=== PATIENT | male | born 1930 | race Hispanic/Latino ===

== ENCOUNTER 2016-08-24 13:38 | Inpatient (IN) | payer MEDICARE ==
[2016-08-24 13:38] VITALS: BMI 29.0
--- NOTE | 2016-08-24 13:58 | ED PDOC ---
HPI: General Adult Time Seen by Provider: 08/24/16 13:50 Chief Complaint (Nursing): Dizziness/Lightheaded Chief Complaint (Provider): low blood pressure History Per: Patient History/Exam Limitations: no limitations Additional Complaint(s): 86yo male taking Plavix brought to the ED for hypotension. Patient usually has hypertension however for 3 days his blood pressure has been low. Patient states he has dizziness, when walking short distances and decreased appetite. No chest pain, shortness of breath. Patient also looks pale. Daughter feels patient has lethargy. 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 - Surgical History Surgical History: Carotid Endarterectomy, Cholecystectomy, Coronary Stent - Family History Family History: States: Unknown Family Hx - Immunization History Hx Tetanus Toxoid Vaccination: No Hx Influenza Vaccination: Yes Hx Pneumococcal Vaccination: No - Home Medications Home Medications: Ambulatory Orders Medication Instructions Recorded Clopidogrel [Plavix] 75 mg PO DAILY 10/03/14 Aspirin [Aspirin Chewable] 81 mg PO DAILY 03/14/16 Fish Oil/Dha/Epa [Fish Oil 1,200 1,200 mg PO DAILY 03/14/16 mg Fish Oil] Cyanocobalamin (Vitamin B-12) 2,500 mcg PO DAILY 05/02/16 [Vitamin B12] Ferrous Sulfate 1 tab PO DAILY 05/02/16 Pantoprazole Sodium [Protonix] 1 tab PO DAILY 05/02/16 Furosemide [Lasix] 20 mg PO DAILY 07/24/16 Potassium Chloride [Klor-Con 10] 1 tab PO DAILY 07/24/16 Pravastatin Sodium [Pravachol] 40 mg PO HS 07/24/16 Finasteride [Proscar] 5 mg PO DAILY #30 tab 07/28/16 Valsartan [Diovan] 160 mg PO DAILY #30 tab 07/28/16 - Allergies Allergies/Adverse Reactions: Allergies Allergy/AdvReac Type Severity Reaction Status Date / Time No Known Allergies Allergy Verified 08/24/16 13:40 Review of Systems ROS Statement: Except As Marked, All Systems Reviewed And Found Negative Constitutional: Positive for: Other (decreased appetite) Cardiovascular: Negative for: Chest Pain Respiratory: Negative for: Shortness of Breath Neurological: Positive for: Dizziness Physical Exam - Physical Exam Skin: Positive for: Pallor - Laboratory Results Result Diagrams: 08/24/16 14:20 08/24/16 14:20 - ECG O2 Sat by Pulse Oximetry: 99 Medical Decision Making Medical Decision Makin Impression: anemia Plan: Disposition - Clinical Impression Clinical Impression: Renal insufficiency, Orthostatic hypotension, Dehydration - Patient ED Disposition Is Patient to be Admitted: Yes - Disposition Disposition Time: 15:30 Condition: FAIR - Pt Status Changed To: Hospital Disposition Of: Inpatient - Admit Certification Admit to Inpatient:: After my assessment, the patient will require hospitalization for at least two midnights. This is because of the severity of symptoms shown, intensity of services needed, and/or the medical risk in this patient being treated as an outpatient. - POA Present On Arrival: None Additional Comments - Additional Comments Additional Comments: Scribe Attestation: Documented by Roberto Noel acting as a scribe for Sukumar Moon MD Provider Scribe Attestation: All medical record entries made by the Scribe were at my direction and personally dictated by me. I have reviewed the chart and agree that the record accurately reflects my personal performance of the history, physical exam, medical decision making, and the department course for this patient. I have also personally directed, reviewed, and agree with the discharge instructions and disposition.
[2016-08-24] MEDS ORDERED: Sodium Chloride 0.9% 1,000 ML IV STA (14:05)
[2016-08-24 14:30] LABS: BASO # 0.1 K/uL (0.0-0.2); BASO % 0.7 % (0.0-2.0); EOS # 0.4 K/uL (0.0-0.7); EOS % 4.6 % (0.0-4.0); HEMATOCRIT 28.6 % (35.0-51.0); LYMPH # 2.5 K/uL (1.0-4.3); LYMPH % 30.9 % (20.0-40.0); MEAN CELL VOLUME 83.8 fl (80.0-94.0); MEAN CORPUSCULAR HEMOGLOBIN 26.7 pg (27.0-31.0); MEAN CORPUSCULAR HGB CONC 31.8 g/dL (33.0-37.0); MEAN PLATELET VOLUME 8.6 fl (7.2-11.7); MONO # 0.5 K/uL (0.0-0.8); MONO % 6.4 % (0.0-10.0); NEUT # 4.6 K/uL (1.8-7.0); NEUT % 57.4 % (50.0-75.0); NRBC % 0.1 % (0.0-0.0); WHITE BLOOD COUNT 7.9 K/uL (4.8-10.8)
[2016-08-24 14:44] LABS: ALB/GLOB RATIO 1.1 (1.0-2.1); BILIRUBIN,TOTAL 0.4 mg/dl (0.2-1.3)
--- NOTE | 2016-08-24 15:28 | RAD ---
HISTORY: dizziness COMPARISON: 07/24/2016 TECHNIQUE: Chest PA and lateral FINDINGS: LUNGS: No infiltrate. Two adjacent calcified granulomas at the left lung base, 1 large in 1 small. Calcified granuloma inferior to left hilum. These are all unchanged compared to prior examinations. PLEURA: No significant pleural effusion identified. No pneumothorax apparent. CARDIOVASCULAR: Normal. OSSEOUS STRUCTURES: No significant abnormalities. VISUALIZED UPPER ABDOMEN: Normal. OTHER FINDINGS: None. IMPRESSION: No acute infiltrate. Calcified old granulomas.
[2016-08-25] MEDS: Pravastatin Sodium 40 MG TAB PO SCH ×2 (01:00→21:22)
[2016-08-25] MEDS: Dextrose 5%/0.45% NS 1,000 ML IV SCH ×3 (01:02→18:55)
[2016-08-25 07:59] LABS: HEMATOCRIT 27.6 % (35.0-51.0); MEAN CELL VOLUME 83.4 fl (80.0-94.0); MEAN CORPUSCULAR HEMOGLOBIN 26.7 pg (27.0-31.0); MEAN CORPUSCULAR HGB CONC 32.1 g/dL (33.0-37.0); RED CELL DISTRIBUTION WIDTH 17.8 % (11.5-14.5)
[2016-08-25 08:23] LABS: ALB/GLOB RATIO 1.1 (1.0-2.1); BILIRUBIN,TOTAL 0.3 mg/dl (0.2-1.3); CALCIUM 8.8 mg/dL (8.4-10.2); TOTAL PROTEIN 6.6 G/DL (6.3-8.2)
[2016-08-25 08:27] LABS: POTASSIUM 5.7 MMOL/L (3.6-5.0)
[2016-08-25] MEDS ORDERED: DHA PO SCH (09:00)
[2016-08-25] MEDS ORDERED: EPA PO SCH (09:00)
[2016-08-25] MEDS ORDERED: FISH OIL PO SCH (09:00)
[2016-08-25] MEDS ORDERED: CYANOCOBALAMIN 250 MCG PO SCH (09:00)
[2016-08-25] MEDS: Omega-3-Acid Ethyl Esters 1 GM Cap PO SCH (10:16)
[2016-08-25] MEDS: Pantoprazole 40 mg EC Tab PO SCH (10:21)
[2016-08-25] MEDS: CYANOCOBALAMIN 500 MCG TAB PO SCH (10:22)
[2016-08-25] MEDS ORDERED: Sod Polystyrene Sulf 15 gm/60 ml Oral Susp PO ONE (12:52)
[2016-08-25 14:08] LABS: CALCIUM 8.7 mg/dL (8.4-10.2)
--- NOTE | 2016-08-25 19:20 | CP.PCM.CON ---
History of Present Illness - History of Present Illness History of Present Illness: CC: Near syncope. HPI: This is a very pleasant 86 year old male with a PMH of HTN, PAD, s/p peripheral intervention, CKD, HTN and tobacco use who is well known to me and presents with complaints of dizziness and weakness with a feeling of nearly passing out. His symptoms are exacerbated by standing but he cannot pinpoint a specific precipitating trigger. He denies chest pain, dyspnea palpitation or edgar syncope. An ECG reveals no acute abnormalities and the troponin is negative. Review of telemetry shows that the patient has sinus bradycardia with a HR in the 50 BPM range while at rest. Review of Systems - Constitutional Constitutional: Fatigue, Weakness - EENT Additional comments: Negative. - Cardiovascular Cardiovascular: Lightheadedness - Respiratory Additional comments: Negative. - Gastrointestinal Additional comments: Negative. - Genitourinary Additional comments: Negative. - Musculoskeletal Musculoskeletal: Stiffness - Integumentary Additional comments: Negative. - Neurological Neurological: Dizziness Additional comments: Near syncope. - Psychiatric Psychiatric: Memory Loss - Endocrine Additional Comments: Negative. - Hematologic/Lymphatic Additional comments: Negative. 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 - RENAL Hx Chronic Kidney Disease: Yes - ENDOCRINE/METABOLIC Hx Diabetes Mellitus Type 2: Yes - HEMATOLOGICAL/ONCOLOGICAL Hx Anemia: Yes Hx Human Immunodeficiency Virus (HIV): No - INTEGUMENTARY Hx Dermatological Problems: No - MUSCULOSKELETAL/RHEUMATOLOGICAL Hx Arthritis: Yes Hx Falls: No Hx Fractures: Yes (left arm fx due to fall in the snow) - GASTROINTESTINAL Hx Gastrointestinal Disorders: Yes Hx Diverticulitis: Yes - GENITOURINARY/GYNECOLOGICAL Hx Genitourinary Disorders: No - PSYCHIATRIC Hx Psychophysiologic Disorder: No Hx Substance Use: No - SURGICAL HISTORY Hx Surgeries: Yes Hx Angiogram: Yes Hx Angioplasty: Yes (Peripheral stenting) Hx Carotid Endarterectomy: Yes Hx Cholecystectomy: Yes Hx Coronary Stent: Yes - ANESTHESIA Hx Anesthesia: Yes Hx Anesthesia Reactions: No Hx Malignant Hyperthermia: No Has any member of the family had a problem w/ anesthesia?: No Meds Allergies/Adverse Reactions: Allergies Allergy/AdvReac Type Severity Reaction Status Date / Time No Known Allergies Allergy Verified 08/24/16 13:40 - Medications Medications: Current Medications Amlodipine Besylate (Norvasc) 5 mg PO [facility] Last Admin: 08/25/16 01:01 Dose: 5 mg Aspirin (Ecotrin) 81 mg PO DAILY [facility] Last Admin: 08/25/16 10:15 Dose: 81 mg Clopidogrel Bisulfate (Plavix) 75 mg PO DAILY [facility] Last Admin: 08/25/16 10:17 Dose: 75 mg Cyanocobalamin (Vitamin B12) 250 mcg PO DAILY [facility] Last Admin: 08/25/16 10:22 Dose: 250 mcg Ferrous Sulfate (Feosol) 325 mg PO DAILY [facility] Last Admin: 08/25/16 10:15 Dose: 325 mg Finasteride (Proscar) 5 mg PO [facility] Last Admin: 08/25/16 01:00 Dose: 5 mg Furosemide (Lasix) 20 mg PO DAILY [facility] Last Admin: 08/25/16 10:16 Dose: 20 mg Dextrose/Sodium Chloride (Dextrose 5%/0.45% Ns 1000 Ml) 1,000 mls @ 80 mls/hr IV .[id number] [facility] Stop: 08/25/16 22:01 Last Admin: 08/25/16 11:06 Dose: 80 mls/hr Dextrose/Sodium Chloride (Dextrose 5%/0.45% Ns 1000 Ml) 1,000 mls @ 80 mls/hr IV .[id number] [facility] Stop: 08/26/16 13:46 Kkmie-3-Fhub Ethyl Esters (Lovaza) 1 gm PO DAILY [facility] Last Admin: 08/25/16 10:16 Dose: 1 gm Pantoprazole Sodium (Protonix Ec Tab) 40 mg PO DAILY [facility] Last Admin: 08/25/16 10:21 Dose: 40 mg Pravastatin Sodium (Pravachol) 40 mg PO [facility] Last Admin: 08/25/16 01:00 Dose: 40 mg Valsartan (Diovan) 160 mg PO DAILY [facility] Last Admin: 08/25/16 10:15 Dose: 160 mg Physical Exam - Constitutional Appears: Well, Non-toxic, No Acute Distress - Head Exam Head Exam: NORMAL INSPECTION, NORMOCEPHALIC - Eye Exam Eye Exam: EOMI, Normal appearance - ENT Exam ENT Exam: Mucous Membranes Moist, Normal Exam - Neck Exam Neck exam: Positive for: Full Rom, Normal Inspection Additional comments: Bruit bilaterally. - Respiratory Exam Respiratory Exam: Clear to Auscultation Bilateral, NORMAL BREATHING PATTERN - Cardiovascular Exam Cardiovascular Exam: REGULAR RHYTHM, +S1, +S2, Systolic Murmur - GI/Abdominal Exam GI & Abdominal Exam: Normal Bowel Sounds - Rectal Exam Rectal Exam: Deferred - Extremities Exam Extremities exam: Positive for: full ROM, normal inspection - Back Exam Back exam: CVA tenderness (L), NORMAL INSPECTION - Neurological Exam Neurological exam: Alert, CN II-XII Intact, Oriented x3 - Psychiatric Exam Psychiatric exam: Normal Affect, Normal Mood - Skin Skin Exam: Dry, Intact, Normal Color, Warm Results - Vital Signs Recent Vital Signs: Last Vital Signs Temp 97.9 F 08/25/16 15:46 Pulse 56 L 08/25/16 15:46 Resp 18 08/25/16 15:46 BP 129/54 L 08/25/16 15:46 Pulse Ox 100 08/25/16 15:46 - Labs Result Diagrams: 08/25/16 07:30 08/25/16 13:34 Labs: Laboratory Results - last 24 hr 08/24/16 08/25/16 08/25/16 21:41 05:40 07:30 WBC 7.0 RBC 3.31 L Hgb 8.8 L Hct 27.6 L MCV 83.4 MCH 26.7 L MCHC 32.1 L RDW 17.8 H Plt Count 253 Sodium 134 Potassium 5.7 H Chloride 111 H Carbon Dioxide 16 L Anion Gap 13 BUN 80 H Creatinine 2.3 H Est GFR ( Amer) 33 Est GFR (Non-Af Amer) 27 POC Glucose (mg/dL) 137 H 101 Random Glucose 89 Calcium 8.8 Total Bilirubin 0.3 AST 24 ALT 25 Alkaline Phosphatase 53 Total Protein 6.6 Albumin 3.4 L Globulin 3.2 Albumin/Globulin Ratio 1.1 08/25/16 08/25/16 08/25/16 11:13 13:34 16:10 WBC RBC Hgb Hct MCV MCH MCHC RDW Plt Count Sodium 132 Potassium 5.0 Chloride 111 H Carbon Dioxide 13 L Anion Gap 13 BUN 79 H Creatinine 2.2 H Est GFR ( Amer) 35 Est GFR (Non-Af Amer) 29 POC Glucose (mg/dL) 145 H 109 Random Glucose 110 Calcium 8.7 Total Bilirubin AST ALT Alkaline Phosphatase Total Protein Albumin Globulin Albumin/Globulin Ratio Assessment & Plan - Assessment and Plan (Free Text) Assessment: Near syncope. Dizziness. Sinus bradycardia. Anemia. Hypertension. Chronic renal insufficiency. Prerenal azotemia. Peripheral arterial disease, s/p intervention. Dyslipidemia. COPD. Plan: Monitor telemetry. Ambulate patient and observe chronotropic response to activity. Continue present management. Hold furosemide. Monitor renal function. Will follow with you. - Date & Time Date: 08/25/16 Time: 15:10
--- NOTE | 2016-08-25 23:03 | CP.PCM.HP ---
History of Present Illness - History of Present Illness History of Present Illness: This is an 86 y/o male with hx of HTN CAD recurrent orthostatic hypotension,PAD , CKD 3 anemia was admitted due to to progressive weakness and near fainting. He had numerous episodes in the past and did well after discontinuation of Nitrates, and Doxazosin. He has chronic anemia and has recurrent leg edema from his CKD 3. Present on Admission - Present on Admission Any Indicators Present on Admission: No History of Uncontrolled Diabetes: No Urinary Catheter: No Decubitus Ulcer Present: No Review of Systems - Neurological Neurological: Dizziness, Syncope 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 - RENAL Hx Chronic Kidney Disease: Yes - ENDOCRINE/METABOLIC Hx Diabetes Mellitus Type 2: Yes - HEMATOLOGICAL/ONCOLOGICAL Hx Anemia: Yes Hx Human Immunodeficiency Virus (HIV): No - INTEGUMENTARY Hx Dermatological Problems: No - MUSCULOSKELETAL/RHEUMATOLOGICAL Hx Arthritis: Yes Hx Falls: No Hx Fractures: Yes (left arm fx due to fall in the snow) - GASTROINTESTINAL Hx Gastrointestinal Disorders: Yes Hx Diverticulitis: Yes - GENITOURINARY/GYNECOLOGICAL Hx Genitourinary Disorders: No - PSYCHIATRIC Hx Psychophysiologic Disorder: No Hx Substance Use: No - SURGICAL HISTORY Hx Surgeries: Yes Hx Angiogram: Yes Hx Angioplasty: Yes (Peripheral stenting) Hx Carotid Endarterectomy: Yes Hx Cholecystectomy: Yes Hx Coronary Stent: Yes - ANESTHESIA Hx Anesthesia: Yes Hx Anesthesia Reactions: No Hx Malignant Hyperthermia: No Has any member of the family had a problem w/ anesthesia?: No Meds Home Medications: Home Medication List Medication Instructions Recorded Confirmed Type Fludrocortisone [Florinef Acetate] 0.1 mg PO BID #60 tab 08/28/16 Rx Allergies/Adverse Reactions: Allergies Allergy/AdvReac Type Severity Reaction Status Date / Time No Known Allergies Allergy Verified 08/24/16 13:40 Physical Exam - Head Exam Head Exam: NORMAL INSPECTION - Eye Exam Eye Exam: Normal appearance - ENT Exam ENT Exam: Mucous Membranes Moist - Respiratory Exam Respiratory Exam: Clear to Auscultation Bilateral - Cardiovascular Exam Cardiovascular Exam: REGULAR RHYTHM - GI/Abdominal Exam GI & Abdominal Exam: Normal Bowel Sounds - Neurological Exam Neurological exam: CN II-XII Intact, Oriented x3 Results - Vital Signs Recent Vital Signs: Last Vital Signs Temp 97.4 F L 08/25/16 20:00 Pulse 59 L 08/25/16 21:23 Resp 18 08/25/16 20:00 BP 158/72 H 08/25/16 21:23 Pulse Ox 100 08/25/16 20:00 - Labs Result Diagrams: 08/25/16 07:30 08/26/16 05:55 Labs: Laboratory Results - last 24 hr 08/25/16 08/25/16 08/25/16 05:40 07:30 11:13 WBC 7.0 RBC 3.31 L Hgb 8.8 L Hct 27.6 L MCV 83.4 MCH 26.7 L MCHC 32.1 L RDW 17.8 H Plt Count 253 Sodium 134 Potassium 5.7 H Chloride 111 H Carbon Dioxide 16 L Anion Gap 13 BUN 80 H Creatinine 2.3 H Est GFR ( Amer) 33 Est GFR (Non-Af Amer) 27 POC Glucose (mg/dL) 101 145 H Random Glucose 89 Calcium 8.8 Total Bilirubin 0.3 AST 24 ALT 25 Alkaline Phosphatase 53 Total Protein 6.6 Albumin 3.4 L Globulin 3.2 Albumin/Globulin Ratio 1.1 08/25/16 08/25/16 08/25/16 13:34 16:10 21:12 WBC RBC Hgb Hct MCV MCH MCHC RDW Plt Count Sodium 132 Potassium 5.0 Chloride 111 H Carbon Dioxide 13 L Anion Gap 13 BUN 79 H Creatinine 2.2 H Est GFR ( Amer) 35 Est GFR (Non-Af Amer) 29 POC Glucose (mg/dL) 109 114 H Random Glucose 110 Calcium 8.7 Total Bilirubin AST ALT Alkaline Phosphatase Total Protein Albumin Globulin Albumin/Globulin Ratio Assessment & Plan - Assessment and Plan (Free Text) Assessment: orthostatic Hypotension Dizziness CKD 3 Anemia , chronic carotid stenosis Dehydration Plan telemetry orthostatic test cardiology eval cont tx hydration
--- NOTE | 2016-08-25 23:22 | CP.PCM.PN ---
Subjective - Date & Time of Evaluation Date of Evaluation: 08/25/16 Time of Evaluation: 17:00 - Subjective Subjective: Patient remains stable Has no fever No headaches No dizziness Noted orthostatic hypotension Objective - Vital Signs/Intake and Output Vital Signs (last 24 hours): Temp Pulse Resp BP Pulse Ox 97.4 F L 59 L 18 158/72 H 100 08/25/16 20:00 08/25/16 21:23 08/25/16 20:00 08/25/16 21:23 08/25/16 20:00 Intake and Output: 08/25/16 08/26/16 18:59 06:59 Intake Total 1810 Balance 1810 - Medications Medications: Current Medications Amlodipine Besylate (Norvasc) 5 mg PO HS [facility] Last Admin: 08/25/16 21:23 Dose: 5 mg Aspirin (Ecotrin) 81 mg PO DAILY [facility] Last Admin: 08/25/16 10:15 Dose: 81 mg Clopidogrel Bisulfate (Plavix) 75 mg PO DAILY [facility] Last Admin: 08/25/16 10:17 Dose: 75 mg Cyanocobalamin (Vitamin B12) 250 mcg PO DAILY [facility] Last Admin: 08/25/16 10:22 Dose: 250 mcg Ferrous Sulfate (Feosol) 325 mg PO DAILY [facility] Last Admin: 08/25/16 10:15 Dose: 325 mg Finasteride (Proscar) 5 mg PO HS [facility] Last Admin: 08/25/16 21:22 Dose: 5 mg Furosemide (Lasix) 20 mg PO DAILY [facility] Last Admin: 08/25/16 10:16 Dose: 20 mg Dextrose/Sodium Chloride (Dextrose 5%/0.45% Ns 1000 Ml) 1,000 mls @ 80 mls/hr IV .[id number] [facility] Stop: 08/26/16 13:46 [id number] Ethyl Esters (Lovaza) 1 gm PO DAILY [facility] Last Admin: 08/25/16 10:16 Dose: 1 gm Pantoprazole Sodium (Protonix Ec Tab) 40 mg PO DAILY [facility] Last Admin: 08/25/16 10:21 Dose: 40 mg Pravastatin Sodium (Pravachol) 40 mg PO HS [facility] Last Admin: 08/25/16 21:22 Dose: 40 mg Valsartan (Diovan) 160 mg PO DAILY [facility] Last Admin: 08/25/16 10:15 Dose: 160 mg - Labs Labs: 08/25/16 07:30 08/25/16 13:34 PT 10.3 SECONDS (9.6-11.2) 08/24/16 14:20 INR 0.99 (0.92-1.08) 08/24/16 14:20 - Head Exam Head Exam: NORMAL INSPECTION - Eye Exam Eye Exam: Normal appearance - ENT Exam ENT Exam: Mucous Membranes Moist - Respiratory Exam Respiratory Exam: Clear to Ausculation Bilateral - Cardiovascular Exam Cardiovascular Exam: REGULAR RHYTHM - GI/Abdominal Exam GI & Abdominal Exam: Normal Bowel Sounds - Neurological Exam Neurological Exam: CN II-XII Intact, Oriented x3 Assessment and Plan - Assessment and Plan (Free Text) Plan: Orthostatic BP check Hydrate follow up with cardiology cont all meds. checklabs.
[2016-08-26] MEDS: Dextrose 5%/0.45% NS 1,000 ML IV SCH (02:30)
[2016-08-26 06:45] LABS: CALCIUM 8.7 mg/dL (8.4-10.2); POTASSIUM 5.2 MMOL/L (3.6-5.0)
[2016-08-26] MEDS: Omega-3-Acid Ethyl Esters 1 GM Cap PO SCH (09:32)
[2016-08-26] MEDS: CYANOCOBALAMIN 500 MCG TAB PO SCH (09:36)
[2016-08-26] MEDS: Pantoprazole 40 mg EC Tab PO SCH (09:36)
--- NOTE | 2016-08-26 13:53 | CP.PCM.PN ---
<Chichi Monsalve - Last Filed: 08/26/16 15:07> Subjective - Date & Time of Evaluation Date of Evaluation: 08/26/16 Time of Evaluation: 10:35 - Subjective Subjective: Pt seen and examined at bedside, does not have any complains. feels ok but remains bradycardic on monitor Objective - Vital Signs/Intake and Output Vital Signs (last 24 hours): Temp Pulse Resp BP Pulse Ox 98.1 F 55 L 20 146/53 L 99 08/26/16 12:29 08/26/16 12:29 08/26/16 12:29 08/26/16 12:29 08/26/16 12:29 Intake and Output: 08/26/16 08/26/16 06:59 18:59 Intake Total 1260 Output Total 900 Balance 360 - Medications Medications: Current Medications Amlodipine Besylate (Norvasc) 10 mg PO DAILY [facility] Aspirin (Ecotrin) 81 mg PO DAILY [facility] Last Admin: 08/26/16 09:36 Dose: 81 mg Clopidogrel Bisulfate (Plavix) 75 mg PO DAILY [facility] Last Admin: 08/26/16 09:36 Dose: 75 mg Cyanocobalamin (Vitamin B12) 250 mcg PO DAILY [facility] Last Admin: 08/26/16 09:36 Dose: 250 mcg Ferrous Sulfate (Feosol) 325 mg PO DAILY [facility] Last Admin: 08/26/16 09:35 Dose: 325 mg Finasteride (Proscar) 5 mg PO HS [facility] Last Admin: 08/25/16 21:22 Dose: 5 mg Furosemide (Lasix) 20 mg PO DAILY [facility] Last Admin: 08/26/16 09:35 Dose: 20 mg [id number] Ethyl Esters (Lovaza) 1 gm PO DAILY [facility] Last Admin: 08/26/16 09:32 Dose: 1 gm Pantoprazole Sodium (Protonix Ec Tab) 40 mg PO DAILY [facility] Last Admin: 08/26/16 09:36 Dose: 40 mg Pravastatin Sodium (Pravachol) 40 mg PO HS [facility] Last Admin: 08/25/16 21:22 Dose: 40 mg Valsartan (Diovan) 160 mg PO DAILY [facility] Last Admin: 08/26/16 09:36 Dose: 160 mg - Labs Labs: 08/25/16 07:30 08/26/16 05:55 PT 10.3 SECONDS (9.6-11.2) 08/24/16 14:20 INR 0.99 (0.92-1.08) 08/24/16 14:20 - Constitutional Appears: Non-toxic, No Acute Distress - Head Exam Head Exam: NORMOCEPHALIC - Eye Exam Eye Exam: Normal appearance - ENT Exam ENT Exam: Mucous Membranes Moist - Respiratory Exam Respiratory Exam: Clear to Ausculation Bilateral, NORMAL BREATHING PATTERN. absent: Rhonchi, Wheezes - Cardiovascular Exam Cardiovascular Exam: REGULAR RHYTHM, +S1, +S2 - GI/Abdominal Exam GI & Abdominal Exam: Soft, Normal Bowel Sounds. absent: Tenderness - Extremities Exam Extremities Exam: Full ROM, Normal Inspection. absent: Calf Tenderness - Neurological Exam Neurological Exam: Alert, CN II-XII Intact, Oriented x3 Assessment and Plan - Assessment and Plan (Free Text) Assessment: 86 y.o male with an extensive medical history admitted for an hypotensive episode and bradycardia Plan: Hypotension and bradycardia cardiology following considering possible pacemaker orthostatic ordered chronic renal insufficiency Currently stable Lasix on hold continue to monitor medication as ordered heart healthy diet lovenox SC daily <Yordy Sinclair - Last Filed: 08/31/16 10:25> Objective - Vital Signs/Intake and Output Vital Signs (last 24 hours): Temp Pulse Resp BP Pulse Ox 98.5 F 56 L 18 153/58 H 100 08/31/16 08:21 08/31/16 09:00 08/31/16 08:21 08/31/16 08:21 08/31/16 08:21 Intake and Output: 08/31/16 08/31/16 06:59 18:59 Output Total 70 Balance -70 - Medications Medications: Current Medications Aspirin (Ecotrin) 81 mg PO DAILY [facility] Last Admin: 08/31/16 09:16 Dose: 81 mg Clopidogrel Bisulfate (Plavix) 75 mg PO DAILY [facility] Last Admin: 08/31/16 09:16 Dose: 75 mg Cyanocobalamin (Vitamin B12) 250 mcg PO DAILY [facility] Last Admin: 08/31/16 09:17 Dose: 250 mcg Ferrous Sulfate (Feosol) 325 mg PO DAILY [facility] Last Admin: 08/31/16 09:16 Dose: 325 mg Finasteride (Proscar) 5 mg PO HS [facility] Last Admin: 08/30/16 21:27 Dose: 5 mg Fludrocortisone Acetate (Florinef) 0.1 mg PO BID [facility] Last Admin: 08/31/16 09:16 Dose: 0.1 mg Furosemide (Lasix) 20 mg PO DAILY [facility] Last Admin: 08/26/16 09:35 Dose: 20 mg [id number]-5-[id number] Ethyl Esters (Lovaza) 1 gm PO DAILY [facility] Last Admin: 08/31/16 09:16 Dose: 1 gm Pantoprazole Sodium (Protonix Ec Tab) 40 mg PO DAILY [facility] Last Admin: 08/31/16 09:17 Dose: 40 mg Pravastatin Sodium (Pravachol) 40 mg PO HS [facility] Last Admin: 08/30/16 21:27 Dose: 40 mg Valsartan (Diovan) 160 mg PO DAILY [facility] Last Admin: 08/31/16 09:17 Dose: 160 mg - Labs Labs: 08/25/16 07:30 08/26/16 05:55 PT 10.3 SECONDS (9.6-11.2) 08/24/16 14:20 INR 0.99 (0.92-1.08) 08/24/16 14:20 Assessment and Plan (1) Dehydration Status: Acute (2) Orthostatic hypotension Status: Acute (3) Anemia Status: Acute (4) Carotid stenosis, right Status: Acute (5) CKD (chronic kidney disease), stage III Status: Acute - Assessment and Plan (Free Text) Plan: i was present during evaluation and discussed with Dr Gricel olvera plans of care and management
[2016-08-26] MEDS: Pravastatin Sodium 40 MG TAB PO SCH (22:14)
[2016-08-27] MEDS: Omega-3-Acid Ethyl Esters 1 GM Cap PO SCH (09:10)
[2016-08-27] MEDS: CYANOCOBALAMIN 500 MCG TAB PO SCH (09:11)
[2016-08-27] MEDS: Pantoprazole 40 mg EC Tab PO SCH (09:11)
--- NOTE | 2016-08-27 11:27 | CP.PCM.PN ---
<Chichi Monsalve - Last Filed: 08/27/16 11:28> Subjective - Date & Time of Evaluation Date of Evaluation: 08/27/16 Time of Evaluation: 09:55 - Subjective Subjective: Pt seen and evaluated at bedside, does not have any complaints. would like to know what the plan of action is; other than that he feels fine Objective - Vital Signs/Intake and Output Vital Signs (last 24 hours): Temp Pulse Resp BP Pulse Ox 97.8 F 48 L 18 181/64 H 95 08/27/16 08:05 08/27/16 09:11 08/27/16 08:05 08/27/16 09:11 08/27/16 08:05 - Medications Medications: Current Medications Amlodipine Besylate (Norvasc) 10 mg PO DAILY [facility] Last Admin: 08/27/16 09:11 Dose: 10 mg Aspirin (Ecotrin) 81 mg PO DAILY [facility] Last Admin: 08/27/16 09:12 Dose: 81 mg Clopidogrel Bisulfate (Plavix) 75 mg PO DAILY [facility] Last Admin: 08/27/16 09:12 Dose: 75 mg Cyanocobalamin (Vitamin B12) 250 mcg PO DAILY [facility] Last Admin: 08/27/16 09:11 Dose: 250 mcg Ferrous Sulfate (Feosol) 325 mg PO DAILY [facility] Last Admin: 08/27/16 09:10 Dose: 325 mg Finasteride (Proscar) 5 mg PO HS [facility] Last Admin: 08/26/16 22:14 Dose: 5 mg Fludrocortisone Acetate (Florinef) 0.1 mg PO DAILY [facility] Last Admin: 08/27/16 09:12 Dose: 0.1 mg Furosemide (Lasix) 20 mg PO DAILY [facility] Last Admin: 08/26/16 09:35 Dose: 20 mg Zpfkh-9-Isea Ethyl Esters (Lovaza) 1 gm PO DAILY [facility] Last Admin: 08/27/16 09:10 Dose: 1 gm Pantoprazole Sodium (Protonix Ec Tab) 40 mg PO DAILY [facility] Last Admin: 08/27/16 09:11 Dose: 40 mg Pravastatin Sodium (Pravachol) 40 mg PO HS [facility] Last Admin: 08/26/16 22:14 Dose: 40 mg Valsartan (Diovan) 160 mg PO DAILY [facility] Last Admin: 08/27/16 09:12 Dose: 160 mg - Labs Labs: 08/25/16 07:30 08/26/16 05:55 PT 10.3 SECONDS (9.6-11.2) 08/24/16 14:20 INR 0.99 (0.92-1.08) 08/24/16 14:20 - Constitutional Appears: Non-toxic, No Acute Distress - Head Exam Head Exam: NORMOCEPHALIC - Eye Exam Eye Exam: Normal appearance - ENT Exam ENT Exam: Mucous Membranes Moist - Respiratory Exam Respiratory Exam: Clear to Ausculation Bilateral, NORMAL BREATHING PATTERN. absent: Rhonchi, Wheezes - Cardiovascular Exam Cardiovascular Exam: REGULAR RHYTHM, +S1, +S2 - GI/Abdominal Exam GI & Abdominal Exam: Soft, Normal Bowel Sounds. absent: Tenderness - Extremities Exam Extremities Exam: absent: Calf Tenderness, Pedal Edema - Neurological Exam Neurological Exam: Alert, Awake, CN II-XII Intact - Skin Skin Exam: Normal Color Assessment and Plan - Assessment and Plan (Free Text) Assessment: 86 y.o male with an extensive medical history admitted for an hypotensive episode and bradycardia Plan: Hypotension and bradycardia cardiology following considering possible pacemaker chronic renal insufficiency Currently stable Lasix on hold continue to monitor medication as ordered heart healthy diet lovenox [place] daily Disposition: If cardiology decided to move forward with pacemaker pt stays till , if not discharge pt in the AM <Yordy Sinclair - Last Filed: 08/31/16 10:26> Objective - Vital Signs/Intake and Output Vital Signs (last 24 hours): Temp Pulse Resp BP Pulse Ox 98.5 F 56 L 18 153/58 H 100 08/31/16 08:21 08/31/16 09:00 08/31/16 08:21 08/31/16 08:21 08/31/16 08:21 Intake and Output: 08/31/16 08/31/16 06:59 18:59 Output Total 70 Balance -70 - Medications Medications: Current Medications Aspirin (Ecotrin) 81 mg PO DAILY [facility] Last Admin: 08/31/16 09:16 Dose: 81 mg Clopidogrel Bisulfate (Plavix) 75 mg PO DAILY [facility] Last Admin: 08/31/16 09:16 Dose: 75 mg Cyanocobalamin (Vitamin B12) 250 mcg PO DAILY [facility] Last Admin: 08/31/16 09:17 Dose: 250 mcg Ferrous Sulfate (Feosol) 325 mg PO DAILY [facility] Last Admin: 08/31/16 09:16 Dose: 325 mg Finasteride (Proscar) 5 mg PO HS [facility] Last Admin: 08/30/16 21:27 Dose: 5 mg Fludrocortisone Acetate (Florinef) 0.1 mg PO BID [facility] Last Admin: 08/31/16 09:16 Dose: 0.1 mg Furosemide (Lasix) 20 mg PO DAILY [facility] Last Admin: 08/26/16 09:35 Dose: 20 mg Gdudf-4-Yodz Ethyl Esters (Lovaza) 1 gm PO DAILY [facility] Last Admin: 08/31/16 09:16 Dose: 1 gm Pantoprazole Sodium (Protonix Ec Tab) 40 mg PO DAILY [facility] Last Admin: 08/31/16 09:17 Dose: 40 mg Pravastatin Sodium (Pravachol) 40 mg PO HS [facility] Last Admin: 08/30/16 21:27 Dose: 40 mg Valsartan (Diovan) 160 mg PO DAILY [facility] Last Admin: 08/31/16 09:17 Dose: 160 mg - Labs Labs: 08/25/16 07:30 08/26/16 05:55 PT 10.3 SECONDS (9.6-11.2) 08/24/16 14:20 INR 0.99 (0.92-1.08) 08/24/16 14:20 Assessment and Plan (1) Dehydration Status: Acute (2) Orthostatic hypotension Status: Acute (3) Anemia Status: Acute (4) Carotid stenosis, right Status: Acute (5) CKD (chronic kidney disease), stage III Status: Acute - Assessment and Plan (Free Text) Plan: I was present during evaluation and discussed with Dr Gricel olvera plans of care and management.
--- NOTE | 2016-08-27 18:56 | CP.PCM.PN ---
Subjective - Date & Time of Evaluation Date of Evaluation: 08/27/16 Time of Evaluation: 15:25 - Subjective Subjective: REASON FOR VISIT: Near syncope. INTERVAL HISTORY: Mr. Yen is resting comfortably in bed without any complaints or symptoms. He was able to ambulate with the therapist with out weakness or syncope but was fatigued after one round in the unit. He is also profoundly orthostatic with standing with a SBP of 160's lying down and 95 when standing up. He has chronotropic response to activity with his heart rate 46 at rest and 80 with ambulation. The patient has been started on Florinef and has had two doses. These findings were expressed to his daughter who is his skin care consultant as well as the primary care team. Objective - Vital Signs/Intake and Output Vital Signs (last 24 hours): Temp Pulse Resp BP Pulse Ox 97.3 F L 53 L 18 111/58 L 100 08/27/16 16:00 08/27/16 16:00 08/27/16 16:00 08/27/16 16:00 08/27/16 16:00 - Medications Medications: Current Medications Amlodipine Besylate (Norvasc) 10 mg PO DAILY [facility] Last Admin: 08/27/16 09:11 Dose: 10 mg Aspirin (Ecotrin) 81 mg PO DAILY [facility] Last Admin: 08/27/16 09:12 Dose: 81 mg Clopidogrel Bisulfate (Plavix) 75 mg PO DAILY [facility] Last Admin: 08/27/16 09:12 Dose: 75 mg Cyanocobalamin (Vitamin B12) 250 mcg PO DAILY [facility] Last Admin: 08/27/16 09:11 Dose: 250 mcg Ferrous Sulfate (Feosol) 325 mg PO DAILY [facility] Last Admin: 08/27/16 09:10 Dose: 325 mg Finasteride (Proscar) 5 mg PO HS [facility] Last Admin: 08/26/16 22:14 Dose: 5 mg Fludrocortisone Acetate (Florinef) 0.1 mg PO DAILY [facility] Last Admin: 08/27/16 09:12 Dose: 0.1 mg Furosemide (Lasix) 20 mg PO DAILY [facility] Last Admin: 08/26/16 09:35 Dose: 20 mg Qyuor-2-Voml Ethyl Esters (Lovaza) 1 gm PO DAILY [facility] Last Admin: 08/27/16 09:10 Dose: 1 gm Pantoprazole Sodium (Protonix Ec Tab) 40 mg PO DAILY [facility] Last Admin: 08/27/16 09:11 Dose: 40 mg Pravastatin Sodium (Pravachol) 40 mg PO HS [facility] Last Admin: 08/26/16 22:14 Dose: 40 mg Valsartan (Diovan) 160 mg PO DAILY [facility] Last Admin: 08/27/16 09:12 Dose: 160 mg - Labs Labs: 08/25/16 07:30 08/26/16 05:55 PT 10.3 SECONDS (9.6-11.2) 08/24/16 14:20 INR 0.99 (0.92-1.08) 08/24/16 14:20 - Constitutional Appears: Well, No Acute Distress - Head Exam Head Exam: NORMAL INSPECTION, NORMOCEPHALIC - Eye Exam Eye Exam: Normal appearance, PERRL - ENT Exam ENT Exam: Mucous Membranes Moist - Neck Exam Neck Exam: Normal Inspection - Respiratory Exam Respiratory Exam: Clear to Ausculation Bilateral, NORMAL BREATHING PATTERN - Cardiovascular Exam Cardiovascular Exam: REGULAR RHYTHM, +S1, +S2 - GI/Abdominal Exam GI & Abdominal Exam: Soft - Rectal Exam Rectal Exam: Deferred - Extremities Exam Extremities Exam: Normal Inspection - Back Exam Back Exam: NORMAL INSPECTION - Neurological Exam Neurological Exam: Alert, Awake, Oriented x3 - Psychiatric Exam Psychiatric exam: Normal Affect, Normal Mood - Skin Skin Exam: Dry, Intact, Normal Color, Warm Assessment and Plan - Assessment and Plan (Free Text) Assessment: Near syncope Orthostasis CAD PAD CKD DM Dyslipidemia S/p pituitary resection Plan: Continue present medical management Physical therapy Monitor telemetry
[2016-08-27] MEDS: Pravastatin Sodium 40 MG TAB PO SCH (21:21)
[2016-08-28] MEDS: Pantoprazole 40 mg EC Tab PO SCH (08:52)
[2016-08-28] MEDS: CYANOCOBALAMIN 500 MCG TAB PO SCH (08:53)
[2016-08-28] MEDS: Omega-3-Acid Ethyl Esters 1 GM Cap PO SCH (08:53)
--- NOTE | 2016-08-28 12:01 | CP.PCM.PN ---
<Chichi Monsalve - Last Filed: 08/28/16 13:24> Subjective - Date & Time of Evaluation Date of Evaluation: 08/28/16 Time of Evaluation: 11:00 - Subjective Subjective: Pt seen and examined at bedside, does not have any complaints. would like to know when he is going home. Objective - Vital Signs/Intake and Output Vital Signs (last 24 hours): Temp Pulse Resp BP Pulse Ox 97.3 F L 55 L 18 175/58 H 100 08/28/16 08:10 08/28/16 08:10 08/28/16 08:10 08/28/16 08:10 08/28/16 08:10 Intake and Output: 08/28/16 08/28/16 06:59 18:59 Intake Total 450 Output Total 250 Balance 200 - Medications Medications: Current Medications Aspirin (Ecotrin) 81 mg PO DAILY [facility] Last Admin: 08/28/16 08:52 Dose: 81 mg Clopidogrel Bisulfate (Plavix) 75 mg PO DAILY [facility] Last Admin: 08/28/16 08:52 Dose: 75 mg Cyanocobalamin (Vitamin B12) 250 mcg PO DAILY [facility] Last Admin: 08/28/16 08:53 Dose: 250 mcg Ferrous Sulfate (Feosol) 325 mg PO DAILY [facility] Last Admin: 08/28/16 08:53 Dose: 325 mg Finasteride (Proscar) 5 mg PO HS [facility] Last Admin: 08/27/16 21:43 Dose: 5 mg Fludrocortisone Acetate (Florinef) 0.1 mg PO BID [facility] Furosemide (Lasix) 20 mg PO DAILY [facility] Last Admin: 08/26/16 09:35 Dose: 20 mg Ohzzj-8-Bdxc Ethyl Esters (Lovaza) 1 gm PO DAILY [facility] Last Admin: 08/28/16 08:53 Dose: 1 gm Pantoprazole Sodium (Protonix Ec Tab) 40 mg PO DAILY [facility] Last Admin: 08/28/16 08:52 Dose: 40 mg Pravastatin Sodium (Pravachol) 40 mg PO HS [facility] Last Admin: 08/27/16 21:21 Dose: 40 mg Valsartan (Diovan) 160 mg PO DAILY [facility] Last Admin: 08/28/16 08:52 Dose: 160 mg - Labs Labs: 08/25/16 07:30 08/26/16 05:55 PT 10.3 SECONDS (9.6-11.2) 08/24/16 14:20 INR 0.99 (0.92-1.08) 08/24/16 14:20 - Constitutional Appears: Non-toxic, No Acute Distress - Eye Exam Eye Exam: Normal appearance - ENT Exam ENT Exam: Mucous Membranes Moist - Respiratory Exam Respiratory Exam: Clear to Ausculation Bilateral, NORMAL BREATHING PATTERN. absent: Rhonchi, Wheezes - Cardiovascular Exam Cardiovascular Exam: REGULAR RHYTHM, +S1, +S2 - GI/Abdominal Exam GI & Abdominal Exam: Soft, Normal Bowel Sounds. absent: Tenderness - Extremities Exam Extremities Exam: Full ROM. absent: Calf Tenderness - Neurological Exam Neurological Exam: Alert, Awake, Oriented x3 Assessment and Plan - Assessment and Plan (Free Text) Assessment: 86 y.o male with an extensive medical history admitted for an hypotensive episode and bradycardia Plan: Hypotension and bradycardia cardiology following pacemaker not an option at this point chronic renal insufficiency Currently stable Lasix on hold continue to monitor medication as ordered heart healthy diet lovenox [place] daily Disposition: Pacemaker is not happening during this admission, pt will be discharged in the AM <Yordy Sinclair - Last Filed: 08/31/16 10:27> Objective - Vital Signs/Intake and Output Vital Signs (last 24 hours): Temp Pulse Resp BP Pulse Ox 98.5 F 56 L 18 153/58 H 100 08/31/16 08:21 08/31/16 09:00 08/31/16 08:21 08/31/16 08:21 08/31/16 08:21 Intake and Output: 08/31/16 08/31/16 06:59 18:59 Output Total 70 Balance -70 - Medications Medications: Current Medications Aspirin (Ecotrin) 81 mg PO DAILY [facility] Last Admin: 08/31/16 09:16 Dose: 81 mg Clopidogrel Bisulfate (Plavix) 75 mg PO DAILY [facility] Last Admin: 08/31/16 09:16 Dose: 75 mg Cyanocobalamin (Vitamin B12) 250 mcg PO DAILY [facility] Last Admin: 08/31/16 09:17 Dose: 250 mcg Ferrous Sulfate (Feosol) 325 mg PO DAILY [facility] Last Admin: 08/31/16 09:16 Dose: 325 mg Finasteride (Proscar) 5 mg PO [facility] Last Admin: 08/30/16 21:27 Dose: 5 mg Fludrocortisone Acetate (Florinef) 0.1 mg PO BID [facility] Last Admin: 08/31/16 09:16 Dose: 0.1 mg Furosemide (Lasix) 20 mg PO DAILY [facility] Last Admin: 08/26/16 09:35 Dose: 20 mg Bplad-6-Pjno Ethyl Esters (Lovaza) 1 gm PO DAILY [facility] Last Admin: 08/31/16 09:16 Dose: 1 gm Pantoprazole Sodium (Protonix Ec Tab) 40 mg PO DAILY [facility] Last Admin: 08/31/16 09:17 Dose: 40 mg Pravastatin Sodium (Pravachol) 40 mg PO HS [facility] Last Admin: 08/30/16 21:27 Dose: 40 mg Valsartan (Diovan) 160 mg PO DAILY [facility] Last Admin: 08/31/16 09:17 Dose: 160 mg - Labs Labs: 08/25/16 07:30 08/26/16 05:55 PT 10.3 SECONDS (9.6-11.2) 08/24/16 14:20 INR 0.99 (0.92-1.08) 08/24/16 14:20 Assessment and Plan (1) Dehydration Status: Acute (2) Orthostatic hypotension Status: Acute (3) Anemia Status: Acute (4) Carotid stenosis, right Status: Acute (5) CKD (chronic kidney disease), stage III Status: Acute - Assessment and Plan (Free Text) Plan: I was present during evlauation and discussed with Dr Gricel olvera plans of care and management. yordy Sinclair M.d.
[2016-08-28] MEDS: Pravastatin Sodium 40 MG TAB PO SCH (21:54)
[2016-08-29] MEDS: Omega-3-Acid Ethyl Esters 1 GM Cap PO SCH (09:24)
[2016-08-29] MEDS: Pantoprazole 40 mg EC Tab PO SCH (09:25)
[2016-08-29] MEDS: CYANOCOBALAMIN 500 MCG TAB PO SCH (09:25)
--- NOTE | 2016-08-29 12:09 | CP.PCM.PN ---
Subjective - Date & Time of Evaluation Date of Evaluation: 08/29/16 Time of Evaluation: 12:09 - Subjective Subjective: REASON FOR VISIT: Dizziness, orthostasis. INTERVAL HISTORY: The patient is accompanied by his daughter. He states that he was able to ambulate in the unit with assistance without dizziness but was dyspneic after his therapy. He has not had chest pain or an unsteady gait but is not back to his baseline yet. He remains orthostatic despite the changes in his medications. Objective - Vital Signs/Intake and Output Vital Signs (last 24 hours): Temp Pulse Resp BP Pulse Ox 98.4 F 60 20 156/61 H 99 08/29/16 09:30 08/29/16 09:30 08/29/16 09:30 08/29/16 09:30 08/29/16 09:30 Intake and Output: 08/29/16 08/29/16 06:59 18:59 Intake Total 400 Output Total 300 Balance 100 - Medications Medications: Current Medications Aspirin (Ecotrin) 81 mg PO DAILY [facility] Last Admin: 08/29/16 09:23 Dose: 81 mg Clopidogrel Bisulfate (Plavix) 75 mg PO DAILY [facility] Last Admin: 08/29/16 09:24 Dose: 75 mg Cyanocobalamin (Vitamin B12) 250 mcg PO DAILY [facility] Last Admin: 08/29/16 09:25 Dose: 250 mcg Ferrous Sulfate (Feosol) 325 mg PO DAILY [facility] Last Admin: 08/29/16 09:24 Dose: 325 mg Finasteride (Proscar) 5 mg PO HS [facility] Last Admin: 08/28/16 21:55 Dose: 5 mg Fludrocortisone Acetate (Florinef) 0.1 mg PO BID [facility] Last Admin: 08/29/16 09:24 Dose: 0.1 mg Furosemide (Lasix) 20 mg PO DAILY [facility] Last Admin: 08/26/16 09:35 Dose: 20 mg Cphli-3-Auhn Ethyl Esters (Lovaza) 1 gm PO DAILY [facility] Last Admin: 08/29/16 09:24 Dose: 1 gm Pantoprazole Sodium (Protonix Ec Tab) 40 mg PO DAILY [facility] Last Admin: 08/29/16 09:25 Dose: 40 mg Pravastatin Sodium (Pravachol) 40 mg PO HS [facility] Last Admin: 08/28/16 21:54 Dose: 40 mg Valsartan (Diovan) 160 mg PO DAILY [facility] Last Admin: 08/29/16 09:23 Dose: 160 mg - Labs Labs: 08/25/16 07:30 08/26/16 05:55 PT 10.3 SECONDS (9.6-11.2) 08/24/16 14:20 INR 0.99 (0.92-1.08) 08/24/16 14:20 - Constitutional Appears: Well, Non-toxic - Head Exam Head Exam: NORMAL INSPECTION, NORMOCEPHALIC - Eye Exam Eye Exam: Normal appearance - ENT Exam ENT Exam: Mucous Membranes Moist, Normal Exam - Neck Exam Neck Exam: Full ROM, Normal Inspection - Respiratory Exam Respiratory Exam: Clear to Ausculation Bilateral, NORMAL BREATHING PATTERN - Cardiovascular Exam Cardiovascular Exam: REGULAR RHYTHM, +S1, +S2, Murmur - GI/Abdominal Exam GI & Abdominal Exam: Soft - Rectal Exam Rectal Exam: Deferred - Extremities Exam Extremities Exam: Normal Inspection - Back Exam Back Exam: NORMAL INSPECTION - Neurological Exam Neurological Exam: Alert, Awake, Oriented x3 - Psychiatric Exam Psychiatric exam: Normal Affect, Normal Mood - Skin Skin Exam: Dry, Intact, Normal Color, Warm Assessment and Plan - Assessment and Plan (Free Text) Assessment: Near syncope Orthostatic hypotension CAD PAD DM CKD Dyslipidemia Plan: Continue flourinef Continue BP meds PT Monitor telemetry
[2016-08-29] MEDS: Pravastatin Sodium 40 MG TAB PO SCH (21:06)
[2016-08-30] MEDS: Omega-3-Acid Ethyl Esters 1 GM Cap PO SCH (09:28)
[2016-08-30] MEDS: Pantoprazole 40 mg EC Tab PO SCH (09:29)
[2016-08-30] MEDS: CYANOCOBALAMIN 500 MCG TAB PO SCH (09:30)
[2016-08-30] MEDS: Pravastatin Sodium 40 MG TAB PO SCH (21:27)
[2016-08-31 00:19] VITALS: RESP 18
[2016-08-31 08:21] VITALS: TEMP 98.5
[2016-08-31] MEDS: Omega-3-Acid Ethyl Esters 1 GM Cap PO SCH (09:16)
[2016-08-31] MEDS: Pantoprazole 40 mg EC Tab PO SCH (09:17)
[2016-08-31] MEDS: CYANOCOBALAMIN 500 MCG TAB PO SCH (09:17)
--- NOTE | 2016-08-31 10:12 | CP.PCM.PN ---
Subjective - Date & Time of Evaluation Date of Evaluation: 08/29/16 Time of Evaluation: 08:30 - Subjective Subjective: Patient still has episodes of orthostatic hypotension Has no dizziness Has no chest pain. Started on florinef. Objective - Vital Signs/Intake and Output Vital Signs (last 24 hours): Temp Pulse Resp BP Pulse Ox 98.5 F 56 L 18 153/58 H 100 08/31/16 08:21 08/31/16 09:00 08/31/16 08:21 08/31/16 08:21 08/31/16 08:21 Intake and Output: 08/31/16 08/31/16 06:59 18:59 Output Total 70 Balance -70 - Medications Medications: Current Medications Aspirin (Ecotrin) 81 mg PO DAILY [facility] Last Admin: 08/31/16 09:16 Dose: 81 mg Clopidogrel Bisulfate (Plavix) 75 mg PO DAILY [facility] Last Admin: 08/31/16 09:16 Dose: 75 mg Cyanocobalamin (Vitamin B12) 250 mcg PO DAILY [facility] Last Admin: 08/31/16 09:17 Dose: 250 mcg Ferrous Sulfate (Feosol) 325 mg PO DAILY [facility] Last Admin: 08/31/16 09:16 Dose: 325 mg Finasteride (Proscar) 5 mg PO HS [facility] Last Admin: 08/30/16 21:27 Dose: 5 mg Fludrocortisone Acetate (Florinef) 0.1 mg PO BID [facility] Last Admin: 08/31/16 09:16 Dose: 0.1 mg Furosemide (Lasix) 20 mg PO DAILY [facility] Last Admin: 08/26/16 09:35 Dose: 20 mg Kxath-2-Wdto Ethyl Esters (Lovaza) 1 gm PO DAILY [facility] Last Admin: 08/31/16 09:16 Dose: 1 gm Pantoprazole Sodium (Protonix Ec Tab) 40 mg PO DAILY [facility] Last Admin: 08/31/16 09:17 Dose: 40 mg Pravastatin Sodium (Pravachol) 40 mg PO HS [facility] Last Admin: 08/30/16 21:27 Dose: 40 mg Valsartan (Diovan) 160 mg PO DAILY [facility] Last Admin: 08/31/16 09:17 Dose: 160 mg - Labs Labs: 08/25/16 07:30 08/26/16 05:55 PT 10.3 SECONDS (9.6-11.2) 08/24/16 14:20 INR 0.99 (0.92-1.08) 08/24/16 14:20 - Head Exam Head Exam: NORMAL INSPECTION - Eye Exam Eye Exam: Normal appearance - Neck Exam Neck Exam: Normal Inspection - Respiratory Exam Respiratory Exam: Clear to Ausculation Bilateral - Cardiovascular Exam Cardiovascular Exam: REGULAR RHYTHM - GI/Abdominal Exam GI & Abdominal Exam: Normal Bowel Sounds - Neurological Exam Neurological Exam: CN II-XII Intact, Oriented x3 Assessment and Plan (1) Dehydration Status: Acute (2) Orthostatic hypotension Status: Acute (3) Anemia Status: Acute (4) Carotid stenosis, right Status: Acute (5) CKD stage 3 due to type 1 diabetes mellitus Status: Acute (6) CKD (chronic kidney disease), stage III Status: Acute - Assessment and Plan (Free Text) Plan: Cont meds Cont hydration Check BP discharge plans.
--- NOTE | 2016-08-31 10:20 | CP.PCM.PN ---
Subjective - Date & Time of Evaluation Date of Evaluation: 08/30/16 Time of Evaluation: 08:20 - Subjective Subjective: Patient is doing well. Has no chest pain or dizziness Has no SOB. Afebrile. Objective - Vital Signs/Intake and Output Vital Signs (last 24 hours): Temp Pulse Resp BP Pulse Ox 98.5 F 56 L 18 153/58 H 100 08/31/16 08:21 08/31/16 09:00 08/31/16 08:21 08/31/16 08:21 08/31/16 08:21 Intake and Output: 08/31/16 08/31/16 06:59 18:59 Output Total 70 Balance -70 - Medications Medications: Current Medications Aspirin (Ecotrin) 81 mg PO DAILY [facility] Last Admin: 08/31/16 09:16 Dose: 81 mg Clopidogrel Bisulfate (Plavix) 75 mg PO DAILY [facility] Last Admin: 08/31/16 09:16 Dose: 75 mg Cyanocobalamin (Vitamin B12) 250 mcg PO DAILY [facility] Last Admin: 08/31/16 09:17 Dose: 250 mcg Ferrous Sulfate (Feosol) 325 mg PO DAILY [facility] Last Admin: 08/31/16 09:16 Dose: 325 mg Finasteride (Proscar) 5 mg PO HS [facility] Last Admin: 08/30/16 21:27 Dose: 5 mg Fludrocortisone Acetate (Florinef) 0.1 mg PO BID [facility] Last Admin: 08/31/16 09:16 Dose: 0.1 mg Furosemide (Lasix) 20 mg PO DAILY [facility] Last Admin: 08/26/16 09:35 Dose: 20 mg Yvuob-0-Alfv Ethyl Esters (Lovaza) 1 gm PO DAILY [facility] Last Admin: 08/31/16 09:16 Dose: 1 gm Pantoprazole Sodium (Protonix Ec Tab) 40 mg PO DAILY [facility] Last Admin: 08/31/16 09:17 Dose: 40 mg Pravastatin Sodium (Pravachol) 40 mg PO HS [facility] Last Admin: 08/30/16 21:27 Dose: 40 mg Valsartan (Diovan) 160 mg PO DAILY [facility] Last Admin: 08/31/16 09:17 Dose: 160 mg - Labs Labs: 08/25/16 07:30 08/26/16 05:55 PT 10.3 SECONDS (9.6-11.2) 08/24/16 14:20 INR 0.99 (0.92-1.08) 08/24/16 14:20 - Head Exam Head Exam: NORMAL INSPECTION - Eye Exam Eye Exam: Normal appearance - ENT Exam ENT Exam: Mucous Membranes Moist - Respiratory Exam Respiratory Exam: Clear to Ausculation Bilateral - Cardiovascular Exam Cardiovascular Exam: REGULAR RHYTHM - GI/Abdominal Exam GI & Abdominal Exam: Normal Bowel Sounds - Neurological Exam Neurological Exam: CN II-XII Intact, Oriented x3 Assessment and Plan (1) Dehydration Status: Acute (2) Orthostatic hypotension Status: Acute (3) Anemia Status: Acute (4) Carotid stenosis, right Status: Acute (5) CKD (chronic kidney disease), stage III Status: Acute - Assessment and Plan (Free Text) Plan: Cont meds Florinef increased to bid monitor BP cont tx.
--- NOTE | 2016-08-31 10:30 | CP.PCM.DIS ---
Provider - Provider Date of Admission: 08/24/16 15:31 Attending physician: Yordy Sinclair MD Primary care physician: Yordy Sinclair MD Time Spent in preparation of Discharge (in minutes): 45 Diagnosis - Discharge Diagnosis (1) Dehydration Status: Acute (2) Orthostatic hypotension Status: Acute (3) Anemia Status: Acute (4) Carotid stenosis, right Status: Acute (5) CKD (chronic kidney disease), stage III Status: Acute Hospital Course - Lab Results Lab Results: Most Recent Lab Values WBC 7.0 K/uL (4.8-10.8) 08/25/16 07:30 RBC 3.31 Mil/uL (4.40-5.90) L 08/25/16 07:30 Hgb 8.8 g/dL (12.0-18.0) L 08/25/16 07:30 Hct 27.6 % (35.0-51.0) L 08/25/16 07:30 MCV 83.4 fl (80.0-94.0) 08/25/16 07:30 MCH 26.7 pg (27.0-31.0) L 08/25/16 07:30 MCHC 32.1 g/dL (33.0-37.0) L 08/25/16 07:30 RDW 17.8 % (11.5-14.5) H 08/25/16 07:30 Plt Count 253 K/uL (130-400) 08/25/16 07:30 MPV 8.6 fl (7.2-11.7) 08/24/16 14:20 Neut % (Auto) 57.4 % (50.0-75.0) 08/24/16 14:20 Lymph % (Auto) 30.9 % (20.0-40.0) 08/24/16 14:20 Dolores % (Auto) 6.4 % (0.0-10.0) 08/24/16 14:20 Eos % (Auto) 4.6 % (0.0-4.0) H 08/24/16 14:20 Baso % (Auto) 0.7 % (0.0-2.0) 08/24/16 14:20 Neut # 4.6 K/uL (1.8-7.0) 08/24/16 14:20 Lymph # 2.5 K/uL (1.0-4.3) 08/24/16 14:20 Dolores # 0.5 K/uL (0.0-0.8) 08/24/16 14:20 Eos # 0.4 K/uL (0.0-0.7) 08/24/16 14:20 Baso # 0.1 K/uL (0.0-0.2) 08/24/16 14:20 PT 10.3 SECONDS (9.6-11.2) 08/24/16 14:20 INR 0.99 (0.92-1.08) 08/24/16 14:20 Sodium 140 mmol/l (132-148) 08/26/16 05:55 Potassium 5.2 MMOL/L (3.6-5.0) H 08/26/16 05:55 Chloride 112 mmol/L (98-107) H 08/26/16 05:55 Carbon Dioxide 17 mmol/L (22-30) L 08/26/16 05:55 Anion Gap 16 (10-20) 08/26/16 05:55 BUN 68 mg/dl (9-20) H 08/26/16 05:55 Creatinine 2.1 mg/dL (0.8-1.5) H 08/26/16 05:55 Est GFR ( Amer) 37 08/26/16 05:55 Est GFR (Non-Af Amer) 30 08/26/16 05:55 POC Glucose (mg/dL) 90 mg/dL (65-110) 08/31/16 05:48 Random Glucose 89 mg/dL (75-110) 08/26/16 05:55 Calcium 8.7 mg/dL (8.4-10.2) 08/26/16 05:55 Total Bilirubin 0.3 mg/dl (0.2-1.3) 08/25/16 07:30 AST 24 U/L (17-59) 08/25/16 07:30 ALT 25 U/L (21-72) 08/25/16 07:30 Alkaline Phosphatase 53 U/L (38-126) 08/25/16 07:30 Total Protein 6.6 G/DL (6.3-8.2) 08/25/16 07:30 Albumin 3.4 g/dL (3.5-5.0) L 08/25/16 07:30 Globulin 3.2 gm/dL (2.2-3.9) 08/25/16 07:30 Albumin/Globulin Ratio 1.1 (1.0-2.1) 08/25/16 07:30 - Hospital Course Hospital Course: This is a n 86 y/o male who had a near syncope and was admitted. Noted to have significant orthostatic hypotension. He also has a hx of carotid stenosis.Has no chest pain or SOB. Dr Galvez was called and evaluated patient and started on Florinef. He responded well. Bp was stabilized and was sent home on same meds. Advised to follow up in office in 1 to 2 weeks. Discharge Exam - Head Exam Head Exam: NORMAL INSPECTION - Eye Exam Eye Exam: Normal appearance - Respiratory Exam Respiratory Exam: NORMAL BREATHING PATTERN - Cardiovascular Exam Cardiovascular Exam: REGULAR RHYTHM - GI/Abdominal Exam GI & Abdominal Exam: Normal Bowel Sounds - Neurological Exam Neurological exam: CN II-XII Intact, Oriented x3 - Psychiatric Exam Psychiatric exam: Normal Mood Discharge Plan - Discharge Medications Prescriptions: Fludrocortisone [Florinef Acetate] 0.1 mg PO BID #60 tab - Follow Up Plan Condition: FAIR Disposition: HOME/ ROUTINE Additional Instructions: continue Florinef BID follow up in 2 weeks in office, Referrals: Yordy Sinclair MD [Primary Care Provider] -
--- NOTE | 2016-08-31 11:59 | CP.PCM.PN ---
Subjective - Date & Time of Evaluation Date of Evaluation: 08/31/16 Time of Evaluation: 11:20 - Subjective Subjective: Reason for visit: Orthostatic hypotension. Interval history: The patient is doing better today and is not orthostatic currently. He is able to ambulate without dizziness or lightheadedness but still has dyspnea with effort and easy fatiguability. On telemetry he is in NSR at 56 BPM. He is anticipating discharge today. Objective - Vital Signs/Intake and Output Vital Signs (last 24 hours): Temp Pulse Resp BP Pulse Ox 98.5 F 56 L 18 153/58 H 100 08/31/16 08:21 08/31/16 09:00 08/31/16 08:21 08/31/16 08:21 08/31/16 08:21 Intake and Output: 08/31/16 08/31/16 06:59 18:59 Output Total 70 Balance -70 - Medications Medications: Current Medications Aspirin (Ecotrin) 81 mg PO DAILY [facility] Last Admin: 08/31/16 09:16 Dose: 81 mg Clopidogrel Bisulfate (Plavix) 75 mg PO DAILY [facility] Last Admin: 08/31/16 09:16 Dose: 75 mg Cyanocobalamin (Vitamin B12) 250 mcg PO DAILY [facility] Last Admin: 08/31/16 09:17 Dose: 250 mcg Ferrous Sulfate (Feosol) 325 mg PO DAILY [facility] Last Admin: 08/31/16 09:16 Dose: 325 mg Finasteride (Proscar) 5 mg PO HS [facility] Last Admin: 08/30/16 21:27 Dose: 5 mg Fludrocortisone Acetate (Florinef) 0.1 mg PO BID [facility] Last Admin: 08/31/16 09:16 Dose: 0.1 mg Furosemide (Lasix) 20 mg PO DAILY [facility] Last Admin: 08/26/16 09:35 Dose: 20 mg [id number] Ethyl Esters (Lovaza) 1 gm PO DAILY [facility] Last Admin: 08/31/16 09:16 Dose: 1 gm Pantoprazole Sodium (Protonix Ec Tab) 40 mg PO DAILY [facility] Last Admin: 08/31/16 09:17 Dose: 40 mg Pravastatin Sodium (Pravachol) 40 mg PO HS [facility] Last Admin: 08/30/16 21:27 Dose: 40 mg Valsartan (Diovan) 160 mg PO DAILY [facility] Last Admin: 08/31/16 09:17 Dose: 160 mg - Labs Labs: 08/25/16 07:30 08/26/16 05:55 PT 10.3 SECONDS (9.6-11.2) 08/24/16 14:20 INR 0.99 (0.92-1.08) 08/24/16 14:20 - Constitutional Appears: Well, No Acute Distress - Head Exam Head Exam: NORMAL INSPECTION, NORMOCEPHALIC - Eye Exam Eye Exam: Normal appearance - ENT Exam ENT Exam: Mucous Membranes Moist, Normal Exam - Neck Exam Neck Exam: Full ROM, Normal Inspection - Respiratory Exam Respiratory Exam: NORMAL BREATHING PATTERN Additional comments: Bilateral coarse breath sounds. - Cardiovascular Exam Cardiovascular Exam: REGULAR RHYTHM, +S1, +S2 - GI/Abdominal Exam GI & Abdominal Exam: Soft - Rectal Exam Rectal Exam: Deferred - Extremities Exam Extremities Exam: Full ROM, Normal Inspection - Back Exam Back Exam: NORMAL INSPECTION - Neurological Exam Neurological Exam: Alert, Awake, Oriented x3 - Psychiatric Exam Psychiatric exam: Normal Affect, Normal Mood - Skin Skin Exam: Dry, Intact, Normal Color, Warm Assessment and Plan - Assessment and Plan (Free Text) Assessment: Orthostatic hypotension CAD PAD CKD DM HTN Plan: Continue present medical regimen PT Stable for discharge and outpatient follow up
[2016-08-31 12:32] VITALS: BP 108/58; PULSE 52; O2SAT 98
--- NOTE | 2016-08-31 17:33 | CARD ---
APPROVED REPORT EKG Measurement Heart [id number] <Conclusion> Sinus bradycardia Nonspecific ST abnormality Abnormal ECG
== END 2016-08-31 14:35 | disposition home or self-care (01) | DRG 312 ==
LOC: H.ER 13:38 → H.ERHOLD 15:31 → H.TEL 18:10
PROVIDERS: ADMIT Family Medicine; ATTEND Family Medicine
DX: I95.1 Orthostatic hypotension (principal); J44.9 Chronic obstructive pulmonary disease, unspecified; I65.21 Occlusion and stenosis of right carotid artery; R00.1 Bradycardia, unspecified; N18.3 Chronic kidney disease, stage 3 (moderate); E86.0 Dehydration; I73.9 Peripheral vascular disease, unspecified; Z72.0 Tobacco use; Z86.73 Personal history of transient ischemic attack (TIA), and cerebral infarction without residual deficits; I25.10 Atherosclerotic heart disease of native coronary artery without angina pectoris; Z95.5 Presence of coronary angioplasty implant and graft; E78.5 Hyperlipidemia, unspecified; I12.9 Hypertensive chronic kidney disease with stage 1 through stage 4 chronic kidney disease, or unspecified chronic kidney disease; E78.00 Pure hypercholesterolemia, unspecified; D63.1 Anemia in chronic kidney disease; M19.90 Unspecified osteoarthritis, unspecified site; R55 Syncope and collapse

== ENCOUNTER 2016-11-30 14:05 | Inpatient (IN) | payer MEDICARE ==
--- NOTE | 2016-11-30 14:33 | CT ---
PROCEDURE: CT HEAD WITHOUT CONTRAST. HISTORY: code stroke COMPARISON: Comparison made with prior study dated 07/24/2016 TECHNIQUE: Axial computed tomography images were obtained through the head/brain without intravenous contrast. Radiation dose: Total exam DLP = 881.86 mGy-cm. This CT exam was performed using one or more of the following dose reduction techniques: Automated exposure control, adjustment of the mA and/or kV according to patient size, and/or use of iterative reconstruction technique. FINDINGS: HEMORRHAGE: No acute parenchymal, subarachnoid or extra-axial hemorrhage. BRAIN: Mild chronic periventricular white matter ischemic changes are seen extending peripherally into the deep and to a lesser degree subcortical white matter both cerebral hemispheres. Moderate generalized volume loss. Note that possibility of chronic small bilateral subdural hygromas left larger than right not completely excluded well essentially unchanged from prior study. Vascular calcifications are present. Note again made of a markedly expanded sella turcica that contains a predominately CSF. There is presumed flattening of the pituitary gland along the right inferolateral sellar floor. Possibility of an underlying arachnoid cyst must be considered though unchanged from prior exam. VENTRICLES: No obstructive hydrocephalus. CALVARIUM: No acute calvarial fracture seen. PARANASAL SINUSES: Unremarkable as visualized. No significant inflammatory changes. MASTOID AIR CELLS: Unremarkable as visualized. No inflammatory changes. OTHER FINDINGS: None. IMPRESSION: No acute intracranial hemorrhage. Mild chronic white matter ischemic changes and moderate volume loss. Questionable small subdural hygromas left larger than right though unchanged in appearance from prior study. Expanded sella turcica most of which contains CSF with some flattening of the pituitary gland along the right inferolateral floor of the sella turcica. Findings could represent an incidental arachnoid cyst though also unchanged. Note that these findings were discussed with Dr. Moon at approximately 2:31 p.m. with written down and read back verification.
--- NOTE | 2016-11-30 14:43 | ED PDOC ---
HPI:STROKE - Time Time: 14:41 - Historian Historian: Family - Chief Complaint Chief Complaint: Slurred speech - Onset Date: 11/30/16 Time: 13:00 Onset: Hours (1.5) - Timing Timing: Improved - Location Location: Speech (At 1PM noted by daughter to have difficulty expressing himself , words did not make sense. Sxs on arrival to ED have resolved) - Radiation Radiation: None - Severity of pain Maximum severity:: Moderate Pain Scale:: 0 Severity Current: None Pain Scale:: 0 - Exacerbated by Exacerbated by:: Nothing - Relieved by Relieved by:: Nothing - TPA Positive for Contraindication: Yes Reason tPA is not being Administered: Resolution of sxs NIHSS Stroke Scale - How Severe is the Stroke Level of Consciousness: 0=Alert LOC to Questions: 0=Both comments correct LOC to commands: 0=Obeys both correctly Best Gaze: 0=Normal Visual: 0=No visual loss Facial: 0=Normal Motor Arm - Left: 0=No drift Motor Arm - Right: 0=No drift Motor Leg - Left: 0=No drift Motor Leg - Right: 0=No drift Limb Ataxia: 0=Absent Best Language: 0=No aphasia Dysarthia: 0=Normal articulation Extinction & Inattention (Neglect): 0=Normal, no object Severity Of Stroke: 0 = No Stroke rTPA Inclusion/Exclusion - Refusal of Treatment Patient Refused Treatment: No - Inclusion Criteria for Altepase Patient is 18 years or Older: Yes The Clinical Diagnosis of Ischemic Stroke That is Causing a Potentially Disabling Neurological Deficit: Yes Time of Onset is Well Established to be Less Than 270 Minute Before Treatment Would Begin: Yes Risk/Benefit Discussed With Patient/Family Member Present: No Past Medical History Vital Signs: Last Vital Signs Temp Pulse Resp BP Pulse Ox 98 11/30/16 14:10 - Medical History PMH: Anemia, Arthritis, CAD, COPD, Diverticulitis, Fractures (left arm fx due to fall in the snow), HTN, Hypercholesterolemia, Chronic Kidney Disease, TIA Denies: HIV - Surgical History Surgical History: Carotid Endarterectomy, Cholecystectomy, Coronary Stent - Family History Family History: States: Unknown Family Hx - Immunization History Hx Tetanus Toxoid Vaccination: No Hx Influenza Vaccination: Yes Hx Pneumococcal Vaccination: No - Home Medications Home Medications: Ambulatory Orders Medication Instructions Recorded Clopidogrel [Plavix] 75 mg PO DAILY 04/22/15 Fish Oil/Dha/Epa [Fish Oil 1,200 1,200 mg PO DAILY 03/14/16 mg Fish Oil] Ferrous Sulfate 325 mg PO DAILY 05/02/16 Pantoprazole Sodium [Protonix] 40 mg PO DAILY 05/02/16 Pravastatin Sodium [Pravachol] 40 mg PO HS 07/24/16 Aspirin [Ecotrin] 81 mg PO DAILY 08/24/16 Cyanocobalamin (Vitamin B-12) 250 mcg PO DAILY 08/24/16 [Vitamin B-12] Finasteride [Proscar] 5 mg PO DAILY 08/24/16 amLODIPine [Norvasc] 5 mg PO 1200 08/24/16 Fludrocortisone [Florinef Acetate] 0.1 mg PO SUTUTHSA 11/30/16 Furosemide [Lasix] 20 mg PO MOWEFR 11/30/16 Valsartan [Diovan] 160 mg PO BID 11/30/16 - Allergies Allergies/Adverse Reactions: Allergies Allergy/AdvReac Type Severity Reaction Status Date / Time No Known Allergies Allergy Verified 11/30/16 14:10 Review of Systems ROS Statement: Except As Marked, All Systems Reviewed And Found Negative Neurological: Positive for: Change in Speech Physical Exam - Reviewed Nursing Documentation Reviewed: Yes Vital Signs Reviewed: Yes - Physical Exam Appears: Positive for: Non-toxic, No Acute Distress Head Exam: Positive for: ATRAUMATIC, NORMAL INSPECTION, NORMOCEPHALIC Skin: Positive for: Normal Color, Warm, DRY Eye Exam: Positive for: EOMI, Normal appearance, PERRL ENT: Positive for: Normal ENT Inspection Neck: Positive for: Normal, Painless ROM Cardiovascular/Chest: Positive for: Regular Rate, Rhythm Respiratory: Positive for: CNT, Normal Breath Sounds Gastrointestinal/Abdominal: Positive for: Normal Exam, Bowel Sounds, Soft Back: Positive for: Normal Inspection Extremity: Positive for: Normal ROM Neurologic/Psych: Positive for: Alert, Oriented. Negative for: Motor/Sensory Deficits - ECG O2 Sat by Pulse Oximetry: 98 Disposition - Clinical Impression Clinical Impression: Renal insufficiency, CKD (chronic kidney disease), stage III, TIA (transient ischemic attack) - Patient ED Disposition Is Patient to be Admitted: Yes - Disposition Disposition Time: 14:47 Condition: FAIR - Pt Status Changed To: Hospital Disposition Of: Observation - POA Present On Arrival: None
[2016-11-30 14:48] LABS: BASO # 0.1 K/uL (0.0-0.2); EOS # 0.5 K/uL (0.0-0.7); EOS % 7.8 % (0.0-4.0); HEMATOCRIT 24.9 % (35.0-51.0); LYMPH # 2.2 K/uL (1.0-4.3); LYMPH % 36.4 % (20.0-40.0); MEAN CELL VOLUME 84.2 fl (80.0-94.0); MEAN CORPUSCULAR HEMOGLOBIN 27.2 pg (27.0-31.0); MEAN CORPUSCULAR HGB CONC 32.3 g/dL (33.0-37.0); MONO # 0.5 K/uL (0.0-0.8); MONO % 7.7 % (0.0-10.0); NEUT # 2.8 K/uL (1.8-7.0); NEUT % 47.1 % (50.0-75.0); NRBC % 0.1 % (0.0-0.0); RED CELL DISTRIBUTION WIDTH 14.1 % (11.5-14.5)
[2016-11-30 14:59] LABS: ALB/GLOB RATIO 1.1 (1.0-2.1); ALKALINE PHOSPHATASE 45 U/L (38-126); ALT/SGPT 21 U/L (21-72); AST/SGOT 26 U/L (17-59); BILIRUBIN,TOTAL < 0.1 mg/dl (0.2-1.3); BLOOD UREA NITROGEN 67 mg/dl (9-20); CALCIUM 8.4 mg/dL (8.4-10.2); CARBON DIOXIDE 16 mmol/L (22-30); CHLORIDE 107 mmol/L (98-107); CHOLESTEROL 153 mg/dL (0-199); GFR AFRICAN-AMERICAN 29; GLUCOSE,RANDOM 101 mg/dL (75-110); POTASSIUM 6.1 MMOL/L (3.6-5.0); SODIUM 131 mmol/l (132-148); TOTAL PROTEIN 6.2 G/DL (6.3-8.2)
[2016-11-30 15:08] LABS: PARTIAL THROMBOPLASTIN TIME 27.3 Seconds (25.6-37.1)
--- NOTE | 2016-11-30 15:52 | RAD ---
HISTORY: cva COMPARISON: Comparison chest 08/24/2016 FINDINGS: LUNGS: Suspect mild bibasilar atelectasis. Re- demonstrated are multiple round and elliptical shaped calcific densities overlying the left lung base consistent with calcified granulomata. . Findings consistent with prior exposure to granulomatous disease process. Questionable mild right apical pleural thickening PLEURA: As above. No apparent pneumothorax apparent. CARDIOVASCULAR: Heart size is upper limits of normal. Additionally, there also appear to be a calcified bilateral hilar lymph nodes. OSSEOUS STRUCTURES: Mild multilevel degenerative spondylosis. There is a subtle dextroscoliosis centered in the upper thoracic region. VISUALIZED UPPER ABDOMEN: Metallic clips in the right upper quadrant of the abdomen consistent with prior cholecystectomy. OTHER FINDINGS: None. IMPRESSION: Suspect minor bibasilar atelectasis. Calcified granulomata left lung base in both hilar regions consistent with prior exposure to granulomatous disease process.
--- NOTE | 2016-11-30 17:51 | HP ---
HISTORY OF PRESENT ILLNESS: The patient is an 86-year-old male who was admitted via the Emergency Ro om after he was brought to the ER by the daughter, indicating that he has slurred speech. Symptoms, however, had resolved by the time he got to the Emergency Room. He was a Code Stroke in the Emergenc y Room and was admitted to medical service for further workup and therapy. He was also seen by the n eurologist in the Emergency Room and was admitted to rule out a transient ischemic attack. He has diaz d similar episodes in the past and it has resolved on its own. PAST MEDICAL HISTORY: Remarkable for anemia, arthritis, coronary artery disease, COPD, diverticular disease, fracture of left arm secondary to a fall, hypertension, hyperlipidemia, chronic kidney disea se. FAMILY HISTORY: Nonrevealing. SOCIAL HISTORY: He does not smoke or drink. REVIEW OF SYSTEMS: Essentially unremarkable. PHYSICAL EXAMINATION: GENERAL: The patient is alert, oriented. Appears to be in no apparent distress at present. VITAL SIGNS: Remarkable for O2 sat of 98% on room air. Blood pressure and pulse essentially normal. HEENT: Pupils equal, react to light and accommodation. JVP flat. Mouth shows fair hygiene. LUNGS: Clear. HEART: Regular. No murmurs or gallops. ABDOMEN: Soft, nontender, no organomegaly. EXTREMITIES: Shows no edema or cyanosis. CENTRAL NERVOUS SYSTEM: Exam is grossly intact. RECTAL AND GENITALIA: Deferred. LABORATORY DATA: WBC 6.0, hemoglobin 8.0, platelet count 226,000. Sodium 131, potassium 6.1, BUN 67 , creatinine 2.6. AST 26, ALT 21, total cholesterol 153, LDL 49, HDL 80. Troponin 0.029. PT 10.8, INR 1.0. CT scan of the head without contrast shows no acute intracranial hemorrhage, mild chronic w robbin matter ischemic changes, moderate volume loss, questionable small subdural hygromas, left larger than right, though unchanged in appearance from prior studies. Chest x-ray: Suspect mild bibasilar atelectasis, calcified granulomata left lung base consistent with prior exposure to granulomatous di sease. IMPRESSION: Transient ischemic attack in a patient with history of hypertension, chronic obstructive pulmonary disease, renal insufficiency, prior cerebrovascular incidence (transient ischemic attacks) , and coronary artery disease. PLAN: Monitor patient in telemetry. Neurology evaluation. Would give aspirin and Lovenox. Monitor blood pressure closely. Physical and occupational therapy will be ordered. Further therapy will de pend on findings. The patient also has severe chronic anemia. Repeat anemia profile will be done in the morning. Dani Carrington MD cc: 62 TT: 11/30/2016 17:51:18 [email or web address]
--- NOTE | 2016-11-30 18:34 | US ---
PROCEDURE: Duplex ultrasound of the carotid and vertebral arteries. HISTORY: tia COMPARISON: Comparison is made to the previous study dated 05/04/2016 TECHNIQUE: Grayscale and duplex Doppler evaluation of the cervical carotid and vertebral arteries were performed. The common carotid, carotid bifurcations and cervical ICA and proximal ECA were evaluated. The vertebral arteries were evaluated for gross patency and direction. FINDINGS: RIGHT CAROTID ARTERIES: Common Carotid Artery: Atherosclerotic disease Maximal flow velocity of 54.6 cm/s. Carotid Bifurcation: Calcified plaques are seen at the right carotid bifurcation Internal Carotid Artery:Tortuous and demonstrate moderate atherosclerotic disease and scatter plaques Maximal flow velocity of 193.5 cm/s. External Carotid Artery (proximal branches): Patent. Maximal flow velocity of 148.9 cm/s. ICA/CCA Ratio: 3.5 LEFT CAROTID ARTERIES: Common Carotid Artery: Patent Maximal flow velocity of 79.7 cm/s. Carotid Bifurcation: Calcified plaques are also seen. Internal Carotid Artery:Patent demonstrate moderate atherosclerotic disease. Maximal flow velocity of 143.1 cm/s. External Carotid Artery (proximal branches): Patent. Maximal flow velocity of 110.6 cm/s. ICA/CCA Ratio: 1.8 VERTEBRAL ARTERIES: Right Vertebral Artery: Patent. Antegrade flow. Left Vertebral Artery: Patent. Antegrade flow. OTHER FINDINGS: None. IMPRESSION: Re- demonstration of moderate atherosclerotic disease more severe on the right internal carotid artery. Elevated blood flow velocity at the right internal carotid artery suggestive of 60- 70 percent stenosis. Mild elevated blood flow velocity at the mid left internal carotid artery suggestive of 50- 60 percent stenosis.
[2016-11-30] MEDS: Pantoprazole 40 mg EC Tab PO SCH (18:45)
--- NOTE | 2016-11-30 19:07 | MRI ---
PROCEDURE: Magnetic Resonance Angiography Brain HISTORY: TIA COMPARISON: None available. TECHNIQUE: 3D time of flight MR angiography of the intracranial arteries was performed. Rotating maximum intensity projection images were generated. FINDINGS: INTERNAL CEREBRAL ARTERIES: The skull base, petrous, cavernous and supraclinoid segments are bilaterally patient. Diffuse irregularity seen suggestive of atherosclerotic disease. ANTERIOR CEREBRAL ARTERIES: Unremarkable. A1 and A2 segments are widely patent. Smaller distal branches unremarkable, as visualized. MIDDLE CEREBRAL ARTERIES: Diffuse irregularity seen at the middle cerebral artery suggestive of atherosclerotic disease. M1 and M2 segments are widely patent. Perisylvian branches grossly symmetric. POSTERIOR CIRCULATION: Basilar Artery: Unremarkable. Distal Vertebral Arteries: Unremarkable. Posterior Cerebral Arteries: Unremarkable. Posterior Inferior Cerebellar Arteries: Unremarkable. ANEURYSM/ VASCULAR MALFORMATIONS: None. OTHER FINDINGS: None. IMPRESSION: Diffuse irregularity suggestive of atherosclerotic disease. No evidence of occlusion or focal significant stenosis.
[2016-11-30 22:17] LABS: ALB/GLOB RATIO 1.2 (1.0-2.1); BILIRUBIN,TOTAL 0.1 mg/dl (0.2-1.3); CALCIUM 8.7 mg/dL (8.4-10.2); TOTAL PROTEIN 6.5 G/DL (6.3-8.2)
[2016-11-30 22:42] LABS: POTASSIUM 6.6 MMOL/L (3.6-5.0)
[2016-11-30] MEDS ORDERED: Sod Polystyrene Sulf 15 gm/60 ml Oral Susp PO ONE (23:11)
[2016-11-30] MEDS: Pravastatin Sodium 40 MG TAB PO SCH (23:29)
--- NOTE | 2016-11-30 23:42 | CARD ---
APPROVED REPORT EKG Measurement Heart Thyn69AEXL ID [id number] <Conclusion> Sinus bradycardia Otherwise normal ECG
[2016-12-01 06:32] LABS: HEMATOCRIT 28.8 % (35.0-51.0); MEAN CELL VOLUME 84.6 fl (80.0-94.0); MEAN CORPUSCULAR HEMOGLOBIN 26.8 pg (27.0-31.0); MEAN CORPUSCULAR HGB CONC 31.6 g/dL (33.0-37.0); RED CELL DISTRIBUTION WIDTH 14.2 % (11.5-14.5); WHITE BLOOD COUNT 7.7 K/uL (4.8-10.8)
[2016-12-01 06:49] LABS: ALB/GLOB RATIO 1.2 (1.0-2.1); BILIRUBIN,TOTAL 0.2 mg/dl (0.2-1.3); CALCIUM 9.3 mg/dL (8.4-10.2); TOTAL PROTEIN 7.4 G/DL (6.3-8.2)
[2016-12-01 07:12] LABS: IRON 55 ug/dL (49-181)
[2016-12-01] MEDS: Pantoprazole 40 mg EC Tab PO SCH (08:07)
--- NOTE | 2016-12-01 09:09 | CP.PCM.PN ---
Subjective - Date & Time of Evaluation Date of Evaluation: 12/01/16 Time of Evaluation: 09:09 - Subjective Subjective: hard of hearing no recurrence of slurred speech hyperkalemia persists Objective - Vital Signs/Intake and Output Vital Signs (last 24 hours): Temp Pulse Resp BP Pulse Ox 97.8 F 52 L 18 178/64 H 100 12/01/16 07:51 12/01/16 07:51 12/01/16 07:51 12/01/16 07:51 12/01/16 07:51 - Medications Medications: Current Medications Amlodipine Besylate (Norvasc) 10 mg PO DAILY [facility] Aspirin (Aspirin Chewable) 81 mg PO DAILY [facility] Last Admin: 12/01/16 08:07 Dose: 81 mg Ferrous Sulfate (Feosol) 325 mg PO DAILY [facility] Last Admin: 12/01/16 08:07 Dose: 325 mg Finasteride (Proscar) 5 mg PO DAILY [facility] Last Admin: 12/01/16 08:07 Dose: 5 mg Pantoprazole Sodium (Protonix Ec Tab) 40 mg PO DAILY [facility] Last Admin: 12/01/16 08:07 Dose: 40 mg Pravastatin Sodium (Pravachol) 40 mg PO HS [facility] Last Admin: 11/30/16 23:29 Dose: 40 mg Valsartan (Diovan) 160 mg PO BID [facility] Last Admin: 12/01/16 08:07 Dose: 160 mg - Labs Labs: 12/01/16 06:10 12/01/16 06:10 PT 10.8 Seconds (9.8-13.1) 11/30/16 14:26 INR 1.0 (0.9-1.2) 11/30/16 14:26 APTT 27.3 Seconds (25.6-37.1) 11/30/16 14:26 - Constitutional Appears: No Acute Distress - Head Exam Head Exam: ATRAUMATIC, NORMAL INSPECTION, NORMOCEPHALIC - Eye Exam Eye Exam: EOMI, Normal appearance, PERRL Pupil Exam: NORMAL ACCOMODATION, PERRL - ENT Exam ENT Exam: Mucous Membranes Moist, Normal Exam - Neck Exam Neck Exam: Full ROM, Normal Inspection. absent: Lymphadenopathy - Respiratory Exam Respiratory Exam: Clear to Ausculation Bilateral, NORMAL BREATHING PATTERN - Cardiovascular Exam Cardiovascular Exam: REGULAR RHYTHM, +S1, +S2. absent: Murmur - GI/Abdominal Exam GI & Abdominal Exam: Soft, Normal Bowel Sounds. absent: Tenderness - Rectal Exam Rectal Exam: NORMAL INSPECTION - Extremities Exam Extremities Exam: Full ROM, Normal Capillary Refill, Normal Inspection. absent : Joint Swelling, Pedal Edema - Back Exam Back Exam: NORMAL INSPECTION - Neurological Exam Neurological Exam: Alert, Awake, CN II-XII Intact, Normal Gait, Oriented x3 - Psychiatric Exam Psychiatric exam: Normal Affect, Normal Mood - Skin Skin Exam: Dry, Intact, Normal Color, Warm Assessment and Plan - Assessment and Plan (Free Text) Assessment: transient ischemic attack hyperkalemia due to renal failure htn copd ashd Plan: kayexalate po monitor lytes will discus need for renal eval with daughter
[2016-12-01] MEDS ORDERED: Sod Polystyrene Sulf 15 gm/60 ml Oral Susp PO ONE (10:15)
--- NOTE | 2016-12-01 11:19 | CP.PCM.CON ---
History of Present Illness - History of Present Illness History of Present Illness: Mr. Yen is an 86-year-old man with a past medical history of CKD, multi- vessel CAD (s/p stent), atherosclerotic disease, HTN, dyslipidemia, anemia, who presented to the ED after a 15 minute episode of word-finding difficulty. His daughter was a witness to the event and states that he was making words, but not of them made any sense. He did not have any facial droop, weakness in the arms/legs, sensory changes, visual changes, headache, nausea, vomiting, abdominal pain or other associated symptoms. In the ED, he was asymptomatic and back to his usual baseline. Review of Systems - Review of Systems All systems: reviewed and no additional remarkable complaints except - Constitutional Constitutional: absent: As Per HPI, Anorexia, Chills, Daytime Sleepiness, Excessive Sweating, Fatigue, Fever, Frequent Falls, Headache, Increased Appetite , Lethargy, Malaise, Night Sweats, Snoring, Sleep Apnea, Weight Gain, Weight Loss, Weakness, Other - EENT Eyes: absent: As Per HPI, Blind Spots, Blurred Vision, Change in Vision, Decreased Night Vision, Diplopia, Discharge, Dry Eye, Exophthalmos, Floaters, Irritation, Itchy Eyes, Loss of Peripheral Vision, Pain, Photophobia, Requires Corrective Lenses, Sees Flashes, Spots in Vision, Tunnel Vision, Other Visual Disturbances, Loss of Vision, Other Ears: absent: As Per HPI, Decreased Hearing, Ear Discharge, Ear Pain, Tinnitus, Abnormal Hearing, Disequilibrium, Dizziness, Other Nose/Mouth/Throat: absent: As Per HPI, Epistaxis, Nasal Congestion, Nasal Discharge, Nasal Obstruction, Nasal Trauma, Nose Pain, Post Nasal Drip, Sinus Pain, Sinus Pressure, Bleeding Gums, Change in Voice, Dental Pain, Dry Mouth, Dysphagia, Halitosis, Hoarsness, Lip Swelling, Mouth Lesions, Mouth Pain, Odynophagia, Sore Throat, Throat Swelling, Tongue Swelling, Facial Pain, Neck Pain, Neck Mass, Other - Cardiovascular Cardiovascular: As Per HPI - Respiratory Respiratory: absent: As Per HPI, Cough, Dyspnea, Hemoptysis, Dyspnea on Exertion , Wheezing, Snoring, Stridor, Pain on Inspiration, Chest Congestion, Excessive Mucous Production, Change in Mucous Color, Pain with Coughing, Other - Gastrointestinal Gastrointestinal: absent: As Per HPI, Abdominal Pain, Belching, Bloating, Change in Bowel Habits, Change in Stool Character, Coffee Ground Emesis, Constipation, Cramping, Diarrhea, Dyspepsia, Dysphagia, Early Satiety, Excessive Flatus, Fecal Incontinence, Heartburn, Hematemesis, Hematochezia, Loose Stools, Melena, Nausea, Odynophagia, Temesmus, Vomiting, Other - Genitourinary Genitourinary: absent: As Per HPI, Change in Urinary Stream, Difficulty Urinating, Dysuria, Flank Pain, Hematuria, Pyuria, Nocturia, Urinary Incontinence, Urinary Frequency, Urinary Hesitance, Urinary Urgency, Voiding Freq/Small Amts, Freq UTI, Hx Renal/Bladder Calculi, Hx /Renal Surgery, Bladder Distension, Other - Musculoskeletal Musculoskeletal: absent: As Per HPI, Abnormal Gait, Arthralgias, Atrophy, Back Pain, Deformity, Joint Swelling, Limited Range of Motion, Loss of Height, Muscle Cramps, Muscle Weakness, Myalgias, Neck Pain, Numbness, Radiating Pain into Limb, Stiffness, Tingling, Other - Integumentary Integumentary: absent: As Per HPI, Acne, Alopecia, Bleeding Lesions, Change in Hair, Change in Nails, Change in Pigmentation, Changing Lesions, Dry Skin, Erythema, Furuncle, Hirsutism, Lesions, New Lesions, Non-Healing Lesions, Photosensitivity, Pruritus, Rash, Skin Pain, Skin Ulcer, Sores, Striae, Swelling , Unusual Bruising, Wounds, Jaundice, Other - Neurological Neurological: As Per HPI - Psychiatric Psychiatric: absent: As Per HPI, Abnormal Sleep Pattern, Anhedonia, Anxiety, Auditory Hallucinations, Behavioral Changes, Change in Appetite, Change in Libido, Confusion, Depression, Difficulty Concentrating, Hallucinations, Homicidal Ideation, Hopelessness, Irritability, Memory Loss, Mood Swings, Panic Attacks, Paranoia, Suicidal Ideation, Visual Hallucinations, Tactile Hallucinations, Other - Endocrine Endocrine: absent: As Per HPI, Change in Body Appearance, Change in Libido, Cold Intolorance, Deepening of Voice, Excessive Sweating, Fatigue, Flushing, Heat Intolorance, Increase in Ring/Shoe/Hat Size, Palpitations, Polydipsia, Polyphagia, Polyuria, Other Past Patient History - Tetanus Immunizations Tetanus Immunization: Unknown - Past Medical History & Family History Past Medical History?: Yes - Past Social History Smoking Status: Former Smoker - CARDIAC Hx Hypercholesterolemia: Yes Hx Hypertension: Yes - PULMONARY Hx Chronic Obstructive Pulmonary Disease (COPD): Yes - NEUROLOGICAL Hx Transient Ischemic Attacks (TIA): Yes - HEENT Hx HEENT Problems: Yes 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 - RENAL Hx Chronic Kidney Disease: Yes - ENDOCRINE/METABOLIC Hx Diabetes Mellitus Type 2: Yes - HEMATOLOGICAL/ONCOLOGICAL Hx Anemia: Yes Hx Human Immunodeficiency Virus (HIV): No - INTEGUMENTARY Hx Dermatological Problems: No - MUSCULOSKELETAL/RHEUMATOLOGICAL Hx Arthritis: Yes Hx Falls: Yes Hx Fractures: Yes (left arm fx due to fall in the snow) - GASTROINTESTINAL Hx Diverticulitis: Yes - GENITOURINARY/GYNECOLOGICAL Hx Genitourinary Disorders: No - PSYCHIATRIC Hx Psychophysiologic Disorder: No Hx Substance Use: No - SURGICAL HISTORY Hx Carotid Endarterectomy: Yes Hx Cholecystectomy: Yes Hx Coronary Stent: Yes - ANESTHESIA Hx Anesthesia: Yes Hx Anesthesia Reactions: No Hx Malignant Hyperthermia: No Meds Allergies/Adverse Reactions: Allergies Allergy/AdvReac Type Severity Reaction Status Date / Time No Known Allergies Allergy Verified 11/30/16 14:10 - Medications Medications: Current Medications Amlodipine Besylate (Norvasc) 10 mg PO DAILY [facility] Cilostazol (Pletal) 100 mg PO BID [facility] Ferrous Sulfate (Feosol) 325 mg PO DAILY [facility] Last Admin: 12/01/16 08:07 Dose: 325 mg Finasteride (Proscar) 5 mg PO DAILY [facility] Last Admin: 12/01/16 08:07 Dose: 5 mg Pantoprazole Sodium (Protonix Ec Tab) 40 mg PO DAILY [facility] Last Admin: 12/01/16 08:07 Dose: 40 mg Pravastatin Sodium (Pravachol) 40 mg PO HS [facility] Last Admin: 11/30/16 23:29 Dose: 40 mg Valsartan (Diovan) 160 mg PO BID [facility] Last Admin: 12/01/16 08:07 Dose: 160 mg Physical Exam - Constitutional Appears: Well - Head Exam Head Exam: ATRAUMATIC, NORMAL INSPECTION, NORMOCEPHALIC - Eye Exam Eye Exam: EOMI, Normal appearance, PERRL - ENT Exam ENT Exam: Mucous Membranes Moist, Normal Exam - Neck Exam Neck exam: Positive for: Normal Inspection - Respiratory Exam Respiratory Exam: Clear to Auscultation Bilateral, NORMAL BREATHING PATTERN - GI/Abdominal Exam GI & Abdominal Exam: Normal Bowel Sounds, Soft. absent: Tenderness - Rectal Exam Rectal Exam: Deferred - Extremities Exam Extremities exam: Positive for: normal inspection - Back Exam Back exam: NORMAL INSPECTION - Neurological Exam Neurological exam: Alert, CN II-XII Intact, Oriented x3, Reflexes Normal Additional comments: Gait was wide based and slow turning radius. - Expanded Neurological Exam Expanded Patient oriented to: person, place, time Cranial nerves: EOM's Intact: Normal, Facial Sensation: Normal, Gag Reflex: Normal Cerebellar Function: Finger to Nose: Normal, Heel to Rivera: Normal, Romberg: Normal Upper motor neuron: Babinski Sign: Normal Sensory exam: Lower Extremity 2 Point Discrimination: Normal, Lower Extremity Light Touch: Normal, Lower Extremity Pin Prick: Normal, Lower Extremity Temperature: Normal, Upper Extremity 2 Point Discrimination: Normal, Upper Extremity Light Touch: Normal, Upper Extremity Pin Prick: Normal, Upper Extremity Temperature: Normal Neuro motor strength exam: Left Upper Extremity: 5, Right Upper Extremity: 5, Left Lower Extremity: 5, Right Lower Extremity: 5 DTR: Achilles Tendon Left: 2+, Achilles Tendon Right: 2+, Bicep Left: 2+, Bicep Right: 2+, Brachioradialis Left: 2+, Brachioradialis Right: 2+, Patellar Left: 2 +, Patellar Right: 2+, Tricep Left: 2+, Tricep Right: 2+ - Psychiatric Exam Psychiatric exam: Normal Affect, Normal Mood - Skin Skin Exam: Abrasion Results - Vital Signs Recent Vital Signs: Last Vital Signs Temp 97.8 F 12/01/16 07:51 Pulse 52 L 12/01/16 09:00 Resp 18 12/01/16 07:51 BP 178/64 H 12/01/16 07:51 Pulse Ox 100 12/01/16 07:51 - Labs Result Diagrams: 12/01/16 06:10 12/01/16 06:10 - Imaging and Cardiology MRI - head Status: Image reviewed by me, Report reviewed by me (MRA of the head shows intracranial atherosclerotic disease.) Assessment & Plan (1) Intracranial atherosclerosis Assessment and Plan: Since the patient continues to have TIAs despite being on aspirin and Plavix and his MRA shows relatively diffuse intracranial atherosclerotic disease, I recommend switching to cilostazol and Plavix. Continue Pravastatin. Continue adequate hydration and follow up with nephrology for worsening renal function and hyperkalemia. I also recommend, telemetry, echocardiogram, MRI brain without lane, check HbA1c, TSH, B12. Will need PT/OT eval and treatment, DVT Px. Thank you. Status: Acute Priority: High
[2016-12-01] MEDS: Cilostazol 100 mg Tab UD PO SCH ×2 (12:13→19:00)
[2016-12-01 14:04] LABS: CALCIUM 9.2 mg/dL (8.4-10.2)
[2016-12-01 14:15] LABS: POTASSIUM 5.9 MMOL/L (3.6-5.0)
[2016-12-01 14:40] LABS: THYROID STIMULATING HORMONE 3.14 mIU/ML (0.46-4.68)
--- NOTE | 2016-12-01 15:50 | CARD ---
APPROVED REPORT EXAM: Two-dimensional and M-mode echocardiogram with Doppler and color Doppler. Other Information Quality : GoodRhythm : NSR INDICATION CVA/TIA 2D DIMENSIONS IVSd1.03 (0.7-1.1cm)LVDd5.07 (3.9-5.9cm) LVOT Diameter2.39 (1.8-2.4cm)PWd0.90 (0.7-1.1cm) IVSs1.23 (0.8-1.2cm)LVDs4.63 (2.5-4.0cm) FS (%) 8.7 %PWs0.81 (0.8-1.2cm) LVEF (%)30.0 (>50%) M-Mode DIMENSIONS Left Atrium (MM)3.72 (2.5-4.0cm)IVSd1.13 (0.7-1.1cm) Aortic Root3.22 (2.2-3.7cm)LVDd5.84 (4.0-5.6cm) Aortic Cusp Exc.1.81 (1.5-2.0cm)PWd1.00 (0.7-1.1cm) IVSs1.41 cmFS (%) 26 % LVDs4.31 (2.0-3.8cm)PWs1.66 cm Mitral Valve MV E Ozgktcfg36.4cm/sMV DECEL [id number] A Ybsaoiwb00.6cm/s MV [id number]/A ratio0.5MVA (PHT)2.29cm2 TDI Lateral E' Peak V3.01cm/sMedial E' Peak V3.59cm/sE/Lateral E'15.1 E/Medial E'12.6 LEFT VENTRICLE The left ventricle is normal size. There is mild concentric left ventricular hypertrophy. The systolic function is severely impaired. There is global hypokinesis of the left ventricle. Transmitral Doppler flow pattern is Grade I-abnormal relaxation pattern. No left ventricle thrombus noted on this study. RIGHT VENTRICLE The right ventricle is normal size. There is normal right ventricular wall thickness. The right ventricular systolic function is normal. ATRIA The left atrium size is normal. The right atrium size is normal. AORTIC VALVE The aortic valve is not well visualized. There is trace aortic regurgitation. There is no aortic valvular stenosis. MITRAL VALVE The mitral valve is normal in structure and function. There is no mitral valve stenosis. There is no mitral valve regurgitation noted. TRICUSPID VALVE The tricuspid valve is normal in structure and function. There is no tricuspid valve regurgitation noted. PULMONIC VALVE The pulmonary valve is normal in structure and function. There is no pulmonic valvular regurgitation. GREAT VESSELS The aortic root is normal in size. The IVC is normal in size and collapses >50% with inspiration. PERICARDIAL EFFUSION There is a trace loculated anterior pericardial effusion. <Conclusion> The left ventricle is normal size. There is mild concentric left ventricular hypertrophy. The systolic function is severely impaired. There is global hypokinesis of the left ventricle. Transmitral Doppler flow pattern is Grade I-abnormal relaxation pattern. No left ventricle thrombus noted on this study.
--- NOTE | 2016-12-01 18:16 | CP.PCM.CON ---
History of Present Illness - History of Present Illness History of Present Illness: REASONS FOR CONSUT : CKD STAGE 4 WITH eGFR AOUND 25 ML/M ANEMIA OF CKD .. HGB AROUND 9.5 .. NOT BAD .. PT RECIEVES ARANESP AT OFFICE METABOLIC BONE DESEASE WITH 2 HPT ELECTROLUTES ABN .. HYPERKALEMIA .. K : 6.0 OLD RECORDS WELL CURRENT CHART WERE ALL REVIEWED .. PT WAS SEEN AND EXAMINED PT HAS MULTIPLE MEDICAL PROBLEMS AND FREQUENT ADMISSIONS WAS ADMITTED FOR TIA PMH : CKD .. ANEMIA OF CKD .. HTN .. HYPERLEPIDEMIA .. CAD S/ STENTS .. PREVIOUS TIAs INT CLAUDICATION ..COPD .. 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 Past Patient History - Tetanus Immunizations Tetanus Immunization: Unknown - Past Medical History & Family History Past Medical History?: Yes - Past Social History Smoking Status: Former Smoker - CARDIAC Hx Hypercholesterolemia: Yes Hx Hypertension: Yes - PULMONARY Hx Chronic Obstructive Pulmonary Disease (COPD): Yes - NEUROLOGICAL Hx Transient Ischemic Attacks (TIA): Yes - HEENT Hx HEENT Problems: Yes 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 - RENAL Hx Chronic Kidney Disease: Yes - ENDOCRINE/METABOLIC Hx Diabetes Mellitus Type 2: Yes - HEMATOLOGICAL/ONCOLOGICAL Hx Anemia: Yes Hx Human Immunodeficiency Virus (HIV): No - INTEGUMENTARY Hx Dermatological Problems: No - MUSCULOSKELETAL/RHEUMATOLOGICAL Hx Arthritis: Yes Hx Falls: Yes Hx Fractures: Yes (left arm fx due to fall in the snow) - GASTROINTESTINAL Hx Diverticulitis: Yes - GENITOURINARY/GYNECOLOGICAL Hx Genitourinary Disorders: No - PSYCHIATRIC Hx Psychophysiologic Disorder: No Hx Substance Use: No - SURGICAL HISTORY Hx Carotid Endarterectomy: Yes Hx Cholecystectomy: Yes Hx Coronary Stent: Yes - ANESTHESIA Hx Anesthesia: Yes Hx Anesthesia Reactions: No Hx Malignant Hyperthermia: No Meds Allergies/Adverse Reactions: Allergies Allergy/AdvReac Type Severity Reaction Status Date / Time No Known Allergies Allergy Verified 11/30/16 14:10 - Medications Medications: Current Medications Amlodipine Besylate (Norvasc) 10 mg PO DAILY [facility] Last Admin: 12/01/16 12:13 Dose: 10 mg Cilostazol (Pletal) 100 mg PO BID [facility] Last Admin: 12/01/16 12:13 Dose: 100 mg Ferrous Sulfate (Feosol) 325 mg PO DAILY [facility] Last Admin: 06/20/17 08:07 Dose: 325 mg Finasteride (Proscar) 5 mg PO DAILY [facility] Last Admin: 12/01/16 08:07 Dose: 5 mg Pantoprazole Sodium (Protonix Ec Tab) 40 mg PO DAILY [facility] Last Admin: 12/01/16 08:07 Dose: 40 mg Pravastatin Sodium (Pravachol) 40 mg PO HS [facility] Last Admin: 11/30/16 23:29 Dose: 40 mg Valsartan (Diovan) 160 mg PO BID [facility] Last Admin: 12/01/16 08:07 Dose: 160 mg Results - Vital Signs Recent Vital Signs: Last Vital Signs Temp 97.4 F L 12/01/16 16:41 Pulse 62 12/01/16 16:41 Resp 18 12/01/16 16:41 BP 102/52 L 12/01/16 16:41 Pulse Ox 100 12/01/16 16:41 - Labs Result Diagrams: 12/01/16 06:10 12/01/16 13:42 Labs: Laboratory Results - last 24 hr 12/01/16 12/01/16 12/01/16 11:29 13:42 16:15 Sodium 136 Potassium 5.9 H Chloride 107 Carbon Dioxide 17 L Anion Gap 18 BUN 65 H Creatinine 2.5 H Est GFR ( Amer) 30 Est GFR (Non-Af Amer) 25 POC Glucose (mg/dL) 123 H 158 H Random Glucose 98 Calcium 9.2 Vitamin B12 964 H TSH 3rd Generation 3.14 Assessment & Plan - Assessment and Plan (Free Text) Assessment: CKD .. STAGE 4 .. STABLE ANEMIA OF CKD .. ON EPO HYPERKALEMIA .. K 6 .. WAS GIVEN KAYAXALATE 15 GM X 2 MMP : HTN CAD DYSLIPIDEMIA COPD CURRENT SMOKER INT CLAUDICATION S/P PITIUTARY ADENOMA SURGERY MANY YEARS AGO P : DIET .. 2 GM NA .. 2 GM K .. 50 GR PROTIEN KAYXALATE CHECK BENJY IN AM GIVE EPO WITH [employer] HGB > [address] [employer] HELPER IS DR [employer] .. IF NEEDED THX U .. WILL F/U CLOSELY - Date & Time Date: 12/01/16 Time: 16:00
[2016-12-01] MEDS: Pravastatin Sodium 40 MG TAB PO SCH (21:23)
[2016-12-02 07:39] LABS: CALCIUM 8.6 mg/dL (8.4-10.2); POTASSIUM 5.2 MMOL/L (3.6-5.0)
[2016-12-02] MEDS: Cilostazol 100 mg Tab UD PO SCH ×2 (09:33→16:57)
[2016-12-02] MEDS: Pantoprazole 40 mg EC Tab PO SCH (09:34)
--- NOTE | 2016-12-02 09:47 | CP.PCM.PN ---
Subjective - Date & Time of Evaluation Date of Evaluation: 12/02/16 Time of Evaluation: 09:48 - Subjective Subjective: DENIES CHEST PAINS/SOB DAUGHTER INDICATES THAT PT HAS EPISODES OF CONFUSION BUT HE APPEARS ALERT AND ORIENTED TODAY NO NEW CLINICAL FINDINGS NEUROLOGY AND NEPHROLOGY CONSULTS APPRECIATED Objective - Vital Signs/Intake and Output Vital Signs (last 24 hours): Temp Pulse Resp BP Pulse Ox 98.3 F 60 18 178/66 H 100 12/02/16 07:53 12/02/16 09:34 12/02/16 07:53 12/02/16 09:34 12/02/16 07:53 Intake and Output: 12/02/16 12/02/16 06:59 18:59 Intake Total 240 Balance 240 - Medications Medications: Current Medications Amlodipine Besylate (Norvasc) 10 mg PO DAILY [facility] Last Admin: 12/02/16 09:34 Dose: 10 mg Cilostazol (Pletal) 100 mg PO BID [facility] Last Admin: 12/02/16 09:33 Dose: 100 mg Ferrous Sulfate (Feosol) 325 mg PO DAILY [facility] Last Admin: 12/02/16 09:33 Dose: 325 mg Finasteride (Proscar) 5 mg PO DAILY [facility] Last Admin: 12/02/16 09:33 Dose: 5 mg Pantoprazole Sodium (Protonix Ec Tab) 40 mg PO DAILY [facility] Last Admin: 12/02/16 09:34 Dose: 40 mg Pravastatin Sodium (Pravachol) 40 mg PO HS [facility] Last Admin: 12/01/16 21:23 Dose: 40 mg Valsartan (Diovan) 160 mg PO BID [facility] Last Admin: 12/02/16 09:33 Dose: 160 mg - Labs Labs: 12/02/16 06:45 PT 10.8 Seconds (9.8-13.1) 11/30/16 14:26 INR 1.0 (0.9-1.2) 11/30/16 14:26 APTT 27.3 Seconds (25.6-37.1) 11/30/16 14:26 - Constitutional Appears: Chronically Ill - Head Exam Head Exam: ATRAUMATIC, NORMAL INSPECTION, NORMOCEPHALIC - Eye Exam Eye Exam: EOMI, Normal appearance, PERRL Pupil Exam: NORMAL ACCOMODATION, PERRL - ENT Exam ENT Exam: Mucous Membranes Moist, Normal Exam - Neck Exam Neck Exam: Full ROM, Normal Inspection. absent: Lymphadenopathy - Respiratory Exam Respiratory Exam: Clear to Ausculation Bilateral, NORMAL BREATHING PATTERN - Cardiovascular Exam Cardiovascular Exam: REGULAR RHYTHM, +S1, +S2. absent: Murmur - GI/Abdominal Exam GI & Abdominal Exam: Soft, Normal Bowel Sounds. absent: Tenderness - Rectal Exam Rectal Exam: NORMAL INSPECTION - Extremities Exam Extremities Exam: Full ROM, Normal Capillary Refill, Normal Inspection. 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
--- NOTE | 2016-12-02 10:48 | MRI ---
PROCEDURE: MRI BRAIN WITHOUT CONTRAST HISTORY: facial droop, tia COMPARISON: 03/16/2016 MRI brain TECHNIQUE: Multiplanar, multisequence MR images of the brain were obtained without intravenous contrast enhancement. FINDINGS: HEMORRHAGE: None DWI: No evidence of an acute or early subacute infarction. BRAIN PARENCHYMA: No mass effect or edema. The small bilateral FLAIR white matter hyperintensities -approximately 9 in number and fairly symmetrical are stable in appearance mostly in the centrum semiovale regions compared to the prior 2016 study. The prior small focus of restricted diffusion in the right posterior frontal lobe on the 2016 study is not appreciated on this exam. VENTRICLES: Unremarkable. No hydrocephalus. CRANIUM: Unremarkable. ORBITS: Grossly unremarkable. PARANASAL SINUSES/MASTOIDS: Clear VASCULAR SYSTEM: Skull base flow voids intact. OTHER FINDINGS: The prominent CSF in the sella is similar in appearance consistent with. Either a stable benign arachnoid cyst or a benign near empty sella developmental status IMPRESSION: No interval restricted diffusion seen to suggest an interval acute or subacute infarct. The prior bilateral supra tentorial white matter mostly punctate hyperintensities consistent with small vessel disease ischemic changes are similar since 2016. Other etiologies demyelinization gliosis vasculitides are in the differential but believe less likely. No interval change suggested
--- NOTE | 2016-12-02 12:03 | CP.PCM.PN ---
Subjective - Date & Time of Evaluation Date of Evaluation: 12/02/16 Time of Evaluation: 11:56 - Subjective Subjective: Mr. Yen was seen and examined today at bedside. He was initially asleep, but he woke up and was alert and conversant. He complied with the examination and I reviewed the results of the MRI of the brain with him. I let him know that he did not have a stroke and discussed the chronic ischemic changes. There were no acute events overnight and he had no complaints. Objective - Vital Signs/Intake and Output Vital Signs (last 24 hours): Temp Pulse Resp BP Pulse Ox 98.3 F 57 L 18 178/66 H 100 12/02/16 07:53 12/02/16 10:23 12/02/16 07:53 12/02/16 09:34 12/02/16 10:23 Intake and Output: 12/02/16 12/02/16 06:59 18:59 Intake Total 240 Balance 240 - Medications Medications: Current Medications Amlodipine Besylate (Norvasc) 10 mg PO DAILY [facility] Last Admin: 12/02/16 09:34 Dose: 10 mg Cilostazol (Pletal) 100 mg PO BID [facility] Last Admin: 12/02/16 09:33 Dose: 100 mg Ferrous Sulfate (Feosol) 325 mg PO DAILY [facility] Last Admin: 12/02/16 09:33 Dose: 325 mg Finasteride (Proscar) 5 mg PO DAILY [facility] Last Admin: 12/02/16 09:33 Dose: 5 mg Pantoprazole Sodium (Protonix Ec Tab) 40 mg PO DAILY [facility] Last Admin: 12/02/16 09:34 Dose: 40 mg Pravastatin Sodium (Pravachol) 40 mg PO HS [facility] Last Admin: 12/01/16 21:23 Dose: 40 mg Valsartan (Diovan) 160 mg PO BID [facility] Last Admin: 12/02/16 09:33 Dose: 160 mg - Labs Labs: 12/02/16 06:45 PT 10.8 Seconds (9.8-13.1) 11/30/16 14:26 INR 1.0 (0.9-1.2) 11/30/16 14:26 APTT 27.3 Seconds (25.6-37.1) 11/30/16 14:26 - Neurological Exam Neurological Exam: Alert, Awake, CN II-XII Intact, Normal Gait, Oriented x3, Reflexes Normal Neuro motor strength exam: Left Upper Extremity: 4, Right Upper Extremity: 4, Left Lower Extremity: 4, Right Lower Extremity: 4 Assessment and Plan (1) Intracranial atherosclerosis Assessment & Plan: Continue current medications for secondary stroke prevention. Hydration per nephrology. Treat electrolyte disturbances. DVT Px. PT/OT for deconditioning. No further neurology recommendations at this time. Status: Acute
--- NOTE | 2016-12-02 17:31 | CP.PCM.CON ---
History of Present Illness - History of Present Illness History of Present Illness: CC: Dysarthria. HPI: I have been requested ob cardiac consultation by Dr. Carrington for Mr. Yen who is an 86 year old male well known to me and has a history of atrial fibrillation , CAD, PAD, CKD, DM and HTN. He is evaluated at [facility] for an episode of dysarthria and confusion witnessed by his daughter. She states that the symptoms lasted for approximately 15 minutes and resolved spontaneously. A CT of the head and MRI of the brain did not reveal any acute CVA, carotids dopplers revealed 60-70% NAVNEET and 50-60% LICA stenosis, an ECG showed sinus bradycardia. He is currently awake, alert and cooperative without focal deficits. I have spoken with the daughter in the phone and she states that e is appropriate with certain things, however he confused chicken soup for chocolate and vice versa today and could figure out how to use his cell phone which he has had for several years. Review of Systems - Constitutional Constitutional: Lethargy, Malaise, Weakness - EENT Eyes: As Per HPI Ears: Decreased Hearing Nose/Mouth/Throat: As Per HPI - Cardiovascular Additional comments: Negative. - Respiratory Additional comments: Negative. - Gastrointestinal Additional comments: Negative. - Genitourinary Additional comments: Negative. - Musculoskeletal Musculoskeletal: Muscle Weakness - Integumentary Additional comments: Negative. - Neurological Neurological: As Per HPI, Abnormal Speech, Confusion, Weakness - Psychiatric Additional comments: Negative. - Endocrine Endocrine: Fatigue - Hematologic/Lymphatic Additional comments: Negative. 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 - RENAL Hx Chronic Kidney Disease: Yes - ENDOCRINE/METABOLIC Hx Diabetes Mellitus Type 2: Yes - HEMATOLOGICAL/ONCOLOGICAL Hx Anemia: Yes Hx Human Immunodeficiency Virus (HIV): No - INTEGUMENTARY Hx Dermatological Problems: No - MUSCULOSKELETAL/RHEUMATOLOGICAL Hx Arthritis: Yes - GASTROINTESTINAL Hx Diverticulitis: Yes - GENITOURINARY/GYNECOLOGICAL Hx Genitourinary Disorders: No - PSYCHIATRIC Hx Psychophysiologic Disorder: No Hx Substance Use: No - SURGICAL HISTORY Hx Carotid Endarterectomy: Yes Hx Cholecystectomy: Yes Hx Coronary Stent: Yes Other/Comment: Peripheral stent - ANESTHESIA Hx Anesthesia: Yes Hx Anesthesia Reactions: No Hx Malignant Hyperthermia: No Meds Allergies/Adverse Reactions: Allergies Allergy/AdvReac Type Severity Reaction Status Date / Time No Known Allergies Allergy Verified 11/30/16 14:10 - Medications Medications: Current Medications Amlodipine Besylate (Norvasc) 10 mg PO DAILY [facility] Last Admin: 12/02/16 09:34 Dose: 10 mg Cilostazol (Pletal) 100 mg PO BID [facility] Last Admin: 12/02/16 16:57 Dose: 100 mg Ferrous Sulfate (Feosol) 325 mg PO DAILY [facility] Last Admin: 12/02/16 09:33 Dose: 325 mg Finasteride (Proscar) 5 mg PO DAILY [facility] Last Admin: 12/02/16 09:33 Dose: 5 mg Pantoprazole Sodium (Protonix Ec Tab) 40 mg PO DAILY [facility] Last Admin: 12/02/16 09:34 Dose: 40 mg Pravastatin Sodium (Pravachol) 40 mg PO HS [facility] Last Admin: 12/01/16 21:23 Dose: 40 mg Valsartan (Diovan) 160 mg PO BID [facility] Last Admin: 12/02/16 16:57 Dose: Not Given Physical Exam - Constitutional Appears: Well, Non-toxic, No Acute Distress - Head Exam Head Exam: NORMAL INSPECTION - Eye Exam Eye Exam: EOMI, Normal appearance - ENT Exam ENT Exam: Mucous Membranes Moist, Normal Exam - Neck Exam Additional comments: Left carotid bruit. - Respiratory Exam Respiratory Exam: Clear to Auscultation Bilateral, NORMAL BREATHING PATTERN - Cardiovascular Exam Cardiovascular Exam: REGULAR RHYTHM, +S1, +S2, Systolic Murmur - GI/Abdominal Exam GI & Abdominal Exam: Soft - Rectal Exam Rectal Exam: Deferred - Extremities Exam Extremities exam: Positive for: full ROM, normal inspection - Back Exam Back exam: NORMAL INSPECTION - Neurological Exam Neurological exam: Alert, CN II-XII Intact, Oriented x3 - Psychiatric Exam Psychiatric exam: Normal Affect, Normal Mood - Skin Skin Exam: Dry, Intact, Normal Color, Warm Results - Vital Signs Recent Vital Signs: Last Vital Signs Temp 98.2 F 06/21/17 16:54 Pulse 64 12/02/16 16:54 Resp 20 12/02/16 16:54 BP 105/47 L 12/02/16 16:54 Pulse Ox 98 12/02/16 16:54 - Labs Result Diagrams: 12/01/16 06:10 12/02/16 06:45 Labs: Laboratory Results - last 24 hr 12/01/16 12/01/16 12/02/16 13:42 21:38 05:23 Sodium Potassium Chloride Carbon Dioxide Anion Gap BUN Creatinine Est GFR ( Amer) Est GFR (Non-Af Amer) POC Glucose (mg/dL) 102 85 Random Glucose Hemoglobin A1c 5.2 Calcium 12/02/16 12/02/16 12/02/16 06:45 11:37 16:07 Sodium 136 Potassium 5.2 H Chloride 108 H Carbon Dioxide 19 L Anion Gap 14 BUN 58 H Creatinine 2.5 H Est GFR ( Amer) 30 Est GFR (Non-Af Amer) 25 POC Glucose (mg/dL) 140 H 151 H Random Glucose 85 Hemoglobin A1c Calcium 8.6 Assessment & Plan - Assessment and Plan (Free Text) Assessment: TIA, etiology could be secondary to labile BP, autonomic dysfunction, orthostasis. The patient underwent carotid angiography earlier this year which revealed only mid to moderate disease PAD, Stable Carotid artery stenosis CAD, stable PAFIB HTN DM CKD, at baseline Plan: Continue cilostazol Continue present antihypertensive regimen Monitor telemetry PT [facility] Will follow up PRN Case d/w the patient's daughter - Date & Time Date: 12/02/16 Time: 17:20
[2016-12-02] MEDS: Pravastatin Sodium 40 MG TAB PO SCH (21:50)
[2016-12-03 07:18] LABS: HEMATOCRIT 21.9 % (35.0-51.0); MEAN CELL VOLUME 83.3 fl (80.0-94.0); MEAN CORPUSCULAR HGB CONC 32.4 g/dL (33.0-37.0); RED CELL DISTRIBUTION WIDTH 14.5 % (11.5-14.5); WHITE BLOOD COUNT 6.6 K/uL (4.8-10.8)
[2016-12-03 07:29] LABS: CALCIUM 7.9 mg/dL (8.4-10.2); POTASSIUM 5.2 MMOL/L (3.6-5.0)
--- NOTE | 2016-12-03 08:53 | CP.PCM.PN ---
Subjective - Date & Time of Evaluation Date of Evaluation: 12/03/16 Time of Evaluation: 08:53 - Subjective Subjective: FEELS BETTER NO RECURRENCE OF TIA SYMPTOMS Objective - Vital Signs/Intake and Output Vital Signs (last 24 hours): Temp Pulse Resp BP Pulse Ox 98.3 F 59 L 18 151/53 H 99 12/03/16 08:00 12/03/16 08:00 12/03/16 08:00 12/03/16 08:00 12/03/16 08:00 Intake and Output: 12/03/16 12/03/16 06:59 18:59 Intake Total 240 Balance 240 - Medications Medications: Current Medications Amlodipine Besylate (Norvasc) 10 mg PO DAILY [facility] Last Admin: 12/02/16 09:34 Dose: 10 mg Cilostazol (Pletal) 100 mg PO BID [facility] Last Admin: 12/02/16 16:57 Dose: 100 mg Ferrous Sulfate (Feosol) 325 mg PO DAILY [facility] Last Admin: 12/02/16 09:33 Dose: 325 mg Finasteride (Proscar) 5 mg PO DAILY [facility] Last Admin: 12/02/16 09:33 Dose: 5 mg Pantoprazole Sodium (Protonix Ec Tab) 40 mg PO DAILY [facility] Last Admin: 12/02/16 09:34 Dose: 40 mg Pravastatin Sodium (Pravachol) 40 mg PO HS [facility] Last Admin: 12/02/16 21:50 Dose: 40 mg Valsartan (Diovan) 160 mg PO BID [facility] Last Admin: 12/02/16 16:57 Dose: Not Given - Labs Labs: 12/03/16 06:00 12/03/16 06:00 PT 10.8 Seconds (9.8-13.1) 11/30/16 14:26 INR 1.0 (0.9-1.2) 11/30/16 14:26 APTT 27.3 Seconds (25.6-37.1) 11/30/16 14:26 - Constitutional Appears: No Acute Distress - Head Exam Head Exam: ATRAUMATIC, NORMAL INSPECTION, NORMOCEPHALIC - Eye Exam Eye Exam: EOMI, Normal appearance, PERRL Pupil Exam: NORMAL ACCOMODATION, PERRL - ENT Exam ENT Exam: Mucous Membranes Moist, Normal Exam - Neck Exam Neck Exam: Full ROM, Normal Inspection. absent: Lymphadenopathy - Respiratory Exam Respiratory Exam: Clear to Ausculation Bilateral, NORMAL BREATHING PATTERN - Cardiovascular Exam Cardiovascular Exam: REGULAR RHYTHM, +S1, +S2. absent: Murmur - GI/Abdominal Exam GI & Abdominal Exam: Soft, Normal Bowel Sounds. absent: Tenderness - Rectal Exam Rectal Exam: NORMAL INSPECTION - Extremities Exam Extremities Exam: Full ROM, Normal Capillary Refill, Normal Inspection. absent : Joint Swelling, Pedal Edema - Back Exam Back Exam: NORMAL INSPECTION - Neurological Exam Neurological Exam: Alert, Awake, CN II-XII Intact, Normal Gait, Oriented x3 - Psychiatric Exam Psychiatric exam: Normal Affect, Normal Mood - Skin Skin Exam: Dry, Intact, Normal Color, Warm Assessment and Plan - Assessment and Plan (Free Text) Assessment: TIA ASHD HTN SEVERE ANEMIA CHRONIC RENAL FAILURE Plan: HEMATOLOGY EVAL PROBABLE TRANSFER TO SUBACUTE CARE ONCE CLEARED BY HEMATOLOGY
[2016-12-03] MEDS: Cilostazol 100 mg Tab UD PO SCH ×2 (09:49→17:12)
[2016-12-03] MEDS: Pantoprazole 40 mg EC Tab PO SCH (09:49)
--- NOTE | 2016-12-03 10:01 | CP.PCM.PN ---
Subjective - Date & Time of Evaluation Date of Evaluation: 12/03/16 Time of Evaluation: 10:00 - Subjective Subjective: This is a 86 yrs ol;d male was admitted with c/o Objective - Vital Signs/Intake and Output Vital Signs (last 24 hours): Temp Pulse Resp BP Pulse Ox 98.3 F 59 L 18 151/53 H 99 12/03/16 08:00 12/03/16 08:00 12/03/16 08:00 12/03/16 08:00 12/03/16 08:00 Intake and Output: 12/03/16 12/03/16 06:59 18:59 Intake Total 240 Balance 240 - Medications Medications: Current Medications Amlodipine Besylate (Norvasc) 10 mg PO DAILY [facility] Last Admin: 12/03/16 09:57 Dose: Not Given Cilostazol (Pletal) 100 mg PO BID [facility] Last Admin: 12/03/16 09:49 Dose: 100 mg Ferrous Sulfate (Feosol) 325 mg PO DAILY [facility] Last Admin: 12/03/16 09:47 Dose: 325 mg Finasteride (Proscar) 5 mg PO DAILY [facility] Last Admin: 12/03/16 09:49 Dose: 5 mg Iron Sucrose 200 mg/ Sodium (Chloride) 110 mls @ 0 mls/hr IVPB DAILY [facility] PRN Reason: As Directed Pantoprazole Sodium (Protonix Ec Tab) 40 mg PO DAILY [facility] Last Admin: 12/03/16 09:49 Dose: 40 mg Pravastatin Sodium (Pravachol) 40 mg PO HS [facility] Last Admin: 12/02/16 21:50 Dose: 40 mg Valsartan (Diovan) 160 mg PO BID [facility] Last Admin: 12/03/16 09:57 Dose: Not Given - Labs Labs: 12/03/16 06:00 12/03/16 06:00 PT 10.8 Seconds (9.8-13.1) 11/30/16 14:26 INR 1.0 (0.9-1.2) 11/30/16 14:26 APTT 27.3 Seconds (25.6-37.1) 11/30/16 14:26
--- NOTE | 2016-12-03 10:06 | CP.PCM.CON ---
History of Present Illness - History of Present Illness History of Present Illness: this is a 86 yrs old male who was admitted for having a TIA for about 15 mins as witnessed by his daughter. He was ok by the time he came ivy the ER. A Ct scan done shows atherosclerotic changesin the vessels in the brain. He also has a h/o CAD with stent placed and since he has been on aspirin and plavix. He also has HTN,and CRD. According to his daughter he is under Dr Hou's care, and gets procrit at the nursing. He has however not seen Dr Cole in a while. On admission his WBC was 6.0, hgb 8.0 , MCV 84, platelet 200K. Diff more or less normal. Retic count was only 1.0. He does not c/o bleeding from any site. 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 - RENAL Hx Chronic Kidney Disease: Yes - ENDOCRINE/METABOLIC Hx Diabetes Mellitus Type 2: Yes - HEMATOLOGICAL/ONCOLOGICAL Hx Anemia: Yes Hx Human Immunodeficiency Virus (HIV): No - INTEGUMENTARY Hx Dermatological Problems: No - MUSCULOSKELETAL/RHEUMATOLOGICAL Hx Arthritis: Yes - GASTROINTESTINAL Hx Diverticulitis: Yes - GENITOURINARY/GYNECOLOGICAL Hx Genitourinary Disorders: No - PSYCHIATRIC Hx Psychophysiologic Disorder: No Hx Substance Use: No - SURGICAL HISTORY Hx Carotid Endarterectomy: Yes Hx Cholecystectomy: Yes Hx Coronary Stent: Yes Other/Comment: Peripheral stent - ANESTHESIA Hx Anesthesia: Yes Hx Anesthesia Reactions: No Hx Malignant Hyperthermia: No Meds Allergies/Adverse Reactions: Allergies Allergy/AdvReac Type Severity Reaction Status Date / Time No Known Allergies Allergy Verified 11/30/16 14:10 - Medications Medications: Current Medications Amlodipine Besylate (Norvasc) 10 mg PO DAILY [facility] Last Admin: 12/03/16 09:57 Dose: Not Given Cilostazol (Pletal) 100 mg PO BID [facility] Last Admin: 12/03/16 09:49 Dose: 100 mg Ferrous Sulfate (Feosol) 325 mg PO DAILY [facility] Last Admin: 12/03/16 09:47 Dose: 325 mg Finasteride (Proscar) 5 mg PO DAILY [facility] Last Admin: 12/03/16 09:49 Dose: 5 mg Iron Sucrose 200 mg/ Sodium (Chloride) 110 mls @ 0 mls/hr IVPB DAILY [facility] PRN Reason: As Directed Pantoprazole Sodium (Protonix Ec Tab) 40 mg PO DAILY [facility] Last Admin: 12/03/16 09:49 Dose: 40 mg Pravastatin Sodium (Pravachol) 40 mg PO HS [facility] Last Admin: 12/02/16 21:50 Dose: 40 mg Valsartan (Diovan) 160 mg PO BID [facility] Last Admin: 12/03/16 09:57 Dose: Not Given Physical Exam - Additional Findings Additional findings: Pt is a little confused, but no deviation of the mouth or slurred speech is noted neck; Supple, no adenopathy Chest; Clear, no rales or rhonchi Heart; RSR, no murmur Abd; Soft, no mass. no h/s megaly Results - Vital Signs Recent Vital Signs: Last Vital Signs Temp 98.3 F 12/03/16 08:00 Pulse 59 L 12/03/16 08:00 Resp 18 12/03/16 08:00 BP 151/53 H 12/03/16 08:00 Pulse Ox 99 12/03/16 08:00 - Labs Result Diagrams: 12/03/16 06:00 12/03/16 06:00 Labs: Laboratory Results - last 24 hr 12/01/16 12/02/16 12/02/16 13:42 11:37 16:07 WBC RBC Hgb Hct MCV MCH MCHC RDW Plt Count Retic Count Sodium Potassium Chloride Carbon Dioxide Anion Gap BUN Creatinine Est GFR ( Amer) Est GFR (Non-Af Amer) POC Glucose (mg/dL) 140 H 151 H Random Glucose Hemoglobin A1c 5.2 Calcium 12/02/16 12/03/16 12/03/16 21:22 04:36 05:45 WBC RBC Hgb Hct MCV MCH MCHC RDW Plt Count Retic Count 1.0 Sodium Potassium Chloride Carbon Dioxide Anion Gap BUN Creatinine Est GFR ( Amer) Est GFR (Non-Af Amer) POC Glucose (mg/dL) 129 H 95 Random Glucose Hemoglobin A1c Calcium 12/03/16 12/03/16 06:00 06:00 WBC 6.6 RBC 2.63 L Hgb 7.1 L D Hct 21.9 L MCV 83.3 MCH 27.0 MCHC 32.4 L RDW 14.5 Plt Count 209 Retic Count Sodium 134 Potassium 5.2 H Chloride 108 H Carbon Dioxide 17 L Anion Gap 14 BUN 68 H Creatinine 2.9 H Est GFR ( Amer) 25 Est GFR (Non-Af Amer) 21 POC Glucose (mg/dL) Random Glucose 81 Hemoglobin A1c Calcium 7.9 L Assessment & Plan - Assessment and Plan (Free Text) Assessment: impression; Anemia could be due to Chronic renal disease along with some iron deficiency Plan: Plan;; Will ck the serum ferritin and B12. will give 2-3 doses of Venofer which should help the procrit to raise his Hgb. - Date & Time Date: 12/03/16 Time: 10:18
--- NOTE | 2016-12-03 19:04 | CP.PCM.PN ---
Subjective - Date & Time of Evaluation Date of Evaluation: 12/03/16 Time of Evaluation: 15:00 - Subjective Subjective: SEEN ON RENAL F/U FEELS IMPROVED CASE D/W PT ON THE BED SIDE .. ALSO WITH THE DAUGHTER ON THE PHONE H/H DROPPED RENAL FUNCTION REMIANS STABLE AT e GFR 25- 30 ML/M ALL PREVIOUS EMR REVIEWED Objective - Vital Signs/Intake and Output Vital Signs (last 24 hours): Temp Pulse Resp BP Pulse Ox 97.6 F 60 20 101/52 L 100 12/03/16 15:49 12/03/16 15:49 12/03/16 15:49 12/03/16 15:49 12/03/16 15:49 Intake and Output: 12/03/16 12/04/16 18:59 06:59 Intake Total 400 Balance 400 - Medications Medications: Current Medications Amlodipine Besylate (Norvasc) 10 mg PO DAILY [facility] Last Admin: 12/03/16 09:57 Dose: Not Given Cilostazol (Pletal) 100 mg PO BID [facility] Last Admin: 12/03/16 17:12 Dose: 100 mg Epoetin Nolan (Procrit) 4,000 unit SC MWF [facility] Ferrous Sulfate (Feosol) 325 mg PO DAILY [facility] Last Admin: 12/03/16 09:47 Dose: 325 mg Finasteride (Proscar) 5 mg PO DAILY [facility] Last Admin: 12/03/16 09:49 Dose: 5 mg Iron Sucrose 200 mg/ Sodium (Chloride) 110 mls @ 0 mls/hr IVPB DAILY [facility] PRN Reason: As Directed Pantoprazole Sodium (Protonix Ec Tab) 40 mg PO DAILY [facility] Last Admin: 12/03/16 09:49 Dose: 40 mg Pravastatin Sodium (Pravachol) 40 mg PO HS [facility] Last Admin: 12/02/16 21:50 Dose: 40 mg Sodium Bicarbonate (Sodium Bicarbonate Tab) 650 mg PO Q8 [facility] Last Admin: 12/03/16 17:11 Dose: 650 mg Valsartan (Diovan) 160 mg PO BID [facility] Last Admin: 12/03/16 17:07 Dose: Not Given - Labs Labs: 12/03/16 06:00 12/03/16 06:00 PT 10.8 Seconds (9.8-13.1) 11/30/16 14:26 INR 1.0 (0.9-1.2) 11/30/16 14:26 APTT 27.3 Seconds (25.6-37.1) 11/30/16 14:26 Assessment and Plan - Assessment and Plan (Free Text) Assessment: CKD .. STABLE RENAL FUNCTION ANEMIA OF CKD .. AGREE WITH DR HUGHES .. NEEDS VENOFER AND EPO S/O TIA .. MULTIPLE CO MORBIDITIES P : C/O CURRENT CARE C/O PRESENT MANAGEMENT START EPO + VENOFERE
[2016-12-03] MEDS: Pravastatin Sodium 40 MG TAB PO SCH (21:51)
[2016-12-04] MEDS: Cilostazol 100 mg Tab UD PO SCH ×2 (08:43→16:39)
[2016-12-04] MEDS: Pantoprazole 40 mg EC Tab PO SCH (09:00)
[2016-12-04] MEDS ORDERED: Epoetin Alfa 4000 UNIT/ML Inj SC SCH (09:00)
--- NOTE | 2016-12-04 09:57 | CP.PCM.PN ---
Subjective - Date & Time of Evaluation Date of Evaluation: 12/04/16 Time of Evaluation: 09:57 - Subjective Subjective: Pt received his first dose of iv venofer yesteday. The ferritin and B12 were both normal, so i will only give him 3 doses of venofer. his hgb was only 7.1 yesterday. It has been repeated today. If it is still this low, will need to be transfused. Objective - Vital Signs/Intake and Output Vital Signs (last 24 hours): Temp Pulse Resp BP Pulse Ox 97.9 F 60 18 161/57 H 100 12/04/16 08:03 12/04/16 08:43 12/04/16 08:03 12/04/16 08:43 12/04/16 08:03 - Medications Medications: Current Medications Amlodipine Besylate (Norvasc) 10 mg PO DAILY [facility] Last Admin: 12/04/16 08:43 Dose: 10 mg Cilostazol (Pletal) 100 mg PO BID [facility] Last Admin: 12/04/16 08:43 Dose: 100 mg Epoetin Nolan (Procrit) 4,000 unit SC MWF [facility] Last Admin: 12/04/16 08:47 Dose: 4,000 unit Ferrous Sulfate (Feosol) 325 mg PO DAILY [facility] Last Admin: 12/04/16 08:43 Dose: 325 mg Finasteride (Proscar) 5 mg PO DAILY [facility] Last Admin: 12/04/16 08:44 Dose: 5 mg Iron Sucrose 200 mg/ Sodium (Chloride) 110 mls @ 0 mls/hr IVPB DAILY [facility] PRN Reason: As Directed Last Admin: 12/04/16 08:48 Dose: 100 mls/hr Pantoprazole Sodium (Protonix Ec Tab) 40 mg PO DAILY [facility] Last Admin: 12/03/16 09:49 Dose: 40 mg Pravastatin Sodium (Pravachol) 40 mg PO HS [facility] Last Admin: 12/03/16 21:51 Dose: 40 mg Sodium Bicarbonate (Sodium Bicarbonate Tab) 650 mg PO Q8 [facility] Last Admin: 12/04/16 08:48 Dose: Not Given Valsartan (Diovan) 160 mg PO BID [facility] Last Admin: 12/04/16 08:43 Dose: 160 mg - Labs Labs: 12/03/16 06:00 12/03/16 06:00 PT 10.8 Seconds (9.8-13.1) 11/30/16 14:26 INR 1.0 (0.9-1.2) 11/30/16 14:26 APTT 27.3 Seconds (25.6-37.1) 11/30/16 14:26
[2016-12-04 11:31] LABS: HEMATOCRIT 22.5 % (35.0-51.0); MEAN CELL VOLUME 84.8 fl (80.0-94.0); MEAN CORPUSCULAR HEMOGLOBIN 27.2 pg (27.0-31.0); MEAN CORPUSCULAR HGB CONC 32.1 g/dL (33.0-37.0); RED CELL DISTRIBUTION WIDTH 14.4 % (11.5-14.5); WHITE BLOOD COUNT 7.9 K/uL (4.8-10.8)
--- NOTE | 2016-12-04 12:27 | CP.PCM.PN ---
Subjective - Date & Time of Evaluation Date of Evaluation: 12/04/16 Time of Evaluation: 12:27 - Subjective Subjective: NO APPARENT DISTRESS NO CHEST PAINS/SOB IRON TRANSFUSION IN PROGRESS Objective - Vital Signs/Intake and Output Vital Signs (last 24 hours): Temp Pulse Resp BP Pulse Ox 98.3 F 56 L 18 148/52 L 98 12/04/16 12:19 12/04/16 12:19 12/04/16 12:19 12/04/16 12:19 12/04/16 12:19 - Medications Medications: Current Medications Amlodipine Besylate (Norvasc) 10 mg PO DAILY [facility] Last Admin: 12/04/16 08:43 Dose: 10 mg Cilostazol (Pletal) 100 mg PO BID [facility] Last Admin: 12/04/16 08:43 Dose: 100 mg Epoetin Nloan (Procrit) 4,000 unit SC MWF [facility] Last Admin: 12/04/16 08:47 Dose: 4,000 unit Ferrous Sulfate (Feosol) 325 mg PO DAILY [facility] Last Admin: 12/04/16 08:43 Dose: 325 mg Finasteride (Proscar) 5 mg PO DAILY [facility] Last Admin: 12/04/16 08:44 Dose: 5 mg Iron Sucrose 200 mg/ Sodium (Chloride) 110 mls @ 0 mls/hr IVPB DAILY [facility] PRN Reason: As Directed Last Admin: 12/04/16 08:48 Dose: 100 mls/hr Pantoprazole Sodium (Protonix Ec Tab) 40 mg PO DAILY [facility] Last Admin: 12/03/16 09:49 Dose: 40 mg Pravastatin Sodium (Pravachol) 40 mg PO HS [facility] Last Admin: 12/03/16 21:51 Dose: 40 mg Sodium Bicarbonate (Sodium Bicarbonate Tab) 650 mg PO Q8 [facility] Last Admin: 12/04/16 08:48 Dose: Not Given Valsartan (Diovan) 160 mg PO BID [facility] Last Admin: 12/04/16 08:43 Dose: 160 mg - Labs Labs: 12/04/16 10:50 12/03/16 06:00 PT 10.8 Seconds (9.8-13.1) 11/30/16 14:26 INR 1.0 (0.9-1.2) 11/30/16 14:26 APTT 27.3 Seconds (25.6-37.1) 11/30/16 14:26 - Constitutional Appears: No Acute Distress - Head Exam Head Exam: ATRAUMATIC, NORMAL INSPECTION, NORMOCEPHALIC - Eye Exam Eye Exam: EOMI, Normal appearance, PERRL Pupil Exam: NORMAL ACCOMODATION, PERRL - ENT Exam ENT Exam: Mucous Membranes Moist, Normal Exam - Neck Exam Neck Exam: Full ROM, Normal Inspection. absent: Lymphadenopathy - Respiratory Exam Respiratory Exam: Clear to Ausculation Bilateral, NORMAL BREATHING PATTERN - Cardiovascular Exam Cardiovascular Exam: REGULAR RHYTHM, +S1, +S2. absent: Murmur - GI/Abdominal Exam GI & Abdominal Exam: Soft, Normal Bowel Sounds. absent: Tenderness - Rectal Exam Rectal Exam: NORMAL INSPECTION - Extremities Exam Extremities Exam: Full ROM, Normal Capillary Refill, Normal Inspection. absent : Joint Swelling, Pedal Edema - Back Exam Back Exam: NORMAL INSPECTION - Neurological Exam Neurological Exam: Alert, Awake, CN II-XII Intact, Normal Gait, Oriented x3 - Psychiatric Exam Psychiatric exam: Normal Affect, Normal Mood - Skin Skin Exam: Dry, Intact, Normal Color, Warm Assessment and Plan - Assessment and Plan (Free Text) Assessment: TIA ANEMIA Plan: WILL NEED TRANSFUSION OF PRBCS WILL D/C TO [facility] IN AM
--- NOTE | 2016-12-04 19:12 | CP.PCM.PN ---
Subjective - Date & Time of Evaluation Date of Evaluation: 12/04/16 Time of Evaluation: 15:00 - Subjective Subjective: SEEN ON RENAL F/U .. FEELS IMPROVED TRANSFUSION OF PRBC IS STARTING SOON ALSO PT IS ON VENOFER AND PROCRIT HEMODYNAMICALLY STABLE Objective - Vital Signs/Intake and Output Vital Signs (last 24 hours): Temp Pulse Resp BP Pulse Ox 98 F 58 L 16 118/54 L 97 12/04/16 16:58 12/04/16 16:58 12/04/16 16:58 12/04/16 16:58 12/04/16 16:58 Intake and Output: 12/04/16 12/05/16 18:59 06:59 Intake Total 950 Output Total 550 Balance 400 - Medications Medications: Current Medications Amlodipine Besylate (Norvasc) 10 mg PO DAILY [facility] Last Admin: 12/04/16 08:43 Dose: 10 mg Cilostazol (Pletal) 100 mg PO BID [facility] Last Admin: 12/04/16 16:39 Dose: 100 mg Epoetin Nolan (Procrit) 4,000 unit SC MWF [facility] Last Admin: 12/04/16 08:47 Dose: 4,000 unit Ferrous Sulfate (Feosol) 325 mg PO DAILY [facility] Last Admin: 12/04/16 08:43 Dose: 325 mg Finasteride (Proscar) 5 mg PO DAILY [facility] Last Admin: 12/04/16 08:44 Dose: 5 mg Iron Sucrose 200 mg/ Sodium (Chloride) 110 mls @ 0 mls/hr IVPB DAILY [facility] PRN Reason: As Directed Last Admin: 12/04/16 08:48 Dose: 100 mls/hr Pantoprazole Sodium (Protonix Ec Tab) 40 mg PO DAILY [facility] Last Admin: 12/04/16 09:00 Dose: 40 mg Pravastatin Sodium (Pravachol) 40 mg PO HS [facility] Last Admin: 12/03/16 21:51 Dose: 40 mg Sodium Bicarbonate (Sodium Bicarbonate Tab) 650 mg PO Q8 [facility] Last Admin: 12/04/16 16:39 Dose: Not Given Valsartan (Diovan) 160 mg PO BID [facility] Last Admin: 12/04/16 16:38 Dose: 160 mg - Labs Labs: 12/04/16 10:50 12/03/16 06:00 PT 10.8 Seconds (9.8-13.1) 11/30/16 14:26 INR 1.0 (0.9-1.2) 11/30/16 14:26 APTT 27.3 Seconds (25.6-37.1) 11/30/16 14:26 Assessment and Plan - Assessment and Plan (Free Text) Assessment: CKD .. RENAL FUNCTION STABLE HYPERKALEMIA .. K 5.2 .. HAD DIETARY COUNCELLING FOR RENAL DIET ,INCLUDING 2 GM K S/P RECURRENT TIA s MULTIPLE CO MORBIDITIES P : C/O CURRENT CARE C/O PRESENT MANAGEMENT
[2016-12-04] MEDS: Pravastatin Sodium 40 MG TAB PO SCH (23:00)
[2016-12-05 07:59] LABS: HEMATOCRIT 28.8 % (35.0-51.0); MEAN CELL VOLUME 84.8 fl (80.0-94.0); RED CELL DISTRIBUTION WIDTH 14.3 % (11.5-14.5); WHITE BLOOD COUNT 7.2 K/uL (4.8-10.8)
[2016-12-05] MEDS: Cilostazol 100 mg Tab UD PO SCH (08:16)
[2016-12-05] MEDS: Pantoprazole 40 mg EC Tab PO SCH (08:17)
[2016-12-05 08:36] VITALS: RESP 20
--- NOTE | 2016-12-05 10:38 | CP.PCM.DIS ---
Provider - Provider Date of Admission: 12/01/16 09:11 Attending physician: Dani Carrington MD Time Spent in preparation of Discharge (in minutes): 30 Diagnosis - Discharge Diagnosis (1) CKD (chronic kidney disease), stage III Status: Acute (2) Intracranial atherosclerosis Status: Acute Priority: High (3) TIA (transient ischemic attack) Status: Acute (4) Renal insufficiency Status: Chronic (5) Anemia Status: Acute (6) Hyperkalemia Status: Acute (7) Hyperlipidemia Status: Acute (8) Hypertension Status: Chronic Hospital Course - Lab Results Lab Results: Most Recent Lab Values WBC 7.2 K/uL (4.8-10.8) 12/05/16 06:00 RBC 3.40 Mil/uL (4.40-5.90) L 12/05/16 06:00 Hgb 9.5 g/dL (12.0-18.0) L D 12/05/16 06:00 Hct 28.8 % (35.0-51.0) L 12/05/16 06:00 MCV 84.8 fl (80.0-94.0) 12/05/16 06:00 MCH 28.0 pg (27.0-31.0) 12/05/16 06:00 MCHC 33.0 g/dL (33.0-37.0) 12/05/16 06:00 RDW 14.3 % (11.5-14.5) 12/05/16 06:00 Plt Count 188 K/uL (130-400) 12/05/16 06:00 MPV 9.0 fl (7.2-11.7) 11/30/16 14:26 Neut % (Auto) 47.1 % (50.0-75.0) L 11/30/16 14:26 Lymph % (Auto) 36.4 % (20.0-40.0) 11/30/16 14:26 [place] % (Auto) 7.7 % (0.0-10.0) 11/30/16 14:26 Eos % (Auto) 7.8 % (0.0-4.0) H 11/30/16 14:26 Baso % (Auto) 1.0 % (0.0-2.0) 11/30/16 14:26 Neut # 2.8 K/uL (1.8-7.0) 11/30/16 14:26 Lymph # 2.2 K/uL (1.0-4.3) 11/30/16 14:26 [place] # 0.5 K/uL (0.0-0.8) 11/30/16 14:26 Eos # 0.5 K/uL (0.0-0.7) 11/30/16 14: Baso # 0.1 K/uL (0.0-0.2) 11/30/16 14: Retic Count 1.0 % (0.5-1.5) 12/03/16 05:45 PT 10.8 Seconds (9.8-13.1) 11/30/16 14: INR 1.0 (0.9-1.2) 11/30/16 14: APTT 27.3 Seconds (25.6-37.1) 11/30/16 14:26 Sodium 134 mmol/l (132-148) 12/03/16 06:00 Potassium 5.2 MMOL/L (3.6-5.0) H 12/03/16 06:00 Chloride 108 mmol/L (98-107) H 12/03/16 06:00 Carbon Dioxide 17 mmol/L (22-30) L 12/03/16 06:00 Anion Gap 14 (10-20) 12/03/16 06:00 BUN 68 mg/dl (9-20) H 12/03/16 06:00 Creatinine 2.9 mg/dL (0.8-1.5) H 12/03/16 06:00 Est GFR ( Amer) 25 12/03/16 06:00 Est GFR (Non-Af Amer) 12/03/16 06:00 POC Glucose (mg/dL) 88 mg/dL (65-110) 12/05/16 05:35 Random Glucose 81 mg/dL (75-110) 12/03/16 06:00 Hemoglobin A1c 5.2 % (4.2-6.5) 12/01/16 13:42 Calcium 7.9 mg/dL (8.4-10.2) L 12/03/16 06:00 Iron 55 ug/dL (49-181) 12/01/16 06:10 TIBC 267 ug/dL (250-450) 12/01/16 06:10 % Saturation 21 % (20-55) 12/01/16 06:10 Ferritin 23.3 ng/mL 12/03/16 05:45 Total Bilirubin 0.2 mg/dl (0.2-1.3) 12/01/16 06:10 AST 26 U/L (17-59) 12/01/16 06:10 ALT 21 U/L (21-72) 12/01/16 06:10 Alkaline Phosphatase 58 U/L (38-126) 12/01/16 06:10 Troponin I 0.0290 ng/mL (0.00-0.120) 11/30/16 14:21 Total Protein 7.4 G/DL (6.3-8.2) 12/01/16 06:10 Albumin 4.1 g/dL (3.5-5.0) 12/01/16 06:10 Globulin 3.3 gm/dL (2.2-3.9) 12/01/16 06:10 Albumin/Globulin Ratio 1.2 (1.0-2.1) 12/01/16 06:10 Triglycerides 58 mg/DL (0-149) D 11/30/16 14:21 Cholesterol 153 mg/dL (0-199) 11/30/16 14:21 LDL Cholesterol Direct 49 mg/dL (0-129) 11/30/16 14:21 HDL Cholesterol 80 MG/DL (30-70) H 11/30/16 14:21 Vitamin B12 860 pg/mL (239-931) 12/03/16 05:45 TSH 3rd Generation 3.14 mIU/ML (0.46-4.68) 12/01/16 13:42 Blood Type AB NEGATIVE 12/04/16 13:00 Antibody Screen Negative 12/04/16 13:00 Crossmatch See Detail 12/04/16 13:00 BBK History Checked Patient has bt 12/04/16 13:00 - Hospital Course Hospital Course: NO RECURRENCE OF LENS BLOCKER SYMPTOMS NO CHEST PAINS/SOB Discharge Exam - Head Exam Head Exam: ATRAUMATIC, NORMAL INSPECTION, NORMOCEPHALIC - Eye Exam Eye Exam: EOMI, Normal appearance, PERRL Pupil Exam: NORMAL ACCOMODATION, PERRL - ENT Exam Additional comments: CONDUCTION DEAFNESS - GI/Abdominal Exam GI & Abdominal Exam: Normal Bowel Sounds - Rectal Exam Rectal Exam: NORMAL INSPECTION - Neurological Exam Neurological exam: Alert, CN II-XII Intact, Normal Gait, Oriented x3, Reflexes Normal - Psychiatric Exam Psychiatric exam: Normal Affect, Normal Mood - Skin Skin Exam: Dry, Intact, Normal Color, Warm Discharge Plan - Follow Up Plan Condition: FAIR Disposition: HOME/ ROUTINE Patient education suggested?: Yes Instructions: Transient Ischemic Attack (DC) Additional Instructions: DISCHARGE TO SUBACUTE CARE
[2016-12-05 13:01] VITALS: BP 134/50; PULSE 59; TEMP 97.9; O2SAT 98
== END 2016-12-05 14:46 | DRG 71 ==
LOC: H.ER 14:05 → H.ERHOLD 14:49 → H.TEL 22:18 → OBSVTOIN 12-01 09:11
PROVIDERS: ADMIT Internal Medicine Pulmonary Disease; ATTEND Internal Medicine Pulmonary Disease
DX: I67.2 Cerebral atherosclerosis (principal); N18.4 Chronic kidney disease, stage 4 (severe); I42.9 Cardiomyopathy, unspecified; E11.22 Type 2 diabetes mellitus with diabetic chronic kidney disease; E87.5 Hyperkalemia; I65.29 Occlusion and stenosis of unspecified carotid artery; D63.1 Anemia in chronic kidney disease; I12.9 Hypertensive chronic kidney disease with stage 1 through stage 4 chronic kidney disease, or unspecified chronic kidney disease; I25.10 Atherosclerotic heart disease of native coronary artery without angina pectoris; J44.9 Chronic obstructive pulmonary disease, unspecified; I73.9 Peripheral vascular disease, unspecified; Z95.5 Presence of coronary angioplasty implant and graft; Z86.73 Personal history of transient ischemic attack (TIA), and cerebral infarction without residual deficits; Z79.02 Long term (current) use of antithrombotics/antiplatelets; Z79.82 Long term (current) use of aspirin; I48.91 Unspecified atrial fibrillation

== ENCOUNTER 2017-02-07 09:27 | Observation (INO) | payer MEDICARE, BC ==
[2017-02-07 09:27] VITALS: BMI 29.0
[2017-02-07] MEDS ORDERED: Sodium Chloride 0.9% 1,000 ML IV STA (10:08)
--- NOTE | 2017-02-07 10:17 | ED PDOC ---
HPI: Trauma/Fall - HPI Time Seen by Provider: 02/07/17 09:43 Chief Complaint (Nursing): Trauma Chief Complaint (Provider): Right upper and lower extremity injury History Per: Patient History/Exam Limitations: no limitations Additional Complaint(s): Patient is an 86 y/o male with a past medical history of renal insufficiency, hypertension, and hypercholesterolemia, presenting to the emergency department for right arm and knee pain status post fall in which he tripped over his cane at home and fell on his right side, striking his head and right forearm. Notes that he had a TIA in Apr 2016 s/p fall. Denies chest pain, headache, dizziness, shortness of breath, and loss of consciousness. Of note patient is up to date with his tetanus shot. PCP: Dr. Carrington. NIHSS Stroke Scale - Date/Time Evaluation Performed When Was NIHSS Performed: Baseline - How Severe is the Stroke Level of Consciousness: 0=Alert LOC to Questions: 0=Both comments correct Best Gaze: 0=Normal Visual: 0=No visual loss Facial: 0=Normal Motor Arm - Left: 0=No drift Motor Arm - Right: 0=No drift Motor Leg - Left: 0=No drift Motor Leg - Right: 0=No drift Limb Ataxia: 0=Absent Best Language: 0=No aphasia Dysarthia: 0=Normal articulation Extinction & Inattention (Neglect): 0=Normal, no object Severity Of Stroke: 0 = No Stroke Past Medical History Reviewed: Historical Data, Nursing Documentation, Vital Signs Vital Signs: Last Vital Signs Temp 97.2 F L 02/07/17 09:35 Pulse 58 L 02/07/17 09:35 Resp 16 02/07/17 09:35 BP 145/85 02/07/17 09:35 Pulse Ox 100 02/07/17 09:35 - Medical History PMH: Anemia, Arthritis, Atrial Fibrillation, CAD, COPD, Diverticulitis, Fractures (left arm fx due to fall in the snow), HTN, Hypercholesterolemia, Chronic Kidney Disease, TIA (Apr 2016) Denies: HIV - Surgical History Surgical History: Carotid Endarterectomy, Cholecystectomy, Coronary Stent - Family History Family History: States: Unknown Family Hx - Social History Current smoker - smoking cessation education provided: No Ex-Smoker (has not smoked in the last 12 months): Yes Alcohol: None Drugs: Denies - Immunization History Hx Tetanus Toxoid Vaccination: No Hx Influenza Vaccination: Yes Hx Pneumococcal Vaccination: No - Home Medications Home Medications: Ambulatory Orders Medication Instructions Recorded Fish Oil/Dha/Epa [Fish Oil 1,200 1,200 mg PO DAILY 03/14/16 mg Fish Oil] Ferrous Sulfate 325 mg PO DAILY 05/02/16 Pantoprazole Sodium [Protonix] 40 mg PO DAILY 05/02/16 Pravastatin Sodium [Pravachol] 40 mg PO HS 07/24/16 Aspirin [Ecotrin] 81 mg PO DAILY 08/24/16 Finasteride [Proscar] 5 mg PO DAILY 08/24/16 Fludrocortisone [Florinef] 0.1 mg PO SUTUTHSA 11/30/16 Valsartan [Diovan] 160 mg PO BID 11/30/16 Cilostazol [Pletal] 100 mg PO BID #30 tab 12/05/16 Epoetin Nolan [Procrit] 4,000 unit SC MWF #30 ml 12/05/16 amLODIPine [Norvasc] 10 mg PO DAILY #30 tab 12/05/16 - Allergies Allergies/Adverse Reactions: Allergies Allergy/AdvReac Type Severity Reaction Status Date / Time No Known Allergies Allergy Verified 02/07/17 09:34 Review of Systems ROS Statement: Except As Marked, All Systems Reviewed And Found Negative Cardiovascular: Negative for: Chest Pain Respiratory: Negative for: Shortness of Breath Musculoskeletal: Positive for: Arm Pain (bleeding on right forearm), Other ( abrasion on right kneecap) Neurological: Negative for: Headache, Dizziness, Other (loss of consciousness) Physical Exam - Reviewed Nursing Documentation Reviewed: Yes Vital Signs Reviewed: Yes - Physical Exam Appears: Positive for: Well (and slightly hard of hearing), Non-toxic, No Acute Distress Head Exam: Positive for: ATRAUMATIC, NORMAL INSPECTION, NORMOCEPHALIC Skin: Positive for: Normal Color, Warm, Dry Eye Exam: Positive for: EOMI, Normal appearance, PERRL Neck: Positive for: Normal, Painless ROM, Supple Cardiovascular/Chest: Positive for: Other (S1 and S2). Negative for: Murmur Respiratory: Positive for: Normal Breath Sounds. Negative for: Accessory Muscle Use, Respiratory Distress Gastrointestinal/Abdominal: Positive for: Normal Exam, Soft. Negative for: Tenderness Back: Positive for: Normal Inspection. Negative for: Vertebral Tenderness ( posterior) Extremity: Positive for: Normal ROM, Other (Large skin tear from right elbow to distal third of the forearm. Abrasion on right patella. Discomfort on pelvic tilting.). Negative for: Pedal Edema Neurologic/Psych: Positive for: Alert, Oriented (x3). Negative for: Motor/ Sensory Deficits - Laboratory Results Result Diagrams: 02/07/17 10:30 02/07/17 10:30 - ECG O2 Sat by Pulse Oximetry: 100 (RA) Pulse Ox Interpretation: Normal - Progress Re-evaluation Time: 11:45 Condition: Improved - Critical Care Total Time (In Min): 30 Medical Decision Making Medical Decision Making: Time: 10:08 Initial impression: Right arm pain Initial plan: Head CT Scan without contrast EKG Labs ED Urine [place] Normal Saline 1 L IV Right Forearm X-Ray Pelvis X-Ray Urinalysis Reevaluation Scribe Attestation: Documented by Maria Pillai, acting as a scribe for Kasia Gordon MD. Provider Scribe Attestation: All medical record entries made by the Scribe were at my direction and personally dictated by me. I have reviewed the chart and agree that the record accurately reflects my personal performance of the history, physical exam, medical decision making, and the department course for this patient. I have also personally directed, reviewed, and agree with the discharge instructions and disposition. 11.50p -Daughter reports noticing a few seconds of slurred speech while he was waiting for results. Patient without symptoms on my evaluation. Daughter is very concerned that this may be another TIA. Case d/w with Dr. Carrington. Will put in on obs tele Disposition - Clinical Impression Clinical Impression: TIA (transient ischemic attack), Skin tear - Patient ED Disposition Is Patient to be Admitted: Yes Doctor Will See Patient In The: Hospital - Disposition Disposition: Transfer of Care Disposition Time: 12:00 Condition: GUARDED Forms: CX (Latvian) - Pt Status Changed To: Hospital Disposition Of: Observation - POA Present On Arrival: Falls Or Trauma
[2017-02-07 10:40] LABS: RBC URINE 1 /hpf (0-3); URINE BILIRUBIN NEGATIVE (NEGATIVE); URINE BLOOD NEGATIVE (NEGATIVE); URINE COLOR STRAW (YELLOW); URINE GLUCOSE (UA) NEG (Normal); URINE KETONE NEGATIVE (NEGATIVE); URINE LEUKOCYTE ESTERASE NEG Leu/uL (Negative); URINE PROTEIN 30 mg/dL (NEGATIVE); URINE UROBILINOGEN 0.2-1.0 mg/dL (0.2-1.0); WBC URINE < 1 /hpf (0-5)
[2017-02-07 11:20] LABS: BASO # 0.1 K/uL (0.0-0.2); BASO % 0.7 % (0.0-2.0); EOS # 0.6 K/uL (0.0-0.7); EOS % 6.4 % (0.0-4.0); HEMATOCRIT 37.6 % (35.0-51.0); LYMPH # 2.3 K/uL (1.0-4.3); LYMPH % 25.3 % (20.0-40.0); MEAN CELL VOLUME 82.9 fl (80.0-94.0); MEAN CORPUSCULAR HEMOGLOBIN 26.5 pg (27.0-31.0); MEAN PLATELET VOLUME 9.4 fl (7.2-11.7); MONO # 0.7 K/uL (0.0-0.8); MONO % 7.6 % (0.0-10.0); NEUT # 5.4 K/uL (1.8-7.0); RED CELL DISTRIBUTION WIDTH 15.2 % (11.5-14.5)
--- NOTE | 2017-02-07 11:23 | CT ---
PROCEDURE: CT HEAD WITHOUT CONTRAST. HISTORY: mech fall with hit to head; no LOC COMPARISON: Head CT 11/30/2016 without contrast and brain MRI without contrast 12/02/2016. TECHNIQUE: Axial computed tomography images were obtained through the head/brain without intravenous contrast. Radiation dose: Total exam DLP = 795 mGy-cm. This CT exam was performed using one or more of the following dose reduction techniques: Automated exposure control, adjustment of the mA and/or kV according to patient size, and/or use of iterative reconstruction technique. FINDINGS: HEMORRHAGE: No intracranial hemorrhage. BRAIN: No intracranial hemorrhage, mass effect or suspicious convexity fluid collection is appreciated bilaterally. Expanded sella is appreciated, likely as a function of an arachnoid cyst. Diffuse cerebral atrophy chronic microangiopathy are reiterated. No cortical lucency suggests an acute or subacute brain infarction at this time however MRI is more sensitive. VENTRICLES: Unremarkable. No hydrocephalus. CALVARIUM: Unremarkable. PARANASAL SINUSES: Unremarkable as visualized. No significant inflammatory changes. MASTOID AIR CELLS: Unremarkable as visualized. No inflammatory changes. OTHER FINDINGS: None. IMPRESSION: Stable nonacute unenhanced head CT. Age related neuro degenerative changes are reiterated as well as an expanded sella, likely a function of an arachnoid cyst.
[2017-02-07 11:52] LABS: ALB/GLOB RATIO 1.2 (1.0-2.1); BILIRUBIN,TOTAL 0.4 mg/dl (0.2-1.3); CALCIUM 9.3 mg/dL (8.4-10.2); TOTAL PROTEIN 7.4 G/DL (6.3-8.2)
--- NOTE | 2017-02-07 12:06 | RAD ---
PROCEDURE: Radiographs of the Right Forearm HISTORY: Trip and fall COMPARISON: None available. TECHNIQUE: Frontal and lateral views obtained. FINDINGS: BONES: There is diffuse bone demineralization. There is no acute fracture or bone destruction. JOINT SPACES: Bone alignment is normal. OTHER FINDINGS: None. IMPRESSION: No acute fracture or dislocation.
[2017-02-07 12:07] LABS: POTASSIUM 5.7 MMOL/L (3.6-5.0)
--- NOTE | 2017-02-07 12:12 | RAD ---
PROCEDURE: Radiographs of the pelvis. HISTORY: trip and fall COMPARISON: None. FINDINGS: BONES: Pelvic Bones: The pelvic ring is intact. There is diffuse bone demineralization. Hips: No acute displaced fracture. JOINTS: Sacroiliac Joints: The sacroiliac joints are normal. Pubic Symphysis: There is mild degenerative osteoarthrosis in the hip joints. OTHER FINDINGS: There are advanced atherosclerotic calcifications in the right external right iliac artery. There is an endovascular stent graft in the left external iliac artery. IMPRESSION: No acute displaced fracture or dislocation. Please note occult fractures cannot be excluded on plain radiographs. If there is a persistent clinical concern, an MRI of the hip may be performed for further evaluation.
[2017-02-07] MEDS ORDERED: Naproxen 500 MG TAB PO ONE (13:28)
[2017-02-07] MEDS: Cilostazol 100 mg Tab UD PO SCH (17:21)
[2017-02-07] MEDS ORDERED: Pravastatin Sodium 40 MG TAB PO SCH (22:00)
--- NOTE | 2017-02-08 00:16 | HP ---
HISTORY OF PRESENT ILLNESS: Mr. Yen is an 86-year-old male who was admitted via the emergency room for observation following an accidental fall at home. He accidentally tripped over his cane and fell on the right side of his head. According to his daughter, he was somewhat confused for a minutes and then became more alert. He was recently discharged from [facility] after spending two months there following admission to the hospital for congestive heart failure, renal insufficiency, and hypertension. PAST MEDICAL HISTORY: Remarkable for renal insufficiency with chronic hyperkaliemia, hypertension, and hyperlipidemia. FAMILY HISTORY: Noncontributory. SOCIAL HISTORY: He does not drink or smoke. REVIEW OF SYSTEMS: Essentially unremarkable except for walking with a cane. PHYSICAL EXAMINATION: GENERAL: The patient is alert, oriented, appears to be in no apparent distress except for having a laceration on the right upper extremity. VITAL SIGNS: Remarkable for a blood pressure 154/72, pulse of 64, respiratory rate 18, he is afebrile, O2 saturation 100% on room air. SKIN: Shows fair turgor except for laceration over the right arm. NEUROLOGIC: The patient is alert and oriented x3. HEENT: Pupils are equal and reactive to light and accommodation. No evidence of head trauma. Mouth shows fair hygiene. LUNGS: Clear. HEART: Regular. No murmurs or gallops. ABDOMEN: Soft and nontender. No organomegaly. EXTREMITIES: Shows no edema or cyanosis. CENTRAL NERVOUS SYSTEMS: Grossly intact with no new deficits. LABORATORY DATA: Remarkable for sodium of 135, potassium of 5.7, BUN of 95, creatinine of 3.0. PT 7.6, INR 1.0. WBC 9.0, hemoglobin 12.0, and platelet count of 254,000. Rest of his labs including CAT scan and x-rays are unremarkable. IMPRESSION: An accidental fall following tripping over a cane. No evidence of central nervous system pathology. One has to, however, rule out transient systemic attacks. The patient also has a history of chronic renal failure with chronic hyperkaliemia, hypertension, and hyperlipidemia. PLAN: The plan is to monitor the patient on telemetry, discharge in the a.m. if clinically stable and no evidence of neurologic pathology. Case discussed with patient and his daughter. Dani Carrington MD [facility] # [id number]
[2017-02-08 04:47] VITALS: RESP 18
--- NOTE | 2017-02-08 09:18 | CP.PCM.DIS ---
Provider - Provider Date of Admission: 02/07/17 12:15 Attending physician: Dani Rondon MD Time Spent in preparation of Discharge (in minutes): 30 Diagnosis - Discharge Diagnosis (1) Skin tear Status: Acute (2) Anemia Status: Acute (3) CKD (chronic kidney disease), stage III Status: Acute (4) Fall Status: Acute (5) Hyperkalemia Status: Acute (6) Hypertension Status: Chronic Hospital Course - Lab Results Lab Results: Most Recent Lab Values WBC 9.0 K/uL (4.8-10.8) 02/07/17 10:30 RBC 4.53 Mil/uL (4.40-5.90) 02/07/17 10:30 Hgb 12.0 g/dL (12.0-18.0) D 02/07/17 10:30 Hct 37.6 % (35.0-51.0) 02/07/17 10:30 MCV 82.9 fl (80.0-94.0) 02/07/17 10:30 MCH 26.5 pg (27.0-31.0) L 02/07/17 10:30 MCHC 32.0 g/dL (33.0-37.0) L 02/07/17 10:30 RDW 15.2 % (11.5-14.5) H 02/07/17 10:30 Plt Count 254 K/uL (130-400) 02/07/17 10:30 MPV 9.4 fl (7.2-11.7) 02/07/17 10:30 Neut % (Auto) 60.0 % (50.0-75.0) 02/07/17 10:30 Lymph % (Auto) 25.3 % (20.0-40.0) 02/07/17 10:30 [place] % (Auto) 7.6 % (0.0-10.0) 02/07/17 10:30 Eos % (Auto) 6.4 % (0.0-4.0) H 02/07/17 10:30 Baso % (Auto) 0.7 % (0.0-2.0) 02/07/17 10:30 Neut # 5.4 K/uL (1.8-7.0) 02/07/17 10:30 Lymph # 2.3 K/uL (1.0-4.3) 02/07/17 10:30 [place] # 0.7 K/uL (0.0-0.8) 02/07/17 10:30 Eos # 0.6 K/uL (0.0-0.7) 02/07/17 10:30 Baso # 0.1 K/uL (0.0-0.2) 02/07/17 10:30 PT 10.6 Seconds (9.8-13.1) 02/07/17 10:30 INR 1.0 (0.9-1.2) 02/07/17 10:30 Sodium 135 mmol/l (132-148) 02/07/17 10:30 Potassium 5.7 MMOL/L (3.6-5.0) H 02/07/17 10:30 Chloride 104 mmol/L (98-107) 02/07/17 10:30 Carbon Dioxide 19 mmol/L (22-30) L 02/07/17 10:30 Anion Gap 18 (10-20) 02/07/17 10:30 BUN 95 mg/dl (9-20) H 02/07/17 10:30 Creatinine 3.0 mg/dL (0.8-1.5) H 02/07/17 10:30 Est GFR ( Amer) 24 02/07/17 10:30 Est GFR (Non-Af Amer) 20 02/07/17 10:30 Random Glucose 90 mg/dL (75-110) 02/07/17 10:30 Calcium 9.3 mg/dL (8.4-10.2) 02/07/17 10:30 Total Bilirubin 0.4 mg/dl (0.2-1.3) 02/07/17 10:30 AST 28 U/L (17-59) 02/07/17 10:30 ALT 23 U/L (21-72) 02/07/17 10:30 Alkaline Phosphatase 75 U/L (38-126) 02/07/17 10:30 Total Protein 7.4 G/DL (6.3-8.2) 02/07/17 10:30 Albumin 4.0 g/dL (3.5-5.0) 02/07/17 10:30 Globulin 3.3 gm/dL (2.2-3.9) 02/07/17 10:30 Albumin/Globulin Ratio 1.2 (1.0-2.1) 02/07/17 10:30 Urine Color Straw (YELLOW) 02/07/17 10:10 Urine Clarity Clear (Clear) 02/07/17 10:10 Urine pH 6.0 (5.0-8.0) 02/07/17 10:10 Ur Specific [place] 1.009 (1.003-1.030) 02/07/17 10:10 Urine Protein 30 mg/dL (NEGATIVE) 02/07/17 10:10 Urine Glucose (UA) Neg mg/dL (Normal) 02/07/17 10:10 Urine Ketones Negative mg/dL (NEGATIVE) 02/07/17 10:10 Urine Blood Negative (NEGATIVE) 02/07/17 10:10 Urine Nitrate Negative (NEGATIVE) 02/07/17 10:10 Urine Bilirubin Negative (NEGATIVE) 02/07/17 10:10 Urine Urobilinogen 0.2-1.0 mg/dL (0.2-1.0) 02/07/17 10:10 Ur Leukocyte Esterase Neg [place]ter/uL (Negative) 02/07/17 10:10 Urine RBC (Auto) 1 /hpf (0-3) 02/07/17 10:10 Urine Microscopic WBC < 1 /hpf (0-5) 02/07/17 10:10 Ur Squamous Epith Cells < 1 /hpf (0-5) 02/07/17 10:10 - Hospital Course Hospital Course: feels well no apparent distress Discharge Exam - Head Exam Head Exam: ATRAUMATIC, NORMAL INSPECTION, NORMOCEPHALIC - Eye Exam Eye Exam: EOMI, Normal appearance, PERRL Pupil Exam: NORMAL ACCOMODATION, PERRL - GI/Abdominal Exam GI & Abdominal Exam: Normal Bowel Sounds - Rectal Exam Rectal Exam: NORMAL INSPECTION - Extremities Exam Additional comments: clean laceration r arm - Neurological Exam Neurological exam: Alert, CN II-XII Intact, Normal Gait, Oriented x3, Reflexes Normal - Psychiatric Exam Psychiatric exam: Normal Affect, Normal Mood - Skin Skin Exam: Dry, Intact, Normal Color, Warm Discharge Plan - Follow Up Plan Condition: GUARDED Disposition: HOME/ ROUTINE Patient education suggested?: Yes Additional Instructions: discharge today follow up with dr rondon in 1 week
[2017-02-08] MEDS: Cilostazol 100 mg Tab UD PO SCH ×2 (10:33→10:57)
[2017-02-08] MEDS: Pantoprazole 40 mg EC Tab PO SCH ×2 (10:34→14:30)
--- NOTE | 2017-02-08 10:59 | CARD ---
APPROVED REPORT EKG Measurement Heart [id number] ID [id number] <Conclusion> Sinus bradycardia Possible Inferior infarct, age undetermined Abnormal ECG
[2017-02-08 12:36] VITALS: BP 98/56; PULSE 61; TEMP 98; O2SAT 96
== END 2017-02-08 16:05 | disposition home or self-care (01) ==
LOC: H.ER 09:27 → H.ERHOLD 12:15 → H.TEL 14:24
PROVIDERS: ADMIT Internal Medicine Pulmonary Disease; ATTEND Internal Medicine Pulmonary Disease
DX: S51.811A Laceration without foreign body of right forearm, initial encounter (principal); S80.211A Abrasion, right knee, initial encounter; S09.90XA Unspecified injury of head, initial encounter; I12.9 Hypertensive chronic kidney disease with stage 1 through stage 4 chronic kidney disease, or unspecified chronic kidney disease; N18.3 Chronic kidney disease, stage 3 (moderate); E87.5 Hyperkalemia; W01.0XXA Fall on same level from slipping, tripping and stumbling without subsequent striking against object, initial encounter; E78.5 Hyperlipidemia, unspecified; I48.91 Unspecified atrial fibrillation; I25.10 Atherosclerotic heart disease of native coronary artery without angina pectoris; J44.9 Chronic obstructive pulmonary disease, unspecified; D64.9 Anemia, unspecified; Z87.81 Personal history of (healed) traumatic fracture; Z91.81 History of falling; Z86.73 Personal history of transient ischemic attack (TIA), and cerebral infarction without residual deficits; Z95.5 Presence of coronary angioplasty implant and graft; Z87.891 Personal history of nicotine dependence; Y92.009 Unspecified place in unspecified non-institutional (private) residence as the place of occurrence of the external cause
CPT/HCPCS: 70450; 72170; 73090; 80053; 81003; 85025; 85610; 93005; 99285; G0378; J7040

== ENCOUNTER 2017-03-25 14:21 | Inpatient (IN) | payer BC, MEDICARE ==
[2017-03-25 14:21] VITALS: BMI 29.0
--- NOTE | 2017-03-25 15:12 | ED PDOC ---
HPI:STROKE - Time Time: 15:07 - Historian Historian: Patient, Family (daughter present by bedside ) - Chief Complaint Chief Complaint: other (LOC for 2-3 mins) - Onset Date: 03/25/17 Time: 12:40 Onset: Sudden - Timing Timing: Resolved - Context Context: Sitting - Location Location: None - Radiation Radiation: None - Severity of pain Maximum severity:: None Severity Current: None - Notes: Notes:: 86 YO male with PMH of TIA, CAD (w/ stents), HTN, HLD, CKD presents to [facility] ED via ambulance after an episode of LOC. Patient was in his normal health until this afternoon. After pt had lunch, he was getting ready for a nap when he sat down on bed and fell back and passed out. Syncope was witnessed by pts daughter who was present bedside. She states that she was taking her father blood pressure when he was sitting in bed, she measured his BP as 60/30 and within seconds pt fell backward in bed and passed out. Daughter states that pt was out for 2-3 mins and when he regained consciousness, pt was back to base line. No weakness, no dizziness, no facial changes, no chest pain, no dyspnea, no memory relapse and was not postictal. Pt was talking and back to baseline. This episode happened around 12:40 PM today. Of note, pt has a hx of multiple syncopal episodes in the past. Last CT done , stable non-inhanced head CT. Carotid u/s done 11/28, showed R internal carotid 60-70% stenosis and L mid-internal Carotid showed 50-60% stenosis. <Joselyn Pinon - Last Filed: 03/25/17 16:57> Supervising Attending Note - Supervising Attending Note The Documented history was done by the: Physician Hydraulic Dredge Operator The documented physical exam was done by the: Physician Hydraulic Dredge Operator The documented procedures were done by the: Physician Hydraulic Dredge Operator - Attestation: I have personally seen and examined this patient.: Yes I have fully participated in the care of the patient.: Yes I have reviewed all pertinent clinical information, including history, physical exam and plan: Yes - Notes: Notes:: Syncope. No numbness, tingles. Feels back to baseline currently. <Steve Montes De Oca - Last Filed: 03/25/17 17:33> NIHSS Stroke Scale - Date/Time Evaluation Performed Date Performed: 03/25/17 Time Performed: 15:05 When Was NIHSS Performed: Baseline - How Severe is the Stroke Level of Consciousness: 0=Alert LOC to Questions: 0=Both comments correct LOC to commands: 0=Obeys both correctly Best Gaze: 0=Normal Visual: 0=No visual loss Facial: 0=Normal Motor Arm - Left: 0=No drift Motor Arm - Right: 0=No drift Motor Leg - Left: 0=No drift Motor Leg - Right: 0=No drift Limb Ataxia: 0=Absent Sensory: 0=Normal Best Language: 0=No aphasia Dysarthia: 0=Normal articulation <Joselyn Pinon - Last Filed: 03/25/17 16:57> - Date/Time Evaluation Performed When Was NIHSS Performed: Baseline - How Severe is the Stroke Level of Consciousness: 0=Alert LOC to Questions: 0=Both comments correct LOC to commands: 0=Obeys both correctly Best Gaze: 0=Normal Visual: 0=No visual loss Facial: 0=Normal Motor Arm - Left: 0=No drift Motor Arm - Right: 0=No drift Motor Leg - Left: 0=No drift Motor Leg - Right: 0=No drift Limb Ataxia: 0=Absent Sensory: 0=Normal Best Language: 0=No aphasia Dysarthia: 0=Normal articulation Extinction & Inattention (Neglect): 0=Normal, no object Score: 0 <Steve Montes De Oca M - Last Filed: 03/25/17 17:33> rTPA Inclusion/Exclusion - Refusal of Treatment Patient Refused Treatment: No - Inclusion Criteria for Altepase Patient is 18 years or Older: Yes The Clinical Diagnosis of Ischemic Stroke That is Causing a Potentially Disabling Neurological Deficit: No Time of Onset is Well Established to be Less Than 270 Minute Before Treatment Would Begin: Yes Risk/Benefit Discussed With Patient/Family Member Present: Yes - Exclusion Criteria for Altepase Uncontrolled Hypertension at Time of Treatment (Systolic BP above 185 or Diastolic BP above 110 mmHg): No <Joselyn Pinon - Last Filed: 03/25/17 16:57> - Refusal of Treatment Patient Refused Treatment: No - Inclusion Criteria for Altepase Patient is 18 years or Older: Yes The Clinical Diagnosis of Ischemic Stroke That is Causing a Potentially Disabling Neurological Deficit: No Time of Onset is Well Established to be Less Than 270 Minute Before Treatment Would Begin: Yes Risk/Benefit Discussed With Patient/Family Member Present: Yes <Steve Montes De Oca - Last Filed: 03/25/17 17:33> Past Medical History Reviewed: Historical Data, Nursing Documentation, Vital Signs Vital Signs: Last Vital Signs Temp 97.6 F 03/25/17 14:25 Pulse 62 03/25/17 14:25 Resp 18 03/25/17 14:25 BP 156/70 H 03/25/17 14:25 Pulse Ox 97 03/25/17 14:25 - Medical History PMH: Anemia, Arthritis, Atrial Fibrillation, CAD, COPD, Diverticulitis, Fractures (left arm fx due to fall in the snow), HTN, Hypercholesterolemia, Chronic Kidney Disease, TIA (Apr 2016) Denies: HIV - Surgical History Surgical History: Carotid Endarterectomy, Cholecystectomy, Coronary Stent - Family History Family History: States: Unknown Family Hx - Living Arrangements Living Arrangements: With Family - Social History Current smoker - smoking cessation education provided: No Alcohol: None Drugs: Denies - Immunization History Hx Tetanus Toxoid Vaccination: No Hx Influenza Vaccination: Yes Hx Pneumococcal Vaccination: No <Joselyn Pinon - Last Filed: 03/25/17 16:57> Reviewed: Nursing Documentation, Vital Signs Vital Signs: Last Vital Signs Temp 97.6 F 03/25/17 14:25 Pulse 58 L 03/25/17 15:33 Resp 19 03/25/17 15:33 BP 171/92 H 03/25/17 15:33 Pulse Ox 97 03/25/17 16:57 - Medical History PMH: CAD - Family History Family History: States: Unknown Family Hx <Steve Montes De Oca - Last Filed: 03/25/17 17:33> - Home Medications Home Medications: Ambulatory Orders Medication Instructions Recorded Fish Oil/Dha/Epa [Fish Oil 1,200 1,200 mg PO DAILY 03/14/16 mg Fish Oil] Ferrous Sulfate 325 mg PO DAILY 05/02/16 Pantoprazole Sodium [Protonix] 40 mg PO DAILY 05/02/16 Aspirin [Ecotrin] 81 mg PO DAILY 08/24/16 Finasteride [Proscar] 5 mg PO DAILY 08/24/16 Valsartan [Diovan] 160 mg PO DAILY 11/30/16 Chlorthalidone [Hygroton] 25 mg PO DAILY 03/25/17 Cilostazol [Pletal] 100 mg PO DAILY 03/25/17 Furosemide [Lasix] 40 mg PO DAILY 03/25/17 Pravastatin Sodium [Pravachol] 20 mg PO HS 03/25/17 amLODIPine [Norvasc] 5 mg PO HS 03/25/17 - Allergies Allergies/Adverse Reactions: Allergies Allergy/AdvReac Type Severity Reaction Status Date / Time No Known Allergies Allergy Verified 02/07/17 09:34 Review of Systems ROS Statement: Except As Marked, All Systems Reviewed And Found Negative Constitutional: Negative for: Fever, Chills, Weakness Cardiovascular: Negative for: Chest Pain, Palpitations, Light Headedness Respiratory: Negative for: Shortness of Breath Gastrointestinal: Positive for: Vomiting. Negative for: Nausea, Abdominal Pain , Diarrhea, Constipation Neurological: Negative for: Weakness, Numbness, Incoordination, Change in Speech , Confusion, Seizures, Altered Mental Status, Headache, Dizziness <Kathrin,Joselyn - Last Filed: 03/25/17 16:57> ROS Statement: Except As Marked, All Systems Reviewed And Found Negative <Steve Montes De Oca M - Last Filed: 03/25/17 17:33> Physical Exam - Reviewed Nursing Documentation Reviewed: Yes Vital Signs Reviewed: Yes - Physical Exam Appears: Positive for: Well, Non-toxic, No Acute Distress Head Exam: Positive for: ATRAUMATIC, NORMAL INSPECTION, NORMOCEPHALIC Skin: Positive for: Normal Color, Warm, DRY Eye Exam: Positive for: EOMI, Normal appearance, PERRL ENT: Positive for: Normal ENT Inspection Neck: Positive for: Normal, Painless ROM Cardiovascular/Chest: Positive for: Regular Rate, Rhythm. Negative for: Murmur Respiratory: Positive for: CNT, Normal Breath Sounds Gastrointestinal/Abdominal: Positive for: Normal Exam, Bowel Sounds, Soft Back: Positive for: Normal Inspection Extremity: Positive for: Normal ROM. Negative for: Tenderness, Pedal Edema Neurologic/Psych: Positive for: Alert, hybrid derivatives trader II-XII, Oriented. Negative for: Motor/Sensory Deficits, Gait (no gait changes per daughter ), Aphasia, Facial Droop <Kathrin,Joselyn - Last Filed: 03/25/17 16:57> - Reviewed Nursing Documentation Reviewed: Yes Vital Signs Reviewed: Yes - Physical Exam Appears: Positive for: Non-toxic, No Acute Distress Head Exam: Positive for: ATRAUMATIC, NORMAL INSPECTION, NORMOCEPHALIC Skin: Positive for: Normal Color, Warm, DRY Eye Exam: Positive for: EOMI, Normal appearance, PERRL ENT: Positive for: Normal ENT Inspection Neck: Positive for: Normal, Painless ROM Cardiovascular/Chest: Positive for: Regular Rate, Rhythm Respiratory: Positive for: CNT, Normal Breath Sounds Gastrointestinal/Abdominal: Positive for: Normal Exam, Bowel Sounds, Soft Back: Positive for: Normal Inspection. Negative for: L CVA Tenderness, R CVA Tenderness Extremity: Positive for: Normal ROM Neurologic/Psych: Positive for: Alert, hybrid derivatives trader II-XII, Oriented. Negative for: Motor/Sensory Deficits, Gait, Aphasia, Facial Droop <Steve Montes De Oca - Last Filed: 03/25/17 17:33> - Laboratory Results Result Diagrams: 03/25/17 15:35 03/25/17 15:35 - ECG ECG: Positive for: Interpreted By Me ECG Rhythm: Positive for: Normal QRS, Normal ST Segment, Sinus Bradycardia Interpretation Of ECG: Sinus bradycardia with rate of 59. No ST changes. O2 Sat by Pulse Oximetry: 97 - Progress ED Course And Treament: 86 YO male with PMH of TIA, CAD, HTN, HLD presents to ED after a syncopal episode. --Code stroke was called, NIH score 0 -CT head appreciated, no acute intercranial findings. 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 -MRI, MRA -carotid u/s -EKG, read by me Sinus bradycardia with rate of 59 -Chest xray appreciated, no acute cardiopulmonary disease. -type and screen -PT/PTT/INR wnl -CBC hb/hct 9.3/29.9; CMP bun/cr 88/3.1 -lipid wnl, trops neg, hba1c <Kathrin,Joselyn - Last Filed: 03/25/17 16:57> - Laboratory Results Result Diagrams: 03/25/17 15:35 03/25/17 15:35 Interpretation Of Abn Labs: 88/3.1 bun/cr - ECG ECG: Positive for: Interpreted By Me ECG Rhythm: Positive for: Normal QRS, Nonspecific Changes Pulse Ox Interpretation: Normal - Radiology X-Ray: Read By Radiologist X-Ray Interpretation: No Acute Disease - CT Scan/US ct Other Rad Studies (CT/US): Read By Radiologist Other Rad Interpretation: no acute - Progress ED Course And Treament: 1630: Dr. Holt spoken to about case and pt. does not meet thrombolytic criteria. NIH 0. Asymptomatic currently. Will get MRI/MRA. 1730: Spoke with Dr. Carrington. Pt. well known to him. Will admit. Pt. bun/cr at baseline at this level. Pain free. Tolerated PO. will give ASA. <Steve Montes De Oca - Last Filed: 03/25/17 17:33> Disposition <Joselyn Pinon - Last Filed: 03/25/17 16:57> - Patient ED Disposition Is Patient to be Admitted: Yes Counseled Patient/Family Regarding: Studies Performed, Diagnosis - Disposition Disposition Time: 17:31 - Pt Status Changed To: Hospital Disposition Of: Observation - POA Present On Arrival: None <Steve Montes De Oca - Last Filed: 03/25/17 17:33> - Clinical Impression Clinical Impression: Syncope - Disposition Condition: FAIR
--- NOTE | 2017-03-25 15:22 | CT ---
PROCEDURE: CT HEAD WITHOUT CONTRAST. HISTORY: code stroke COMPARISON: Head CT without contrast 02/07/2017. TECHNIQUE: Axial computed tomography images were obtained through the head/brain without intravenous contrast. Radiation dose: Total exam DLP = 886.67 mGy-cm. This CT exam was performed using one or more of the following dose reduction techniques: Automated exposure control, adjustment of the mA and/or kV according to patient size, and/or use of iterative reconstruction technique. FINDINGS: HEMORRHAGE: No intracranial hemorrhage. BRAIN: Examination appears stable in the interval with diffuse cerebral atrophy and chronic microangiopathy reiterated. Very prominent sella is again appreciated suggestive of a probable arachnoid cyst or other cystic etiology is minimal or no soft tissues seen in the sella once again. No cortical edema or mass-effect is identified and there is no suspicious extra-axial fluid collection. A chronic lacune in the right caudate head is again evident. Craniocervical junction appears intact. VENTRICLES: Unremarkable. No hydrocephalus. CALVARIUM: No destructive lesion is identified however atherosclerotic changes seen at the cavernous internal carotid artery segments bilaterally. PARANASAL SINUSES: Unremarkable as visualized. No significant inflammatory changes. MASTOID AIR CELLS: Unremarkable as visualized. No inflammatory changes. OTHER FINDINGS: None. IMPRESSION: Stable age related neuro degenerative changes are appreciated once again which remain mild. A chronic lacune is seen in the right caudate head. No definite acute intracranial findings by standard CT criteria. 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 A follow-up CT or MRI can be utilized for further evaluation given clinical history. Findings discussed with Dr. Montes De Oca 03/25/2017 3:11 p.m. with written down and read back verification.
[2017-03-25 15:40] LABS: BASO % 0.7 % (0.0-2.0); EOS # 0.4 K/uL (0.0-0.7); EOS % 5.4 % (0.0-4.0); HEMATOCRIT 29.9 % (35.0-51.0); LYMPH # 1.9 K/uL (1.0-4.3); LYMPH % 28.1 % (20.0-40.0); MEAN CORPUSCULAR HEMOGLOBIN 25.6 pg (27.0-31.0); MEAN CORPUSCULAR HGB CONC 31.2 g/dL (33.0-37.0); MEAN PLATELET VOLUME 8.8 fl (7.2-11.7); MONO # 0.5 K/uL (0.0-0.8); MONO % 6.9 % (0.0-10.0); NEUT # 3.9 K/uL (1.8-7.0); NEUT % 58.9 % (50.0-75.0); NRBC % 0.1 % (0.0-0.0); RED CELL DISTRIBUTION WIDTH 16.4 % (11.5-14.5); WHITE BLOOD COUNT 6.7 K/uL (4.8-10.8)
[2017-03-25 15:51] LABS: ALB/GLOB RATIO 1.2 (1.0-2.1); BILIRUBIN,TOTAL 0.1 mg/dl (0.2-1.3); CALCIUM 8.7 mg/dL (8.4-10.2); POTASSIUM 4.5 MMOL/L (3.6-5.0); TOTAL PROTEIN 7.2 G/DL (6.3-8.2)
[2017-03-25 16:02] LABS: PARTIAL THROMBOPLASTIN TIME 28.1 Seconds (25.6-37.1)
--- NOTE | 2017-03-25 16:04 | RAD ---
HISTORY: syncope COMPARISON: Portable chest 11/30/2016. FINDINGS: LUNGS: No acute pulmonary changes are appreciated. Chronic calcified pleural plaque is again seen the left base laterally. PLEURA: No significant pleural effusion identified, no pneumothorax apparent. Calcified lymph nodes a granuloma are questioned at the central mediastinum, stable. CARDIOVASCULAR: Normal. OSSEOUS STRUCTURES: No significant abnormalities. VISUALIZED UPPER ABDOMEN: Normal. OTHER FINDINGS: None. IMPRESSION: No acute cardiopulmonary disease is seen in the interval. Calcified pleural plaque is again seen at the left base laterally. Small calcified lymph nodes are granulomata are suspected the central mediastinum once again.
[2017-03-25 16:06] LABS: TROPONIN I 0.027 ng/mL (0.00-0.120)
--- NOTE | 2017-03-25 18:41 | US ---
PROCEDURE: Duplex ultrasound of the carotid and vertebral arteries. HISTORY: syncope eval COMPARISON: 11/20/2016 TECHNIQUE: Grayscale and duplex Doppler evaluation of the cervical carotid and vertebral arteries were performed. The common carotid, carotid bifurcations and cervical ICA and proximal ECA were evaluated. The vertebral arteries were evaluated for gross patency and direction. FINDINGS: RIGHT CAROTID ARTERIES: Common Carotid Artery: Calcified plaque, minimal Maximal flow velocity of 46.8 cm/s. Carotid Bifurcation: Normal. Internal Carotid Artery:Heterogeneous plaque formation. tortuous ICA Maximal flow velocity of 115.9 cm/s. External Carotid Artery (proximal branches): Normal. Maximal flow velocity of 155.4 cm/s. ICA/CCA Ratio: 2.5 LEFT CAROTID ARTERIES: Common Carotid Artery: Calcified plaque, moderate Maximal flow velocity of 74.1 cm/s. Carotid Bifurcation: Normal. Internal Carotid Artery:Heterogeneous plaque formation. Maximal flow velocity of 113.6 cm/s. External Carotid Artery (proximal branches): Normal. Maximal flow velocity of 111.3 cm/s. ICA/CCA Ratio: 1.7 VERTEBRAL ARTERIES: Right Vertebral Artery: Patent. Antegrade flow. Left Vertebral Artery: Patent. Antegrade flow. OTHER FINDINGS: None. IMPRESSION: Right ICA degree of stenosis: Less than 50%. Elevated peak systolic velocities on the comparison carotid cannot be duplicated on the current study. Left ICA degree of stenosis: Less than 50% Reference Internal Carotid Artery (ICA) Peak Systolic Velocity (PSV) for above: 1. Less than 50% stenosis less than 125 cm/s peak systolic velocity 2. 50-69% stenosis 125-230cm/s peak systolic velocity 3. Greater than 70% but less than near occlusion greater than 230 cm/s peak systolic velocity
--- NOTE | 2017-03-25 20:05 | MRI ---
EXAM: MR Angiography Head Without Intravenous Contrast CLINICAL HISTORY: 86 years old, male; Signs and symptoms; Syncope and collapse TECHNIQUE: Magnetic resonance angiography images of the head without intravenous contrast. COMPARISON: MRA HEAD WITHOUT CONTRAST 11/30/2016 6:05:13 PM FINDINGS: Right internal carotid artery: Intracranial segment is patent with no significant stenosis. No aneurysm. Right anterior cerebral artery: No occlusion or significant stenosis. No aneurysm. Right middle cerebral artery: No occlusion or significant stenosis. No aneurysm. Right posterior cerebral artery: No occlusion or significant stenosis. No aneurysm. Right vertebral artery: Unremarkable as visualized. Left internal carotid artery: Intracranial segment is patent with no significant stenosis. No aneurysm. Left anterior cerebral artery: No occlusion or significant stenosis. No aneurysm. Left middle cerebral artery: No occlusion or significant stenosis. No aneurysm. Left posterior cerebral artery: No occlusion or significant stenosis. No aneurysm. Left vertebral artery: Unremarkable as visualized. Basilar artery: No occlusion or significant stenosis. No aneurysm. IMPRESSION: Patent vasculature.
--- NOTE | 2017-03-25 20:11 | MRI ---
EXAM: MR Head Without Intravenous Contrast CLINICAL HISTORY: 86 years old, male; Signs and symptoms; Syncope and collapse TECHNIQUE: Magnetic resonance images of the head/brain without intravenous contrast in multiple planes. COMPARISON: MR - BRAIN WITHOUT CONTRAST 12/02/2016 8:51:02 AM FINDINGS: Brain: Moderate atrophy. No acute intracranial hemorrhage. Small areas of signal void within RIGHT parietal, LEFT parietal regions on gradient echoes sequence, grossly stable. No mass. Scattered foci of high T2 signal within periventricular and subcortical white matter. No restricted diffusion. Ventricles: No ventriculomegaly. Bones/joints: No acute fracture. Sinuses: No acute sinusitis. Mastoid air cells: No mastoid effusion. Orbits: Unremarkable as visualized. Sella: Enlarged sella with CSF density and flattening pituitary gland, stable. IMPRESSION: 1. No MRI evidence of acute infarction. 2. Chronic ischemic white matter changes. 3. Incidental/non-acute findings are described above.
--- NOTE | 2017-03-25 20:28 | CARD ---
APPROVED REPORT EKG Measurement Heart [id number] <Conclusion> Sinus bradycardia Nonspecific T wave abnormality Abnormal ECG
[2017-03-25] MEDS: Pravastatin Sodium 20 MG TAB PO SCH (22:42)
[2017-03-26] MEDS: Nitroglycerin 2% Ointment Foilpak UD TOP SCH ×2 (03:30→09:02)
[2017-03-26 05:33] LABS: HEMATOCRIT 28.8 % (35.0-51.0); MEAN CORPUSCULAR HGB CONC 32.1 g/dL (33.0-37.0); RED CELL DISTRIBUTION WIDTH 16.2 % (11.5-14.5); WHITE BLOOD COUNT 6.5 K/uL (4.8-10.8)
[2017-03-26 05:45] LABS: CALCIUM 8.8 mg/dL (8.4-10.2); POTASSIUM 4.7 MMOL/L (3.6-5.0)
[2017-03-26] MEDS: Pantoprazole 40 mg EC Tab PO SCH (08:58)
--- NOTE | 2017-03-26 12:30 | CP.PCM.CON ---
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 - RENAL Hx Chronic Kidney Disease: Yes Hx Dialysis: No - ENDOCRINE/METABOLIC Hx Endocrine Disorders: No - HEMATOLOGICAL/ONCOLOGICAL Hx Blood Disorders: Yes Hx Anemia: Yes Hx Human Immunodeficiency Virus (HIV): No - INTEGUMENTARY Hx Dermatological Problems: No - MUSCULOSKELETAL/RHEUMATOLOGICAL Hx Musculoskeletal Disorders: Yes Hx Arthritis: Yes Hx Falls: Yes Hx Fractures: Yes (left arm fx due to fall in the snow) - GASTROINTESTINAL Hx Gastrointestinal Disorders: Yes Hx Diverticulitis: Yes - GENITOURINARY/GYNECOLOGICAL Hx Genitourinary Disorders: No - PSYCHIATRIC Hx Psychophysiologic Disorder: No Hx Substance Use: No - SURGICAL HISTORY Hx Surgeries: Yes Hx Carotid Endarterectomy: Yes Hx Cholecystectomy: Yes Hx Coronary Stent: Yes - ANESTHESIA Hx Anesthesia: Yes Hx Anesthesia Reactions: No Hx Malignant Hyperthermia: No Meds Allergies/Adverse Reactions: Allergies Allergy/AdvReac Type Severity Reaction Status Date / Time No Known Allergies Allergy Verified 02/07/17 09:34 - Medications Medications: Current Medications Acetaminophen (Tylenol 325mg Tab) 650 mg PO Q4 PRN PRN Reason: Headache Amlodipine Besylate (Norvasc) 5 mg PO HS [facility] Last Admin: 03/25/17 22:42 Dose: 5 mg Aspirin (Ecotrin) 81 mg PO DAILY [facility] Last Admin: 03/26/17 08:57 Dose: 81 mg Ferrous Sulfate (Feosol) 325 mg PO DAILY [facility] Last Admin: 03/26/17 08:57 Dose: 325 mg Finasteride (Proscar) 5 mg PO DAILY [facility] Last Admin: 03/26/17 08:58 Dose: 5 mg Nitroglycerin (Nitro-Bid 2% Oint) 1 ea TOP Q6 [facility] Last Admin: 03/26/17 09:02 Dose: 1 ea Pantoprazole Sodium (Protonix Ec Tab) 40 mg PO DAILY [facility] Last Admin: 03/26/17 08:58 Dose: 40 mg Pravastatin Sodium (Pravachol) 20 mg PO HS [facility] Last Admin: 03/25/17 22:42 Dose: 20 mg Valsartan (Diovan) 160 mg PO DAILY [facility] Last Admin: 03/26/17 08:58 Dose: 160 mg Results - Vital Signs Recent Vital Signs: Last Vital Signs Temp 97.7 F 03/26/17 08:05 Pulse 55 L 03/26/17 09:02 Resp 18 03/26/17 08:05 BP 179/66 H 03/26/17 09:02 Pulse Ox 100 03/26/17 08:05 - Labs Result Diagrams: 03/26/17 04:30 03/26/17 04:30 Labs: Laboratory Results - last 24 hr 03/25/17 03/25/17 03/25/17 15:09 15:35 15:35 WBC 6.7 RBC 3.65 L Hgb 9.3 L D Hct 29.9 L MCV 82.0 MCH 25.6 L MCHC 31.2 L RDW 16.4 H Plt Count 227 MPV 8.8 Neut % (Auto) 58.9 Lymph % (Auto) 28.1 [place] % (Auto) 6.9 Eos % (Auto) 5.4 H Baso % (Auto) 0.7 Neut # 3.9 Lymph # 1.9 [place] # 0.5 Eos # 0.4 Baso # 0.0 PT INR APTT Sodium 140 Potassium 4.5 Chloride 111 H Carbon Dioxide 16 L Anion Gap 18 BUN 88 H Creatinine 3.1 H Est GFR ( Amer) 23 Est GFR (Non-Af Amer) 19 Random Glucose 101 Hemoglobin A1c Calcium 8.7 Total Bilirubin 0.1 L AST 24 ALT 23 Alkaline Phosphatase 62 Troponin I 0.0270 Total Protein 7.2 Albumin 4.0 Globulin 3.3 Albumin/Globulin Ratio 1.2 Triglycerides 109 D Cholesterol 186 LDL Cholesterol Direct 54 HDL Cholesterol 100 H Blood Type AB NEGATIVE Antibody Screen Negative BBK History Checked Patient has bt 03/25/17 03/25/17 03/26/17 15:35 15:35 00:00 WBC RBC Hgb Hct MCV MCH MCHC RDW Plt Count MPV Neut % (Auto) Lymph % (Auto) [place] % (Auto) Eos % (Auto) Baso % (Auto) Neut # Lymph # [place] # Eos # Baso # PT 10.4 INR 0.9 APTT 28.1 Sodium Potassium Chloride Carbon Dioxide Anion Gap BUN Creatinine Est GFR ( Amer) Est GFR (Non-Af Amer) Random Glucose Hemoglobin A1c 6.5 D Calcium Total Bilirubin AST ALT Alkaline Phosphatase Troponin I 0.2710 H* Total Protein Albumin Globulin Albumin/Globulin Ratio Triglycerides Cholesterol LDL Cholesterol Direct HDL Cholesterol Blood Type Antibody Screen BBK History Checked 03/26/17 03/26/17 03/26/17 04:30 04:30 08:40 WBC 6.5 RBC 3.56 L Hgb 9.2 L Hct 28.8 L MCV 81.0 MCH 26.0 L MCHC 32.1 L RDW 16.2 H Plt Count 211 MPV Neut % (Auto) Lymph % (Auto) [place] % (Auto) Eos % (Auto) Baso % (Auto) Neut # Lymph # [place] # Eos # Baso # PT INR APTT Sodium 139 Potassium 4.7 Chloride 113 H Carbon Dioxide 17 L Anion Gap 14 BUN 83 H Creatinine 2.7 H Est GFR ( Amer) 27 Est GFR (Non-Af Amer) 23 Random Glucose 93 Hemoglobin A1c Calcium 8.8 Total Bilirubin AST ALT Alkaline Phosphatase Troponin I 0.4560 H* Total Protein Albumin Globulin Albumin/Globulin Ratio Triglycerides 52 D Cholesterol 175 LDL Cholesterol Direct 51 HDL Cholesterol 88 H Blood Type Antibody Screen BBK History Checked
--- NOTE | 2017-03-26 12:50 | CP.PCM.CON ---
History of Present Illness - History of Present Illness History of Present Illness: 86 y/o male wwith the past medical history of HTN, TIA, CAD s/p multiples stents , Carotid stenosis s/p bilateral endarterectomy, Orthostatic hypotension with syncope,CRI and multiples surgical procedures , presented to ED after an episode of syncope.As per his daughter patient came out from the bathroom not felling well and C/O been dizzy. The daughter took his BP and was 60/40 , almost immediately patient developed seizure activity and LOC for few minutes. there was no bowel or urine incontinence.Patient did not C/O chest pain , palpitations ,SOB or nausea.Upon arrival of EMS patient was awake and alert.As per daughter patint last syncope was a year ago. Review of Systems - Constitutional Constitutional: Weight Loss, Weakness - EENT Eyes: Loss of Peripheral Vision Ears: Decreased Hearing - Cardiovascular Cardiovascular: As Per HPI, Syncope - Respiratory Respiratory: As Per HPI - Gastrointestinal Gastrointestinal: Constipation - Genitourinary Genitourinary: As Per HPI - Musculoskeletal Musculoskeletal: Muscle Cramps, Muscle Weakness, Myalgias - Neurological Neurological: Convulsions, Dizziness, Syncope, Tremor, Weakness - Psychiatric Psychiatric: Abnormal Sleep Pattern Past Patient History - Tetanus Immunizations Tetanus Immunization: Unknown - Past Medical History & Family History Past Medical History?: Yes Past Family History: Reviewed and not pertinent - Past Social History Smoking Status: Former Smoker Chewing Tobacco Use: No Alcohol: Social Drugs: Denies - CARDIAC Hx Cardiac Disorders: Yes Hx Angina: Yes Hx Hypercholesterolemia: Yes Hx Hypertension: Yes Hx Hypotension: Yes - PULMONARY Hx Respiratory Disorders: Yes Hx Chronic Obstructive Pulmonary Disease (COPD): Yes - NEUROLOGICAL Hx Neurological Disorder: Yes Hx Syncope: Yes Hx Transient Ischemic Attacks (TIA): Yes (Apr 2016) Other/Comment: CAROTID STENOSIS - HEENT Hx HEENT Problems: Yes 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 - RENAL Hx Chronic Kidney Disease: Yes Hx Dialysis: No - ENDOCRINE/METABOLIC Hx Endocrine Disorders: No - HEMATOLOGICAL/ONCOLOGICAL Hx Blood Disorders: Yes Hx Anemia: Yes Hx Human Immunodeficiency Virus (HIV): No - INTEGUMENTARY Hx Dermatological Problems: No - MUSCULOSKELETAL/RHEUMATOLOGICAL Hx Musculoskeletal Disorders: Yes Hx Arthritis: Yes Hx Falls: Yes Hx Fractures: Yes (left arm fx due to fall in the snow) - GASTROINTESTINAL Hx Gastrointestinal Disorders: Yes Hx Constipation: Yes Hx Diverticulitis: Yes - GENITOURINARY/GYNECOLOGICAL Hx Genitourinary Disorders: No - PSYCHIATRIC Hx Psychophysiologic Disorder: No Hx Substance Use: No - SURGICAL HISTORY Hx Surgeries: Yes Hx Cardiac Catheterization: Yes Hx Carotid Endarterectomy: Yes Hx Cholecystectomy: Yes Hx Coronary Stent: Yes - ANESTHESIA Hx Anesthesia: Yes Hx Anesthesia Reactions: No Hx Malignant Hyperthermia: No Meds Allergies/Adverse Reactions: Allergies Allergy/AdvReac Type Severity Reaction Status Date / Time No Known Allergies Allergy Verified 02/07/17 09:34 - Medications Medications: Current Medications Acetaminophen (Tylenol 325mg Tab) 650 mg PO Q4 PRN PRN Reason: Headache Amlodipine Besylate (Norvasc) 5 mg PO HS [facility] Last Admin: 03/25/17 22:42 Dose: 5 mg Aspirin (Ecotrin) 81 mg PO DAILY [facility] Last Admin: 03/26/17 08:57 Dose: 81 mg Ferrous Sulfate (Feosol) 325 mg PO DAILY [facility] Last Admin: 03/26/17 08:57 Dose: 325 mg Finasteride (Proscar) 5 mg PO DAILY [facility] Last Admin: 03/26/17 08:58 Dose: 5 mg Nitroglycerin (Nitro-Bid 2% Oint) 1 ea TOP Q6 [facility] Last Admin: 03/26/17 09:02 Dose: 1 ea Pantoprazole Sodium (Protonix Ec Tab) 40 mg PO DAILY [facility] Last Admin: 03/26/17 08:58 Dose: 40 mg Pravastatin Sodium (Pravachol) 20 mg PO HS [facility] Last Admin: 03/25/17 22:42 Dose: 20 mg Valsartan (Diovan) 160 mg PO DAILY [facility] Last Admin: 03/26/17 08:58 Dose: 160 mg Physical Exam - Constitutional Appears: Well, Non-toxic - Head Exam Head Exam: ATRAUMATIC, NORMOCEPHALIC - Eye Exam Eye Exam: EOMI - ENT Exam ENT Exam: Mucous Membranes Moist - Neck Exam Neck exam: Positive for: Normal Inspection - Respiratory Exam Respiratory Exam: Clear to Auscultation Bilateral, NORMAL BREATHING PATTERN - Cardiovascular Exam Cardiovascular Exam: Bradycardia, REGULAR RHYTHM, Systolic Murmur (2/6 LSB) - GI/Abdominal Exam GI & Abdominal Exam: Normal Bowel Sounds, Soft - Rectal Exam Rectal Exam: Deferred - Extremities Exam Extremities exam: Positive for: normal inspection - Back Exam Back exam: NORMAL INSPECTION - Neurological Exam Neurological exam: Alert, Oriented x3 - Psychiatric Exam Psychiatric exam: Normal Affect Results - Vital Signs Recent Vital Signs: Last Vital Signs Temp 97.4 F L 03/26/17 12:33 Pulse 56 L 03/26/17 12:33 Resp 18 03/26/17 12:33 BP 92/53 L 03/26/17 12:33 Pulse Ox 99 03/26/17 12:33 - Labs Result Diagrams: 03/26/17 04:30 03/26/17 04:30 Labs: Laboratory Results - last 24 hr 03/25/17 03/25/17 03/25/17 15:09 15:35 15:35 WBC 6.7 RBC 3.65 L Hgb 9.3 L D Hct 29.9 L MCV 82.0 MCH 25.6 L MCHC 31.2 L RDW 16.4 H Plt Count 227 MPV 8.8 Neut % (Auto) 58.9 Lymph % (Auto) 28.1 Price % (Auto) 6.9 Eos % (Auto) 5.4 H Baso % (Auto) 0.7 Neut # 3.9 Lymph # 1.9 Price # 0.5 Eos # 0.4 Baso # 0.0 PT INR APTT Sodium 140 Potassium 4.5 Chloride 111 H Carbon Dioxide 16 L Anion Gap 18 BUN 88 H Creatinine 3.1 H Est GFR ( Amer) 23 Est GFR (Non-Af Amer) 19 Random Glucose 101 Hemoglobin A1c Calcium 8.7 Total Bilirubin 0.1 L AST 24 ALT 23 Alkaline Phosphatase 62 Troponin I 0.0270 Total Protein 7.2 Albumin 4.0 Globulin 3.3 Albumin/Globulin Ratio 1.2 Triglycerides 109 D Cholesterol 186 LDL Cholesterol Direct 54 HDL Cholesterol 100 H Blood Type AB NEGATIVE Antibody Screen Negative BBK History Checked Patient has bt 03/25/17 03/25/17 03/26/17 15:35 15:35 00:00 WBC RBC Hgb Hct MCV MCH MCHC RDW Plt Count MPV Neut % (Auto) Lymph % (Auto) Price % (Auto) Eos % (Auto) Baso % (Auto) Neut # Lymph # Price # Eos # Baso # PT 10.4 INR 0.9 APTT 28.1 Sodium Potassium Chloride Carbon Dioxide Anion Gap BUN Creatinine Est GFR ( Amer) Est GFR (Non-Af Amer) Random Glucose Hemoglobin A1c 6.5 D Calcium Total Bilirubin AST ALT Alkaline Phosphatase Troponin I 0.2710 H* Total Protein Albumin Globulin Albumin/Globulin Ratio Triglycerides Cholesterol LDL Cholesterol Direct HDL Cholesterol Blood Type Antibody Screen BBK History Checked 03/26/17 03/26/17 03/26/17 04:30 04:30 08:40 WBC 6.5 RBC 3.56 L Hgb 9.2 L Hct 28.8 L MCV 81.0 MCH 26.0 L MCHC 32.1 L RDW 16.2 H Plt Count 211 MPV Neut % (Auto) Lymph % (Auto) Price % (Auto) Eos % (Auto) Baso % (Auto) Neut # Lymph # Price # Eos # Baso # PT INR APTT Sodium 139 Potassium 4.7 Chloride 113 H Carbon Dioxide 17 L Anion Gap 14 BUN 83 H Creatinine 2.7 H Est GFR ( Amer) 27 Est GFR (Non-Af Amer) 23 Random Glucose 93 Hemoglobin A1c Calcium 8.8 Total Bilirubin AST ALT Alkaline Phosphatase Troponin I 0.4560 H* Total Protein Albumin Globulin Albumin/Globulin Ratio Triglycerides 52 D Cholesterol 175 LDL Cholesterol Direct 51 HDL Cholesterol 88 H Blood Type Antibody Screen BBK History Checked - EKG Data EKG Interpreted by: Myself EKG shows normal: Sinus rhythm, ST-T waves (changes) Rate: Bradycardia Assessment & Plan - Assessment and Plan (Free Text) Assessment: 1 NSTEMI.( Elevated Troponin) 2 Syncoe due to OH 3 Seizure activity due to poor brain perfusion. 4 CRI, Consider renal evaluation. 5 CAD s/p multiples Stents. 6 Carotid artery disease s/p Carotid endarterectomy. 7 Bradycardia r/o due to SND. PLAN: 1 I will review old chart 2 Patient may require to undergo Cardiac Cath. 3 Avoid use of BB due to Badycardia and decrease BP med's. 4 Consider Renal F/U [address] Carrington.
[2017-03-26] MEDS: Dextrose 5%/0.45% NS 1,000 ML IV SCH (14:18)
--- NOTE | 2017-03-26 15:43 | HP ---
HISTORY OF PRESENT ILLNESS: Mr. Yen is an 86-year-old male who was admitted via the emergency room following a syncopal or seizure episode at home. According to the daughter, he fell back and blacked out lasting for up to about a minute. He denies chest pain, shortness of breath, but had vomited yesterday after symptoms. He also vomited again this morning. PAST MEDICAL HISTORY: Coronary artery disease status post stent placement, transient ischemic attack, hypertension, hyperlipidemia, chronic kidney failure. He also had a fall episode several months ago requiring hospitalization. FAMILY HISTORY: Unremarkable. SOCIAL HISTORY: He does not drink or smoke. REVIEW OF SYSTEMS: Remarkable for unsteadiness of gait and a syncopal episode in the past. PHYSICAL EXAMINATION: GENERAL: The patient is alert and oriented and feels nauseous, but denies chest pain or shortness of breath. VITAL SIGNS: Blood pressure of 92/53 with a pulse of 56, respiratory rate 18. He is afebrile. O2 sat 99% on room air. SKIN: Shows fair turgor. HEENT: Pupils equal and reactive to light and accommodation. Mouth shows fair hygiene. JVP flat. LUNGS: Clear. HEART: Rate regular, but bradycardic. ABDOMEN: Soft, nontender, no organomegaly. EXTREMITIES: Show no edema or cyanosis. CENTRAL NERVOUS SYSTEM: Grossly intact. LABORATORY DATA: Remarkable for WBC of 6.5, hemoglobin 9.2, platelet count of 211,000. Sodium 140, potassium 4.5, BUN of 8 with creatinine 3.1. Troponin 0.271 to 0.456, elevated from admission. EKG, sinus bradycardia. CT scan of the head, stable age related neurodegenerative changes. No acute intracranial findings. Chest x-ray, no acute cardiopulmonary pathology noted. Calcified pleural plaques noted. Small calcified lymph nodes. Carotid sonogram and MRI of the brain results pending. IMPRESSION: Syncopal episode or seizure episode, probably secondary to cardiac disease, one have to rule out central nervous system pathology, sinus bradycardia and elevated cardiac enzymes, rule out acute coronary syndrome; hypotension; chronic anemia; history of multiple fall; history of hyperlipidemia; renal insufficiency, chronic. PLAN: Cardiac, Nephrology, and Urology evaluation. The patient may need cardiac catheterization. Case was already discussed with Dr. Olvera, the machine umbrella tipper and the daughter. We will begin slow IV hydration. Further therapy will depend on findings. Most of the patient's anti hypertensive medications will be discontinued or held for now. Dani Carrington MD
--- NOTE | 2017-03-26 17:17 | CON ---
NEUROLOGY CONSULTATION DATE: CHIEF COMPLAINT: Syncope. HISTORY OF PRESENT ILLNESS: An 86-year-old man with past medical history of hypertension; TIA; coronary artery disease, status post multiple stents; carotid artery stenosis, status post bilateral carotid endarterectomies; orthostatic hypotension with syncope; chronic renal insufficiency who presented to the hospital for syncopal episodes. Apparently, the patient came out of the bathroom and felt not feeling well and dizzy, intensively lightheaded, and felt like he was going to fall down. His BP was checked by his daughter which was 60/40 mmHg and after developed shaking seizure like activity, lost consciousness for a few minutes. No bowel or bladder incontinence. No history of any seizures in the past. He had low blood pressures initially when he came in, was also bradycardic. His MRI of the brain showed no acute intracranial abnormalities. No evidence for any infarctions. Currently seen in the bed moving all extremities, in no acute distress. Cardiology troponins, probably has a non-STEMI. May undergo cardiac cath. PAST MEDICAL HISTORY: History of hypertension; orthostatic hypotension; coronary artery disease; carotid stenosis, status post bilateral carotid endarterectomies FAMILY HISTORY: Noncontributory. SOCIAL HISTORY: No illicit drug use, smoking, or EtOH abuse. REVIEW OF SYSTEMS: A 14-point review of systems negative except in the HPI. ALLERGIES: NO KNOWN DRUG ALLERGIES. MEDICATIONS: Reviewed by nurse per reconciliation sheet. PHYSICAL EXAMINATION VITAL SIGNS: Temperature 97.4, pulse rate of 56, blood pressure 92/53, respiratory rate of 18, oxygen saturation of 99% by room air GENERAL: The patient is sitting up in bed, in no acute distress. HEENT: Head is atraumatic and normocephalic. PERRLA. Extraocular muscles are intact. NECK: Supple. No JVD. No adenopathy noted. LUNGS: Clear to auscultation. No adventitious sounds. HEART: S1 and S2. Normal rate and rhythm. No murmurs, rubs, or gallops. ABDOMEN: Soft, nontender, and nondistended. Bowel sounds are present. EXTREMITIES: No clubbing. No cyanosis. Peripheral pulses 2+ bilaterally. NEUROLOGIC: The patient is alert and oriented to person, place, and year. Hard of hearing. Recall after 5 minutes is 0/3. Poor attention span. Poor thought process. Cranial nerves II through XII intact. Motor exam: Moves all extremities equally. Slightly increased tone throughout. No pronator drift seen. Sensory exam: Decreased light touch and pinprick at the calves bilaterally. Decreased vibration at the toes. DTRs are 1+ throughout. Coordination: [id number] intact. Gait is deferred for now. LABORATORY DATA: Sodium is 139, potassium 4.7 , chloride of 113, carbon dioxide of 17, BUN of 83, creatinine of 2.7, and random glucose of 93. ASSESSMENT AND PLAN: This is an 86-year-old man with history of orthostatic hypotension; history of hypertension; transient ischemic attack; coronary artery disease, status post stents; history of carotid artery stenosis, status post bilateral carotid endarterectomies with a recent carotid Doppler of less than 50% of stenosis, who presented with syncopal episodes and had compulsive type symptoms. His MRI of the brain showed no acute intracranial abnormality and he has elevated troponin. I feel like his syncope is more of a transient cerebral hypoperfusion causing seizure like activity, more provoked type rather than actual epilepsy type. No acute events overnight. By now, his systolic blood pressure is still on the lower side. He is undergoing cardiology evaluation for positive troponins and positive non-ST elevation myocardial infarction. At this time, recommend; 1. Monitor electrolytes and correct accordingly. 2. May need to address orthostatic hypotension and redo the orthostatic vital signs. 3. Aspirin and statin for stroke prevention. 4. PT and OT evaluation. Once again, thank you for this consult. Stable from a neuro stand point. Todd Holt MD
[2017-03-26] MEDS: Pravastatin Sodium 20 MG TAB PO SCH (23:02)
--- NOTE | 2017-03-27 06:38 | CARD ---
APPROVED REPORT EKG Measurement Heart [id number] <Conclusion> Sinus bradycardia T wave abnormality, consider lateral ischemia Prolonged QT Abnormal ECG
[2017-03-27 07:26] LABS: HEMATOCRIT 25.5 % (35.0-51.0); MEAN CELL VOLUME 79.8 fl (80.0-94.0); MEAN CORPUSCULAR HEMOGLOBIN 26.6 pg (27.0-31.0); MEAN CORPUSCULAR HGB CONC 33.4 g/dL (33.0-37.0); RED CELL DISTRIBUTION WIDTH 15.9 % (11.5-14.5); WHITE BLOOD COUNT 6.1 K/uL (4.8-10.8)
[2017-03-27 07:42] LABS: CALCIUM 7.7 mg/dL (8.4-10.2); POTASSIUM 4.8 MMOL/L (3.6-5.0)
[2017-03-27] MEDS: Pantoprazole 40 mg EC Tab PO SCH (08:24)
--- NOTE | 2017-03-27 10:03 | CP.PCM.CON ---
History of Present Illness - History of Present Illness History of Present Illness: REASONS FOR CONSULT : CKD STAGE 4 WITH eGFR AROUND 27 MK/M ANEMIA OF CKD ..ON EPO AN OUT PT MET ACIDOSIS WITH HCO3 17 PT IS WELL KNOWN TO ME FROM OFFICE WELL HOSPIALIZATIONS HAS MULTIPLE MEDICAL PROBLEMS AND FREQEUNT ADMISSIONS CAME IN WITH SYNCOPE ALL EMR REVIEWED ..LAB REVIEWED .. PT WAS SEEN AND EXAMINED Past Patient History - Tetanus Immunizations Tetanus Immunization: Unknown - Past Medical History & Family History Past Medical History?: Yes Past Family History: Reviewed and not pertinent - Past Social History Smoking Status: Former Smoker Chewing Tobacco Use: No Alcohol: Social Drugs: Denies - CARDIAC Hx Cardiac Disorders: Yes Hx Angina: Yes Hx Hypercholesterolemia: Yes Hx Hypertension: Yes Hx Hypotension: Yes - PULMONARY Hx Respiratory Disorders: Yes Hx Chronic Obstructive Pulmonary Disease (COPD): Yes - NEUROLOGICAL Hx Neurological Disorder: Yes Hx Syncope: Yes Hx Transient Ischemic Attacks (TIA): Yes (Apr 2016) Other/Comment: CAROTID STENOSIS - HEENT Hx HEENT Problems: Yes 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 - RENAL Hx Chronic Kidney Disease: Yes Hx Dialysis: No - ENDOCRINE/METABOLIC Hx Endocrine Disorders: No - HEMATOLOGICAL/ONCOLOGICAL Hx Blood Disorders: Yes Hx Anemia: Yes Hx Human Immunodeficiency Virus (HIV): No - INTEGUMENTARY Hx Dermatological Problems: No - MUSCULOSKELETAL/RHEUMATOLOGICAL Hx Musculoskeletal Disorders: Yes Hx Arthritis: Yes Hx Falls: Yes Hx Fractures: Yes (left arm fx due to fall in the snow) - GASTROINTESTINAL Hx Gastrointestinal Disorders: Yes Hx Constipation: Yes Hx Diverticulitis: Yes - GENITOURINARY/GYNECOLOGICAL Hx Genitourinary Disorders: No - PSYCHIATRIC Hx Psychophysiologic Disorder: No Hx Substance Use: No - SURGICAL HISTORY Hx Surgeries: Yes Hx Cardiac Catheterization: Yes Hx Carotid Endarterectomy: Yes Hx Cholecystectomy: Yes Hx Coronary Stent: Yes - ANESTHESIA Hx Anesthesia: Yes Hx Anesthesia Reactions: No Hx Malignant Hyperthermia: No Meds Allergies/Adverse Reactions: Allergies Allergy/AdvReac Type Severity Reaction Status Date / Time No Known Allergies Allergy Verified 02/07/17 09:34 - Medications Medications: Current Medications Acetaminophen (Tylenol 325mg Tab) 650 mg PO Q4 PRN PRN Reason: Headache Amlodipine Besylate (Norvasc) 5 mg PO HS [facility] Last Admin: 03/25/17 22:42 Dose: 5 mg Aspirin (Ecotrin) 81 mg PO DAILY [facility] Last Admin: 03/27/17 08:24 Dose: 81 mg Cholecalciferol (Vitamin D) 2,000 iu PO DAILY [facility] Epoetin Nolan (Procrit) 4,000 unit SC TTS [facility] Ferrous Sulfate (Feosol) 325 mg PO DAILY [facility] Last Admin: 03/27/17 08:24 Dose: 325 mg Finasteride (Proscar) 5 mg PO DAILY [facility] Last Admin: 03/27/17 08:23 Dose: 5 mg Dextrose/Sodium Chloride (Dextrose 5%/0.45% Ns 1000 Ml) 1,000 mls @ 42 mls/hr IV .[id number] [facility] Stop: 03/27/17 13:36 Last Admin: 03/26/17 14:18 Dose: 42 mls/hr Nitroglycerin (Nitro-Bid 2% Oint) 1 ea TOP Q6 [facility] Last Admin: 03/26/17 09:02 Dose: 1 ea Ondansetron HCl (Zofran Inj) 4 mg IVP Q6 PRN PRN Reason: Nausea/Vomiting Last Admin: 03/26/17 14:18 Dose: 4 mg Pantoprazole Sodium (Protonix Ec Tab) 40 mg PO DAILY [facility] Last Admin: 03/27/17 08:24 Dose: 40 mg Pravastatin Sodium (Pravachol) 20 mg PO HS [facility] Last Admin: 03/26/17 23:02 Dose: 20 mg Sodium Bicarbonate (Sodium Bicarbonate Tab) 650 mg PO Q8 [facility] Valsartan (Diovan) 160 mg PO DAILY [facility] Last Admin: 03/27/17 08:24 Dose: 160 mg Results - Vital Signs Recent Vital Signs: Last Vital Signs Temp 97.6 F 03/27/17 08:13 Pulse 64 03/27/17 08:13 Resp 18 03/27/17 08:13 BP 165/63 H 03/27/17 08:13 Pulse Ox 99 03/27/17 08:13 - Labs Result Diagrams: 03/27/17 06:00 03/27/17 06:00 Labs: Laboratory Results - last 24 hr 03/26/17 03/27/17 03/27/17 20:32 06:00 06:00 WBC 6.1 RBC 3.19 L Hgb 8.5 L Hct 25.5 L MCV 79.8 L MCH 26.6 L MCHC 33.4 RDW 15.9 H Plt Count 196 Sodium 138 Potassium 4.8 Chloride 112 H Carbon Dioxide 15 L Anion Gap 16 BUN 79 H Creatinine 2.4 H Est GFR ( Amer) 31 Est GFR (Non-Af Amer) 26 Random Glucose 87 Calcium 7.7 L Troponin I 0.1880 H* Assessment & Plan - Assessment and Plan (Free Text) Assessment: CKD STAGE 4 WITH eGFR 27 ML/M ANEMIA OF CKD .. START EPO .. C/O PO IRON MET ASIDOSIS .. START ON PO BICARB ADD VIT D C/O CURRENT CARE - Date & Time Date: 03/26/17 Time: 15:00
--- NOTE | 2017-03-27 10:42 | CP.PCM.PN ---
Subjective - Date & Time of Evaluation Date of Evaluation: 03/27/17 Time of Evaluation: 10:42 - Subjective Subjective: FEELINTG BETTER TODAY NO NAUSEA/VOMITING NO CHEST PAINS BP IMPROVED Objective - Vital Signs/Intake and Output Vital Signs (last 24 hours): Temp Pulse Resp BP Pulse Ox 97.6 F 64 18 165/63 H 99 03/27/17 08:13 03/27/17 08:13 03/27/17 08:13 03/27/17 08:13 03/27/17 08:13 Intake and Output: 03/27/17 03/27/17 06:59 18:59 Intake Total 1014 Output Total 550 Balance 464 - Medications Medications: Current Medications Acetaminophen (Tylenol 325mg Tab) 650 mg PO Q4 PRN PRN Reason: Headache Amlodipine Besylate (Norvasc) 5 mg PO HS [facility] Last Admin: 03/25/17 22:42 Dose: 5 mg Aspirin (Ecotrin) 81 mg PO DAILY [facility] Last Admin: 03/27/17 08:24 Dose: 81 mg Cholecalciferol (Vitamin D) 2,000 iu PO DAILY [facility] Epoetin Nolan (Procrit) 4,000 unit SC TTS [facility] Ferrous Sulfate (Feosol) 325 mg PO DAILY [facility] Last Admin: 03/27/17 08:24 Dose: 325 mg Finasteride (Proscar) 5 mg PO DAILY [facility] Last Admin: 03/27/17 08:23 Dose: 5 mg Dextrose/Sodium Chloride (Dextrose 5%/0.45% Ns 1000 Ml) 1,000 mls @ 42 mls/hr IV .[id number] [facility] Stop: 03/27/17 13:36 Last Admin: 03/26/17 14:18 Dose: 42 mls/hr Nitroglycerin (Nitro-Bid 2% Oint) 1 ea TOP Q6 [facility] Last Admin: 03/26/17 09:02 Dose: 1 ea Ondansetron HCl (Zofran Inj) 4 mg IVP Q6 PRN PRN Reason: Nausea/Vomiting Last Admin: 03/26/17 14:18 Dose: 4 mg Pantoprazole Sodium (Protonix Ec Tab) 40 mg PO DAILY [facility] Last Admin: 03/27/17 08:24 Dose: 40 mg Pravastatin Sodium (Pravachol) 20 mg PO HS [facility] Last Admin: 03/26/17 23:02 Dose: 20 mg Sodium Bicarbonate (Sodium Bicarbonate Tab) 650 mg PO Q8 [facility] Valsartan (Diovan) 160 mg PO DAILY [facility] Last Admin: 03/27/17 08:24 Dose: 160 mg - Labs Labs: 03/27/17 06:00 03/27/17 06:00 PT 10.4 Seconds (9.8-13.1) 03/25/17 15:35 INR 0.9 (0.9-1.2) 03/25/17 15:35 APTT 28.1 Seconds (25.6-37.1) 03/25/17 15:35 - Constitutional Appears: Well - Head Exam Head Exam: ATRAUMATIC, NORMAL INSPECTION, NORMOCEPHALIC - Eye Exam Eye Exam: EOMI, Normal appearance, PERRL Pupil Exam: NORMAL ACCOMODATION, PERRL - ENT Exam ENT Exam: Mucous Membranes Moist, Normal Exam - Neck Exam Neck Exam: Full ROM, Normal Inspection. absent: Lymphadenopathy - Respiratory Exam Respiratory Exam: Clear to Ausculation Bilateral, NORMAL BREATHING PATTERN - Cardiovascular Exam Cardiovascular Exam: REGULAR RHYTHM, +S1, +S2. absent: Murmur - GI/Abdominal Exam GI & Abdominal Exam: Soft, Normal Bowel Sounds. absent: Tenderness - Rectal Exam Rectal Exam: NORMAL INSPECTION - Extremities Exam Extremities Exam: Full ROM, Normal Capillary Refill, Normal Inspection. absent : Joint Swelling, Pedal Edema - Back Exam Back Exam: NORMAL INSPECTION - Neurological Exam Neurological Exam: Alert, Awake, CN II-XII Intact, Normal Gait, Oriented x3 Additional comments: DEAF - Psychiatric Exam Psychiatric exam: Normal Affect, Normal Mood - Skin Skin Exam: Dry, Intact, Normal Color, Warm Assessment and Plan - Assessment and Plan (Free Text) Assessment: SYNCOPE DUE TO HYPOTENSION ARRYTHMIAS-R/O ACUTE CORONARY SYNDROME CHRONIC RENAL FAILURE CHRONIC ANEMIA Plan: CONTINUE RX ORDERED D/C IV FLUID FOR POSSIBLE CARDIAC CATH
[2017-03-27] MEDS: Dextrose 5%/0.45% NS 1,000 ML IV SCH (12:46)
--- NOTE | 2017-03-27 14:24 | CP.PCM.PN ---
Objective - Vital Signs/Intake and Output Vital Signs (last 24 hours): Temp Pulse Resp BP Pulse Ox 97.5 F L 54 L 18 100/55 L 100 03/27/17 12:28 03/27/17 12:28 03/27/17 12:28 03/27/17 12:28 03/27/17 12:28 Intake and Output: 03/27/17 03/27/17 06:59 18:59 Intake Total 1014 Output Total 550 Balance 464 - Medications Medications: Current Medications Acetaminophen (Tylenol 325mg Tab) 650 mg PO Q4 PRN PRN Reason: Headache Amlodipine Besylate (Norvasc) 5 mg PO HS [facility] Last Admin: 03/25/17 22:42 Dose: 5 mg Aspirin (Ecotrin) 81 mg PO DAILY [facility] Last Admin: 03/27/17 08:24 Dose: 81 mg Cholecalciferol (Vitamin D) 2,000 iu PO DAILY [facility] Epoetin Nolan (Procrit) 4,000 unit SC TTS [facility] Ferrous Sulfate (Feosol) 325 mg PO DAILY [facility] Last Admin: 03/27/17 08:24 Dose: 325 mg Finasteride (Proscar) 5 mg PO DAILY [facility] Last Admin: 03/27/17 08:23 Dose: 5 mg Nitroglycerin (Nitro-Bid 2% Oint) 1 ea TOP Q6 [facility] Last Admin: 03/26/17 09:02 Dose: 1 ea Ondansetron HCl (Zofran Inj) 4 mg IVP Q6 PRN PRN Reason: Nausea/Vomiting Last Admin: 03/26/17 14:18 Dose: 4 mg Pantoprazole Sodium (Protonix Ec Tab) 40 mg PO DAILY [facility] Last Admin: 03/27/17 08:24 Dose: 40 mg Pravastatin Sodium (Pravachol) 20 mg PO HS [facility] Last Admin: 03/26/17 23:02 Dose: 20 mg Sodium Bicarbonate (Sodium Bicarbonate Tab) 650 mg PO Q8 [facility] Valsartan (Diovan) 160 mg PO DAILY [facility] Last Admin: 03/27/17 08:24 Dose: 160 mg - Labs Labs: 03/27/17 06:00 03/27/17 06:00 PT 10.4 Seconds (9.8-13.1) 03/25/17 15:35 INR 0.9 (0.9-1.2) 03/25/17 15:35 APTT 28.1 Seconds (25.6-37.1) 03/25/17 15:35
[2017-03-27] MEDS: Pravastatin Sodium 20 MG TAB PO SCH (21:15)
[2017-03-28] MEDS: Pantoprazole 40 mg EC Tab PO SCH (09:42)
--- NOTE | 2017-03-28 10:50 | CP.PCM.PN ---
Subjective - Date & Time of Evaluation Date of Evaluation: 03/28/17 Time of Evaluation: 10:52 - Subjective Subjective: NO COMPLAINTS NO APPARENT DISTRESS DAUGHTER AT BEDSIDE--REQUESTS TRANSITIONAL CARE PRIOR TO D/C HOME CASE DISCUSSED WITH ADVERTISING SPECIALIST--DR HARPER WHO INDICATES THAT CARDIAC CATH IS NOT NECESSARY AT THIS POINT HE DOES NOT THINK THAT ELEVATED CARDIAC ENZYMES DEPICT MYOCARDIAL INJURY BUT IS RELATED TO KIDNEY DZ AND HYPOTENSION Objective - Vital Signs/Intake and Output Vital Signs (last 24 hours): Temp Pulse Resp BP Pulse Ox 97.7 F 54 L 18 119/65 98 03/28/17 08:00 03/28/17 08:00 03/28/17 08:00 03/28/17 08:00 03/28/17 08:00 - Medications Medications: Current Medications Acetaminophen (Tylenol 325mg Tab) 650 mg PO Q4 PRN PRN Reason: Headache Amlodipine Besylate (Norvasc) 5 mg PO HS [facility] Last Admin: 03/25/17 22:42 Dose: 5 mg Aspirin (Ecotrin) 81 mg PO DAILY [facility] Last Admin: 03/28/17 09:42 Dose: 81 mg Cholecalciferol (Vitamin D) 2,000 iu PO DAILY [facility] Last Admin: 03/28/17 09:42 Dose: 2,000 iu Epoetin Nolan (Procrit) 4,000 unit SC TTS [facility] Ferrous Sulfate (Feosol) 325 mg PO DAILY [facility] Last Admin: 03/28/17 09:42 Dose: 325 mg Finasteride (Proscar) 5 mg PO DAILY [facility] Last Admin: 03/28/17 09:41 Dose: 5 mg Nitroglycerin (Nitro-Bid 2% Oint) 1 ea TOP Q6 [facility] Last Admin: 03/26/17 09:02 Dose: 1 ea Ondansetron HCl (Zofran Inj) 4 mg IVP Q6 PRN PRN Reason: Nausea/Vomiting Last Admin: 03/26/17 14:18 Dose: 4 mg Pantoprazole Sodium (Protonix Ec Tab) 40 mg PO DAILY [facility] Last Admin: 03/28/17 09:42 Dose: 40 mg Pravastatin Sodium (Pravachol) 20 mg PO HS [facility] Last Admin: 03/27/17 21:15 Dose: 20 mg Sodium Bicarbonate (Sodium Bicarbonate Tab) 650 mg PO Q8 [facility] Last Admin: 03/28/17 09:41 Dose: 650 mg Valsartan (Diovan) 160 mg PO DAILY [facility] Last Admin: 03/28/17 09:41 Dose: 160 mg - Labs Labs: 03/27/17 06:00 03/27/17 06:00 PT 10.4 Seconds (9.8-13.1) 03/25/17 15:35 INR 0.9 (0.9-1.2) 03/25/17 15:35 APTT 28.1 Seconds (25.6-37.1) 03/25/17 15:35 - Constitutional Appears: No Acute Distress - Head Exam Head Exam: ATRAUMATIC, NORMAL INSPECTION, NORMOCEPHALIC - Eye Exam Eye Exam: EOMI, Normal appearance, PERRL Pupil Exam: NORMAL ACCOMODATION, PERRL - ENT Exam ENT Exam: Mucous Membranes Moist, Normal Exam - Neck Exam Neck Exam: Full ROM, Normal Inspection. absent: Lymphadenopathy - Respiratory Exam Respiratory Exam: Clear to Ausculation Bilateral, NORMAL BREATHING PATTERN - Cardiovascular Exam Cardiovascular Exam: REGULAR RHYTHM, +S1, +S2. absent: Murmur - GI/Abdominal Exam GI & Abdominal Exam: Soft, Normal Bowel Sounds. absent: Tenderness - Rectal Exam Rectal Exam: NORMAL INSPECTION - Extremities Exam Extremities Exam: Full ROM, Normal Capillary Refill, Normal Inspection. 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
[2017-03-28 12:26] VITALS: O2SAT 100
[2017-03-28] MEDS: Pravastatin Sodium 20 MG TAB PO SCH (21:53)
--- NOTE | 2017-03-29 08:46 | CP.PCM.DIS ---
Provider - Provider Date of Admission: 03/26/17 12:57 Attending physician: Dani Carrington MD Time Spent in preparation of Discharge (in minutes): 30 Diagnosis - Discharge Diagnosis (1) Syncope Status: Chronic (2) Anemia Status: Acute (3) CKD (chronic kidney disease), stage III Status: Acute (4) Dehydration Status: Acute (5) Hyperlipidemia Status: Acute (6) Orthostatic hypotension Status: Acute (7) Hypertension Status: Chronic Hospital Course - Lab Results Lab Results: Most Recent Lab Values WBC 6.1 K/uL (4.8-10.8) 03/27/17 06:00 RBC 3.19 Mil/uL (4.40-5.90) L 03/27/17 06:00 Hgb 8.5 g/dL (12.0-18.0) L 03/27/17 06:00 Hct 25.5 % (35.0-51.0) L 03/27/17 06:00 MCV 79.8 fl (80.0-94.0) L 03/27/17 06:00 MCH 26.6 pg (27.0-31.0) L 03/27/17 06:00 MCHC 33.4 g/dL (33.0-37.0) 03/27/17 06:00 RDW 15.9 % (11.5-14.5) H 03/27/17 06:00 Plt Count 196 K/uL (130-400) 03/27/17 06:00 MPV 8.8 fl (7.2-11.7) 03/25/17 15:35 Neut % (Auto) 58.9 % (50.0-75.0) 03/25/17 15:35 Lymph % (Auto) 28.1 % (20.0-40.0) 03/25/17 15:35 [place] % (Auto) 6.9 % (0.0-10.0) 03/25/17 15:35 Eos % (Auto) 5.4 % (0.0-4.0) H 03/25/17 15:35 Baso % (Auto) 0.7 % (0.0-2.0) 03/25/17 15:35 Neut # 3.9 K/uL (1.8-7.0) 03/25/17 15:35 Lymph # 1.9 K/uL (1.0-4.3) 03/25/17 15:35 [place] # 0.5 K/uL (0.0-0.8) 03/25/17 15:35 Eos # 0.4 K/uL (0.0-0.7) 03/25/17 15:35 Baso # 0.0 K/uL (0.0-0.2) 03/25/17 15:35 PT 10.4 Seconds (9.8-13.1) 03/25/17 15:35 INR 0.9 (0.9-1.2) 03/25/17 15:35 APTT 28.1 Seconds (25.6-37.1) 03/25/17 15:35 Sodium 138 mmol/l (132-148) 03/27/17 06:00 Potassium 4.8 MMOL/L (3.6-5.0) 03/27/17 06:00 Chloride 112 mmol/L (98-107) H 03/27/17 06:00 Carbon Dioxide 15 mmol/L (22-30) L 03/27/17 06:00 Anion Gap 16 (10-20) 03/27/17 06:00 BUN 79 mg/dl (9-20) H 03/27/17 06:00 Creatinine 2.4 mg/dL (0.8-1.5) H 03/27/17 06:00 Est GFR ( Amer) 31 03/27/17 06:00 Est GFR (Non-Af Amer) 26 03/27/17 06:00 Random Glucose 87 mg/dL (75-110) 03/27/17 06:00 Hemoglobin A1c 6.5 % (4.2-6.5) D 03/25/17 15:35 Calcium 7.7 mg/dL (8.4-10.2) L 03/27/17 06:00 Total Bilirubin 0.1 mg/dl (0.2-1.3) L 03/25/17 15:35 AST 24 U/L (17-59) 03/25/17 15:35 ALT 23 U/L (21-72) 03/25/17 15:35 Alkaline Phosphatase 62 U/L (38-126) 03/25/17 15:35 Troponin I 0.0750 ng/mL (0.00-0.120) 03/27/17 17:30 Total Protein 7.2 G/DL (6.3-8.2) 03/25/17 15:35 Albumin 4.0 g/dL (3.5-5.0) 03/25/17 15:35 Globulin 3.3 gm/dL (2.2-3.9) 03/25/17 15:35 Albumin/Globulin Ratio 1.2 (1.0-2.1) 03/25/17 15:35 Triglycerides 52 mg/DL (0-149) D 03/26/17 04:30 Cholesterol 175 mg/dL (0-199) 03/26/17 04:30 LDL Cholesterol Direct 51 mg/dL (0-129) 03/26/17 04:30 HDL Cholesterol 88 MG/DL (30-70) H 03/26/17 04:30 Blood Type AB NEGATIVE 03/25/17 15:09 Antibody Screen Negative 03/25/17 15:09 BBK History Checked Patient has bt 03/25/17 15:09 - Hospital Course Hospital Course: feels better no complaints daughter requests transitional care placement Discharge Exam - Head Exam Head Exam: ATRAUMATIC, NORMAL INSPECTION, NORMOCEPHALIC - Eye Exam Eye Exam: EOMI, Normal appearance, PERRL Pupil Exam: NORMAL ACCOMODATION, PERRL - GI/Abdominal Exam GI & Abdominal Exam: Normal Bowel Sounds - Rectal Exam Rectal Exam: NORMAL INSPECTION - Neurological Exam Neurological exam: Alert, CN II-XII Intact, Normal Gait, Oriented x3, Reflexes Normal - Psychiatric Exam Psychiatric exam: Normal Affect, Normal Mood - Skin Skin Exam: Dry, Intact, Normal Color, Warm Discharge Plan - Follow Up Plan Condition: FAIR Disposition: HOME/ ROUTINE Patient education suggested?: Yes Additional Instructions: transfer to transitional care if accepted/subacute care
[2017-03-29] MEDS: Pantoprazole 40 mg EC Tab PO SCH (09:11)
[2017-03-29 15:56] VITALS: BP 164/60; PULSE 58; RESP 20; TEMP 97.5
--- NOTE | 2017-03-29 17:26 | CP.PCM.PN ---
Subjective - Date & Time of Evaluation Date of Evaluation: 03/29/17 Time of Evaluation: 13:00 - Subjective Subjective: SEEN ON RENAL F/U FEELS MUCH BETTER RENAL FUNCTION BETTER ACIDOSIS WAS STARTED ON PO NA BICARB Objective - Vital Signs/Intake and Output Vital Signs (last 24 hours): Temp Pulse Resp BP Pulse Ox 97.5 F L 58 L 20 164/60 H 100 03/29/17 15:56 03/29/17 15:56 03/29/17 15:56 03/29/17 15:56 03/29/17 15:56 - Medications Medications: Current Medications Acetaminophen (Tylenol 325mg Tab) 650 mg PO Q4 PRN PRN Reason: Headache Amlodipine Besylate (Norvasc) 5 mg PO DAILY [facility] Last Admin: 03/29/17 09:13 Dose: 5 mg Aspirin (Ecotrin) 81 mg PO DAILY [facility] Last Admin: 03/29/17 09:11 Dose: 81 mg Cholecalciferol (Vitamin D) 2,000 iu PO DAILY [facility] Last Admin: 03/29/17 09:11 Dose: 2,000 iu Epoetin Nolan (Procrit) 4,000 unit SC TTS [facility] Ferrous Sulfate (Feosol) 325 mg PO DAILY [facility] Last Admin: 03/29/17 09:11 Dose: 325 mg Finasteride (Proscar) 5 mg PO DAILY [facility] Last Admin: 03/29/17 09:11 Dose: 5 mg Nitroglycerin (Nitro-Bid 2% Oint) 1 ea TOP Q6 [facility] Last Admin: 03/26/17 09:02 Dose: 1 ea Ondansetron HCl (Zofran Inj) 4 mg IVP Q6 PRN PRN Reason: Nausea/Vomiting Last Admin: 03/26/17 14:18 Dose: 4 mg Pantoprazole Sodium (Protonix Ec Tab) 40 mg PO DAILY [facility] Last Admin: 03/29/17 09:11 Dose: 40 mg Pravastatin Sodium (Pravachol) 20 mg PO HS [facility] Last Admin: 03/28/17 21:53 Dose: 20 mg Sodium Bicarbonate (Sodium Bicarbonate Tab) 650 mg PO Q8 [facility] Last Admin: 03/29/17 17:07 Dose: 650 mg Valsartan (Diovan) 160 mg PO DAILY [facility] Last Admin: 03/29/17 09:11 Dose: 160 mg - Labs Labs: 03/27/17 06:00 03/27/17 06:00 PT 10.4 Seconds (9.8-13.1) 03/25/17 15:35 INR 0.9 (0.9-1.2) 03/25/17 15:35 APTT 28.1 Seconds (25.6-37.1) 03/25/17 15:35 Assessment and Plan - Assessment and Plan (Free Text) Assessment: CKD .. RENAL FUNCTION BETTER ACIDOSIS ON BICARB ANEMIA OF CKD .. ON EPO AND PO IRON ELECTROLYTES R OK PT IS CLEARED FOR TRANSFERE TO [facility] FOR REHAB WILL F/U AN OUT PT
[2017-03-30] MEDS ORDERED: Epoetin Alfa 4000 UNIT/ML Inj SC SCH (09:00)
== END 2017-03-29 18:30 | DRG 312 ==
LOC: H.ER 14:21 → H.ERHOLD 17:31 → H.TEL 20:44 → OBSVTOIN 03-26 12:57
PROVIDERS: ADMIT Internal Medicine Pulmonary Disease; ATTEND Internal Medicine Pulmonary Disease
DX: R55 Syncope and collapse (principal); E87.2 Acidosis; N18.4 Chronic kidney disease, stage 4 (severe); E86.0 Dehydration; D63.1 Anemia in chronic kidney disease; E78.5 Hyperlipidemia, unspecified; E78.00 Pure hypercholesterolemia, unspecified; H54.62 Unqualified visual loss, left eye, normal vision right eye; H91.91 Unspecified hearing loss, right ear; I12.9 Hypertensive chronic kidney disease with stage 1 through stage 4 chronic kidney disease, or unspecified chronic kidney disease; I25.10 Atherosclerotic heart disease of native coronary artery without angina pectoris; I65.23 Occlusion and stenosis of bilateral carotid arteries; I95.1 Orthostatic hypotension; J44.9 Chronic obstructive pulmonary disease, unspecified; Z86.73 Personal history of transient ischemic attack (TIA), and cerebral infarction without residual deficits; Z87.891 Personal history of nicotine dependence; Z90.49 Acquired absence of other specified parts of digestive tract; Z95.5 Presence of coronary angioplasty implant and graft; K59.00 Constipation, unspecified; M19.90 Unspecified osteoarthritis, unspecified site; R00.1 Bradycardia, unspecified; Z91.81 History of falling

== ENCOUNTER 2017-06-11 10:47 | Inpatient (IN) | payer MEDICARE ==
[2017-06-11 11:10] VITALS: BMI 25.8
[2017-06-11] MEDS ORDERED: Mupirocin 2% Cream TOP ONE (11:45)
[2017-06-11 11:50] LABS: BASO # 0.1 K/uL (0.0-0.2); BASO % 0.8 % (0.0-2.0); EOS # 1.4 K/uL (0.0-0.7); EOS % 18.9 % (0.0-4.0); HEMOGLOBIN 8.9 g/dL (12.0-18.0); LYMPH # 2.5 K/uL (1.0-4.3); LYMPH % 32.2 % (20.0-40.0); MEAN CELL VOLUME 87.3 fl (80.0-94.0); MEAN CORPUSCULAR HEMOGLOBIN 27.4 pg (27.0-31.0); MEAN CORPUSCULAR HGB CONC 31.4 g/dL (33.0-37.0); MONO # 0.6 K/uL (0.0-0.8); MONO % 7.7 % (0.0-10.0); NEUT # 3.1 K/uL (1.8-7.0); NEUT % 40.4 % (50.0-75.0); NRBC % 0.2 % (0.0-0.0); RBC 3.25 Mil/uL (4.40-5.90); RED CELL DISTRIBUTION WIDTH 15.6 % (11.5-14.5); WHITE BLOOD COUNT 7.6 K/uL (4.8-10.8)
--- NOTE | 2017-06-11 11:51 | ED PDOC ---
HPI: Skin/Bite Injury Time Seen by Provider: 06/11/17 11:16 Chief Complaint (Nursing): Abnormal Skin Integrity Chief Complaint (Provider): Abnormal Skin Integrity History Per: Patient History/Exam Limitations: no limitations Onset/Duration Of Symptoms: Days (x4) Current Symptoms Are (Timing): Still Present Additional Complaint(s): Chava Yen is an 87 year old male that presents to the ED with rash on his upper extremities. Patient reports that 4 days ago he developed an area of dryness to the flexor surface of his left arm, and applied hypoallergenic cream to the area, but that it has since only gotten more red and swollen. Patient reports that two days ago he had a similar lesion develop on his right arm and states that area also became red and swollen. He denies rash anywhere else, fever, chest pain, or shortness of breath. Of Note: Patient's daughter reports that he was recently in nursing [facility] and was discharged on 05/06/17. PMD: Dr. Carrington Past Medical History Reviewed: Historical Data, Nursing Documentation, Vital Signs Vital Signs: Last Vital Signs Temp 97.8 F 06/11/17 11:08 Pulse 63 06/11/17 11:08 Resp 16 06/11/17 11:08 BP 131/59 L 06/11/17 11:08 Pulse Ox 98 06/11/17 12:27 - Medical History PMH: Anemia, Arthritis, Atrial Fibrillation, CAD (WITH STENTS), COPD, Diverticulitis, Fractures (left arm fx due to fall in the snow), HTN, Hypercholesterolemia, Chronic Kidney Disease, TIA (Apr 2016) Denies: HIV - Surgical History Surgical History: Carotid Endarterectomy, Cholecystectomy, Coronary Stent - Family History Family History: States: Unknown Family Hx - Immunization History Hx Tetanus Toxoid Vaccination: No Hx Influenza Vaccination: Yes Hx Pneumococcal Vaccination: No - Home Medications Home Medications: Ambulatory Orders Medication Instructions Recorded Fish Oil/Dha/Epa [Fish Oil 1,200 1,200 mg PO DAILY 03/14/16 mg Fish Oil] Ferrous Sulfate 325 mg PO BID 05/02/16 Pantoprazole Sodium [Protonix] 40 mg PO DAILY 05/02/16 Aspirin [Ecotrin] 81 mg PO DAILY 08/24/16 Finasteride [Proscar] 5 mg PO DAILY 08/24/16 Valsartan [Diovan] 160 mg PO DAILY 11/30/16 Chlorthalidone [Hygroton] 25 mg PO DAILY 03/25/17 Cilostazol [Pletal] 100 mg PO DAILY 03/25/17 Pravastatin Sodium [Pravachol] 20 mg PO HS 03/25/17 Cholecalciferol (Vitamin D3) 2,000 unit PO DAILY 06/11/17 [Vitamin D3] Furosemide [Lasix] 20 mg PO DAILY 06/11/17 Sodium Bicarbonate Tab [Sodium 650 mg PO BID 06/11/17 Bicarbonate Tab] - Allergies Allergies/Adverse Reactions: Allergies Allergy/AdvReac Type Severity Reaction Status Date / Time No Known Allergies Allergy Verified 06/11/17 11:13 Review of Systems Constitutional: Negative for: Fever Cardiovascular: Negative for: Chest Pain Respiratory: Negative for: Cough, Shortness of Breath, SOB with Exertion Gastrointestinal: Negative for: Nausea, Vomiting, Abdominal Pain, Diarrhea, Constipation Genitourinary Male: Negative for: Dysuria Skin: Positive for: Rash (to extensor surface left and right arm) Neurological: Negative for: Weakness, Numbness Physical Exam - Reviewed Nursing Documentation Reviewed: Yes Vital Signs Reviewed: Yes - Physical Exam Appears: Positive for: Non-toxic, No Acute Distress Head Exam: Positive for: ATRAUMATIC, NORMOCEPHALIC Skin: Positive for: Normal Color, Warm, Rash Eye Exam: Positive for: Normal appearance, EOMI, PERRL Cardiovascular/Chest: Positive for: Regular Rate, Rhythm. Negative for: Murmur Respiratory: Positive for: Normal Breath Sounds. Negative for: Wheezing Pulses-Radial (L): 2+ Pulses-Radial (R): 2+ Gastrointestinal/Abdominal: Positive for: Normal Exam, Soft. Negative for: Tenderness Extremity: Positive for: Normal ROM, Other (Left arm: Crusting to extensor surface of wrist and distal tip of fingers, redness and warmth extending up to the elbow with clear demarcation. Blisters present to left palm. Right Arm: Crusting to extensor and flexor surface of wrist and distal tip of fingers, erythema and warmth extending up to the elbow. Blisters in L palm. R arm: redness and erythema extending from wrist to elbow. ). Negative for: Deformity Neurologic/Psych: Positive for: Alert, Oriented. Negative for: Motor/Sensory Deficits - Laboratory Results Result Diagrams: 06/11/17 11:41 12/29/17 11:41 - ECG O2 Sat by Pulse Oximetry: 98 (RA) Pulse Ox Interpretation: Normal Medical Decision Making Medical Decision Making: Impression: b/l redness warmth and erythema with clear demarcations. Concerning for b/l cellulitis that crosses joint. Plan: * CMP * CBC * Magnesium * Phosphorous * Urinalysis * Urine Culture * Blood Culture * Mupirocin Cream 2% * Vancomycin 1 gm/250 mL NS * Reevaluation Scribe Attestation: Documented by Marina Gonzalez, acting as a scribe for Mine Cannon MD. Provider Scribe Attestation: All medical record entries made by the Scribe were at my direction and personally dictated by me. I have reviewed the chart and agree that the record accurately reflects my personal performance of the history, physical exam, medical decision making, and the department course for this patient. I have also personally directed, reviewed, and agree with the discharge instructions and disposition. Labs show anemia at baseline. Also significant for hyperkalemia, hyperchloremia , and worsening renal function. Slow IVF ordered. Treatment of hyperkalemia ordered. No sirs criteria and normal wbc, but limb threatening cellulitis b/l requiring IV antibiotics. Vancomycin ordered due to recently being in [place] [facility]. Spoke to Dr. Carrnigton and will admit to his service. Disposition - Clinical Impression Clinical Impression: Renal insufficiency, Hyperkalemia, diminished renal excretion, Anemia, Cellulitis - Disposition Disposition Time: 12:27 Condition: FAIR - Pt Status Changed To: Hospital Disposition Of: Inpatient - Admit Certification Admit to Inpatient:: After my assessment, the patient will require hospitalization for at least two midnights. This is because of the severity of symptoms shown, intensity of services needed, and/or the medical risk in this patient being treated as an outpatient.
[2017-06-11] MEDS ORDERED: Sodium Chloride 0.9% 500 ML IV ONE (12:00)
[2017-06-11 12:02] LABS: ALB/GLOB RATIO 1.1 (1.0-2.1); ALBUMIN 3.7 g/dL (3.5-5.0); CALCIUM 9.1 mg/dL (8.4-10.2); MAGNESIUM 2.1 MG/DL (1.6-2.3)
[2017-06-11] MEDS ORDERED: Sodium Bicarbonate 7.5% (0.9 MEQ/ML) 50ML INJ IV STA (12:22)
[2017-06-11] MEDS ORDERED: Insulin Regular 100 units/ml IV STA (12:24)
[2017-06-11] MEDS ORDERED: Dextrose 50% SYRINGE Inj (50 ml) IVP STA (12:24)
[2017-06-11] MEDS ORDERED: Dextrose 50% SYRINGE Inj (50 ml) ONE (12:29)
[2017-06-11] MEDS ORDERED: Insulin Regular 100 units/ml ONE (12:30)
--- NOTE | 2017-06-11 14:50 | RAD ---
HISTORY: cellulitis COMPARISON: Comparison chest 03/25/2017 FINDINGS: LUNGS: Chronic appearing interstitial changes of both mid to lower lung nj and suspected minor bibasilar atelectasis or scarring. There are also several calcified granulomata left lower lung field - left infrahilar region. PLEURA: No significant pleural effusion identified, no pneumothorax apparent. CARDIOVASCULAR: Heart size is upper limits of normal/borderline enlarged. Aorta ectatic and uncoiled. OSSEOUS STRUCTURES: No significant abnormalities. VISUALIZED UPPER ABDOMEN: Normal. OTHER FINDINGS: None. IMPRESSION: Chronic appearing interstitial changes of both mid to lower lung nj and suspected minor bibasilar atelectasis or scarring. There are also several calcified granulomata left lower lung field - left infrahilar region.
[2017-06-11] MEDS ORDERED: Labetalol 5mg/ml (4ml) IVP STA (15:13)
[2017-06-11] MEDS ORDERED: Labetalol 5mg/ml (4ml) ONE (15:18)
--- NOTE | 2017-06-11 15:20 | PCM.RRT ---
<Bijal Zuluaga - Last Filed: 06/11/17 16:41> I.Reason for [employer] - A) Acute Change in Patient: Subjective: [employer] call time: 15:10 [employer] arrival time: 15:11 [employer] location: [facility] [employer] vitals: T 97.6 BP 221/64 HR 70 RR 19 O2 100 RA S: [employer] called by RN for 87 y/o male with PMHx of CHF, CAD, CKD, HTN found lying in bed with elevated blood pressure of 221/64. Pt had just been transferred up to med/surg floor from ED where he was found to be hyperkalemic. Pt not experiencing chest pain or shortness of breath, is able to speak in full sentences. Patient had a EKG and was given Labetolol 20 mg IVP . Blood pressure was rechecked and blood pressure came down to 165/61. O: HEENT: atraumatic, normocephalic Cardio: S1-S2, RRR, no JVD Resp: CTAB, no wheezing, no rhonchi Abdomen: soft, non-tender Ext: cellulitic skin changes with increased warmth noted to bilateral upper extremities from fingers extending proximally to elbows; no pedal edema Neuro: AAOx3 [employer] interventions: -20 mg Labetalol IVP -stat EKG 12-lead Repeat vitals: T 97.6 BP 165/61, HR 54 RR 19 O2 100 RA A/P: 87 y/o male with PMHx of CHF, CAD, CKD, HTN with elevated blood pressure of 221/ 64. -EKG showed no changes from ED. Showed peaked T waves most likely secondary to hyperkalemia -transfer to telemetry -Dr. Carrington made aware [employer] guest service team leader: Dr. Ansley Maldonado [employer] residents: Alfonso PGY-3, Obie PGY-2, Zan PGY-1 [employer] end time: 15:25 <Ansley Maldonado - Last Filed: 06/11/17 19:37> [employer] Nurse Assessment - Vital Signs Vital Signs: Rapid Response Vital Sign Blood Pressure 221/64 Pulse Rate 70 Respiratory Rate 19 Temperature 97.6 F Oxygen Saturation 100 - Vital Signs at end of [employer] Vital Signs at end of [employer]: Rapid Response End Vital Sign Blood Pressure 165/61 Pulse Rate 54 Respiratory Rate 19 Temperature 97.6 F O2 Sat by Pulse Oximetry 100 Attending/Attestation - Attestation I have personally seen and examined this patient.: Yes I have fully participated in the care of the patient.: Yes I have reviewed all pertinent clinical information, including history, physical exam and plan: Yes Notes (Text): 06/11/17 19:35 SEEN EXAMINED DISCUSSED WITH RESIDENT DR. KARMA LONG. AGREE WITH FINDINGS AND PLAN ABOVE. PT BP IMPROVED 162/61 WITH DOSE OF LABETALOL 20, follow up troponin. EKG no evidence of acute ischemia or infarct, discussed with Dr. Carrington, transferred to Telemetry.
[2017-06-11 17:10] LABS: CALCIUM 8.6 mg/dL (8.4-10.2)
[2017-06-11] MEDS: ceFAZolin IV 1 gm in Dextrose 1 GM/50 ML BAG IVPB SCH (18:16)
[2017-06-11] MEDS ORDERED: Sod Polystyrene Sulf 15 gm/60 ml Susp PO ONE (18:45)
--- NOTE | 2017-06-11 18:45 | CP.PCM.CON ---
History of Present Illness - History of Present Illness History of Present Illness: REASONS FOR CONSULT : CKD STAGE 4 ANEMIA OF CKD .. HGB 8.9 .. RECARISVES [place] IN MY OFFICE Q 3 W FOR HGB < 10 ELECTROLYTES ABNORMALITIES .. HYPERKALEMIA K 6.2 ..HYPERPHOSPHATEMIA ALL EMR REVIEWED .. PT WAS SEEN AND EXAMINED .. PT IS WELL KNOWN TO ME FOR THE LAST 4-5 YEARS WITH MULTIPLE MEDICAL PROBLEMS Time Seen by Provider: 06/11/17 11:16 Chief Complaint (Nursing): Abnormal Skin Integrity Chief Complaint (Provider): Abnormal Skin Integrity History Per: Patient History/Exam Limitations: no limitations Onset/Duration Of Symptoms: Days (x4) Current Symptoms Are (Timing): Still Present Additional Complaint(s): Chava Yen is an 87 year old male that presents to the ED with rash on his upper extremities. Patient reports that 4 days ago he developed an area of dryness to the flexor surface of his left arm, and applied hypoallergenic cream to the area, but that it has since only gotten more red and swollen. Patient reports that two days ago he had a similar lesion develop on his right arm and states that area also became red and swollen. He denies rash anywhere else, fever, chest pain, or shortness of breath. Of Note: Patient's daughter reports that he was recently in nursing froilan and was discharged on 05/06/17. PMD: Dr. Carrington Past Medical History Reviewed: Historical Data, Nursing Documentation, Vital Signs Vital Signs: Last Vital Signs Temp 97.8 F 06/11/17 11:08 Pulse 63 06/11/17 11:08 Resp 16 06/11/17 11:08 BP 131/59 L 06/11/17 11:08 Pulse Ox 98 06/11/17 12:27 - Medical History PMH: Anemia, Arthritis, Atrial Fibrillation, CAD (WITH STENTS), COPD, Diverticulitis, Fractures (left arm fx due to fall in the snow), HTN, Hypercholesterolemia, Chronic Kidney Disease, TIA (Apr 2016) Denies: HIV - Surgical History Surgical History: Carotid Endarterectomy, Cholecystectomy, Coronary Stent - Family History Family History: States: Unknown Family Hx Past Patient History - Tetanus Immunizations Tetanus Immunization: Unknown - Past Medical History & Family History Past Medical History?: Yes - Past Social History Smoking Status: Former Smoker - CARDIAC Hx Cardiac Disorders: Yes Hx Atrial Fibrillation: Yes Hx Hypercholesterolemia: Yes Hx Hypertension: Yes - PULMONARY Hx Respiratory Disorders: Yes Hx Chronic Obstructive Pulmonary Disease (COPD): Yes - NEUROLOGICAL Hx Neurological Disorder: Yes Hx Transient Ischemic Attacks (TIA): Yes (Apr 2016) - HEENT Hx HEENT Problems: Yes - RENAL Hx Chronic Kidney Disease: Yes - ENDOCRINE/METABOLIC Hx Endocrine Disorders: No - HEMATOLOGICAL/ONCOLOGICAL Hx Blood Disorders: Yes Hx AIDS: No Hx Anemia: Yes Hx Human Immunodeficiency Virus (HIV): No - INTEGUMENTARY Hx Dermatological Problems: No - MUSCULOSKELETAL/RHEUMATOLOGICAL Hx Musculoskeletal Disorders: Yes Hx Arthritis: Yes Hx Falls: Yes Hx Fractures: Yes (left arm fx due to fall in the snow) - GASTROINTESTINAL Hx Gastrointestinal Disorders: Yes Hx Diverticulitis: Yes - GENITOURINARY/GYNECOLOGICAL Hx Genitourinary Disorders: No - PSYCHIATRIC Hx Psychophysiologic Disorder: No Hx Substance Use: No - SURGICAL HISTORY Hx Surgeries: Yes Hx Carotid Endarterectomy: Yes Hx Cholecystectomy: Yes Hx Coronary Stent: Yes - ANESTHESIA Hx Anesthesia: Yes Hx Anesthesia Reactions: No Hx Malignant Hyperthermia: No Has any member of the family had a problem w/ anesthesia?: No Meds Allergies/Adverse Reactions: Allergies Allergy/AdvReac Type Severity Reaction Status Date / Time No Known Allergies Allergy Verified 06/11/17 11:13 - Medications Medications: Current Medications Aspirin (Ecotrin) 81 mg PO DAILY [facility] Chlorthalidone (Hygroton) 25 mg PO DAILY [facility] Cholecalciferol (Vitamin D) 2,000 intlu PO DAILY [facility] Cilostazol (Pletal) 100 mg PO DAILY [facility] Ferrous Sulfate (Feosol) 325 mg PO BID [facility] Last Admin: 06/11/17 18:17 Dose: 325 mg Finasteride (Proscar) 5 mg PO DAILY [facility] Furosemide (Lasix) 20 mg PO DAILY [facility] Home Med (Fish Oil/Dha/Epa [Fish Oil 1,200 Mg Fish Oil]) 1,200 mg PO DAILY [facility] Cefazolin Sodium/Dextrose (Ancef Iv 1 Gm Duplex) 1 gm in 50 mls @ 50 mls/hr IVPB Q8 [facility] PRN Reason: Protocol Last Admin: 06/11/17 18:16 Dose: 50 mls/hr Pantoprazole Sodium (Protonix Ec Tab) 40 mg PO DAILY [facility] Pravastatin Sodium (Pravachol) 20 mg PO HS [facility] Sodium Bicarbonate (Sodium Bicarbonate Tab) 650 mg PO BID [facility] Last Admin: 06/11/17 18:17 Dose: 650 mg Sodium Polystyrene Sulfonate (Kayexalate Susp) 30 gm PO ONCE ONE Stop: 06/11/17 18:46 Valsartan (Diovan) 160 mg PO ONCE STA Stop: 06/11/17 18:34 Valsartan (Diovan) 320 mg PO DAILY [facility] Results - Vital Signs Recent Vital Signs: Last Vital Signs Temp 97.3 F L 06/11/17 16:07 Pulse 56 L 06/11/17 17:22 Resp 18 06/11/17 17:22 BP 152/56 H 06/11/17 16:07 Pulse Ox 100 06/11/17 16:07 - Labs Result Diagrams: 06/11/17 11:41 06/11/17 16:35 Labs: Laboratory Results - last 24 hr 06/11/17 06/11/17 06/11/17 11:41 11:41 16:35 WBC 7.6 RBC 3.25 L Hgb 8.9 L Hct 28.3 L MCV 87.3 D MCH 27.4 MCHC 31.4 L RDW 15.6 H Plt Count 271 MPV 9.0 Neut % (Auto) 40.4 L Lymph % (Auto) 32.2 [place] % (Auto) 7.7 Eos % (Auto) 18.9 H Baso % (Auto) 0.8 Neut # 3.1 Lymph # 2.5 [place] # 0.6 Eos # 1.4 H Baso # 0.1 Sodium 136 137 Potassium 6.2 H* D 5.5 H Chloride 115 H 114 H Carbon Dioxide 10 L* D 15 L Anion Gap 17 14 BUN 79 H 78 H Creatinine 3.5 H 3.3 H Est GFR ( Amer) 20 22 Est GFR (Non-Af Amer) 17 18 Random Glucose 89 99 Lactic Acid Calcium 9.1 8.6 Phosphorus 5.0 H Magnesium 2.1 Total Bilirubin 0.3 AST 16 L D ALT 26 Alkaline Phosphatase 54 Total Protein 6.9 Albumin 3.7 Globulin 3.2 Albumin/Globulin Ratio 1.1 06/11/17 17:35 WBC RBC Hgb Hct MCV MCH MCHC RDW Plt Count MPV Neut % (Auto) Lymph % (Auto) [place] % (Auto) Eos % (Auto) Baso % (Auto) Neut # Lymph # [place] # Eos # Baso # Sodium Potassium Chloride Carbon Dioxide Anion Gap BUN Creatinine Est GFR ( Amer) Est GFR (Non-Af Amer) Random Glucose Lactic Acid 0.6 L Calcium Phosphorus Magnesium Total Bilirubin AST ALT Alkaline Phosphatase Total Protein Albumin Globulin Albumin/Globulin Ratio Assessment & Plan - Assessment and Plan (Free Text) Assessment: CKD STAGE 4 .. RENAL FUNCTION SEEMS TO BE AT BASELINE ANEMIA OF CKD .. WILL CHECK IRON STUDIES AND START EPO HYPERKALEMIA .. WAS TREATED .. WILL START RENAL DIET THAT INCLUDES 2GM K .. ADD CHLORTHALIDONE HYPERPHOSPHATEMIA .. START PHOS BINDER CHECK VIT D AND PTH INTACT MOLECULE MMP C/O PRESENT CARE ORDERS WRITTEN - Date & Time Date: 06/11/17 Time: 18:00
[2017-06-11] MEDS: Pravastatin Sodium 20 MG TAB PO SCH (21:51)
[2017-06-12] MEDS: ceFAZolin IV 1 gm in Dextrose 1 GM/50 ML BAG IVPB SCH ×3 (01:06→17:24)
[2017-06-12 07:32] LABS: CALCIUM 8.9 mg/dL (8.4-10.2)
[2017-06-12 07:54] LABS: BASO # 0.1 K/uL (0.0-0.2); BASO % 0.7 % (0.0-2.0); EOS # 1.2 K/uL (0.0-0.7); EOS % 17.1 % (0.0-4.0); LYMPH # 1.5 K/uL (1.0-4.3); LYMPH % 20.9 % (20.0-40.0); MEAN CORPUSCULAR HEMOGLOBIN 27.8 pg (27.0-31.0); MEAN CORPUSCULAR HGB CONC 32.8 g/dL (33.0-37.0); MONO # 0.6 K/uL (0.0-0.8); NEUT # 3.8 K/uL (1.8-7.0); NEUT % 53.3 % (50.0-75.0); NRBC % 0.1 % (0.0-0.0); RBC 3.24 Mil/uL (4.40-5.90); RED CELL DISTRIBUTION WIDTH 15.4 % (11.5-14.5); WHITE BLOOD COUNT 7.2 K/uL (4.8-10.8)
[2017-06-12 08:19] LABS: MEAN CELL VOLUME 84.8 fl (80.0-94.0)
[2017-06-12] MEDS: Cilostazol 100 mg Tab UD PO SCH (08:46)
[2017-06-12] MEDS: Pantoprazole 40 mg EC Tab PO SCH (08:47)
[2017-06-12] MEDS: Omega-3-Acid Ethyl Esters 1 GM Cap PO SCH ×2 (09:00→17:25)
[2017-06-12] MEDS: Cholecalciferol 1,000 INTLU TAB PO SCH (09:12)
--- NOTE | 2017-06-12 09:26 | CARD ---
APPROVED REPORT EKG Measurement Heart [id number] <Conclusion> Sinus rhythm with occasional premature ventricular complexes and premature atrial complexes Nonspecific T wave abnormality Abnormal ECG
[2017-06-12] MEDS ORDERED: Sod Polystyrene Sulf 15 gm/60 ml Susp PO ONE (09:30)
--- NOTE | 2017-06-12 11:47 | CARD ---
APPROVED REPORT EKG Measurement Heart [id number] <Conclusion> Sinus rhythm with occasional premature ventricular complexes Prolonged QT Abnormal ECG
[2017-06-12 12:57] LABS: ALB/GLOB RATIO 1.1 (1.0-2.1); ALBUMIN 3.3 g/dL (3.5-5.0); ALT/SGPT 26 U/L (21-72); AST/SGOT 19 U/L (17-59); BLOOD UREA NITROGEN 71 mg/dl (9-20); CALCIUM 8.8 mg/dL (8.4-10.2); GFR AFRICAN-AMERICAN 24; GFR NON-AFRICAN AMERICAN 20
--- NOTE | 2017-06-12 15:00 | HP ---
HISTORY OF PRESENT ILLNESS: Mr. Yen is an 87-year-old male, who was admitted via the emergency room because of swelling, redness of both upper extremities associated with a rash and blisters, which started 4 days prior to presentation, but worsened on the day of admission. He was seen in the emergency room and admitted with cellulitis of both upper extremities requiring IV antibiotic therapy. When he got to the medical floor, the rapid response team was called and he was transferred back to the telemetry unit because of elevated blood pressure. He had not taken his blood pressure medications for the past 24 hours because according to his daughter his blood pressure had been low at home. PAST MEDICAL HISTORY: He has a past medical history of anemia; arthritis; atrial fibrillation; coronary artery disease, status post stent placement; chronic obstructive pulmonary disease; hypertension; hyperlipidemia; chronic kidney disease and chronic recurrent hyperkaliemia. He also has benign prostatic hypertrophy and hyperlipidemia. FAMILY HISTORY: Noncontributory. SOCIAL HISTORY: He quit smoking many years ago. Does not drink. Lives at home. REVIEW OF SYSTEMS: Remarkable for recurrent frequent falls and admissions to the hospital for shortness of breath and hyperkalemia. PHYSICAL EXAMINATION: GENERAL: The patient is alert and oriented, but hard of hearing. VITAL SIGNS: Blood pressure 145/64, was 196/69 on admission; pulse 63; respiratory rate 20; he is afebrile, O2 sat 95% on room air. SKIN: Shows fair turgor. HEENT: Pupils equal, reactive to light and accommodation. Mouth shows fair hygiene. LUNGS: Fair aeration. HEART: S1, S2. No olds. No gallops. No murmurs are appreciated. The is a few extrasystole is noted. ABDOMEN: Soft, nontender. No organomegaly. EXTREMITIES: There is bilateral upper extremity cellulitis with blisters. Lower extremities appear unremarkable. CENTRAL NERVOUS SYSTEM: Remarkable for bilateral deafness, otherwise unremarkable. LABORATORY DATA: WBC 7.3, hemoglobin 9.0, platelet count 266,000. Sodium 136, potassium 6.2, BUN of 79, creatinine 3.5. EKG, regular sinus rhythm with occasional premature ventricular complexes and premature atrial complexes. Nonspecific ST-T changes. Chest x-ray, chronic-appearing interstitial lung disease. mild to lower lung jn, suspect some form of atelectasis or scarring, also several calcified granulomata. left lower lung field and left infrahilar region. IMPRESSION: Cellulitis of upper extremities with bullous lesions: chronic renal failure with recurrent hyperkaliemia: hypertension, poorly controlled because of noncompliance; history of hyperlipidemia; history of chronic obstructive pulmonary disease. The plan is intravenous antibiotics. I would obtain Infectious Disease evaluation, cardiac and Nephrology evaluation. Further therapy will depend on findings. Dani Carrington MD
[2017-06-12] MEDS ORDERED: Mupirocin 2% Cream TOP SCH (17:00)
[2017-06-12] MEDS: Pravastatin Sodium 20 MG TAB PO SCH (22:00)
--- NOTE | 2017-06-12 22:23 | CP.PCM.PN ---
Subjective - Date & Time of Evaluation Date of Evaluation: 06/12/17 Time of Evaluation: 17:00 - Subjective Subjective: SEEN ON RENAL F/U IN BED LYING FLAT C/O SWELLING AND REDNESS ON THE BACK OF BOTH ARMS K IS BETTER RENAL FUNCTION STABLE Objective - Vital Signs/Intake and Output Vital Signs (last 24 hours): Temp Pulse Resp BP Pulse Ox 97.5 F L 75 18 166/52 H 95 06/12/17 20:04 06/12/17 20:04 06/12/17 20:04 06/12/17 20:04 06/12/17 20:04 - Medications Medications: Current Medications Aspirin (Ecotrin) 81 mg PO DAILY [facility] Last Admin: 06/12/17 08:48 Dose: 81 mg Chlorthalidone (Hygroton) 25 mg PO DAILY [facility] Last Admin: 06/12/17 08:47 Dose: 25 mg Cholecalciferol (Vitamin D) 2,000 intlu PO DAILY [facility] Last Admin: 06/12/17 09:12 Dose: 2,000 intlu Cilostazol (Pletal) 100 mg PO DAILY [facility] Last Admin: 06/12/17 08:46 Dose: 100 mg Finasteride (Proscar) 5 mg PO DAILY [facility] Last Admin: 06/12/17 08:48 Dose: 5 mg Furosemide (Lasix) 20 mg PO DAILY [facility] Last Admin: 06/12/17 08:47 Dose: 20 mg Cefazolin Sodium/Dextrose (Ancef Iv 1 Gm Duplex) 1 gm in 50 mls @ 50 mls/hr IVPB Q8 [facility] PRN Reason: Protocol Last Admin: 06/12/17 17:24 Dose: 50 mls/hr Mupirocin (Bactroban Ointment) 1 applic TOP BID [facility] Last Admin: 06/12/17 17:25 Dose: 1 unit [id number] Ethyl Esters (Lovaza) 1 gm PO DAILY [facility] Last Admin: 06/12/17 17:25 Dose: 1 gm Pantoprazole Sodium (Protonix Ec Tab) 40 mg PO DAILY [facility] Last Admin: 06/12/17 08:47 Dose: 40 mg Pravastatin Sodium (Pravachol) 20 mg PO HS [facility] Last Admin: 06/12/17 22:00 Dose: 20 mg Valsartan (Diovan) 320 mg PO DAILY [facility] Last Admin: 06/12/17 08:48 Dose: 320 mg - Labs Labs: 06/12/17 06:30 06/12/17 12:05 Assessment and Plan - Assessment and Plan (Free Text) Assessment: RENAL DIET : 2 GM NA .. 2 GM K .. 50 GM PROTIEN DIETARY CONSULT AND COUNSELING C/O CURRENT MEDS
[2017-06-13] MEDS: ceFAZolin IV 1 gm in Dextrose 1 GM/50 ML BAG IVPB SCH ×3 (01:15→16:33)
[2017-06-13 07:03] LABS: SQUAMOUS EPITHIAL < 1 /hpf (0-5); URINE BILIRUBIN NEGATIVE (NEGATIVE); URINE BLOOD NEGATIVE (NEGATIVE); URINE CLARITY CLEAR (Clear); URINE COLOR YELLOW (YELLOW); URINE GLUCOSE (UA) NEG (Normal); URINE LEUKOCYTE ESTERASE NEG Leu/uL (Negative); URINE NITRATE NEGATIVE (NEGATIVE); URINE PROTEIN 100 mg/dL (NEGATIVE); URINE UROBILINOGEN 0.2-1.0 mg/dL (0.2-1.0)
[2017-06-13 08:03] LABS: HEMOGLOBIN 8.4 g/dL (12.0-18.0); MEAN CELL VOLUME 84.6 fl (80.0-94.0); MEAN CORPUSCULAR HGB CONC 33.1 g/dL (33.0-37.0); RBC 3.02 Mil/uL (4.40-5.90); RED CELL DISTRIBUTION WIDTH 15.4 % (11.5-14.5); WHITE BLOOD COUNT 7.1 K/uL (4.8-10.8)
[2017-06-13] MEDS: Omega-3-Acid Ethyl Esters 1 GM Cap PO SCH (08:25)
[2017-06-13] MEDS: Pantoprazole 40 mg EC Tab PO SCH (08:26)
[2017-06-13] MEDS: Cilostazol 100 mg Tab UD PO SCH (08:26)
[2017-06-13] MEDS: Cholecalciferol 1,000 INTLU TAB PO SCH (08:26)
--- NOTE | 2017-06-13 11:45 | CP.PCM.PN ---
Subjective - Date & Time of Evaluation Date of Evaluation: 06/13/17 Time of Evaluation: 11:45 - Subjective Subjective: DENIES CHEST PAINS/SOB REDNESS AND SWELLING OF ARMS PERSIST C/O DRY COUGH Objective - Vital Signs/Intake and Output Vital Signs (last 24 hours): Temp Pulse Resp BP Pulse Ox 97.8 F 74 20 186/59 H 95 06/13/17 08:00 06/13/17 08:00 06/13/17 08:00 06/13/17 08:28 06/13/17 08:00 - Medications Medications: Current Medications Aspirin (Ecotrin) 81 mg PO DAILY [facility] Last Admin: 06/13/17 08:25 Dose: 81 mg Chlorthalidone (Hygroton) 25 mg PO DAILY [facility]S [facility] Last Admin: 06/13/17 08:25 Dose: 25 mg Cholecalciferol (Vitamin D) 2,000 intlu PO DAILY [facility] Last Admin: 06/13/17 08:26 Dose: 2,000 intlu Cilostazol (Pletal) 100 mg PO DAILY [facility] Last Admin: 06/13/17 08:26 Dose: 100 mg Finasteride (Proscar) 5 mg PO DAILY [facility] Last Admin: 06/13/17 08:26 Dose: 5 mg Furosemide (Lasix) 20 mg PO DAILY [facility] Last Admin: 06/13/17 08:28 Dose: 20 mg Cefazolin Sodium/Dextrose (Ancef Iv 1 Gm Duplex) 1 gm in 50 mls @ 50 mls/hr IVPB Q8 [facility] 234 [facility]S [facility] PRN Reason: Protocol Last Admin: 06/13/17 08:24 Dose: 50 mls/hr Mupirocin (Bactroban Ointment) 1 applic TOP BID [facility] Last Admin: 06/13/17 08:24 Dose: 1 applic [id number] Ethyl Esters (Lovaza) 1 gm PO DAILY [facility] 234 [facility]S [facility] Last Admin: 06/13/17 08:25 Dose: 1 gm Pantoprazole Sodium (Protonix Ec Tab) 40 mg PO DAILY [facility]S [facility] Last Admin: 06/13/17 08:26 Dose: 40 mg Pravastatin Sodium (Pravachol) 20 mg PO HS [facility] 234 [facility]S [facility] Last Admin: 06/12/17 22:00 Dose: 20 mg Valsartan (Diovan) 320 mg PO DAILY [facility] Last Admin: 06/13/17 08:25 Dose: 320 mg - Labs Labs: 06/13/17 06:30 06/13/17 06:30 - Constitutional Appears: Chronically Ill - Head Exam Head Exam: ATRAUMATIC, NORMAL INSPECTION, NORMOCEPHALIC - Eye Exam Eye Exam: EOMI, Normal appearance, PERRL Pupil Exam: NORMAL ACCOMODATION, PERRL - ENT Exam ENT Exam: Mucous Membranes Moist, Normal Exam - Neck Exam Neck Exam: Full ROM, Normal Inspection. absent: Lymphadenopathy - Respiratory Exam Respiratory Exam: Decreased Breath Sounds, Clear to Ausculation Bilateral, Prolonged Expiratory Phase, Rales, NORMAL BREATHING PATTERN - Cardiovascular Exam Cardiovascular Exam: REGULAR RHYTHM, +S1, +S2. absent: Murmur - GI/Abdominal Exam GI & Abdominal Exam: Soft, Normal Bowel Sounds. absent: Tenderness - Rectal Exam Rectal Exam: NORMAL INSPECTION - Extremities Exam Extremities Exam: Full ROM, Tenderness. absent: Joint Swelling, Pedal Edema Additional comments: REDNESS OF ARMS - Back Exam Back Exam: NORMAL INSPECTION - Neurological Exam Neurological Exam: Alert, Awake, CN II-XII Intact, Normal Gait, Oriented x3 - Psychiatric Exam Psychiatric exam: Normal Affect, Normal Mood - Skin Skin Exam: Dry, Intact, Normal Color, Warm Assessment and Plan - Assessment and Plan (Free Text) Assessment: CELLULITIS OF ARMS--ERYSEPELLAS +BLOOD CULTURES RENAL FAILURE HYPERKALEMIA ASHD HTN Plan: CONTINUE PRESENT RX AWAIT ID S[facility]RA
--- NOTE | 2017-06-13 12:33 | CP.PCM.CON ---
History of Present Illness - History of Present Illness History of Present Illness: referred for id eval severe cellulitis upper extremities bilat left > right in an elderly male with CKD and other comorbidities 87 year old male that presents to the ED with rash on his upper extremities. Patient reports that 4 days ago he developed an area of dryness to the flexor surface of his left arm, and applied hypoallergenic cream to the area, but that it has since only gotten more red and swollen. Patient reports that two days ago he had a similar lesion develop on his right arm and states that area also became red and swollen. He denies rash anywhere else, fever, chest pain, or shortness of breath. Of Note: Patient's daughter reports that he was recently in nursing froilan and was discharged on 05/06/17. Review of Systems - Constitutional Constitutional: As Per HPI. absent: Chills, Fever - EENT Eyes: absent: As Per HPI, Blind Spots, Blurred Vision, Change in Vision, Decreased Night Vision, Diplopia, Discharge, Dry Eye, Exophthalmos, Floaters, Irritation, Itchy Eyes, Loss of Peripheral Vision, Pain, Photophobia, Requires Corrective Lenses, Sees Flashes, Spots in Vision, Tunnel Vision, Other Visual Disturbances, Loss of Vision, Other Ears: absent: As Per HPI, Decreased Hearing, Ear Discharge, Ear Pain, Tinnitus, Abnormal Hearing, Disequilibrium, Dizziness, Other Nose/Mouth/Throat: absent: As Per HPI, Epistaxis, Nasal Congestion, Nasal Discharge, Nasal Obstruction, Nasal Trauma, Nose Pain, Post Nasal Drip, Sinus Pain, Sinus Pressure, Bleeding Gums, Change in Voice, Dental Pain, Dry Mouth, Dysphagia, Halitosis, Hoarsness, Lip Swelling, Mouth Lesions, Mouth Pain, Odynophagia, Sore Throat, Throat Swelling, Tongue Swelling, Facial Pain, Neck Pain, Neck Mass, Other - Cardiovascular Cardiovascular: As Per HPI - Respiratory Respiratory: absent: As Per HPI, Cough, Dyspnea, Hemoptysis, Dyspnea on Exertion , Wheezing, Snoring, Stridor, Pain on Inspiration, Chest Congestion, Excessive Mucous Production, Change in Mucous Color, Pain with Coughing, Other - Gastrointestinal Gastrointestinal: absent: As Per HPI, Abdominal Pain, Belching, Bloating, Change in Bowel Habits, Change in Stool Character, Coffee Ground Emesis, Constipation, Cramping, Diarrhea, Dyspepsia, Dysphagia, Early Satiety, Excessive Flatus, Fecal Incontinence, Heartburn, Hematemesis, Hematochezia, Loose Stools, Melena, Nausea, Odynophagia, Temesmus, Vomiting, Other - Genitourinary Genitourinary: absent: As Per HPI, Change in Urinary Stream, Difficulty Urinating, Dysuria, Flank Pain, Hematuria, Pyuria, Nocturia, Urinary Incontinence, Urinary Frequency, Urinary Hesitance, Urinary Urgency, Voiding Freq/Small Amts, Freq UTI, Hx Renal/Bladder Calculi, Hx /Renal Surgery, Bladder Distension, Other - Musculoskeletal Musculoskeletal: absent: As Per HPI, Abnormal Gait, Arthralgias, Atrophy, Back Pain, Deformity, Joint Swelling, Limited Range of Motion, Loss of Height, Muscle Cramps, Muscle Weakness, Myalgias, Neck Pain, Numbness, Radiating Pain into Limb, Stiffness, Tingling, Other - Integumentary Integumentary: As Per HPI, Rash, Skin Pain, Wounds - Neurological Neurological: absent: As Per HPI, Abnormal Gait, Abnormal Hearing, Abnormal Movements, Abnormal Speech, Behavioral Changes, Burning Sensations, Confusion, Convulsions, Disequilibrium, Dizziness, Numbness, Focal Weakness, Frequent Falls , Headaches, Lack of Coordination, Loss of Vision, Memory Loss, Paresthesias, Radicular Pain, Restless Legs, Sensory Deficit, Syncope, Tingling, Tremor, Vertigo, Weakness, Other Visual Disturbances, Other - Psychiatric Psychiatric: absent: As Per HPI, Abnormal Sleep Pattern, Anhedonia, Anxiety, Auditory Hallucinations, Behavioral Changes, Change in Appetite, Change in Libido, Confusion, Depression, Difficulty Concentrating, Hallucinations, Homicidal Ideation, Hopelessness, Irritability, Memory Loss, Mood Swings, Panic Attacks, Paranoia, Suicidal Ideation, Visual Hallucinations, Tactile Hallucinations, Other - Endocrine Endocrine: absent: As Per HPI, Change in Body Appearance, Change in Libido, Cold Intolorance, Deepening of Voice, Excessive Sweating, Fatigue, Flushing, Heat Intolorance, Increase in Ring/Shoe/Hat Size, Palpitations, Polydipsia, Polyphagia, Polyuria, Other - Hematologic/Lymphatic Hematologic: absent: As Per HPI, Easy Bleeding, Easy Bruising, Lymphadenopathy, Other Past Patient History - Tetanus Immunizations Tetanus Immunization: Unknown - Past Medical History & Family History Past Medical History?: Yes - Past Social History Smoking Status: Former Smoker - CARDIAC Hx Cardiac Disorders: Yes Hx Atrial Fibrillation: Yes Hx Hypercholesterolemia: Yes Hx Hypertension: Yes - PULMONARY Hx Respiratory Disorders: Yes Hx Chronic Obstructive Pulmonary Disease (COPD): Yes - NEUROLOGICAL Hx Neurological Disorder: Yes Hx Transient Ischemic Attacks (TIA): Yes (Apr 2016) - HEENT Hx HEENT Problems: Yes - RENAL Hx Chronic Kidney Disease: Yes - ENDOCRINE/METABOLIC Hx Endocrine Disorders: No - HEMATOLOGICAL/ONCOLOGICAL Hx Blood Disorders: Yes Hx AIDS: No Hx Anemia: Yes Hx Human Immunodeficiency Virus (HIV): No - INTEGUMENTARY Hx Dermatological Problems: No - MUSCULOSKELETAL/RHEUMATOLOGICAL Hx Musculoskeletal Disorders: Yes Hx Arthritis: Yes Hx Falls: Yes Hx Fractures: Yes (left arm fx due to fall in the snow) - GASTROINTESTINAL Hx Gastrointestinal Disorders: Yes Hx Diverticulitis: Yes - GENITOURINARY/GYNECOLOGICAL Hx Genitourinary Disorders: No - PSYCHIATRIC Hx Psychophysiologic Disorder: No Hx Substance Use: No - SURGICAL HISTORY Hx Surgeries: Yes Hx Carotid Endarterectomy: Yes Hx Cholecystectomy: Yes Hx Coronary Stent: Yes - ANESTHESIA Hx Anesthesia: Yes Hx Anesthesia Reactions: No Hx Malignant Hyperthermia: No Has any member of the family had a problem w/ anesthesia?: No Meds Allergies/Adverse Reactions: Allergies Allergy/AdvReac Type Severity Reaction Status Date / Time No Known Allergies Allergy Verified 06/11/17 11:13 - Medications Medications: Current Medications Aspirin (Ecotrin) 81 mg PO DAILY [facility] Last Admin: 06/13/17 08:25 Dose: 81 mg Chlorthalidone (Hygroton) 25 mg PO DAILY [facility] Last Admin: 06/13/17 08:25 Dose: 25 mg Cholecalciferol (Vitamin D) 2,000 intlu PO DAILY [facility] Last Admin: 06/13/17 08:26 Dose: 2,000 intlu Cilostazol (Pletal) 100 mg PO DAILY [facility] Last Admin: 06/13/17 08:26 Dose: 100 mg Finasteride (Proscar) 5 mg PO DAILY [facility] Last Admin: 06/13/17 08:26 Dose: 5 mg Furosemide (Lasix) 20 mg PO DAILY [facility] Last Admin: 06/13/17 08:28 Dose: 20 mg Cefazolin Sodium/Dextrose (Ancef Iv 1 Gm Duplex) 1 gm in 50 mls @ 50 mls/hr IVPB Q8 [facility] PRN Reason: Protocol Last Admin: 06/13/17 08:24 Dose: 50 mls/hr Mupirocin (Bactroban Ointment) 1 applic TOP BID [facility] Last Admin: 06/13/17 08:24 Dose: 1 applic [id number]-[id number] Ethyl Esters (Lovaza) 1 gm PO DAILY [facility] Last Admin: 06/13/17 08:25 Dose: 1 gm Pantoprazole Sodium (Protonix Ec Tab) 40 mg PO DAILY [facility] Last Admin: 06/13/17 08:26 Dose: 40 mg Pravastatin Sodium (Pravachol) 20 mg PO HS [facility] Last Admin: 06/12/17 22:00 Dose: 20 mg Valsartan (Diovan) 320 mg PO DAILY [facility] Last Admin: 06/13/17 08:25 Dose: 320 mg Physical Exam - Constitutional Appears: Non-toxic, Chronically Ill - Head Exam Head Exam: NORMOCEPHALIC - Eye Exam Eye Exam: PERRL. absent: Scleral icterus - ENT Exam ENT Exam: Mucous Membranes Dry, Normal External Ear Exam, Normal Oropharynx - Neck Exam Neck exam: Negative for: Lymphadenopathy - Respiratory Exam Respiratory Exam: Decreased Breath Sounds, Rhonchi - Cardiovascular Exam Cardiovascular Exam: REGULAR RHYTHM, +S1, +S2 - GI/Abdominal Exam GI & Abdominal Exam: Diminished Bowel Sounds, Soft. absent: Tenderness - Rectal Exam Rectal Exam: Deferred - Exam Exam: NORMAL INSPECTION - Extremities Exam Extremities exam: Positive for: pedal pulses present. Negative for: calf tenderness, pedal edema, tenderness Additional comments: bilat cellulitis severe left > right upper extremities no0 pus no drainage nothing to culture pulses + - Back Exam Back exam: absent: CVA tenderness (L), CVA tenderness (R) - Neurological Exam Neurological exam: Alert, CN II-XII Intact, Oriented x3, Reflexes Normal - Psychiatric Exam Psychiatric exam: Normal Mood - Skin Skin Exam: Dry, Erythema Results - Vital Signs Recent Vital Signs: Last Vital Signs Temp 97.8 F 06/13/17 08:00 Pulse 74 06/13/17 08:00 Resp 20 06/13/17 08:00 BP 186/59 H 06/13/17 08:28 Pulse Ox 95 06/13/17 08:00 - Labs Result Diagrams: 06/13/17 06:30 06/13/17 06:30 Labs: Laboratory Results - last 24 hr 06/12/17 06/12/17 06/12/17 12:05 16:23 21:55 WBC RBC Hgb Hct MCV MCH MCHC RDW Plt Count Sodium 138 Potassium 5.3 H Chloride 114 H Carbon Dioxide 15 L Anion Gap 14 BUN 71 H Creatinine 3.0 H Est GFR ( Amer) 24 Est GFR (Non-Af Amer) 20 POC Glucose (mg/dL) 122 H 89 Random Glucose 167 H Calcium 8.8 Total Bilirubin < 0.1 L AST 19 ALT 26 Alkaline Phosphatase 47 Total Protein 6.4 Albumin 3.3 L Globulin 3.1 Albumin/Globulin Ratio 1.1 Urine Color Urine Clarity Urine pH Ur Specific Tutor Key Urine Protein Urine Glucose (UA) Urine Ketones Urine Blood Urine Nitrate Urine Bilirubin Urine Urobilinogen Ur Leukocyte Esterase Urine RBC (Auto) Urine Microscopic WBC Ur Squamous Epith Cells 06/13/17 06/13/17 06/13/17 04:56 06:30 06:30 WBC 7.1 RBC 3.02 L Hgb 8.4 L Hct 25.6 L MCV 84.6 MCH 28.0 MCHC 33.1 RDW 15.4 H Plt Count 248 Sodium 137 Potassium 5.8 H Chloride 116 H Carbon Dioxide 14 L Anion Gap 13 BUN 69 H Creatinine 3.0 H Est GFR ( Amer) 24 Est GFR (Non-Af Amer) 20 POC Glucose (mg/dL) Random Glucose 89 Calcium 8.0 L Total Bilirubin 0.2 AST 21 ALT 22 Alkaline Phosphatase 49 Total Protein 6.0 L Albumin 3.0 L Globulin 2.9 Albumin/Globulin Ratio 1.0 Urine Color Yellow Urine Clarity Clear Urine pH 5.0 Ur Specific [place] 1.009 Urine Protein 100 Urine Glucose (UA) Neg Urine Ketones Negative Urine Blood Negative Urine Nitrate Negative Urine Bilirubin Negative Urine Urobilinogen 0.2-1.0 Ur Leukocyte Esterase Neg Urine RBC (Auto) 2 Urine Microscopic WBC < 1 Ur Squamous Epith Cells < 1 Assessment & Plan (1) Cellulitis Status: Acute (2) Hyperkalemia, diminished renal excretion Status: Acute (3) Renal insufficiency Status: Chronic (4) CKD (chronic kidney disease), stage III Status: Acute (5) Chronic renal disease, stage 4, severely decreased glomerular filtration rate (GFR) between 15-29 mL/min/1.73 square meter Status: Acute (6) Orthostatic hypotension Status: Acute
[2017-06-13] MEDS: Pravastatin Sodium 20 MG TAB PO SCH (22:37)
[2017-06-14] MEDS: ceFAZolin IV 1 gm in Dextrose 1 GM/50 ML BAG IVPB SCH ×3 (01:03→17:35)
[2017-06-14 05:47] LABS: BASO % 0.4 % (0.0-2.0); EOS # 1.6 K/uL (0.0-0.7); EOS % 20.2 % (0.0-4.0); HEMOGLOBIN 7.9 g/dL (12.0-18.0); LYMPH % 25.4 % (20.0-40.0); MEAN CELL VOLUME 84.4 fl (80.0-94.0); MEAN CORPUSCULAR HEMOGLOBIN 28.3 pg (27.0-31.0); MEAN CORPUSCULAR HGB CONC 33.5 g/dL (33.0-37.0); MEAN PLATELET VOLUME 9.2 fl (7.2-11.7); MONO # 0.6 K/uL (0.0-0.8); MONO % 8.1 % (0.0-10.0); NEUT # 3.6 K/uL (1.8-7.0); NEUT % 45.9 % (50.0-75.0); PLATELET COUNT 238 K/uL (130-400); RED CELL DISTRIBUTION WIDTH 15.2 % (11.5-14.5); WHITE BLOOD COUNT 7.8 K/uL (4.8-10.8)
[2017-06-14 06:20] LABS: CALCIUM 8.3 mg/dL (8.4-10.2)
[2017-06-14] MEDS: Omega-3-Acid Ethyl Esters 1 GM Cap PO SCH (08:51)
[2017-06-14] MEDS: Pantoprazole 40 mg EC Tab PO SCH (08:51)
[2017-06-14] MEDS: Cilostazol 100 mg Tab UD PO SCH (08:52)
[2017-06-14] MEDS: Cholecalciferol 1,000 INTLU TAB PO SCH (08:52)
--- NOTE | 2017-06-14 09:47 | CP.PCM.PN ---
Subjective - Date & Time of Evaluation Date of Evaluation: 06/14/17 Time of Evaluation: 09:48 - Subjective Subjective: CELLULITIS OF ARMS PERSIST Objective - Vital Signs/Intake and Output Vital Signs (last 24 hours): Temp Pulse Resp BP Pulse Ox 97 F L 69 18 189/66 H 100 06/14/17 08:00 06/14/17 08:00 06/14/17 08:00 06/14/17 08:51 06/14/17 08:00 - Medications Medications: Current Medications Aspirin (Ecotrin) 81 mg PO DAILY [facility] Last Admin: 06/14/17 08:52 Dose: 81 mg Chlorthalidone (Hygroton) 25 mg PO DAILY [facility] Last Admin: 06/14/17 08:51 Dose: 25 mg Cholecalciferol (Vitamin D) 2,000 intlu PO DAILY [facility] Last Admin: 06/14/17 08:52 Dose: 2,000 intlu Cilostazol (Pletal) 100 mg PO DAILY [facility] Last Admin: 06/14/17 08:52 Dose: 100 mg Finasteride (Proscar) 5 mg PO DAILY [facility] Last Admin: 06/14/17 08:52 Dose: 5 mg Furosemide (Lasix) 20 mg PO DAILY [facility] Last Admin: 06/14/17 08:51 Dose: 20 mg Cefazolin Sodium/Dextrose (Ancef Iv 1 Gm Duplex) 1 gm in 50 mls @ 50 mls/hr IVPB Q8 [facility] PRN Reason: Protocol Last Admin: 06/14/17 08:49 Dose: 50 mls/hr Mupirocin (Bactroban Ointment) 1 applic TOP BID [facility] Last Admin: 06/14/17 08:50 Dose: 1 applic Rxinj-[id number] Ethyl Esters (Lovaza) 1 gm PO DAILY [facility] Last Admin: 06/14/17 08:51 Dose: 1 gm Pantoprazole Sodium (Protonix Ec Tab) 40 mg PO DAILY [facility] Last Admin: 06/14/17 08:51 Dose: 40 mg Pravastatin Sodium (Pravachol) 20 mg PO HS [facility] Last Admin: 06/13/17 22:37 Dose: 20 mg Valsartan (Diovan) 320 mg PO DAILY [facility] Last Admin: 06/14/17 08:56 Dose: 320 mg - Labs Labs: 06/14/17 05:10 06/14/17 05:10 - Constitutional Appears: Chronically Ill - Head Exam Head Exam: ATRAUMATIC, NORMAL INSPECTION, NORMOCEPHALIC - Eye Exam Eye Exam: EOMI, Normal appearance, PERRL Pupil Exam: NORMAL ACCOMODATION, PERRL - ENT Exam ENT Exam: Mucous Membranes Moist, Normal Exam - Neck Exam Neck Exam: Full ROM, Normal Inspection. absent: Lymphadenopathy - Respiratory Exam Respiratory Exam: Clear to Ausculation Bilateral, NORMAL BREATHING PATTERN - Cardiovascular Exam Cardiovascular Exam: REGULAR RHYTHM, +S1, +S2. absent: Murmur - GI/Abdominal Exam GI & Abdominal Exam: Soft, Normal Bowel Sounds. absent: Tenderness - Rectal Exam Rectal Exam: NORMAL INSPECTION - Extremities Exam Extremities Exam: Full ROM, Normal Capillary Refill. absent: Joint Swelling, Pedal Edema Additional comments: REDNESS/WARMTH AND BLISTERS OF ARMS - Back Exam Back Exam: NORMAL INSPECTION - Neurological Exam Neurological Exam: Alert, Awake, CN II-XII Intact, Normal Gait, Oriented x3 - Psychiatric Exam Psychiatric exam: Normal Affect, Normal Mood - Skin Skin Exam: Dry, Intact, Normal Color, Warm Assessment and Plan - Assessment and Plan (Free Text) Assessment: CELLULITIS OF ARMS CHRONIC RENAL FAILURE HYPERKALEMIA ANEMIA OF CHRONIC DZ HTN ASHD Plan: CONTINUE ANTIBIOTIC RX REPEAT HB IN AM MAY NEED IRON SUPPLEMENT
[2017-06-14 09:48] LABS: ANISOCYTOSIS SLIGHT; BASOPHIL 1 % (0-2); EOSINOPHIL 17 % (0-7); HYPOCHROMIC SLIGHT; LYMPHOCYTE 26 % (20-50); MONOCYTE 9 % (0-10); NEUTROPHIL 47 % (42-75); OVALOCYTES SLIGHT; PLATELET ESTIMATE NORMAL (NORMAL); SCHISTOCYTES SLIGHT; TEARDROP CELLS SLIGHT; TOTAL CELLS COUNTED 100
[2017-06-14 09:49] LABS: TOXIC GRANULATION PRESENT
[2017-06-14] MEDS ORDERED: EnalaprilAT 1.25 mg/ml Inj IV ONE (16:59)
[2017-06-14] MEDS ORDERED: EnalaprilAT 1.25 mg/ml Inj IV STA (17:20)
--- NOTE | 2017-06-14 20:15 | CP.PCM.PN ---
Subjective - Date & Time of Evaluation Date of Evaluation: 06/14/17 Time of Evaluation: 15:00 - Subjective Subjective: SEEN ON RENAL F/U FEELS IMPROVED IN GENERAL C/O SHARI UPPER EXTREMITIESCELLULITIS .. ON ANCEF RENAL FUNCTION STABLE ALL ABOVE EMR REVIEWED Objective - Vital Signs/Intake and Output Vital Signs (last 24 hours): Temp Pulse Resp BP Pulse Ox 98.0 F 66 20 144/53 L 100 06/14/17 15:42 06/14/17 15:42 06/14/17 15:42 06/14/17 18:30 06/14/17 15:42 - Medications Medications: Current Medications Aspirin (Ecotrin) 81 mg PO DAILY [facility] Last Admin: 06/14/17 08:52 Dose: 81 mg Chlorthalidone (Hygroton) 25 mg PO DAILY [facility] Last Admin: 06/14/17 08:51 Dose: 25 mg Cholecalciferol (Vitamin D) 2,000 intlu PO DAILY [facility] Last Admin: 06/14/17 08:52 Dose: 2,000 intlu Epoetin Nolan (Procrit) 2,[address] [facility] Finasteride (Proscar) 5 mg PO DAILY [facility] Last Admin: 06/14/17 08:52 Dose: 5 mg Furosemide (Lasix) 20 mg PO DAILY [facility] Last Admin: 06/14/17 08:51 Dose: 20 mg Cefazolin Sodium/Dextrose (Ancef Iv 1 Gm Duplex) 1 gm in 50 mls @ 50 mls/hr IVPB Q8 [facility] PRN Reason: Protocol Last Admin: 06/14/17 17:35 Dose: 50 mls/hr Iron Sucrose 200 mg/ Sodium (Chloride) 110 mls @ 110 mls/hr IVPB DAILY [facility] Mupirocin (Bactroban Ointment) 1 applic TOP BID [facility] Last Admin: 06/14/17 17:33 Dose: 1 applic Zxije-7-Iqbt Ethyl Esters (Lovaza) 1 gm PO DAILY [facility] Last Admin: 06/14/17 08:51 Dose: 1 gm Pantoprazole Sodium (Protonix Ec Tab) 40 mg PO DAILY [facility] Last Admin: 06/14/17 08:51 Dose: 40 mg Pravastatin Sodium (Pravachol) 20 mg PO HS [facility] Last Admin: 06/13/17 22:37 Dose: 20 mg Sodium Bicarbonate (Sodium Bicarbonate Tab) 650 mg PO Q8 [facility] Valsartan (Diovan) 320 mg PO DAILY [facility] Last Admin: 06/14/17 08:56 Dose: 320 mg - Labs Labs: 06/14/17 05:10 06/14/17 05:10 Assessment and Plan - Assessment and Plan (Free Text) Assessment: CKD .. RENAL FUNCTION STABLE ANEMIA OF CKD .. START EPO +VENOFER ACIDOSIS .. START BICARB HYPERKALEMIA .. KEYAXALAT .. 2 GM NA .. DIETARY CONSULT AND CONSULTATION MMP C/O CURRENT CARE
[2017-06-14] MEDS: Pravastatin Sodium 20 MG TAB PO SCH (22:48)
[2017-06-15] MEDS: ceFAZolin IV 1 gm in Dextrose 1 GM/50 ML BAG IVPB SCH ×3 (01:09→17:54)
[2017-06-15 05:52] LABS: BASO # 0.1 K/uL (0.0-0.2); BASO % 0.7 % (0.0-2.0); EOS # 1.8 K/uL (0.0-0.7); EOS % 21.9 % (0.0-4.0); LYMPH # 1.7 K/uL (1.0-4.3); LYMPH % 21.9 % (20.0-40.0); MEAN CELL VOLUME 84.2 fl (80.0-94.0); MEAN CORPUSCULAR HEMOGLOBIN 28.1 pg (27.0-31.0); MEAN CORPUSCULAR HGB CONC 33.3 g/dL (33.0-37.0); MEAN PLATELET VOLUME 9.3 fl (7.2-11.7); MONO # 0.6 K/uL (0.0-0.8); MONO % 7.2 % (0.0-10.0); NEUT # 3.9 K/uL (1.8-7.0); NEUT % 48.3 % (50.0-75.0); PLATELET COUNT 251 K/uL (130-400); RBC 2.85 Mil/uL (4.40-5.90)
[2017-06-15 06:27] LABS: CALCIUM 8.2 mg/dL (8.4-10.2)
--- NOTE | 2017-06-15 09:13 | CP.PCM.PN ---
Subjective - Date & Time of Evaluation Date of Evaluation: 06/15/17 Time of Evaluation: 09:14 - Subjective Subjective: SWELLING AND REDNESS OF ARMS IMPROVING BP BETTER CONTROLLED Objective - Vital Signs/Intake and Output Vital Signs (last 24 hours): Temp Pulse Resp BP Pulse Ox 97.9 F 71 18 146/51 L 95 06/15/17 07:51 06/15/17 07:51 06/15/17 07:51 06/15/17 07:51 06/15/17 07:51 - Medications Medications: Current Medications Aspirin (Ecotrin) 81 mg PO DAILY [facility] Last Admin: 06/14/17 08:52 Dose: 81 mg Chlorthalidone (Hygroton) 25 mg PO DAILY [facility] Last Admin: 06/14/17 08:51 Dose: 25 mg Cholecalciferol (Vitamin D) 2,000 intlu PO DAILY [facility] Last Admin: 06/14/17 08:52 Dose: 2,000 intlu Epoetin Nolan (Procrit) 2,000 unit SC MWF [facility] Finasteride (Proscar) 5 mg PO DAILY [facility] Last Admin: 06/14/17 08:52 Dose: 5 mg Furosemide (Lasix) 20 mg PO DAILY [facility] Last Admin: 06/14/17 08:51 Dose: 20 mg Cefazolin Sodium/Dextrose (Ancef Iv 1 Gm Duplex) 1 gm in 50 mls @ 50 mls/hr IVPB Q8 [facility] PRN Reason: Protocol Last Admin: 06/15/17 01:09 Dose: 50 mls/hr Iron Sucrose 200 mg/ Sodium (Chloride) 110 mls @ 110 mls/hr IVPB DAILY [facility] Mupirocin (Bactroban Ointment) 1 applic TOP BID [facility] Last Admin: 06/14/17 17:33 Dose: 1 applic Cutyv-9-Gygj Ethyl Esters (Lovaza) 1 gm PO DAILY [facility] Last Admin: 06/14/17 08:51 Dose: 1 gm Pantoprazole Sodium (Protonix Ec Tab) 40 mg PO DAILY [facility] Last Admin: 06/14/17 08:51 Dose: 40 mg Pravastatin Sodium (Pravachol) 20 mg PO HS [facility] Last Admin: 06/14/17 22:48 Dose: 20 mg Sodium Bicarbonate (Sodium Bicarbonate Tab) 650 mg PO Q8 [facility] Last Admin: 06/15/17 01:09 Dose: 650 mg Valsartan (Diovan) 320 mg PO DAILY [facility] Last Admin: 06/14/17 08:56 Dose: 320 mg - Labs Labs: 06/15/17 05:15 06/15/17 05:15 - Constitutional Appears: No Acute Distress - Head Exam Head Exam: ATRAUMATIC, NORMAL INSPECTION, NORMOCEPHALIC - Eye Exam Eye Exam: EOMI, Normal appearance, PERRL Pupil Exam: NORMAL ACCOMODATION, PERRL - ENT Exam ENT Exam: Mucous Membranes Moist, Normal Exam - Neck Exam Neck Exam: Full ROM, Normal Inspection. absent: Lymphadenopathy - Respiratory Exam Respiratory Exam: Prolonged Expiratory Phase, Rales, NORMAL BREATHING PATTERN - Cardiovascular Exam Cardiovascular Exam: REGULAR RHYTHM, +S1, +S2. absent: Murmur - GI/Abdominal Exam GI & Abdominal Exam: Soft, Normal Bowel Sounds. absent: Tenderness - Rectal Exam Rectal Exam: NORMAL INSPECTION - Extremities Exam Extremities Exam: Full ROM, Tenderness. absent: Joint Swelling, Pedal Edema Additional comments: CELLULITIS OF ARMS - Back Exam Back Exam: NORMAL INSPECTION - Neurological Exam Neurological Exam: Alert, Awake, CN II-XII Intact, Normal Gait, Oriented x3 - Psychiatric Exam Psychiatric exam: Normal Affect, Normal Mood - Skin Skin Exam: Dry, Intact, Normal Color, Warm Assessment and Plan - Assessment and Plan (Free Text) Assessment: CELLULITIS OF ARMS STAPH WOUND INFECTION ASHD RENAL FAILURE ANEMIA HYPERKALEMIA Plan: CONTINUE CURRENT RX FEOSOL BID
[2017-06-15] MEDS: Omega-3-Acid Ethyl Esters 1 GM Cap PO SCH (09:14)
[2017-06-15] MEDS: Cholecalciferol 1,000 INTLU TAB PO SCH (09:16)
[2017-06-15] MEDS: Pantoprazole 40 mg EC Tab PO SCH (09:16)
--- NOTE | 2017-06-15 09:22 | CP.PCM.CON ---
History of Present Illness - History of Present Illness History of Present Illness: CC: Arm swelling. HPI: I have been requested on cardiology consultation by Dr. Carrington on Mr. Tapan durant who is a pleasant 87 year old male with a PMH of labile hypertension, CKD, PAD, CAD, Tobacco use and DM who presents to [facility] for evaluation of left upper extremity erythema and swelling. The patient states that his symptoms progressively worsened over the three days prior to his visit. He denies trauma, insect bites, pain or any other associated symptoms. Cardiology is consulted for labile hypertension. The patient has remained stable from a cardiac point. Review of Systems - Constitutional Constitutional: Fatigue, Lethargy, Malaise. absent: Chills, Fever - EENT Eyes: absent: Blurred Vision Ears: Decreased Hearing Nose/Mouth/Throat: absent: Neck Pain - Cardiovascular Cardiovascular: absent: Chest Pain, Dyspnea, Leg Edema, Orthopnea, Palpitations , Syncope - Respiratory Respiratory: absent: Cough, Dyspnea on Exertion, Chest Congestion, Excessive Mucous Production - Gastrointestinal Gastrointestinal: absent: Abdominal Pain, Diarrhea, Nausea, Vomiting - Genitourinary Genitourinary: absent: Dysuria, Hematuria - Musculoskeletal Musculoskeletal: Muscle Weakness, Myalgias, Stiffness - Integumentary Integumentary: Erythema, Swelling - Neurological Neurological: Abnormal Gait, Abnormal Hearing, Weakness. absent: Focal Weakness - Psychiatric Psychiatric: Anxiety - Endocrine Endocrine: Fatigue. absent: Palpitations - Hematologic/Lymphatic Hematologic: absent: Easy Bleeding Past Patient History - Tetanus Immunizations Tetanus Immunization: Unknown - Past Medical History & Family History Past Medical History?: Yes - Past Social History Smoking Status: Former Smoker Alcohol: None Home Situation {Lives}: With Family - CARDIAC Hx Cardiac Disorders: Yes Hx Atrial Fibrillation: Yes Hx Circulatory Problems: Yes Hx Hypercholesterolemia: Yes Hx Hypertension: Yes Hx Peripheral Vascular Disease: Yes - PULMONARY Hx Respiratory Disorders: Yes Hx Chronic Obstructive Pulmonary Disease (COPD): Yes - NEUROLOGICAL Hx Neurological Disorder: Yes Hx Transient Ischemic Attacks (TIA): Yes (Apr 2016) - HEENT Hx HEENT Problems: Yes - RENAL Hx Chronic Kidney Disease: Yes - ENDOCRINE/METABOLIC Hx Endocrine Disorders: No - HEMATOLOGICAL/ONCOLOGICAL Hx Blood Disorders: Yes Hx AIDS: No Hx Anemia: Yes Hx Human Immunodeficiency Virus (HIV): No - INTEGUMENTARY Hx Dermatological Problems: No - MUSCULOSKELETAL/RHEUMATOLOGICAL Hx Musculoskeletal Disorders: Yes Hx Arthritis: Yes Hx Falls: Yes Hx Fractures: Yes (left arm fx due to fall in the snow) - GASTROINTESTINAL Hx Gastrointestinal Disorders: Yes Hx Diverticulitis: Yes - GENITOURINARY/GYNECOLOGICAL Hx Genitourinary Disorders: No - PSYCHIATRIC Hx Psychophysiologic Disorder: No Hx Substance Use: No - SURGICAL HISTORY Hx Surgeries: Yes Hx Carotid Endarterectomy: Yes Hx Cholecystectomy: Yes Hx Coronary Stent: Yes - ANESTHESIA Hx Anesthesia: Yes Hx Anesthesia Reactions: No Hx Malignant Hyperthermia: No Has any member of the family had a problem w/ anesthesia?: No Meds Allergies/Adverse Reactions: Allergies Allergy/AdvReac Type Severity Reaction Status Date / Time No Known Allergies Allergy Verified 06/11/17 11:13 - Medications Medications: Current Medications Aspirin (Ecotrin) 81 mg PO DAILY [facility] Last Admin: 06/15/17 09:13 Dose: 81 mg Chlorthalidone (Hygroton) 25 mg PO DAILY [facility] Last Admin: 06/15/17 09:13 Dose: 25 mg Cholecalciferol (Vitamin D) 2,000 intlu PO DAILY [facility] Last Admin: 06/15/17 09:16 Dose: 2,000 intlu Epoetin Nolan (Procrit) 2,000 unit SC MWF [facility] Ferrous Sulfate (Feosol) 325 mg PO BID [facility] Finasteride (Proscar) 5 mg PO DAILY [facility] Last Admin: 06/15/17 09:14 Dose: 5 mg Furosemide (Lasix) 20 mg PO DAILY [facility] Last Admin: 06/15/17 09:19 Dose: 20 mg Cefazolin Sodium/Dextrose (Ancef Iv 1 Gm Duplex) 1 gm in 50 mls @ 50 mls/hr IVPB Q8 [facility] PRN Reason: Protocol Last Admin: 06/15/17 09:12 Dose: 50 mls/hr Iron Sucrose 200 mg/ Sodium (Chloride) 110 mls @ 110 mls/hr IVPB DAILY [facility] Mupirocin (Bactroban Ointment) 1 applic TOP BID [facility] Last Admin: 06/15/17 09:13 Dose: 1 applic Jjuah-1-Bcok Ethyl Esters (Lovaza) 1 gm PO DAILY [facility] Last Admin: 06/15/17 09:14 Dose: 1 gm Pantoprazole Sodium (Protonix Ec Tab) 40 mg PO DAILY [facility] Last Admin: 06/15/17 09:16 Dose: 40 mg Pravastatin Sodium (Pravachol) 20 mg PO [facility] Last Admin: 06/14/17 22:48 Dose: 20 mg Sodium Bicarbonate (Sodium Bicarbonate Tab) 650 mg PO Q8 [facility] Last Admin: 06/15/17 09:16 Dose: 650 mg Valsartan (Diovan) 320 mg PO DAILY [facility] Last Admin: 06/15/17 09:13 Dose: 320 mg Physical Exam - Constitutional Appears: Well, Non-toxic, No Acute Distress, Chronically Ill - Head Exam Head Exam: ATRAUMATIC, NORMAL INSPECTION, NORMOCEPHALIC - Eye Exam Eye Exam: Normal appearance, PERRL Pupil Exam: PERRL - ENT Exam ENT Exam: Mucous Membranes Moist, Normal Exam - Neck Exam Neck exam: Positive for: Full Rom - Respiratory Exam Respiratory Exam: Clear to Auscultation Bilateral, NORMAL BREATHING PATTERN. absent: Rales, Rhonchi, Wheezes - Cardiovascular Exam Cardiovascular Exam: REGULAR RHYTHM, +S1, +S2, Systolic Murmur. absent: Gallop , Rubs - GI/Abdominal Exam GI & Abdominal Exam: Normal Bowel Sounds, Soft. absent: Distended, Guarding, Tenderness - Rectal Exam Rectal Exam: Deferred - Extremities Exam Extremities exam: Positive for: normal inspection Additional comments: Left upper extremity 1+ edema and erythema from elbow to wrist. Vesicles noted on right palm. - Back Exam Back exam: NORMAL INSPECTION - Neurological Exam Neurological exam: Alert, Oriented x3 - Psychiatric Exam Psychiatric exam: Normal Affect, Normal Mood - Skin Skin Exam: Dry, Normal Color, Vesicles, Warm Results - Vital Signs Recent Vital Signs: Last Vital Signs Temp 97.9 F 06/15/17 07:51 Pulse 71 06/15/17 07:51 Resp 18 06/15/17 07:51 BP 146/51 L 06/15/17 09:19 Pulse Ox 95 06/15/17 07:51 - Labs Result Diagrams: 06/15/17 05:15 06/15/17 05:15 Labs: Laboratory Results - last 24 hr 06/13/17 06/14/17 06/15/17 20:20 05:10 05:15 WBC 8.0 RBC 2.85 L Hgb 8.0 L Hct 24.0 L MCV 84.2 MCH 28.1 MCHC 33.3 RDW 15.0 H Plt Count 251 MPV 9.3 Neut % (Auto) 48.3 L Lymph % (Auto) 21.9 Elbert % (Auto) 7.2 Eos % (Auto) 21.9 H Baso % (Auto) 0.7 Neut # 3.9 Lymph # 1.7 Elbert # 0.6 Eos # 1.8 H Baso # 0.1 Neutrophils % (Manual) 47 Lymphocytes % (Manual) 26 Monocytes % (Manual) 9 Eosinophils % (Manual) 17 H Basophils % (Manual) 1 Toxic Granulation Present Platelet Estimate Normal Hypochromasia (manual) Slight Anisocytosis (manual) Slight Tear Drop Cells Slight Ovalocytes Slight Schistocytes Slight ESR 22 H Sodium Potassium Chloride Carbon Dioxide Anion Gap BUN Creatinine Est GFR ( Amer) Est GFR (Non-Af Amer) Random Glucose Calcium Procalcitonin 0.07 L 06/15/17 05:15 WBC RBC Hgb Hct MCV MCH MCHC RDW Plt Count MPV Neut % (Auto) Lymph % (Auto) Elbert % (Auto) Eos % (Auto) Baso % (Auto) Neut # Lymph # Elbert # Eos # Baso # Neutrophils % (Manual) Lymphocytes % (Manual) Monocytes % (Manual) Eosinophils % (Manual) Basophils % (Manual) Toxic Granulation Platelet Estimate Hypochromasia (manual) Anisocytosis (manual) Tear Drop Cells Ovalocytes Schistocytes ESR Sodium 140 Potassium 6.0 H Chloride 115 H Carbon Dioxide 16 L Anion Gap 15 BUN 71 H Creatinine 2.9 H Est GFR ( Amer) 25 Est GFR (Non-Af Amer) 21 Random Glucose 86 Calcium 8.2 L Procalcitonin Assessment & Plan - Assessment and Plan (Free Text) Assessment: 1. Labile HTN. 2. Cellulitis. 3. CKD. 4. PAD. 5. DM. Plan: 1. Continue present medical management. 2. Monitor BP. 3. PT. 4. Stable cardiac souza, will follow up PRN. Management d/w Dr. Carrington. - Date & Time Date: 06/15/17 Time: 17:58
[2017-06-15] MEDS ORDERED: Sod Polystyrene Sulf 15 gm/60 ml Susp PO ONE ×2 (09:28→13:00)
[2017-06-15 12:50] LABS: BASOPHIL 1 % (0-2); EOSINOPHIL 21 % (0-7); LYMPHOCYTE 18 % (20-50); MONOCYTE 6 % (0-10); NEUTROPHIL 54 % (42-75); PLATELET ESTIMATE NORMAL (NORMAL); TOTAL CELLS COUNTED 100
[2017-06-15 12:51] LABS: ANISOCYTOSIS SLIGHT; HYPOCHROMIC MODERATE; OVALOCYTES SLIGHT
[2017-06-15 12:52] LABS: SCHISTOCYTES SLIGHT; TEARDROP CELLS SLIGHT
--- NOTE | 2017-06-15 13:06 | CP.PCM.PN ---
Subjective - Date & Time of Evaluation Date of Evaluation: 06/15/17 Time of Evaluation: 13:00 - Subjective Subjective: seen on renal f/u in bed eating lunch .. reports good appetite hard of hearing .. c/o kai arms swelling and reddness Objective - Vital Signs/Intake and Output Vital Signs (last 24 hours): Temp Pulse Resp BP Pulse Ox 97.4 F L 67 20 149/68 100 06/15/17 12:26 06/15/17 12:26 06/15/17 12:26 06/15/17 12:26 06/15/17 12:26 - Medications Medications: Current Medications Aspirin (Ecotrin) 81 mg PO DAILY [facility] Last Admin: 06/15/17 09:13 Dose: 81 mg Chlorthalidone (Hygroton) 25 mg PO DAILY [facility] Last Admin: 06/15/17 09:13 Dose: 25 mg Cholecalciferol (Vitamin D) 2,000 intlu PO DAILY [facility] Last Admin: 06/15/17 09:16 Dose: 2,000 intlu Epoetin Nolan (Procrit) 2,000 unit SC [facility] Ferrous Sulfate (Feosol) 325 mg PO BID [facility] Last Admin: 06/15/17 10:46 Dose: 325 mg Finasteride (Proscar) 5 mg PO DAILY [facility] Last Admin: 06/15/17 09:14 Dose: 5 mg Furosemide (Lasix) 20 mg PO DAILY [facility] Last Admin: 06/15/17 09:19 Dose: 20 mg Cefazolin Sodium/Dextrose (Ancef Iv 1 Gm Duplex) 1 gm in 50 mls @ 50 mls/hr IVPB Q8 [facility] PRN Reason: Protocol Last Admin: 06/15/17 09:12 Dose: 50 mls/hr Iron Sucrose 200 mg/ Sodium (Chloride) 110 mls @ 110 mls/hr IVPB DAILY [facility] Last Admin: 06/15/17 11:31 Dose: 110 mls/hr Iron Sucrose 100 mg/ Sodium (Chloride) 105 mls @ 105 mls/hr IVPB DAILY [facility] Mupirocin (Bactroban Ointment) 1 applic TOP BID [facility] Last Admin: 06/15/17 09:13 Dose: 1 applic Gksyr-3-Chuv Ethyl Esters (Lovaza) 1 gm PO DAILY [facility] Last Admin: 06/15/17 09:14 Dose: 1 gm Pantoprazole Sodium (Protonix Ec Tab) 40 mg PO DAILY [facility] Last Admin: 06/15/17 09:16 Dose: 40 mg Pravastatin Sodium (Pravachol) 20 mg PO HS [facility] Last Admin: 06/14/17 22:48 Dose: 20 mg Sodium Bicarbonate (Sodium Bicarbonate Tab) 650 mg PO Q8 [facility] Last Admin: 06/15/17 09:16 Dose: 650 mg Valsartan (Diovan) 320 mg PO DAILY [facility] Last Admin: 06/15/17 09:13 Dose: 320 mg - Labs Labs: 06/15/17 05:15 06/15/17 05:15 Assessment and Plan - Assessment and Plan (Free Text) Assessment: CKD STAGE 4 .. STABLE .. NO NEED FOR HD ANEMIA OF CKD .. I STAARTED HIM ON EPO AND VENOFER HYPERKALEMIA .. KEYXALATE 30 GM PO NOW .. C/O WITH K RESTRICTED DIET ACIDOSIS .. WAS STARTED ON NA BICARG TID MMP P : C/O CURRENT
--- NOTE | 2017-06-15 13:50 | CP.PCM.PN ---
Subjective - Date & Time of Evaluation Date of Evaluation: 06/15/17 Time of Evaluation: 08:00 - Subjective Subjective: redness and swelling both arms Objective - Vital Signs/Intake and Output Vital Signs (last 24 hours): Temp Pulse Resp BP Pulse Ox 97.4 F L 67 20 149/68 100 06/15/17 12:26 06/15/17 12:26 06/15/17 12:26 06/15/17 12:26 06/15/17 12:26 - Medications Medications: Current Medications Aspirin (Ecotrin) 81 mg PO DAILY [facility] Last Admin: 06/15/17 09:13 Dose: 81 mg Chlorthalidone (Hygroton) 25 mg PO DAILY [facility] Last Admin: 06/15/17 09:13 Dose: 25 mg Cholecalciferol (Vitamin D) 2,000 intlu PO DAILY [facility] Last Admin: 06/15/17 09:16 Dose: 2,000 intlu Epoetin Nolan (Procrit) 2,000 unit SC MWF [facility] Ferrous Sulfate (Feosol) 325 mg PO BID [facility] Last Admin: 06/15/17 10:46 Dose: 325 mg Finasteride (Proscar) 5 mg PO DAILY [facility] Last Admin: 06/15/17 09:14 Dose: 5 mg Furosemide (Lasix) 20 mg PO DAILY [facility] Last Admin: 06/15/17 09:19 Dose: 20 mg Cefazolin Sodium/Dextrose (Ancef Iv 1 Gm Duplex) 1 gm in 50 mls @ 50 mls/hr IVPB Q8 [facility] PRN Reason: Protocol Last Admin: 06/15/17 09:12 Dose: 50 mls/hr Iron Sucrose 100 mg/ Sodium (Chloride) 105 mls @ 105 mls/hr IVPB DAILY [facility] Mupirocin (Bactroban Ointment) 1 applic TOP BID [facility] Last Admin: 06/15/17 09:13 Dose: 1 applic Budqb-3-[id number] Ethyl Esters (Lovaza) 1 gm PO DAILY [facility] Last Admin: 06/15/17 09:14 Dose: 1 gm Pantoprazole Sodium (Protonix Ec Tab) 40 mg PO DAILY [facility] Last Admin: 06/15/17 09:16 Dose: 40 mg Pravastatin Sodium (Pravachol) 20 mg PO HS [facility] Last Admin: 06/14/17 22:48 Dose: 20 mg Sodium Bicarbonate (Sodium Bicarbonate Tab) 650 mg PO Q8 [facility] Last Admin: 06/15/17 09:16 Dose: 650 mg Valsartan (Diovan) 320 mg PO DAILY [facility] Last Admin: 06/15/17 09:13 Dose: 320 mg - Labs Labs: 06/15/17 05:15 06/15/17 05:15 - Constitutional Appears: Chronically Ill - Head Exam Head Exam: NORMOCEPHALIC - Eye Exam Eye Exam: PERRL - ENT Exam ENT Exam: Mucous Membranes Dry - Neck Exam Neck Exam: absent: Lymphadenopathy - Respiratory Exam Respiratory Exam: Decreased Breath Sounds, Clear to Ausculation Bilateral - Cardiovascular Exam Cardiovascular Exam: REGULAR RHYTHM - GI/Abdominal Exam GI & Abdominal Exam: Distended, Soft - Rectal Exam Rectal Exam: Deferred - Exam Exam: NORMAL INSPECTION Assessment and Plan (1) Cellulitis Status: Acute (2) Hyperkalemia, diminished renal excretion Status: Acute (3) Renal insufficiency Status: Chronic (4) CKD (chronic kidney disease), stage III Status: Acute (5) Chronic renal disease, stage 4, severely decreased glomerular filtration rate (GFR) between 15-29 mL/min/1.73 square meter Status: Acute (6) Orthostatic hypotension Status: Acute
[2017-06-15] MEDS: Pravastatin Sodium 20 MG TAB PO SCH (21:40)
[2017-06-16] MEDS: ceFAZolin IV 1 gm in Dextrose 1 GM/50 ML BAG IVPB SCH ×2 (00:04→08:54)
[2017-06-16 00:41] VITALS: RESP 18
[2017-06-16 05:45] LABS: HEMOGLOBIN 8.5 g/dL (12.0-18.0); MEAN CELL VOLUME 85.4 fl (80.0-94.0); MEAN CORPUSCULAR HEMOGLOBIN 27.7 pg (27.0-31.0); MEAN CORPUSCULAR HGB CONC 32.5 g/dL (33.0-37.0); RBC 3.07 Mil/uL (4.40-5.90); RED CELL DISTRIBUTION WIDTH 15.2 % (11.5-14.5); WHITE BLOOD COUNT 8.3 K/uL (4.8-10.8)
[2017-06-16 05:58] LABS: CALCIUM 8.7 mg/dL (8.4-10.2)
[2017-06-16] MEDS: Omega-3-Acid Ethyl Esters 1 GM Cap PO SCH (08:54)
[2017-06-16] MEDS: Cholecalciferol 1,000 INTLU TAB PO SCH (08:54)
[2017-06-16] MEDS: Pantoprazole 40 mg EC Tab PO SCH (08:54)
[2017-06-16] MEDS ORDERED: Epoetin Alfa 20000 UNIT/ML (RENAL DOSE) SC SCH (09:00)
--- NOTE | 2017-06-16 09:29 | CP.PCM.PN ---
Subjective - Date & Time of Evaluation Date of Evaluation: 06/16/17 Time of Evaluation: 09:29 - Subjective Subjective: FEELS BETTER ARMS ARE LESS SWOLLEN Objective - Vital Signs/Intake and Output Vital Signs (last 24 hours): Temp Pulse Resp BP Pulse Ox 97.3 F L 67 18 159/71 H 97 06/16/17 08:00 06/16/17 08:00 06/16/17 08:00 06/16/17 08:00 06/16/17 08:00 - Medications Medications: Current Medications Aspirin (Ecotrin) 81 mg PO DAILY [facility] Last Admin: 06/16/17 08:55 Dose: 81 mg Chlorthalidone (Hygroton) 25 mg PO DAILY [facility] Last Admin: 06/16/17 08:55 Dose: 25 mg Cholecalciferol (Vitamin D) 2,000 intlu PO DAILY [facility] Last Admin: 06/16/17 08:54 Dose: 2,000 intlu Epoetin Nolan (Procrit) 2,000 unit SC [facility] Ferrous Sulfate (Feosol) 325 mg PO BID [facility] Last Admin: 06/16/17 08:55 Dose: 325 mg Finasteride (Proscar) 5 mg PO DAILY [facility] Last Admin: 06/16/17 08:55 Dose: 5 mg Furosemide (Lasix) 20 mg PO DAILY [facility] Last Admin: 06/15/17 09:19 Dose: 20 mg Cefazolin Sodium/Dextrose (Ancef Iv 1 Gm Duplex) 1 gm in 50 mls @ 50 mls/hr IVPB Q8 [facility] PRN Reason: Protocol Last Admin: 06/16/17 08:54 Dose: 50 mls/hr Iron Sucrose 100 mg/ Sodium (Chloride) 105 mls @ 105 mls/hr IVPB DAILY [facility] Last Admin: 06/16/17 08:53 Dose: 105 mls/hr Vancomycin HCl 1 gm/ Sodium (Chloride) 250 mls @ 125 mls/hr IVPB ONCE [facility] PRN Reason: Protocol Mupirocin (Bactroban Ointment) 1 applic TOP BID [facility] Last Admin: 06/15/17 17:54 Dose: 1 applic Vkzol-0-Qqpo Ethyl Esters (Lovaza) 1 gm PO DAILY [facility] Last Admin: 06/16/17 08:54 Dose: 1 gm Pantoprazole Sodium (Protonix Ec Tab) 40 mg PO DAILY [facility] Last Admin: 06/16/17 08:54 Dose: 40 mg Pravastatin Sodium (Pravachol) 20 mg PO HS [facility] Last Admin: 06/15/17 21:40 Dose: 20 mg Sodium Bicarbonate (Sodium Bicarbonate Tab) 650 mg PO Q8 [facility] Last Admin: 06/16/17 08:54 Dose: 650 mg Valsartan (Diovan) 320 mg PO DAILY [facility] Last Admin: 06/16/17 08:55 Dose: 320 mg - Labs Labs: 06/16/17 04:30 06/16/17 04:30 - Constitutional Appears: No Acute Distress - Head Exam Head Exam: ATRAUMATIC, NORMAL INSPECTION, NORMOCEPHALIC - Eye Exam Eye Exam: EOMI, Normal appearance, PERRL Pupil Exam: NORMAL ACCOMODATION, PERRL - ENT Exam ENT Exam: Mucous Membranes Moist, Normal Exam - Neck Exam Neck Exam: Full ROM, Normal Inspection. absent: Lymphadenopathy - Respiratory Exam Respiratory Exam: Clear to Ausculation Bilateral, NORMAL BREATHING PATTERN - Cardiovascular Exam Cardiovascular Exam: REGULAR RHYTHM, +S1, +S2. absent: Murmur - GI/Abdominal Exam GI & Abdominal Exam: Soft, Normal Bowel Sounds. absent: Tenderness - Rectal Exam Rectal Exam: NORMAL INSPECTION - Extremities Exam Extremities Exam: Full ROM, Normal Capillary Refill, Normal Inspection. absent : Joint Swelling, Pedal Edema Additional comments: CELLULITIS OF ARMS IMPROVING - Back Exam Back Exam: NORMAL INSPECTION - Neurological Exam Neurological Exam: Alert, Awake, CN II-XII Intact, Normal Gait, Oriented x3 - Psychiatric Exam Psychiatric exam: Normal Affect, Normal Mood - Skin Skin Exam: Dry, Intact, Normal Color, Warm Assessment and Plan - Assessment and Plan (Free Text) Assessment: CELLULITIS OF ARMS STAPH SKIN INFECTION HTN CHRONIC RENAL FAILURE WITH HYPERKALEMIA Plan: CONTINUE ANTIBIOTIC RX PT REFUSES KYEXALATE FOR HYPERKALEMIA CONSIDER TRANSFER TO TCU
--- NOTE | 2017-06-16 10:22 | CP.PCM.PN ---
Subjective - Date & Time of Evaluation Date of Evaluation: 06/16/17 Time of Evaluation: 10:00 - Subjective Subjective: FEELS IMPROVED STILL WITH UPPER SWELLING AND REDDNESS K IS HIGH PT IS REFUSING KEYAXALATE Objective - Vital Signs/Intake and Output Vital Signs (last 24 hours): Temp Pulse Resp BP Pulse Ox 97.3 F L 67 18 159/71 H 97 06/16/17 08:00 06/16/17 08:00 06/16/17 08:00 06/16/17 08:00 06/16/17 08:00 - Medications Medications: Current Medications Aspirin (Ecotrin) 81 mg PO DAILY [facility] Last Admin: 06/16/17 08:55 Dose: 81 mg Chlorthalidone (Hygroton) 25 mg PO DAILY [facility] Last Admin: 06/16/17 08:55 Dose: 25 mg Cholecalciferol (Vitamin D) 2,000 intlu PO DAILY [facility] Last Admin: 06/16/17 08:54 Dose: 2,000 intlu Epoetin Nolan (Procrit) 2,000 unit [facility] Ferrous Sulfate (Feosol) 325 mg PO BID [facility] Last Admin: 06/16/17 08:55 Dose: 325 mg Finasteride (Proscar) 5 mg PO DAILY [facility] Last Admin: 06/16/17 08:55 Dose: 5 mg Furosemide (Lasix) 20 mg PO DAILY [facility] Last Admin: 06/15/17 09:19 Dose: 20 mg Cefazolin Sodium/Dextrose (Ancef Iv 1 Gm Duplex) 1 gm in 50 mls @ 50 mls/hr IVPB Q8 [facility] PRN Reason: Protocol Last Admin: 06/16/17 08:54 Dose: 50 mls/hr Iron Sucrose 100 mg/ Sodium (Chloride) 105 mls @ 105 mls/hr IVPB DAILY [facility] Last Admin: 06/16/17 08:53 Dose: 105 mls/hr Vancomycin HCl 1 gm/ Sodium (Chloride) 250 mls @ 125 mls/hr IVPB ONCE [facility] PRN Reason: Protocol Mupirocin (Bactroban Ointment) 1 applic TOP BID [facility] Last Admin: 06/15/17 17:54 Dose: 1 applic Uimde-2-Sggf Ethyl Esters (Lovaza) 1 gm PO DAILY [facility] Last Admin: 06/16/17 08:54 Dose: 1 gm Pantoprazole Sodium (Protonix Ec Tab) 40 mg PO DAILY [facility] Last Admin: 06/16/17 08:54 Dose: 40 mg Pravastatin Sodium (Pravachol) 20 mg PO HS [facility] Last Admin: 06/15/17 21:40 Dose: 20 mg Sodium Bicarbonate (Sodium Bicarbonate Tab) 650 mg PO Q8 [facility] Last Admin: 06/16/17 08:54 Dose: 650 mg Valsartan (Diovan) 320 mg PO DAILY [facility] Last Admin: 06/16/17 08:55 Dose: 320 mg - Labs Labs: 06/16/17 04:30 06/16/17 04:30 Assessment and Plan - Assessment and Plan (Free Text) Assessment: CKD .. STAGE 4 WITH eGFR 22 ML / M .. RENAL FUNCTION SSTABLE ANEMIA OF CKD .. ON EPO .. ON VENOFER HYPERKALEMIA .. ON RENAL DIET THAT INCLUDE 2 GM K .. ALSO ON CHLORTHALIDIN .. WAS GIVEN LASIX 60 MG PO YESTERDAY ACIDOSIS .. BICARB BETTER TO 20 .. ON NA BICARB PO MMP P : C/O CURRENT MEDS LOW K DIET
--- NOTE | 2017-06-16 12:44 | CP.PCM.PN ---
Subjective - Date & Time of Evaluation Date of Evaluation: 06/16/17 Time of Evaluation: 09:00 - Subjective Subjective: cellulitis less no fever alert hearing impaired Objective - Vital Signs/Intake and Output Vital Signs (last 24 hours): Temp Pulse Resp BP Pulse Ox 97.3 F L 67 18 159/71 H 97 06/16/17 08:00 06/16/17 08:00 06/16/17 08:00 06/16/17 09:00 06/16/17 08:00 - Medications Medications: Current Medications Aspirin (Ecotrin) 81 mg PO DAILY [facility] Last Admin: 06/16/17 08:55 Dose: 81 mg Chlorthalidone (Hygroton) 25 mg PO DAILY [facility] Last Admin: 06/16/17 08:55 Dose: 25 mg Cholecalciferol (Vitamin D) 2,000 intlu PO DAILY [facility] Last Admin: 06/16/17 08:54 Dose: 2,000 intlu Epoetin Nolan (Procrit) 2,000 unit SC MWF [facility] Last Admin: 06/16/17 10:56 Dose: 2,000 unit Ferrous Sulfate (Feosol) 325 mg PO BID [facility] Last Admin: 06/16/17 08:55 Dose: 325 mg Finasteride (Proscar) 5 mg PO DAILY [facility] Last Admin: 06/16/17 08:55 Dose: 5 mg Furosemide (Lasix) 20 mg PO DAILY [facility] Last Admin: 06/16/17 09:00 Dose: 20 mg Cefazolin Sodium/Dextrose (Ancef Iv 1 Gm Duplex) 1 gm in 50 mls @ 50 mls/hr IVPB Q8 [facility] PRN Reason: Protocol Last Admin: 06/16/17 08:54 Dose: 50 mls/hr Iron Sucrose 100 mg/ Sodium (Chloride) 105 mls @ 105 mls/hr IVPB DAILY [facility] Last Admin: 06/16/17 08:53 Dose: 105 mls/hr Vancomycin HCl 1 gm/ Sodium (Chloride) 250 mls @ 125 mls/hr IVPB ONCE [facility] PRN Reason: Protocol Mupirocin (Bactroban Ointment) 1 applic TOP BID [facility] Last Admin: 06/16/17 10:38 Dose: 1 applic [id number] Ethyl Esters (Lovaza) 1 gm PO DAILY [facility] Last Admin: 06/16/17 08:54 Dose: 1 gm Pantoprazole Sodium (Protonix Ec Tab) 40 mg PO DAILY [facility] Last Admin: 06/16/17 08:54 Dose: 40 mg Pravastatin Sodium (Pravachol) 20 mg PO HS [facility] Last Admin: 06/15/17 21:40 Dose: 20 mg Sodium Bicarbonate (Sodium Bicarbonate Tab) 650 mg PO Q8 [facility] Last Admin: 06/16/17 08:54 Dose: 650 mg Valsartan (Diovan) 320 mg PO DAILY [facility] Last Admin: 06/16/17 08:55 Dose: 320 mg - Labs Labs: 06/16/17 04:30 06/16/17 04:30 - Constitutional Appears: Non-toxic, Chronically Ill - Head Exam Head Exam: NORMOCEPHALIC - Eye Exam Eye Exam: absent: Scleral icterus - ENT Exam ENT Exam: Mucous Membranes Dry - Neck Exam Neck Exam: absent: Lymphadenopathy - Respiratory Exam Respiratory Exam: Decreased Breath Sounds - Cardiovascular Exam Cardiovascular Exam: REGULAR RHYTHM - GI/Abdominal Exam GI & Abdominal Exam: Distended, Soft - Rectal Exam Rectal Exam: Deferred - Exam Exam: NORMAL INSPECTION Assessment and Plan (1) Cellulitis Status: Acute (2) Hyperkalemia, diminished renal excretion Status: Acute (3) Renal insufficiency Status: Chronic (4) CKD (chronic kidney disease), stage III Status: Acute (5) Chronic renal disease, stage 4, severely decreased glomerular filtration rate (GFR) between 15-29 mL/min/1.73 square meter Status: Acute (6) Orthostatic hypotension Status: Acute - Assessment and Plan (Free Text) Assessment: cont iv ancef and 1 dose vanco on wednesday d/c on po keflex on wednesday
[2017-06-16 12:50] VITALS: BP 168/64; PULSE 63; TEMP 98.1; O2SAT 100
--- NOTE | 2017-06-17 12:21 | CP.PCM.DIS ---
Provider - Provider Date of Admission: 06/11/17 12:21 Attending physician: Dani Carrington MD Time Spent in preparation of Discharge (in minutes): 30 Diagnosis - Discharge Diagnosis (1) Anemia Status: Acute (2) CKD (chronic kidney disease), stage III Status: Acute (3) Cellulitis Status: Acute (4) Hyperkalemia Status: Acute (5) Hypertension Status: Chronic Hospital Course - Lab Results Lab Results: Micro Results 06/15/17 13:45 Blood Blood Culture - Preliminary NO GROWTH AFTER 24 HOURS 06/13/17 20:11 Naris MRSA Culture (Admit) - Final MRSA NOT DETECTED 06/11/17 11:40 Blood-Venous S.aureus & Coag-Neg Staph PNA FISH - Final 06/11/17 11:40 Blood-Venous Blood Culture - Final Coagulase Neg Staphylococcus 06/11/17 11:40 Blood-Venous Gram Stain - Final 06/13/17 04:56 Urine Urine Culture - Final No Growth (<1,000 CFU/ML) Most Recent Lab Values WBC 8.3 K/uL (4.8-10.8) 06/16/17 04:30 RBC 3.07 Mil/uL (4.40-5.90) L 06/16/17 04:30 Hgb 8.5 g/dL (12.0-18.0) L 06/16/17 04:30 Hct 26.2 % (35.0-51.0) L 06/16/17 04:30 MCV 85.4 fl (80.0-94.0) 06/16/17 04:30 MCH 27.7 pg (27.0-31.0) 06/16/17 04:30 MCHC 32.5 g/dL (33.0-37.0) L 06/16/17 04:30 RDW 15.2 % (11.5-14.5) H 06/16/17 04:30 Plt Count 253 K/uL (130-400) 06/16/17 04:30 MPV 9.3 fl (7.2-11.7) 06/15/17 05:15 Neut % (Auto) 48.3 % (50.0-75.0) L 06/15/17 05:15 Lymph % (Auto) 21.9 % (20.0-40.0) 06/15/17 05:15 [place] % (Auto) 7.2 % (0.0-10.0) 06/15/17 05:15 Eos % (Auto) 21.9 % (0.0-4.0) H 06/15/17 05:15 Baso % (Auto) 0.7 % (0.0-2.0) 06/15/17 05:15 Neut # 3.9 K/uL (1.8-7.0) 06/15/17 05:15 Lymph # 1.7 K/uL (1.0-4.3) 06/15/17 05:15 [place] # 0.6 K/uL (0.0-0.8) 06/15/17 05:15 Eos # 1.8 K/uL (0.0-0.7) H 06/15/17 05:15 Baso # 0.1 K/uL (0.0-0.2) 06/15/17 05:15 Neutrophils % (Manual) 54 % (42-75) 06/15/17 05:15 Lymphocytes % (Manual) 18 % (20-50) L 06/15/17 05:15 Monocytes % (Manual) 6 % (0-10) 06/15/17 05:15 Eosinophils % (Manual) 21 % (0-7) H 06/15/17 05:15 Basophils % (Manual) 1 % (0-2) 06/15/17 05:15 Toxic Granulation Present 06/14/17 05:10 Platelet Estimate Normal (NORMAL) 06/15/17 05:15 Hypochromasia (manual) Moderate 06/15/17 05:15 Basophilic Stippling Slight 06/15/17 05:15 Anisocytosis (manual) Slight 06/15/17 05:15 Tear Drop Cells Slight 06/15/17 05:15 Ovalocytes Slight 06/15/17 05:15 Schistocytes Slight 06/15/17 05:15 ESR 22 mm/hr (0-20) H 06/14/17 05:10 Sodium 139 mmol/l (132-148) 06/16/17 04:30 Potassium 5.7 MMOL/L (3.6-5.0) H 06/16/17 04:30 Chloride 111 mmol/L (98-107) H 06/16/17 04:30 Carbon Dioxide 20 mmol/L (22-30) L 06/16/17 04:30 Anion Gap 14 (10-20) 06/16/17 04:30 BUN 73 mg/dl (9-20) H 06/16/17 04:30 Creatinine 2.8 mg/dl (0.8-1.5) H 06/16/17 04:30 Est GFR ( Amer) 26 06/16/17 04:30 Est GFR (Non-Af Amer) 06/16/17 04:30 POC Glucose (mg/dL) 89 mg/dL (65-110) 06/12/17 21:55 Random Glucose 88 mg/dL (75-110) 06/16/17 04:30 Lactic Acid 0.6 MMOL/L (0.7-2.1) L 06/11/17 17:35 Calcium 8.7 mg/dL (8.4-10.2) 06/16/17 04:30 Phosphorus 5.0 mg/dl (2.5-4.5) H 06/11/17 11:41 Magnesium 2.1 MG/DL (1.6-2.3) 06/11/17 11:41 Total Bilirubin 0.2 mg/dl (0.2-1.3) 06/13/17 06:30 AST 21 U/L (17-59) 06/13/17 06:30 ALT 22 U/L (21-72) 06/13/17 06:30 Alkaline Phosphatase 49 U/L (38-126) 06/13/17 06:30 Troponin I 0.0630 ng/mL (0.00-0.120) 06/11/17 20:00 Total Protein 6.0 G/DL (6.3-8.2) L 06/13/17 06:30 Albumin 3.0 g/dL (3.5-5.0) L 06/13/17 06:30 Globulin 2.9 gm/dL (2.2-3.9) 06/13/17 06:30 Albumin/Globulin Ratio 1.0 (1.0-2.1) 06/13/17 06:30 Procalcitonin 0.07 NG/ML (0.19-0.49) L 06/13/17 20:20 Urine Color Yellow (YELLOW) 06/13/17 04:56 Urine Clarity Clear (Clear) 06/13/17 04:56 Urine pH 5.0 (5.0-8.0) 06/13/17 04:56 Ur Specific [place] 1.009 (1.003-1.030) 06/13/17 04:56 Urine Protein 100 mg/dL (NEGATIVE) 06/13/17 04:56 Urine Glucose (UA) Neg mg/dL (Normal) 06/13/17 04:56 Urine Ketones Negative mg/dL (NEGATIVE) 06/13/17 04:56 Urine Blood Negative (NEGATIVE) 06/13/17 04:56 Urine Nitrate Negative (NEGATIVE) 06/13/17 04:56 Urine Bilirubin Negative (NEGATIVE) 06/13/17 04:56 Urine Urobilinogen 0.2-1.0 mg/dL (0.2-1.0) 06/13/17 04:56 Ur Leukocyte Esterase Neg Dexter/uL (Negative) 06/13/17 04:56 Urine RBC (Auto) 2 /hpf (0-3) 06/13/17 04:56 Urine Microscopic WBC < 1 /hpf (0-5) 06/13/17 04:56 Ur Squamous Epith Cells < 1 /hpf (0-5) 06/13/17 04:56 Random Vancomycin 11.3 ug/mL 06/15/17 07:45 Discharge Exam - Head Exam Head Exam: NORMOCEPHALIC - Eye Exam Eye Exam: EOMI, Normal appearance, PERRL Pupil Exam: NORMAL ACCOMODATION, PERRL - GI/Abdominal Exam GI & Abdominal Exam: Normal Bowel Sounds - Rectal Exam Rectal Exam: NORMAL INSPECTION - Extremities Exam Additional comments: CELLULITIS OF ARMS - Neurological Exam Neurological exam: Alert, CN II-XII Intact, Normal Gait, Oriented x3, Reflexes Normal - Psychiatric Exam Psychiatric exam: Normal Affect, Normal Mood - Skin Skin Exam: Dry, Intact, Normal Color, Warm Discharge Plan - Discharge Medications Prescriptions: ceFAZolin 1 gm in NS [Ancef 1GM in NS] 1 gm IV Q8 #21 bag Vancomycin 1gm in NS 250ml [Vancomycin 1gm] 1 gm IVPB Q3D #6 bag - Follow Up Plan Condition: FAIR Disposition: TRANSF TO [facility] Patient education suggested?: Yes Additional Instructions: pt. cleared for discharge to [facility] by , Dr.Mangia cont. Vanco 1gm iv every 3rd day (next dose on Wednesday) cont. Ancef 1 gm iv q8 x 1 week f/u with in 1 week Referrals: Ezra Colon MD [Staff Provider] - Dani Carrington MD [Family Provider] -
== END 2017-06-16 15:30 | DRG 603 ==
LOC: H.ER 10:47 → H.ERHOLD 12:21 → H.MEDSURG1 14:37 → H.TEL 15:38
PROVIDERS: ADMIT Internal Medicine Pulmonary Disease; ATTEND Internal Medicine Pulmonary Disease
DX: L03.114 Cellulitis of left upper limb (principal); L03.113 Cellulitis of right upper limb; N18.4 Chronic kidney disease, stage 4 (severe); E87.2 Acidosis; E87.5 Hyperkalemia; B95.7 Other staphylococcus as the cause of diseases classified elsewhere; I12.9 Hypertensive chronic kidney disease with stage 1 through stage 4 chronic kidney disease, or unspecified chronic kidney disease; D63.1 Anemia in chronic kidney disease; E11.22 Type 2 diabetes mellitus with diabetic chronic kidney disease; I48.91 Unspecified atrial fibrillation; E83.39 Other disorders of phosphorus metabolism; I95.1 Orthostatic hypotension; J44.9 Chronic obstructive pulmonary disease, unspecified; I25.10 Atherosclerotic heart disease of native coronary artery without angina pectoris; E78.5 Hyperlipidemia, unspecified; H91.90 Unspecified hearing loss, unspecified ear; M19.90 Unspecified osteoarthritis, unspecified site; N40.0 Benign prostatic hyperplasia without lower urinary tract symptoms; R23.8 Other skin changes; Z86.73 Personal history of transient ischemic attack (TIA), and cerebral infarction without residual deficits; Z91.19 Patient's noncompliance with other medical treatment and regimen; Z95.5 Presence of coronary angioplasty implant and graft; Z79.82 Long term (current) use of aspirin; Z87.891 Personal history of nicotine dependence

== ENCOUNTER 2017-07-29 23:03 | Inpatient (IN) | payer MEDICARE ==
[2017-07-29 23:03] VITALS: BMI 25.8
[2017-07-29] MEDS ORDERED: ceFAZolin 1 GM in Sodium Chloride 0.9% 100 ML IVPB STA (23:47)
--- NOTE | 2017-07-29 23:54 | ED PDOC ---
Syncope/Near Syncope/Dizziness Time Seen by Provider: 07/29/17 23:10 Chief Complaint (Nursing): Syncope Chief Complaint (Provider): syncope History Per: Patient, Family History/Exam Limitations: no limitations Onset/Duration Of Symptoms: Sudden Onset Activity At Onset Of Symptoms: Had Just Stood up Associated Symptoms Preceding Syncopal Episode: Lightheadedness Seizure Or Post-ictal Symptoms: None Possible Causative Factor(s): Lightheaded W/Exertion Fall Associated With With Symptoms: No Injury As Result Of Fall Severity: Moderate Additional Complaint(s): 87yo male presents via EMS w daughter states had syncopal episode while using sink tonight, daughter caught him and did not hit floor. Hes been c/o generalized weakness and dizziness, denies chest pain, neck pain, fever, sore throat or cough. Was hospitalized approx 6wks ago for cellulitis to extremities. Daughter states off oral Abx for several weeks, using cream but redness and blistering worsening again. Daughter states for the last few days his confusion has worsened and he has very poor recall of events or objects. Past Medical History Reviewed: Historical Data, Nursing Documentation, Vital Signs Vital Signs: Last Vital Signs Temp 97.5 F L 07/29/17 23:05 Pulse 77 07/29/17 23:05 Resp 16 07/29/17 23:05 BP 122/57 L 07/29/17 23:05 Pulse Ox 100 07/29/17 23:05 - Medical History PMH: Anemia, Arthritis, Atrial Fibrillation, CAD (WITH STENTS), COPD, Diverticulitis, Fractures (left arm fx due to fall in the snow), HTN, Hypercholesterolemia, Chronic Kidney Disease, TIA (Apr 2016) Denies: HIV - Surgical History Surgical History: Carotid Endarterectomy, Cholecystectomy, Coronary Stent - Family History Family History: States: Unknown Family Hx - Living Arrangements Living Arrangements: With Family - Social History Current smoker - smoking cessation education provided: No - Immunization History Hx Tetanus Toxoid Vaccination: No Hx Influenza Vaccination: Yes Hx Pneumococcal Vaccination: No - Home Medications Home Medications: Ambulatory Orders Medication Instructions Recorded Fish Oil/Dha/Epa [Fish Oil 1,200 1,200 mg PO DAILY 03/14/16 mg Fish Oil] Pantoprazole Sodium [Protonix] 40 mg PO DAILY 05/02/16 Aspirin [Ecotrin] 81 mg PO DAILY 08/24/16 Pravastatin Sodium [Pravachol] 20 mg PO HS 03/25/17 Sodium Bicarbonate Tab 650 mg PO BID 06/11/17 Valsartan [Diovan] 320 mg PO DAILY tab 06/16/17 Chlorthalidone [Hygroton] 1 tab PO DAILY 07/30/17 Cilostazol [Pletal] 100 mg PO DAILY 07/30/17 Finasteride [Proscar] 5 mg PO DAILY 07/30/17 Furosemide [Lasix] 20 mg PO DAILY 07/30/17 Lactobacillus Combination No.8 1 tab PO HS 07/30/17 [Adult Probiotic] - Allergies Allergies/Adverse Reactions: Allergies Allergy/AdvReac Type Severity Reaction Status Date / Time No Known Allergies Allergy Verified 06/11/17 11:13 Review of Systems Constitutional: Positive for: Weakness. Negative for: Fever, Chills Eyes: Negative for: Vision Change ENT: Negative for: Throat Pain Cardiovascular: Positive for: Palpitations. Negative for: Chest Pain Respiratory: Negative for: Cough, Shortness of Breath Gastrointestinal: Negative for: Nausea, Vomiting, Abdominal Pain Genitourinary Male: Negative for: Dysuria Musculoskeletal: Negative for: Neck Pain Skin: Positive for: Rash, Lesions. Negative for: Jaundice, Bruising Neurological: Positive for: Confusion, Altered Mental Status (confusion), Dizziness. Negative for: Weakness, Numbness Psych: Negative for: Suicidal ideation Physical Exam - Reviewed Nursing Documentation Reviewed: Yes Vital Signs Reviewed: Yes - Physical Exam Appears: Positive for: Well, Non-toxic, No Acute Distress Head Exam: Positive for: ATRAUMATIC, NORMAL INSPECTION, NORMOCEPHALIC Skin: Positive for: Warm, Rash (scattered maculopapular blistering/bullae erythema to arms/legs, lower back) Eye Exam: Positive for: EOMI, Normal appearance, PERRL ENT: Positive for: Normal ENT Inspection Neck: Positive for: Normal, Painless ROM Cardiovascular/Chest: Positive for: Regular Rate, Rhythm Respiratory: Positive for: CNT, Normal Breath Sounds Gastrointestinal/Abdominal: Positive for: Normal Exam, Bowel Sounds, Soft Back: Positive for: Normal Inspection Extremity: Positive for: Normal ROM Neurologic/Psych: Positive for: Alert, Oriented - Laboratory Results Result Diagrams: 07/30/17 06:24 07/30/17 06:24 - ECG ECG Rhythm: Positive for: Sinus Rhythm. Negative for: ST/T Changes Rate: 74 O2 Sat by Pulse Oximetry: 100 Medical Decision Making Medical Decision Making: workup for syncope initiated D/w Dr Charissa Giron initiated for likely reactivated cellulitis blood cultures ordered endorse dr sheikh pending labs/imaging/final dispo Disposition - Clinical Impression Clinical Impression: Syncope, Cellulitis, Hyperkalemia, diminished renal excretion - Patient ED Disposition Is Patient to be Admitted: Transfer of Care - Disposition Disposition: Transfer of Care Disposition Time: 23:57 Condition: SERIOUS Patient Signed Over To: David Sheikh
[2017-07-30 00:01] LABS: BASO % 0.4 % (0.0-2.0); EOS # 5.1 K/uL (0.0-0.7); EOS % 41.9 % (0.0-4.0); HEMOGLOBIN 8.7 g/dL (12.0-18.0); LYMPH % 16.9 % (20.0-40.0); MEAN CELL VOLUME 85.7 fl (80.0-94.0); MEAN CORPUSCULAR HEMOGLOBIN 26.6 pg (27.0-31.0); MEAN PLATELET VOLUME 9.2 fl (7.2-11.7); MONO # 0.8 K/uL (0.0-0.8); MONO % 6.6 % (0.0-10.0); NEUT # 4.1 K/uL (1.8-7.0); NEUT % 34.2 % (50.0-75.0); NRBC % 0.1 % (0.0-0.0); PLATELET COUNT 262 K/uL (130-400); RBC 3.26 Mil/uL (4.40-5.90); RED CELL DISTRIBUTION WIDTH 14.3 % (11.5-14.5); WHITE BLOOD COUNT 12.1 K/uL (4.8-10.8)
[2017-07-30 00:10] LABS: ALB/GLOB RATIO 1.2 (1.0-2.1); ALBUMIN 3.3 g/dL (3.5-5.0); ALT/SGPT 26 U/L (21-72); AST/SGOT 24 U/L (17-59); BLOOD UREA NITROGEN 60 mg/dl (9-20); CALCIUM 8.5 mg/dL (8.4-10.2); GFR AFRICAN-AMERICAN 23; GFR NON-AFRICAN AMERICAN 19
--- NOTE | 2017-07-30 00:24 | CT ---
EXAM: CT Head Without Intravenous Contrast CLINICAL HISTORY: 87 years old, male; Signs and symptoms; Alteration of consciousness; Other: Fall; Additional info: R/O ich TECHNIQUE: Axial computed tomography images of the head/brain without intravenous contrast. All CT scans at this facility use one or more dose reduction techniques, viz.: automated exposure control; ma/kV adjustment per patient size (including targeted exams where dose is matched to indication; i.e. head); or iterative reconstruction technique. Coronal and sagittal reformatted images were created and reviewed. COMPARISON: CT - HEAD W/O CONTRAST 2017-02-07 10:35 FINDINGS: Brain: There is marked diffuse cerebral atrophy present, consistent with this patient's age. Chronic right caudate head lacunar infarct. No hemorrhage. There is mild diffuse heterogeneity of the white matter attenuation, consistent with chronic white matter ischemic changes. Ventricles: The ventricular system demonstrates mild diffuse compensatory enlargement. Bones/joints: Unremarkable. No acute fracture. Soft tissues: Unremarkable. Sinuses: Unremarkable as visualized. No acute sinusitis. Mastoid air cells: Unremarkable as visualized. No mastoid effusion. Sella: Stable enlarged sella with flattened pituitary gland. IMPRESSION: Age-related atrophy and chronic white matter ischemic changes, with no evidence of an acute intracranial abnormality. Chronic right caudate head lacunar infarct.
[2017-07-30] MEDS ORDERED: ceFAZolin IV 1 gm in Dextrose 0 GM/0 ML BAG IVPB ONE (00:26)
--- NOTE | 2017-07-30 00:33 | CT ---
EXAM: CT Cervical Spine Without Intravenous Contrast CLINICAL HISTORY: 87 years old, male; Injury or trauma; Fall; Initial encounter; Blunt trauma; Additional info: Trauma R/O FX TECHNIQUE: Axial computed tomography images of the cervical spine without intravenous contrast. All CT scans at this facility use one or more dose reduction techniques, viz.: automated exposure control; ma/kV adjustment per patient size (including targeted exams where dose is matched to indication; i.e. head); or iterative reconstruction technique. Coronal and sagittal reformatted images were created and reviewed. COMPARISON: No relevant prior studies available. FINDINGS: There is no evidence of acute fracture. Minimal anterolisthesis of C7 upon T1 approximately 2 mm, probably degenerative. There are moderate to severe degenerative changes present at multiple levels with disc space narrowing, endplate spurs, uncovertebral hypertrophy. This is most severe at C5-6 and C6-7 resulting in moderate canal stenosis and bilateral neuroforaminal narrowing. The facet joints are intact. Facet arthropathy is noted at multiple levels. The pharyngeal, hypopharyngeal, and laryngeal structures are unremarkable. There is no evidence of lymphadenopathy. The visualized portions of the lung apices are normal. IMPRESSION: No acute fracture. Minimal anterolisthesis of C7 upon T1 approximately 2 mm, probably degenerative. Clinical correlation recommended. Cervical spondylosis most severe at C5-6 and C6-7.
[2017-07-30 00:48] LABS: INR 0.9 (0.9-1.2); PROTHROMBIN TIME 9.9 Seconds (9.8-13.1)
[2017-07-30 00:49] LABS: PARTIAL THROMBOPLASTIN TIME 30.2 Seconds (25.6-37.1)
[2017-07-30] MEDS ORDERED: Insulin Regular 100 units/ml IV STA (01:14)
[2017-07-30] MEDS ORDERED: Dextrose 50% SYRINGE Inj (50 ml) IVP ONE (01:14)
[2017-07-30] MEDS ORDERED: Insulin Regular 100 units/ml ONE (01:19)
[2017-07-30] MEDS ORDERED: Dextrose 50% SYRINGE Inj (50 ml) ONE (01:19)
[2017-07-30 01:26] LABS: URINE BILIRUBIN NEGATIVE (NEGATIVE); URINE BLOOD NEGATIVE (NEGATIVE); URINE CLARITY CLEAR (Clear); URINE COLOR YELLOW (YELLOW); URINE GLUCOSE (UA) NEG (Normal); URINE HYALINE CAST 0-2 /hpf (0-2); URINE LEUKOCYTE ESTERASE NEG Leu/uL (Negative); URINE NITRATE NEGATIVE (NEGATIVE); URINE PROTEIN 30 mg/dL (NEGATIVE); URINE UROBILINOGEN 0.2-1.0 mg/dL (0.2-1.0)
[2017-07-30 02:18] LABS: NEUTROPHIL 40 % (42-75); TOTAL CELLS COUNTED 100
[2017-07-30 02:19] LABS: LYMPHOCYTE 13 % (20-50); MONOCYTE 5 % (0-10); PLATELET ESTIMATE NORMAL (NORMAL)
[2017-07-30 02:22] LABS: EOSINOPHIL 42 % (0-7)
--- NOTE | 2017-07-30 05:05 | ED PDOC ---
- Laboratory Results Result Diagrams: 07/29/17 23:58 07/29/17 23:58 - ECG O2 Sat by Pulse Oximetry: 100 Medical Decision Making Medical Decision Makin Patient signed out to me from Dr. Storey pending ED work up and disposition. 0105 Work up negative, patient will be admitted under Dr. Carrington (INPATIENT TELE). Hyperkalemia treated. Eeosinophilic predominance most likely due to skin disease. 0504 Patient attempted to get up from bed and was found sitting in front of foot of bed. No obvious head trauma. IV has come out. Patient denies all complaints at this time and it is unlikely patient hit head; however, repeat CT HEAD will be done to rule out brain injury. * CT HEAD 0533 CT FINDINGS: Brain: Chronic right caudate head lacunar infarct. Cerebral and cerebellar volume loss. Patchy hypodensity is seen in the periventricular and subcortical white matter. No hemorrhage. Ventricles: Unremarkable. No ventriculomegaly. Bones/joints: Unremarkable. No acute fracture. Soft tissues: Unremarkable. Vasculature: Vascular calcifications. Sinuses: Unremarkable. No acute sinusitis. Mastoid air cells: Unremarkable. No mastoid effusion. Orbits: There is evidence of bilateral eye surgery. Sella: Enlarged sella with attenuation and flattening of pituitary gland unchanged from prior examination. IMPRESSION: No evidence of an acute intracranial hemorrhage, midline shift or mass effect is identified. Scribe Attestation: Documented by Yvonne Da Silva acting as a scribe for David Crews MD. Scribe Attestation: All medical record entries made by the Scribe were at my direction and personally dictated by me. I have reviewed the chart and agree that the record accurately reflects my personal performance of the history, physical exam, medical decision making, and the department course for this patient. I have also personally directed, reviewed, and agree with the discharge instructions and disposition. Disposition - Clinical Impression Clinical Impression: Syncope, Cellulitis, Hyperkalemia, diminished renal excretion - POA Present On Arrival: None - Disposition Disposition: Admitted as In-Patient Disposition Time: 01:00 Condition: SERIOUS
--- NOTE | 2017-07-30 05:34 | CT ---
EXAM: CT Head Without Intravenous Contrast CLINICAL HISTORY: 87 years old, male; Injury or trauma; Fall; Additional info: S/P fall TECHNIQUE: Axial computed tomography images of the head/brain without intravenous contrast. All CT scans at this facility use one or more dose reduction techniques, viz.: automated exposure control; ma/kV adjustment per patient size (including targeted exams where dose is matched to indication; i.e. head); or iterative reconstruction technique. 314 images are submitted. Coronal and sagittal reformatted images were created and reviewed. Axial reformatted images were created and reviewed. COMPARISON: CT - HEAD W/O CONTRAST 2017-07-29 23:32 FINDINGS: Brain: Chronic right caudate head lacunar infarct. Cerebral and cerebellar volume loss. Patchy hypodensity is seen in the periventricular and subcortical white matter. No hemorrhage. Ventricles: Unremarkable. No ventriculomegaly. Bones/joints: Unremarkable. No acute fracture. Soft tissues: Unremarkable. Vasculature: Vascular calcifications. Sinuses: Unremarkable. No acute sinusitis. Mastoid air cells: Unremarkable. No mastoid effusion. Orbits: There is evidence of bilateral eye surgery. Sella: Enlarged sella with attenuation and flattening of pituitary gland unchanged from prior examination. IMPRESSION: No evidence of an acute intracranial hemorrhage, midline shift or mass effect is identified.
[2017-07-30 06:29] LABS: HEMOGLOBIN 8.5 g/dL (12.0-18.0); MEAN CELL VOLUME 86.4 fl (80.0-94.0); MEAN CORPUSCULAR HEMOGLOBIN 26.5 pg (27.0-31.0); MEAN CORPUSCULAR HGB CONC 30.7 g/dL (33.0-37.0); RBC 3.21 Mil/uL (4.40-5.90); RED CELL DISTRIBUTION WIDTH 14.4 % (11.5-14.5); WHITE BLOOD COUNT 12.8 K/uL (4.8-10.8)
[2017-07-30 06:41] LABS: ALB/GLOB RATIO 1.1 (1.0-2.1); ALBUMIN 3.3 g/dL (3.5-5.0); CALCIUM 8.8 mg/dL (8.4-10.2)
--- NOTE | 2017-07-30 08:56 | RAD ---
HISTORY: SOB COMPARISON: Chest radiograph dated 06/11/2017. FINDINGS: LUNGS: Round calcified structures are again seen in the left infrahilar and left basilar regions. Stable chronic prominence of the bilateral interstitial markings. Biapical pleural-parenchymal scarring. No focal consolidation. PLEURA: No significant pleural effusion identified, no pneumothorax apparent. CARDIOVASCULAR: Atherosclerotic aortic calcifications. Cardiomediastinal silhouette stably enlarged. OSSEOUS STRUCTURES: Unchanged. VISUALIZED UPPER ABDOMEN: Normal. OTHER FINDINGS: None. IMPRESSION: Stable chronic prominence of the bilateral interstitial markings. No focal consolidation or pleural effusion.
[2017-07-30] MEDS: Cilostazol 100 mg Tab UD PO SCH (09:29)
[2017-07-30] MEDS: Pantoprazole 40 mg EC Tab PO SCH (09:29)
[2017-07-30] MEDS ORDERED: Albuterol-Ipratrop 3 mg / 0.5 (3 ml) UD INH PRN (14:29)
--- NOTE | 2017-07-30 19:03 | CARD ---
APPROVED REPORT EKG Measurement Heart [id number] <Conclusion> Normal sinus rhythm Normal ECG
[2017-07-30] MEDS: ceFAZolin 1 GM in Sodium Chloride 0.9% 100 ML IVPB SCH (21:30)
[2017-07-30] MEDS: Pravastatin Sodium 20 MG TAB PO SCH (21:32)
[2017-07-30] MEDS: Lactobacillus Acidophilus 500 MU Cap PO SCH (21:32)
--- NOTE | 2017-07-31 00:33 | HP ---
HISTORY OF PRESENT ILLNESS: Mr. Yen is an 87-year-old male who was brought to the emergency room following a syncopal episode at home, he was caught by the daughter and did not hit the floor. He was seen in the emergency room and workup so far has been nonrevealing except for cellulitis of the upper extremities and hyperkalemia. PAST MEDICAL HISTORY: He has a past medical history of arthritis, anemia, atrial fibrillation, coronary artery disease, status post stent placement, chronic obstructive pulmonary disease, chronic renal failure, diverticular disease, cellulitis of the upper extremities (Staph infected). FAMILY HISTORY: Nonrevealing. SOCIAL HISTORY: Socially, he quit smoking many years ago. Does not drink or use drugs. REVIEW OF SYSTEMS: Essentially remarkable for hard of hearing. Unsteadiness of gait. Multiple falls in the past and recurrent skin infection. PHYSICAL EXAMINATION: GENERAL: The patient is alert, hard of hearing. VITAL SIGNS: Remarkable for blood pressure of 155/61 with a pulse of 81, respiratory rate is 18 per minute, he is febrile, and O2 sat is 100% on room air. SKIN: Shows fair turgor with cellulitis of both upper extremities and left lower extremity. HEENT: Pupils are equal and reactive to light and accommodation. Mouth shows fair hygiene. LUNGS: Fair aeration with dullness at the bases. HEART: S1 and S2. ABDOMEN: Soft and nontender. No organomegaly. EXTREMITIES: Remarkable for cellulitis of both upper extremities and left lower extremity. CENTRAL NERVOUS SYSTEM: Remarkable for conduction deafness bilaterally with unsteadiness of gait. LABORATORY DATA: WBC 12.8, hemoglobin 8.5, and platelet count of 272,000. Sodium 140, potassium 5.8, BUN 58, and creatinine 3.1. CT scan of the head, no evidence of intracranial hemorrhage or midline shift or mass effect. Chest x-ray, no cardiopulmonary pathology noted except for atherosclerotic calcification of the aorta with mild cardiomegaly. IMPRESSION: Syncopal episode, questionable etiology, cellulitis of the upper extremities, chronic renal failure with hyperkalemia, history of coronary artery disease, history of chronic obstructive pulmonary disease, and conduction deafness of both ears. PLAN: Septic workup, IV antibiotics to be given. The daughter does not want aggressive intervention in case of cardiopulmonary arrest. I made the patient to DNR, so will not work up for syncope any further. We will continue IV antibiotics and present therapy. Monitor hyperkalemia and treat appropriately. Further therapy will depend on findings. Dani Carrington MD
[2017-07-31 06:50] LABS: HEMOGLOBIN 8.1 g/dL (12.0-18.0); MEAN CELL VOLUME 84.9 fl (80.0-94.0); MEAN CORPUSCULAR HEMOGLOBIN 27.3 pg (27.0-31.0); MEAN CORPUSCULAR HGB CONC 32.1 g/dL (33.0-37.0); RBC 2.98 Mil/uL (4.40-5.90); RED CELL DISTRIBUTION WIDTH 14.3 % (11.5-14.5); WHITE BLOOD COUNT 12.2 K/uL (4.8-10.8)
[2017-07-31 07:08] LABS: CALCIUM 8.5 mg/dL (8.4-10.2)
[2017-07-31] MEDS: ceFAZolin 1 GM in Sodium Chloride 0.9% 100 ML IVPB SCH ×2 (09:01→22:19)
[2017-07-31] MEDS: Pantoprazole 40 mg EC Tab PO SCH (09:01)
[2017-07-31] MEDS: Cilostazol 100 mg Tab UD PO SCH (09:01)
--- NOTE | 2017-07-31 10:37 | CP.PCM.PN ---
Subjective - Date & Time of Evaluation Date of Evaluation: 07/31/17 Time of Evaluation: 10:38 - Subjective Subjective: NO RECURRENCE OF SYNCOPE NO CHEST PAINS/SOB Objective - Vital Signs/Intake and Output Vital Signs (last 24 hours): Temp Pulse Resp BP Pulse Ox 98.4 F 92 H 18 153/67 H 97 07/31/17 09:00 07/31/17 09:00 07/31/17 09:00 07/31/17 09:00 07/31/17 09:00 Intake and Output: 07/31/17 07/31/17 06:59 18:59 Intake Total 10 Output Total 150 Balance -140 - Medications Medications: Current Medications Acetaminophen (Tylenol 325mg Tab) 650 mg PO Q4 PRN PRN Reason: Fever >100.4 F Albuterol/Ipratropium (Duoneb 3 Mg/0.5 Mg (3 Ml) Ud) 3 ml INH RQ6 PRN PRN Reason: Shortness of Breath Aspirin (Ecotrin) 81 mg PO DAILY [facility] Last Admin: 07/31/17 09:01 Dose: 81 mg Cilostazol (Pletal) 100 mg PO DAILY [facility] Last Admin: 07/31/17 09:01 Dose: 100 mg Finasteride (Proscar) 5 mg PO DAILY [facility] Last Admin: 07/31/17 09:01 Dose: 5 mg Home Med (Fish Oil/Dha/Epa [Fish Oil 1,200 Mg Fish Oil]) 1,200 mg PO DAILY [facility] Cefazolin Sodium 1 gm/ Sodium (Chloride) 100 mls @ 100 mls/hr IVPB Q12 [facility] PRN Reason: Protocol Last Admin: 07/31/17 09:01 Dose: 100 mls/hr Lactobacillus Acidophilus (Bacid Acidophilus) 1 cap PO [facility] Last Admin: 07/30/17 21:32 Dose: 1 cap Mupirocin (Bactroban Ointment) 1 applic TOP BID [facility] Last Admin: 07/31/17 09:02 Dose: 1 % Pantoprazole Sodium (Protonix Ec Tab) 40 mg PO DAILY [facility] Last Admin: 07/31/17 09:01 Dose: 40 mg Pravastatin Sodium (Pravachol) 20 mg PO HS [facility] Last Admin: 07/30/17 21:32 Dose: 20 mg Sodium Bicarbonate (Sodium Bicarbonate Tab) 650 mg PO BID [facility] Last Admin: 07/31/17 09:02 Dose: 650 mg Valsartan (Diovan) 320 mg PO DAILY [facility] Last Admin: 07/31/17 09:02 Dose: 320 mg - Labs Labs: 07/31/17 06:27 07/31/17 06:27 PT 9.9 Seconds (9.8-13.1) 07/29/17 23:58 INR 0.9 (0.9-1.2) 07/29/17 23:58 APTT 30.2 Seconds (25.6-37.1) 07/29/17 23:58 - Constitutional Appears: No Acute Distress - Head Exam Head Exam: ATRAUMATIC, NORMAL INSPECTION, NORMOCEPHALIC - Eye Exam Eye Exam: EOMI, Normal appearance, PERRL Pupil Exam: NORMAL ACCOMODATION, PERRL - ENT Exam ENT Exam: Mucous Membranes Moist, Normal Exam - Neck Exam Neck Exam: Full ROM, Normal Inspection. absent: Lymphadenopathy - Respiratory Exam Respiratory Exam: Clear to Ausculation Bilateral, NORMAL BREATHING PATTERN - Cardiovascular Exam Cardiovascular Exam: REGULAR RHYTHM, +S1, +S2. absent: Murmur - GI/Abdominal Exam GI & Abdominal Exam: Soft, Normal Bowel Sounds. absent: Tenderness - Rectal Exam Rectal Exam: NORMAL INSPECTION - Extremities Exam Extremities Exam: Full ROM, Normal Capillary Refill. absent: Joint Swelling, Pedal Edema Additional comments: CELLULITIS OF ARMS AND LEG - Back Exam Back Exam: NORMAL INSPECTION - Neurological Exam Neurological Exam: Alert, Awake, CN II-XII Intact, Normal Gait, Oriented x3 Additional comments: DEAF - Psychiatric Exam Psychiatric exam: Normal Affect, Normal Mood - Skin Skin Exam: Dry, Erythema, Intact, Warm Additional comments: CELLULITIS Assessment and Plan - Assessment and Plan (Free Text) Assessment: CELLULITIS OF EXTREMITIES CHRONIC RENAL DZ ASHD HYPERKALEMIA SYNCOPE DEAFNESS Plan: CONTINUE ANTIBIOTIC RX DNR PER DAUGHTER'S REQUEST
[2017-07-31] MEDS ORDERED: Sod Polystyrene Sulf 15 gm/60 ml Susp PO ONE (10:38)
[2017-07-31] MEDS: Pravastatin Sodium 20 MG TAB PO SCH (22:19)
[2017-07-31] MEDS: Lactobacillus Acidophilus 500 MU Cap PO SCH (22:20)
[2017-08-01 05:53] LABS: CALCIUM 8.6 mg/dL (8.4-10.2)
[2017-08-01] MEDS: ceFAZolin 1 GM in Sodium Chloride 0.9% 100 ML IVPB SCH ×2 (08:52→21:25)
[2017-08-01] MEDS: Cilostazol 100 mg Tab UD PO SCH (08:53)
[2017-08-01] MEDS: Pantoprazole 40 mg EC Tab PO SCH (08:53)
--- NOTE | 2017-08-01 09:15 | CP.PCM.PN ---
Subjective - Date & Time of Evaluation Date of Evaluation: 08/01/17 Time of Evaluation: 09:17 - Subjective Subjective: AWAKE/ALERT AND ORIENTED NO APPARENT DISTRESS Objective - Vital Signs/Intake and Output Vital Signs (last 24 hours): Temp Pulse Resp BP Pulse Ox 98.1 F 77 18 158/56 H 99 08/01/17 08:00 08/01/17 08:00 08/01/17 08:00 08/01/17 08:00 08/01/17 08:00 - Medications Medications: Current Medications Acetaminophen (Tylenol 325mg Tab) 650 mg PO Q4 PRN PRN Reason: Fever >100.4 F Albuterol/Ipratropium (Duoneb 3 Mg/0.5 Mg (3 Ml) Ud) 3 ml INH RQ6 PRN PRN Reason: Shortness of Breath Aspirin (Ecotrin) 81 mg PO DAILY [facility] Last Admin: 08/01/17 08:53 Dose: 81 mg Cilostazol (Pletal) 100 mg PO DAILY [facility] Last Admin: 08/01/17 08:53 Dose: 100 mg Ferrous Sulfate (Feosol) 325 mg PO BID [facility] Last Admin: 08/01/17 08:53 Dose: 325 mg Finasteride (Proscar) 5 mg PO DAILY [facility] Last Admin: 07/31/17 09:01 Dose: 5 mg Home Med (Fish Oil/Dha/Epa [Fish Oil 1,200 Mg Fish Oil]) 1,200 mg PO DAILY [facility] Cefazolin Sodium 1 gm/ Sodium (Chloride) 100 mls @ 100 mls/hr IVPB Q12 [facility] PRN Reason: Protocol Last Admin: 08/01/17 08:52 Dose: 100 mls/hr Lactobacillus Acidophilus (Bacid Acidophilus) 1 cap PO [facility] Last Admin: 07/31/17 22:20 Dose: 1 cap Mupirocin (Bactroban Ointment) 1 applic TOP BID [facility] Last Admin: 08/01/17 08:54 Dose: 1 applic Pantoprazole Sodium (Protonix Ec Tab) 40 mg PO DAILY [facility] Last Admin: 08/01/17 08:53 Dose: 40 mg Pravastatin Sodium (Pravachol) 20 mg PO HS [facility] Last Admin: 07/31/17 22:19 Dose: 20 mg Sodium Bicarbonate (Sodium Bicarbonate Tab) 650 mg PO BID [facility] Last Admin: 08/01/17 08:53 Dose: 650 mg Valsartan (Diovan) 320 mg PO DAILY [facility] Last Admin: 08/01/17 08:53 Dose: 320 mg - Labs Labs: 07/31/17 06:27 08/01/17 05:28 PT 9.9 Seconds (9.8-13.1) 07/29/17 23:58 INR 0.9 (0.9-1.2) 07/29/17 23:58 APTT 30.2 Seconds (25.6-37.1) 07/29/17 23:58 - Constitutional Appears: No Acute Distress - Head Exam Head Exam: ATRAUMATIC, NORMAL INSPECTION, NORMOCEPHALIC - Eye Exam Eye Exam: EOMI, Normal appearance, PERRL Pupil Exam: NORMAL ACCOMODATION, PERRL - ENT Exam ENT Exam: Mucous Membranes Moist, Normal Exam - Neck Exam Neck Exam: Full ROM, Normal Inspection. absent: Lymphadenopathy - Respiratory Exam Respiratory Exam: Clear to Ausculation Bilateral, NORMAL BREATHING PATTERN - Cardiovascular Exam Cardiovascular Exam: REGULAR RHYTHM, +S1, +S2. absent: Murmur - GI/Abdominal Exam GI & Abdominal Exam: Soft, Normal Bowel Sounds. absent: Tenderness - Rectal Exam Rectal Exam: NORMAL INSPECTION - Extremities Exam Extremities Exam: Full ROM, Normal Capillary Refill. absent: Joint Swelling, Pedal Edema Additional comments: CELLULITIS OF ARMS AND LEG IMPROVING - Back Exam Back Exam: NORMAL INSPECTION - Neurological Exam Neurological Exam: Alert, Awake, CN II-XII Intact, Normal Gait, Oriented x3 - Psychiatric Exam Psychiatric exam: Normal Affect, Normal Mood - Skin Skin Exam: Dry, Erythema, Intact, Rash, Warm Additional comments: CELLULITIS OF ARMS AND LEG Assessment and Plan - Assessment and Plan (Free Text) Assessment: CELLULITIS OF ARMS/LEG HTM ASHD SYNCOPE CHRONIC KIDNEY DZ HYPERKALEMIA Plan: CONTINUE PRESENT RX ID AND NEPHROLOGY EVAL
[2017-08-01] MEDS ORDERED: Sod Polystyrene Sulf 15 gm/60 ml Susp PO ONE (09:19)
--- NOTE | 2017-08-01 14:03 | CP.PCM.CON ---
History of Present Illness - History of Present Illness History of Present Illness: 87yo male presents s/p syncopal episode ( daughter caught him and did not hit floor) Hes been c/o generalized weakness and dizziness, denies chest pain, neck pain, fever, sore throat or cough. Was hospitalized approx 6wks ago for cellulitis to extremities. Daughter states off oral Abx for several weeks, using cream but redness and blistering worsening again. ID consulted for cellulitis IV anrtibiotics in progress - Medical History PMH: Anemia, Arthritis, Atrial Fibrillation, CAD (WITH STENTS), COPD, Diverticulitis, Fractures (left arm fx due to fall in the snow), HTN, Hypercholesterolemia, Chronic Kidney Disease, TIA (Apr 2016) Denies: HIV - Surgical History Surgical History: Carotid Endarterectomy, Cholecystectomy, Coronary Stent Review of Systems - Review of Systems Systems not reviewed;Unavailable: Altered Mental Status - Constitutional Constitutional: As Per HPI - EENT Eyes: absent: As Per HPI, Blind Spots, Blurred Vision, Change in Vision, Decreased Night Vision, Diplopia, Discharge, Dry Eye, Exophthalmos, Floaters, Irritation, Itchy Eyes, Loss of Peripheral Vision, Pain, Photophobia, Requires Corrective Lenses, Sees Flashes, Spots in Vision, Tunnel Vision, Other Visual Disturbances, Loss of Vision, Other Ears: absent: As Per HPI, Decreased Hearing, Ear Discharge, Ear Pain, Tinnitus, Abnormal Hearing, Disequilibrium, Dizziness, Other Nose/Mouth/Throat: absent: As Per HPI, Epistaxis, Nasal Congestion, Nasal Discharge, Nasal Obstruction, Nasal Trauma, Nose Pain, Post Nasal Drip, Sinus Pain, Sinus Pressure, Bleeding Gums, Change in Voice, Dental Pain, Dry Mouth, Dysphagia, Halitosis, Hoarsness, Lip Swelling, Mouth Lesions, Mouth Pain, Odynophagia, Sore Throat, Throat Swelling, Tongue Swelling, Facial Pain, Neck Pain, Neck Mass, Other - Cardiovascular Cardiovascular: As Per HPI - Respiratory Respiratory: absent: As Per HPI, Cough, Dyspnea, Hemoptysis, Dyspnea on Exertion , Wheezing, Snoring, Stridor, Pain on Inspiration, Chest Congestion, Excessive Mucous Production, Change in Mucous Color, Pain with Coughing, Other - Gastrointestinal Gastrointestinal: absent: As Per HPI, Abdominal Pain, Belching, Bloating, Change in Bowel Habits, Change in Stool Character, Coffee Ground Emesis, Constipation, Cramping, Diarrhea, Dyspepsia, Dysphagia, Early Satiety, Excessive Flatus, Fecal Incontinence, Heartburn, Hematemesis, Hematochezia, Loose Stools, Melena, Nausea, Odynophagia, Temesmus, Vomiting, Other - Genitourinary Genitourinary: absent: As Per HPI, Change in Urinary Stream, Difficulty Urinating, Dysuria, Flank Pain, Hematuria, Pyuria, Nocturia, Urinary Incontinence, Urinary Frequency, Urinary Hesitance, Urinary Urgency, Voiding Freq/Small Amts, Freq UTI, Hx Renal/Bladder Calculi, Hx /Renal Surgery, Bladder Distension, Other - Musculoskeletal Musculoskeletal: As Per HPI - Integumentary Integumentary: As Per HPI, Skin Pain, Wounds - Neurological Neurological: As Per HPI - Psychiatric Psychiatric: absent: As Per HPI, Abnormal Sleep Pattern, Anhedonia, Anxiety, Auditory Hallucinations, Behavioral Changes, Change in Appetite, Change in Libido, Confusion, Depression, Difficulty Concentrating, Hallucinations, Homicidal Ideation, Hopelessness, Irritability, Memory Loss, Mood Swings, Panic Attacks, Paranoia, Suicidal Ideation, Visual Hallucinations, Tactile Hallucinations, Other - Endocrine Endocrine: absent: As Per HPI, Change in Body Appearance, Change in Libido, Cold Intolorance, Deepening of Voice, Excessive Sweating, Fatigue, Flushing, Heat Intolorance, Increase in Ring/Shoe/Hat Size, Palpitations, Polydipsia, Polyphagia, Polyuria, Other - Hematologic/Lymphatic Hematologic: absent: As Per HPI, Easy Bleeding, Easy Bruising, Lymphadenopathy, Other Past Patient History - Tetanus Immunizations Tetanus Immunization: Unknown - Past Medical History & Family History Past Medical History?: Yes - Past Social History Smoking Status: Former Smoker - CARDIAC Hx Atrial Fibrillation: Yes Hx Hypercholesterolemia: Yes Hx Hypertension: Yes - PULMONARY Hx Chronic Obstructive Pulmonary Disease (COPD): Yes - NEUROLOGICAL Hx Transient Ischemic Attacks (TIA): Yes (Apr 2016) - HEENT Hx Deafness: Yes Other/Comment: HARD OF HEARING RIGHT EAR - RENAL Hx Chronic Kidney Disease: Yes - ENDOCRINE/METABOLIC Hx Endocrine Disorders: Yes Hx Diabetes Mellitus Type 2: Yes - HEMATOLOGICAL/ONCOLOGICAL Hx Anemia: Yes Hx Human Immunodeficiency Virus (HIV): No - INTEGUMENTARY Other/Comment: blisters and cellulitis - MUSCULOSKELETAL/RHEUMATOLOGICAL Hx Arthritis: Yes Hx Fractures: Yes (left arm fx due to fall in the snow) - GASTROINTESTINAL Hx Diverticulitis: Yes - GENITOURINARY/GYNECOLOGICAL Hx Genitourinary Disorders: No - PSYCHIATRIC Hx Psychophysiologic Disorder: No - SURGICAL HISTORY Hx Carotid Endarterectomy: Yes Hx Cholecystectomy: Yes Hx Coronary Stent: Yes - ANESTHESIA Hx Anesthesia: Yes Hx Anesthesia Reactions: No Hx Malignant Hyperthermia: No Meds Allergies/Adverse Reactions: Allergies Allergy/AdvReac Type Severity Reaction Status Date / Time No Known Allergies Allergy Verified 06/11/17 11:13 - Medications Medications: Current Medications Acetaminophen (Tylenol 325mg Tab) 650 mg PO Q4 PRN PRN Reason: Fever >100.4 F Albuterol/Ipratropium (Duoneb 3 Mg/0.5 Mg (3 Ml) Ud) 3 ml INH RQ6 PRN PRN Reason: Shortness of Breath Aspirin (Ecotrin) 81 mg PO DAILY [facility] Last Admin: 08/01/17 08:53 Dose: 81 mg Cilostazol (Pletal) 100 mg PO DAILY [facility] Last Admin: 08/01/17 08:53 Dose: 100 mg Ferrous Sulfate (Feosol) 325 mg PO BID [facility] Last Admin: 08/01/17 08:53 Dose: 325 mg Finasteride (Proscar) 5 mg PO DAILY [facility] Last Admin: 07/31/17 09:01 Dose: 5 mg Cefazolin Sodium 1 gm/ Sodium (Chloride) 100 mls @ 100 mls/hr IVPB Q12 [facility] PRN Reason: Protocol Last Admin: 08/01/17 08:52 Dose: 100 mls/hr Lactobacillus Acidophilus (Bacid Acidophilus) 1 cap PO HS [facility] Last Admin: 07/31/17 22:20 Dose: 1 cap Mupirocin (Bactroban Ointment) 1 applic TOP BID [facility] Last Admin: 08/01/17 08:54 Dose: 1 applic [id number] Ethyl Esters (Lovaza) 1 gm PO DAILY [facility] Pantoprazole Sodium (Protonix Ec Tab) 40 mg PO DAILY [facility] Last Admin: 08/01/17 08:53 Dose: 40 mg Pravastatin Sodium (Pravachol) 20 mg PO HS [facility] Last Admin: 07/31/17 22:19 Dose: 20 mg Sodium Bicarbonate (Sodium Bicarbonate Tab) 650 mg PO BID [facility] Last Admin: 08/01/17 08:53 Dose: 650 mg Valsartan (Diovan) 320 mg PO DAILY [facility] Last Admin: 08/01/17 08:53 Dose: 320 mg Physical Exam - Constitutional Appears: Non-toxic, Confused, Chronically Ill - Head Exam Head Exam: NORMOCEPHALIC - Eye Exam Eye Exam: PERRL. absent: Scleral icterus - ENT Exam ENT Exam: Mucous Membranes Dry, Normal External Ear Exam, Normal Oropharynx - Neck Exam Neck exam: Negative for: Lymphadenopathy - Respiratory Exam Respiratory Exam: Decreased Breath Sounds, Rhonchi - Cardiovascular Exam Cardiovascular Exam: REGULAR RHYTHM, +S1, +S2 - GI/Abdominal Exam GI & Abdominal Exam: Diminished Bowel Sounds, Soft. absent: Tenderness - Rectal Exam Rectal Exam: Deferred - Exam Exam: NORMAL INSPECTION - Extremities Exam Extremities exam: Positive for: pedal edema, pedal pulses present. Negative for : calf tenderness, tenderness - Back Exam Back exam: absent: CVA tenderness (L), CVA tenderness (R) - Neurological Exam Neurological exam: Alert, Altered, CN II-XII Intact - Psychiatric Exam Psychiatric exam: Depressed - Skin Skin Exam: Dry, Rash Additional comments: multiple blisters/ vesicles with cellulitis on upper / lower extremitis and trunk Results - Vital Signs Recent Vital Signs: Last Vital Signs Temp 98.2 F 08/01/17 13:00 Pulse 70 08/01/17 13:00 Resp 18 08/01/17 13:00 BP 99/49 L 08/01/17 13:00 Pulse Ox 99 08/01/17 13:00 - Labs Result Diagrams: 07/31/17 06:27 08/01/17 05:28 Labs: Laboratory Results - last 24 hr 08/01/17 05:28 Sodium 138 Potassium 6.1 H Chloride 108 H Carbon Dioxide 19 L Anion Gap 17 BUN 58 H Creatinine 3.1 H Est GFR ( Amer) 23 Est GFR (Non-Af Amer) 19 Random Glucose 89 Calcium 8.6 Assessment & Plan (1) Cellulitis Status: Acute (2) Syncope Status: Chronic (3) CKD (chronic kidney disease), stage III Status: Acute (4) CKD stage 3 due to type 1 diabetes mellitus Status: Acute (5) Carotid stenosis, right Status: Acute (6) Chronic renal disease, stage 4, severely decreased glomerular filtration rate (GFR) between 15-29 mL/min/1.73 square meter Status: Acute (7) Dehydration Status: Acute (8) Fall Status: Acute - Assessment and Plan (Free Text) Assessment: severe cellulitis r/o pemphigous vulgaris / bullous pemphigoid r/o bacteremia/ sepsis syncope await cultures consider skin bx ? steroids IV antibiotics
[2017-08-01] MEDS: Omega-3-Acid Ethyl Esters 1 GM Cap PO SCH (14:51)
[2017-08-01] MEDS: Lactobacillus Acidophilus 500 MU Cap PO SCH (21:25)
[2017-08-01] MEDS: Pravastatin Sodium 20 MG TAB PO SCH (21:25)
[2017-08-02 05:55] LABS: BASO # 0.1 K/uL (0.0-0.2); BASO % 0.4 % (0.0-2.0); EOS # 5.8 K/uL (0.0-0.7); LYMPH # 2.2 K/uL (1.0-4.3); LYMPH % 17.7 % (20.0-40.0); MEAN CELL VOLUME 85.5 fl (80.0-94.0); MEAN CORPUSCULAR HEMOGLOBIN 26.9 pg (27.0-31.0); MEAN CORPUSCULAR HGB CONC 31.4 g/dL (33.0-37.0); MEAN PLATELET VOLUME 8.8 fl (7.2-11.7); MONO # 0.7 K/uL (0.0-0.8); NEUT # 3.5 K/uL (1.8-7.0); NEUT % 28.5 % (50.0-75.0); NRBC % 0.2 % (0.0-0.0); PLATELET COUNT 268 K/uL (130-400); RBC 2.99 Mil/uL (4.40-5.90); RED CELL DISTRIBUTION WIDTH 14.7 % (11.5-14.5); WHITE BLOOD COUNT 12.2 K/uL (4.8-10.8)
[2017-08-02 06:11] LABS: CALCIUM 8.2 mg/dL (8.4-10.2)
[2017-08-02 06:14] LABS: EOS % 47.4 % (0.0-4.0)
--- NOTE | 2017-08-02 08:12 | CP.PCM.PN ---
Subjective - Date & Time of Evaluation Date of Evaluation: 08/02/17 Time of Evaluation: 08:15 - Subjective Subjective: FEELS BETTER REDNESS AND SWELLING OF ARMS/LEGS IMPROVING BUT BLISTERS PERSIST VSS Objective - Vital Signs/Intake and Output Vital Signs (last 24 hours): Temp Pulse Resp BP Pulse Ox 97.6 F 85 18 157/56 H 98 08/02/17 05:45 08/02/17 05:45 08/02/17 05:45 08/02/17 05:45 08/02/17 05:45 - Medications Medications: Current Medications Acetaminophen (Tylenol 325mg Tab) 650 mg PO Q4 PRN PRN Reason: Fever >100.4 F Albuterol/Ipratropium (Duoneb 3 Mg/0.5 Mg (3 Ml) Ud) 3 ml INH RQ6 PRN PRN Reason: Shortness of Breath Aspirin (Ecotrin) 81 mg PO DAILY [facility] Last Admin: 08/01/17 08:53 Dose: 81 mg Cilostazol (Pletal) 100 mg PO DAILY [facility] Last Admin: 08/01/17 08:53 Dose: 100 mg Ferrous Sulfate (Feosol) 325 mg PO BID [facility] Last Admin: 08/01/17 16:11 Dose: 325 mg Finasteride (Proscar) 5 mg PO DAILY [facility] Last Admin: 08/01/17 14:50 Dose: 5 mg Cefazolin Sodium 1 gm/ Sodium (Chloride) 100 mls @ 100 mls/hr IVPB Q12 [facility] PRN Reason: Protocol Last Admin: 08/01/17 21:25 Dose: 100 mls/hr Vancomycin HCl 1 gm/ Sodium (Chloride) 250 mls @ 166.667 mls/hr IVPB Q48H [facility] PRN Reason: Protocol Last Admin: 08/01/17 14:46 Dose: 166.667 mls/hr Lactobacillus Acidophilus (Bacid Acidophilus) 1 cap PO HS [facility] Last Admin: 08/01/17 21:25 Dose: 1 cap Mupirocin (Bactroban Ointment) 1 applic TOP BID [facility] Last Admin: 08/01/17 16:11 Dose: 1 applic [id number] Ethyl Esters (Lovaza) 1 gm PO DAILY [facility] Last Admin: 08/01/17 14:51 Dose: 1 gm Pantoprazole Sodium (Protonix Ec Tab) 40 mg PO DAILY [facility] Last Admin: 08/01/17 08:53 Dose: 40 mg Pravastatin Sodium (Pravachol) 20 mg PO HS [facility] Last Admin: 08/01/17 21:25 Dose: 20 mg Sodium Bicarbonate (Sodium Bicarbonate Tab) 650 mg PO BID [facility] Last Admin: 08/01/17 16:11 Dose: 650 mg Valsartan (Diovan) 320 mg PO DAILY [facility] Last Admin: 08/01/17 08:53 Dose: 320 mg - Labs Labs: 08/02/17 04:25 08/02/17 04:25 PT 9.9 Seconds (9.8-13.1) 07/29/17 23:58 INR 0.9 (0.9-1.2) 07/29/17 23:58 APTT 30.2 Seconds (25.6-37.1) 07/29/17 23:58 - Constitutional Appears: No Acute Distress - Head Exam Head Exam: ATRAUMATIC, NORMAL INSPECTION, NORMOCEPHALIC - Eye Exam Eye Exam: EOMI, Normal appearance, PERRL Pupil Exam: NORMAL ACCOMODATION, PERRL - ENT Exam ENT Exam: Mucous Membranes Moist, Normal Exam - Neck Exam Neck Exam: Full ROM, Normal Inspection. absent: Lymphadenopathy - Respiratory Exam Respiratory Exam: Clear to Ausculation Bilateral, NORMAL BREATHING PATTERN - Cardiovascular Exam Cardiovascular Exam: REGULAR RHYTHM, +S1, +S2. absent: Murmur Additional comments: FREQUENT EXTRASYSTOLES - GI/Abdominal Exam GI & Abdominal Exam: Soft, Normal Bowel Sounds. absent: Tenderness - Rectal Exam Rectal Exam: NORMAL INSPECTION - Extremities Exam Extremities Exam: Full ROM, Normal Capillary Refill, Pedal Edema. absent: Joint Swelling Additional comments: CELLULITIS WITH BLISTERS OF ARMS/LEGS - Back Exam Back Exam: NORMAL INSPECTION - Neurological Exam Neurological Exam: Alert, Awake, CN II-XII Intact, Normal Gait, Oriented x3 Additional comments: DEAFNESS - Psychiatric Exam Psychiatric exam: Normal Affect, Normal Mood - Skin Skin Exam: Dry, Intact, Normal Color, Warm Assessment and Plan - Assessment and Plan (Free Text) Assessment: CELLULITIS OF ARMS/LEGS SYNCOPE ARRYTHMIAS ASHD CHRONIC KIDNEY DZ HYPERKALEMIA-IMPROVED HTN DEAFNESS Plan: CONTINUE CURRENT RX WILL PROBABLY BENEFIT FROM TCU PRIOR TO D/C HOME\ DNR PER DAUGHTER'S REQUEST
[2017-08-02] MEDS: ceFAZolin 1 GM in Sodium Chloride 0.9% 100 ML IVPB SCH ×2 (09:30→21:17)
[2017-08-02] MEDS: Omega-3-Acid Ethyl Esters 1 GM Cap PO SCH ×3 (10:45→10:48)
[2017-08-02] MEDS: Cilostazol 100 mg Tab UD PO SCH (10:46)
[2017-08-02] MEDS: Pantoprazole 40 mg EC Tab PO SCH (10:47)
[2017-08-02 12:52] LABS: EOSINOPHIL 48 % (0-7); HYPOCHROMIC MODERATE; LYMPHOCYTE 20 % (20-50); MONOCYTE 4 % (0-10); NEUTROPHIL 28 % (42-75); OVALOCYTES SLIGHT; PLATELET ESTIMATE NORMAL (NORMAL); SCHISTOCYTES SLIGHT; TEARDROP CELLS SLIGHT; TOTAL CELLS COUNTED 100
[2017-08-02 12:53] LABS: LARGE PLATELETS PRESENT
--- NOTE | 2017-08-02 17:45 | CP.PCM.PN ---
Subjective - Date & Time of Evaluation Date of Evaluation: 08/02/17 Time of Evaluation: 08:00 - Subjective Subjective: 87 yo male with cellulitis and bullous lesions as well as worsening renal function May have vasculitis ? would consider biopsy as well as serologies cont iv antibiotics ? empiric steroids if Dr Hou agrees Objective - Vital Signs/Intake and Output Vital Signs (last 24 hours): Temp Pulse Resp BP Pulse Ox 97.9 F 85 20 141/47 L 98 08/02/17 16:26 08/02/17 16:26 08/02/17 16:26 08/02/17 16:26 08/02/17 16:26 - Medications Medications: Current Medications Acetaminophen (Tylenol 325mg Tab) 650 mg PO Q4 PRN PRN Reason: Fever >100.4 F Albuterol/Ipratropium (Duoneb 3 Mg/0.5 Mg (3 Ml) Ud) 3 ml INH RQ6 PRN PRN Reason: Shortness of Breath Aspirin (Ecotrin) 81 mg PO DAILY [facility] Last Admin: 08/02/17 10:45 Dose: 81 mg Cilostazol (Pletal) 100 mg PO DAILY [facility] Last Admin: 08/02/17 10:46 Dose: 100 mg Ferrous Sulfate (Feosol) 325 mg PO BID [facility] Last Admin: 08/02/17 16:28 Dose: 325 mg Finasteride (Proscar) 5 mg PO DAILY [facility] Last Admin: 08/02/17 10:46 Dose: 5 mg Cefazolin Sodium 1 gm/ Sodium (Chloride) 100 mls @ 100 mls/hr IVPB Q12 [facility] PRN Reason: Protocol Last Admin: 08/02/17 09:30 Dose: 100 mls/hr Vancomycin HCl 1 gm/ Sodium (Chloride) 250 mls @ 166.667 mls/hr IVPB Q48H [facility] PRN Reason: Protocol Last Admin: 08/01/17 14:46 Dose: 166.667 mls/hr Lactobacillus Acidophilus (Bacid Acidophilus) 1 cap PO HS [facility] Last Admin: 08/01/17 21:25 Dose: 1 cap Mupirocin (Bactroban Ointment) 1 applic TOP BID [facility] Last Admin: 08/02/17 16:28 Dose: 1 applic [id number] Ethyl Esters (Lovaza) 1 gm PO DAILY [facility] Last Admin: 08/02/17 10:48 Dose: 1 gm Pantoprazole Sodium (Protonix Ec Tab) 40 mg PO DAILY [facility] Last Admin: 08/02/17 10:47 Dose: 40 mg Pravastatin Sodium (Pravachol) 20 mg PO HS [facility] Last Admin: 08/01/17 21:25 Dose: 20 mg Sodium Bicarbonate (Sodium Bicarbonate Tab) 650 mg PO BID [facility] Last Admin: 08/02/17 16:29 Dose: 650 mg Valsartan (Diovan) 320 mg PO DAILY [facility] Last Admin: 08/02/17 10:46 Dose: 320 mg - Labs Labs: 08/02/17 04:25 08/02/17 04:25 PT 9.9 Seconds (9.8-13.1) 07/29/17 23:58 INR 0.9 (0.9-1.2) 07/29/17 23:58 APTT 30.2 Seconds (25.6-37.1) 07/29/17 23:58 - Constitutional Appears: Non-toxic, Chronically Ill - Head Exam Head Exam: NORMOCEPHALIC - Eye Exam Eye Exam: PERRL - ENT Exam ENT Exam: Mucous Membranes Dry - Neck Exam Neck Exam: absent: Lymphadenopathy - Respiratory Exam Respiratory Exam: Decreased Breath Sounds - Cardiovascular Exam Cardiovascular Exam: REGULAR RHYTHM - GI/Abdominal Exam GI & Abdominal Exam: Distended, Soft - Rectal Exam Rectal Exam: Deferred - Exam Exam: NORMAL INSPECTION - Extremities Exam Extremities Exam: Pedal Edema, Tenderness - Back Exam Back Exam: absent: CVA tenderness (L), CVA tenderness (R) - Neurological Exam Neurological Exam: Alert, Awake, CN II-XII Intact - Psychiatric Exam Psychiatric exam: Depressed - Skin Skin Exam: Dry Assessment and Plan (1) Cellulitis Status: Acute (2) Syncope Status: Chronic (3) CKD (chronic kidney disease), stage III Status: Acute (4) CKD stage 3 due to type 1 diabetes mellitus Status: Acute (5) Carotid stenosis, right Status: Acute (6) Chronic renal disease, stage 4, severely decreased glomerular filtration rate (GFR) between 15-29 mL/min/1.73 square meter Status: Acute (7) Dehydration Status: Acute (8) Fall Status: Acute - Assessment and Plan (Free Text) Assessment: 87 yo male with cellulitis and bullous lesions as well as worsening renal function May have vasculitis ? would consider biopsy as well as serologies cont iv antibiotics ? empiric steroids if Dr Hou agrees
[2017-08-02] MEDS: Pravastatin Sodium 20 MG TAB PO SCH (21:20)
[2017-08-02] MEDS: Lactobacillus Acidophilus 500 MU Cap PO SCH (21:21)
[2017-08-03 06:12] LABS: CALCIUM 8.4 mg/dL (8.4-10.2)
[2017-08-03] MEDS ORDERED: Sod Polystyrene Sulf 15 gm/60 ml Susp PO ONE (09:12)
--- NOTE | 2017-08-03 09:13 | CP.PCM.PN ---
Subjective - Date & Time of Evaluation Date of Evaluation: 08/03/17 Time of Evaluation: 09:13 - Subjective Subjective: CELLULITIS OF ARMS AND LEG IMPROVING Objective - Vital Signs/Intake and Output Vital Signs (last 24 hours): Temp Pulse Resp BP Pulse Ox 98.3 F 84 20 160/63 H 98 08/03/17 08:00 08/03/17 08:00 08/03/17 08:00 08/03/17 08:00 08/03/17 08:00 - Medications Medications: Current Medications Acetaminophen (Tylenol 325mg Tab) 650 mg PO Q4 PRN PRN Reason: Fever >100.4 F Albuterol/Ipratropium (Duoneb 3 Mg/0.5 Mg (3 Ml) Ud) 3 ml INH RQ6 PRN PRN Reason: Shortness of Breath Aspirin (Ecotrin) 81 mg PO DAILY [facility] Last Admin: 08/02/17 10:45 Dose: 81 mg Cilostazol (Pletal) 100 mg PO DAILY [facility] Last Admin: 08/02/17 10:46 Dose: 100 mg Ferrous Sulfate (Feosol) 325 mg PO BID [facility] Last Admin: 08/02/17 16:28 Dose: 325 mg Finasteride (Proscar) 5 mg PO DAILY [facility] Last Admin: 08/02/17 10:46 Dose: 5 mg Cefazolin Sodium 1 gm/ Sodium (Chloride) 100 mls @ 100 mls/hr IVPB Q12 ELI PRN Reason: Protocol Last Admin: 08/02/17 21:17 Dose: 100 mls/hr Vancomycin HCl 1 gm/ Sodium (Chloride) 250 mls @ 166.667 mls/hr IVPB Q48H ELI PRN Reason: Protocol Last Admin: 08/01/17 14:46 Dose: 166.667 mls/hr Lactobacillus Acidophilus (Bacid Acidophilus) 1 cap PO HS [facility] Last Admin: 08/02/17 21:21 Dose: 1 cap Mupirocin (Bactroban Ointment) 1 applic TOP BID [facility] Last Admin: 08/02/17 16:28 Dose: 1 applic Zqjns-8-Dusi Ethyl Esters (Lovaza) 1 gm PO DAILY [facility] Last Admin: 08/02/17 10:48 Dose: 1 gm Pantoprazole Sodium (Protonix Ec Tab) 40 mg PO DAILY [facility] Last Admin: 08/02/17 10:47 Dose: 40 mg Pravastatin Sodium (Pravachol) 20 mg PO HS [facility] Last Admin: 08/02/17 21:20 Dose: 20 mg Sodium Bicarbonate (Sodium Bicarbonate Tab) 650 mg PO BID [facility] Last Admin: 08/02/17 16:29 Dose: 650 mg Valsartan (Diovan) 320 mg PO DAILY [facility] Last Admin: 08/02/17 10:46 Dose: 320 mg - Labs Labs: 08/02/17 04:25 08/03/17 04:30 PT 9.9 Seconds (9.8-13.1) 07/29/17 23:58 INR 0.9 (0.9-1.2) 07/29/17 23:58 APTT 30.2 Seconds (25.6-37.1) 07/29/17 23:58 - Constitutional Appears: No Acute Distress - Head Exam Head Exam: ATRAUMATIC, NORMAL INSPECTION, NORMOCEPHALIC - Eye Exam Eye Exam: EOMI, Normal appearance, PERRL Pupil Exam: NORMAL ACCOMODATION, PERRL - ENT Exam ENT Exam: Mucous Membranes Moist, Normal Exam - Neck Exam Neck Exam: Full ROM, Normal Inspection. absent: Lymphadenopathy - Respiratory Exam Respiratory Exam: Clear to Ausculation Bilateral, NORMAL BREATHING PATTERN - Cardiovascular Exam Cardiovascular Exam: REGULAR RHYTHM, +S1, +S2. absent: Murmur - GI/Abdominal Exam GI & Abdominal Exam: Soft, Normal Bowel Sounds. absent: Tenderness - Rectal Exam Rectal Exam: NORMAL INSPECTION - Extremities Exam Extremities Exam: Full ROM, Normal Capillary Refill, Normal Inspection. absent : Joint Swelling, Pedal Edema Additional comments: CELLULITIS WITH BLISTERS OF ARMS/LEGS IMPROVING - Back Exam Back Exam: NORMAL INSPECTION - Neurological Exam Neurological Exam: Alert, Awake, CN II-XII Intact, Normal Gait, Oriented x3 - Psychiatric Exam Psychiatric exam: Normal Affect, Normal Mood - Skin Skin Exam: Dry, Intact, Normal Color, Warm Assessment and Plan - Assessment and Plan (Free Text) Assessment: CELLULITIS OF SKIN CHRONIC RENAL FAILURE HYPERKALEMIA SYNCOPE ASHD Plan: CONTINUE SAME RX
[2017-08-03] MEDS: Pantoprazole 40 mg EC Tab PO SCH (09:26)
[2017-08-03] MEDS: Omega-3-Acid Ethyl Esters 1 GM Cap PO SCH (09:28)
[2017-08-03] MEDS: ceFAZolin 1 GM in Sodium Chloride 0.9% 100 ML IVPB SCH ×2 (09:29→21:24)
[2017-08-03] MEDS: Cilostazol 100 mg Tab UD PO SCH (13:25)
[2017-08-03] MEDS: Pravastatin Sodium 20 MG TAB PO SCH (21:22)
[2017-08-03] MEDS: Lactobacillus Acidophilus 500 MU Cap PO SCH (21:22)
[2017-08-04 05:32] LABS: HEMOGLOBIN 7.7 g/dL (12.0-18.0); MEAN CELL VOLUME 85.2 fl (80.0-94.0); MEAN CORPUSCULAR HEMOGLOBIN 27.8 pg (27.0-31.0); MEAN CORPUSCULAR HGB CONC 32.6 g/dL (33.0-37.0); RBC 2.78 Mil/uL (4.40-5.90); RED CELL DISTRIBUTION WIDTH 14.5 % (11.5-14.5); WHITE BLOOD COUNT 12.4 K/uL (4.8-10.8)
[2017-08-04] MEDS: ceFAZolin 1 GM in Sodium Chloride 0.9% 100 ML IVPB SCH ×2 (09:25→21:36)
[2017-08-04] MEDS: Cilostazol 100 mg Tab UD PO SCH (09:26)
[2017-08-04] MEDS: Omega-3-Acid Ethyl Esters 1 GM Cap PO SCH (09:26)
[2017-08-04] MEDS: Pantoprazole 40 mg EC Tab PO SCH (09:26)
--- NOTE | 2017-08-04 09:31 | CP.PCM.PN ---
Subjective - Date & Time of Evaluation Date of Evaluation: 08/04/17 Time of Evaluation: 09:31 - Subjective Subjective: BLISTERS OF ARMS AND LEGS PERSIST REDNESS OF GLUTEAL REGION Objective - Vital Signs/Intake and Output Vital Signs (last 24 hours): Temp Pulse Resp BP Pulse Ox 97.3 F L 83 20 176/69 H 98 08/04/17 08:00 08/04/17 08:00 08/04/17 08:00 08/04/17 08:00 08/04/17 08:00 - Medications Medications: Current Medications Acetaminophen (Tylenol 325mg Tab) 650 mg PO Q4 PRN PRN Reason: Fever >100.4 F Albuterol/Ipratropium (Duoneb 3 Mg/0.5 Mg (3 Ml) Ud) 3 ml INH RQ6 PRN PRN Reason: Shortness of Breath Aspirin (Ecotrin) 81 mg PO DAILY [facility] Last Admin: 08/04/17 09:26 Dose: 81 mg Cilostazol (Pletal) 100 mg PO DAILY [facility] Last Admin: 08/04/17 09:26 Dose: 100 mg Ferrous Sulfate (Feosol) 325 mg PO BID [facility] Last Admin: 08/04/17 09:26 Dose: 325 mg Finasteride (Proscar) 5 mg PO DAILY [facility] Last Admin: 08/04/17 09:26 Dose: 5 mg Cefazolin Sodium 1 gm/ Sodium (Chloride) 100 mls @ 100 mls/hr IVPB Q12 ELI PRN Reason: Protocol Last Admin: 08/04/17 09:25 Dose: 100 mls/hr Vancomycin HCl 1 gm/ Sodium (Chloride) 250 mls @ 166.667 mls/hr IVPB Q48H ELI PRN Reason: Protocol Last Admin: 08/03/17 13:25 Dose: 166.667 mls/hr Lactobacillus Acidophilus (Bacid Acidophilus) 1 cap PO HS [facility] Last Admin: 08/03/17 21:22 Dose: 1 cap Mupirocin (Bactroban Ointment) 1 applic TOP BID [facility] Last Admin: 08/04/17 09:25 Dose: 1 applic Xlmly-3-Bdob Ethyl Esters (Lovaza) 1 gm PO DAILY [facility] Last Admin: 08/04/17 09:26 Dose: 1 gm Pantoprazole Sodium (Protonix Ec Tab) 40 mg PO DAILY [facility] Last Admin: 08/04/17 09:26 Dose: 40 mg Pravastatin Sodium (Pravachol) 20 mg PO HS [facility] Last Admin: 08/03/17 21:22 Dose: 20 mg Sodium Bicarbonate (Sodium Bicarbonate Tab) 650 mg PO BID [facility] Last Admin: 08/04/17 09:27 Dose: 650 mg Valsartan (Diovan) 320 mg PO DAILY [facility] Last Admin: 08/04/17 09:25 Dose: 320 mg - Labs Labs: 08/04/17 04:20 08/04/17 04:20 PT 9.9 Seconds (9.8-13.1) 07/29/17 23:58 INR 0.9 (0.9-1.2) 07/29/17 23:58 APTT 30.2 Seconds (25.6-37.1) 07/29/17 23:58 - Constitutional Appears: Chronically Ill - Head Exam Head Exam: ATRAUMATIC, NORMAL INSPECTION, NORMOCEPHALIC - Eye Exam Eye Exam: EOMI, Normal appearance, PERRL Pupil Exam: NORMAL ACCOMODATION, PERRL - ENT Exam ENT Exam: Mucous Membranes Moist, Normal Exam - Neck Exam Neck Exam: Full ROM, Normal Inspection. absent: Lymphadenopathy - Respiratory Exam Respiratory Exam: Clear to Ausculation Bilateral, NORMAL BREATHING PATTERN - Cardiovascular Exam Cardiovascular Exam: REGULAR RHYTHM, +S1, +S2. absent: Murmur - GI/Abdominal Exam GI & Abdominal Exam: Soft, Normal Bowel Sounds. absent: Tenderness - Rectal Exam Rectal Exam: NORMAL INSPECTION - Extremities Exam Extremities Exam: Full ROM, Normal Capillary Refill, Normal Inspection. absent : Joint Swelling, Pedal Edema - Back Exam Back Exam: NORMAL INSPECTION - Neurological Exam Neurological Exam: Alert, Awake, CN II-XII Intact, Normal Gait, Oriented x3 - Psychiatric Exam Psychiatric exam: Normal Affect, Normal Mood - Skin Skin Exam: Dry, Normal Color, Rash, Vesicles, Warm Assessment and Plan - Assessment and Plan (Free Text) Assessment: CELLULITIS OF SKIN HYPERKALEMIA CHRONIC RENAL DZ ASHD ANEMIA Plan: HEME EVAL FOR IRON RX CONTINUE ANTIBIOTIC RX
--- NOTE | 2017-08-04 11:31 | CP.PCM.CON ---
History of Present Illness - History of Present Illness History of Present Illness: This s a 87 yrs old mal whom I had sween a few months ago for anemia.I gave him 3 doses of venofer and his count improved, Now he was admitted for multiple cystic lesions on the body,especially extremities. He had a similar episode about 2-3 weeks ago and he was stared on antibiotics. The lesons started going away, but when the antibiotics were stopped, they recurred. They have not been biopsied yet but it would be a good idea. According to the daughter it is not as bad as last time. The cbc shows a wbc of 12.4 , hgb of 7.7gms , mcv of 85, platelets of 296K. The differential shows 42 % eosinophils. He does not c/o any allergies he also has tear drop cells sciztocytes and polychromasia. He has a past h/o CAD,COPD,Hypercholesterolemia, CRD. His network announcer had given him procrit, but after a while the pt did not follow up with him any more. Past Patient History - Tetanus Immunizations Tetanus Immunization: Unknown - Past Medical History & Family History Past Medical History?: Yes - Past Social History Smoking Status: Former Smoker - CARDIAC Hx Atrial Fibrillation: Yes Hx Hypercholesterolemia: Yes Hx Hypertension: Yes - PULMONARY Hx Chronic Obstructive Pulmonary Disease (COPD): Yes - NEUROLOGICAL Hx Transient Ischemic Attacks (TIA): Yes (Apr 2016) - HEENT Hx Deafness: Yes Other/Comment: HARD OF HEARING RIGHT EAR - RENAL Hx Chronic Kidney Disease: Yes - ENDOCRINE/METABOLIC Hx Endocrine Disorders: Yes Hx Diabetes Mellitus Type 2: Yes - HEMATOLOGICAL/ONCOLOGICAL Hx Anemia: Yes Hx Human Immunodeficiency Virus (HIV): No - INTEGUMENTARY Other/Comment: blisters and cellulitis - MUSCULOSKELETAL/RHEUMATOLOGICAL Hx Arthritis: Yes Hx Fractures: Yes (left arm fx due to fall in the snow) - GASTROINTESTINAL Hx Diverticulitis: Yes - GENITOURINARY/GYNECOLOGICAL Hx Genitourinary Disorders: No - PSYCHIATRIC Hx Psychophysiologic Disorder: No - SURGICAL HISTORY Hx Carotid Endarterectomy: Yes Hx Cholecystectomy: Yes Hx Coronary Stent: Yes - ANESTHESIA Hx Anesthesia: Yes Hx Anesthesia Reactions: No Hx Malignant Hyperthermia: No Meds Allergies/Adverse Reactions: Allergies Allergy/AdvReac Type Severity Reaction Status Date / Time No Known Allergies Allergy Verified 06/11/17 11:13 - Medications Medications: Current Medications Acetaminophen (Tylenol 325mg Tab) 650 mg PO Q4 PRN PRN Reason: Fever >100.4 F Albuterol/Ipratropium (Duoneb 3 Mg/0.5 Mg (3 Ml) Ud) 3 ml INH RQ6 PRN PRN Reason: Shortness of Breath Aspirin (Ecotrin) 81 mg PO DAILY [facility] Last Admin: 08/04/17 09:26 Dose: 81 mg Cilostazol (Pletal) 100 mg PO DAILY [facility] Last Admin: 08/04/17 09:26 Dose: 100 mg Ferrous Sulfate (Feosol) 325 mg PO BID [facility] Last Admin: 08/04/17 09:26 Dose: 325 mg Finasteride (Proscar) 5 mg PO DAILY [facility] Last Admin: 08/04/17 09:26 Dose: 5 mg Cefazolin Sodium 1 gm/ Sodium (Chloride) 100 mls @ 100 mls/hr IVPB Q12 ELI PRN Reason: Protocol Last Admin: 08/04/17 09:25 Dose: 100 mls/hr Vancomycin HCl 1 gm/ Sodium (Chloride) 250 mls @ 166.667 mls/hr IVPB Q48H [facility] PRN Reason: Protocol Last Admin: 08/03/17 13:25 Dose: 166.667 mls/hr Iron Sucrose 200 mg/ Sodium (Chloride) 110 mls @ 110 mls/hr IVPB DAILY [facility] Lactobacillus Acidophilus (Bacid Acidophilus) 1 cap PO HS [facility] Last Admin: 08/03/17 21:22 Dose: 1 cap Mupirocin (Bactroban Ointment) 1 applic TOP BID [facility] Last Admin: 08/04/17 09:25 Dose: 1 applic Iqjze-1-Pods Ethyl Esters (Lovaza) 1 gm PO DAILY [facility] Last Admin: 08/04/17 09:26 Dose: 1 gm Pantoprazole Sodium (Protonix Ec Tab) 40 mg PO DAILY [facility] Last Admin: 08/04/17 09:26 Dose: 40 mg Pravastatin Sodium (Pravachol) 20 mg PO HS [facility] Last Admin: 08/03/17 21:22 Dose: 20 mg Sodium Bicarbonate (Sodium Bicarbonate Tab) 650 mg PO BID [facility] Last Admin: 08/04/17 09:27 Dose: 650 mg Valsartan (Diovan) 320 mg PO DAILY [facility] Last Admin: 08/04/17 09:25 Dose: 320 mg Physical Exam - Additional Findings Additional findings: Physical exam; pt is alert and awake, in no distress neck is supple, no adenopathy Chest; Air entry is good, there are no rales Heart: RSR, nOmurmur Abd; Soft, no mass no h/s megaly Extremeties show cystic lesions some of which are bleeding Results - Vital Signs Recent Vital Signs: Last Vital Signs Temp 97.3 F L 08/04/17 08:00 Pulse 83 08/04/17 09:00 Resp 20 08/04/17 08:00 BP 176/69 H 08/04/17 08:00 Pulse Ox 98 08/04/17 08:00 - Labs Result Diagrams: 08/04/17 04:20 08/04/17 04:20 Labs: Laboratory Results - last 24 hr 08/02/17 08/04/17 08/04/17 04:25 04:20 04:20 WBC 12.4 H RBC 2.78 L Hgb 7.7 L Hct 23.7 L MCV 85.2 MCH 27.8 MCHC 32.6 L RDW 14.5 Plt Count 296 Sodium 139 Potassium 5.6 H Chloride 109 H Carbon Dioxide 19 L Anion Gap 17 BUN 48 H Creatinine 2.5 H Est GFR ( Amer) 30 Est GFR (Non-Af Amer) 25 Random Glucose 83 Calcium 8.0 L HUONG Screen Negative Proteinase 3 (PR3) <1.0 Myeloperoxidase Ab <1.0 Assessment & Plan - Assessment and Plan (Free Text) Assessment: IMpression; Anemia could be secondary to CRD, but cannot r/o MDS considering the high eosinophil count. Anemia could also be secondary to chronic disease or vasculitis. The etiology of the lesions have to be determined. Plan: Plan; Have ordered some tests will give him venofer because he needs iron if the procrit is to work After the blood tests are back will give him procrit, and arrange for his daughter to give it to him, and a lab to go home and draw the blcbc. Would suggest a biopsy of the lesion to r/o vasculitis. - Date & Time Date: 08/04/17 Time: 11:50
--- NOTE | 2017-08-04 12:24 | CP.PCM.PN ---
Subjective - Date & Time of Evaluation Date of Evaluation: 08/04/17 Time of Evaluation: 10:00 - Subjective Subjective: NO FEVER CELLULITIS IMPROVING IV RX IN PROGRESS Objective - Vital Signs/Intake and Output Vital Signs (last 24 hours): Temp Pulse Resp BP Pulse Ox 97.3 F L 83 20 176/69 H 98 08/04/17 08:00 08/04/17 09:00 08/04/17 08:00 08/04/17 08:00 08/04/17 08:00 - Medications Medications: Current Medications Acetaminophen (Tylenol 325mg Tab) 650 mg PO Q4 PRN PRN Reason: Fever >100.4 F Albuterol/Ipratropium (Duoneb 3 Mg/0.5 Mg (3 Ml) Ud) 3 ml INH RQ6 PRN PRN Reason: Shortness of Breath Aspirin (Ecotrin) 81 mg PO DAILY [facility] Last Admin: 08/04/17 09:26 Dose: 81 mg Cilostazol (Pletal) 100 mg PO DAILY [facility] Last Admin: 08/04/17 09:26 Dose: 100 mg Ferrous Sulfate (Feosol) 325 mg PO BID [facility] Last Admin: 08/04/17 09:26 Dose: 325 mg Finasteride (Proscar) 5 mg PO DAILY [facility] Last Admin: 08/04/17 09:26 Dose: 5 mg Cefazolin Sodium 1 gm/ Sodium (Chloride) 100 mls @ 100 mls/hr IVPB Q12 ELI PRN Reason: Protocol Last Admin: 08/04/17 09:25 Dose: 100 mls/hr Vancomycin HCl 1 gm/ Sodium (Chloride) 250 mls @ 166.667 mls/hr IVPB Q48H ELI PRN Reason: Protocol Last Admin: 08/03/17 13:25 Dose: 166.667 mls/hr Iron Sucrose 200 mg/ Sodium (Chloride) 110 mls @ 110 mls/hr IVPB DAILY [facility] Iron Sucrose 200 mg/ Sodium (Chloride) 110 mls @ 110 mls/hr IVPB DAILY [facility] Lactobacillus Acidophilus (Bacid Acidophilus) 1 cap PO HS [facility] Last Admin: 08/03/17 21:22 Dose: 1 cap Mupirocin (Bactroban Ointment) 1 applic TOP BID [facility] Last Admin: 08/04/17 09:25 Dose: 1 applic Cmwjo-1-Rxig Ethyl Esters (Lovaza) 1 gm PO DAILY [facility] Last Admin: 08/04/17 09:26 Dose: 1 gm Pantoprazole Sodium (Protonix Ec Tab) 40 mg PO DAILY [facility] Last Admin: 08/04/17 09:26 Dose: 40 mg Pravastatin Sodium (Pravachol) 20 mg PO HS [facility] Last Admin: 08/03/17 21:22 Dose: 20 mg Sodium Bicarbonate (Sodium Bicarbonate Tab) 650 mg PO BID [facility] Last Admin: 08/04/17 09:27 Dose: 650 mg Valsartan (Diovan) 320 mg PO DAILY [facility] Last Admin: 08/04/17 09:25 Dose: 320 mg - Labs Labs: 08/04/17 04:20 08/04/17 04:20 PT 9.9 Seconds (9.8-13.1) 07/29/17 23:58 INR 0.9 (0.9-1.2) 07/29/17 23:58 APTT 30.2 Seconds (25.6-37.1) 07/29/17 23:58 - Constitutional Appears: Non-toxic, Chronically Ill - Head Exam Head Exam: NORMOCEPHALIC - Eye Exam Eye Exam: PERRL - ENT Exam ENT Exam: Mucous Membranes Dry - Neck Exam Neck Exam: absent: Lymphadenopathy - Respiratory Exam Respiratory Exam: Decreased Breath Sounds - Cardiovascular Exam Cardiovascular Exam: REGULAR RHYTHM - GI/Abdominal Exam GI & Abdominal Exam: Distended - Rectal Exam Rectal Exam: Deferred - Exam Exam: NORMAL INSPECTION - Extremities Exam Extremities Exam: absent: Pedal Edema - Back Exam Back Exam: absent: CVA tenderness (L), CVA tenderness (R) - Neurological Exam Neurological Exam: Alert, Awake, Oriented x3 - Psychiatric Exam Psychiatric exam: Normal Mood - Skin Skin Exam: Dry Assessment and Plan (1) Cellulitis Status: Acute (2) Syncope Status: Chronic (3) CKD (chronic kidney disease), stage III Status: Acute (4) CKD stage 3 due to type 1 diabetes mellitus Status: Acute (5) Carotid stenosis, right Status: Acute (6) Chronic renal disease, stage 4, severely decreased glomerular filtration rate (GFR) between 15-29 mL/min/1.73 square meter Status: Acute (7) Dehydration Status: Acute (8) Fall Status: Acute - Assessment and Plan (Free Text) Assessment: IV RX REORDERED
[2017-08-04] MEDS ORDERED: Epoetin Alfa 20000 UNIT/ML (RENAL DOSE) SC ONE (13:52)
--- NOTE | 2017-08-04 13:56 | CP.PCM.PN ---
Subjective - Date & Time of Evaluation Date of Evaluation: 08/04/17 Time of Evaluation: 13:00 - Subjective Subjective: SEEN ON RENAL F/U FEELS IMPROVED Objective - Vital Signs/Intake and Output Vital Signs (last 24 hours): Temp Pulse Resp BP Pulse Ox 97.3 F L 76 20 149/63 99 08/04/17 13:07 08/04/17 13:07 08/04/17 13:07 08/04/17 13:07 08/04/17 13:07 - Medications Medications: Current Medications Acetaminophen (Tylenol 325mg Tab) 650 mg PO Q4 PRN PRN Reason: Fever >100.4 F Albuterol/Ipratropium (Duoneb 3 Mg/0.5 Mg (3 Ml) Ud) 3 ml INH RQ6 PRN PRN Reason: Shortness of Breath Aspirin (Ecotrin) 81 mg PO DAILY [facility] Last Admin: 08/04/17 09:26 Dose: 81 mg Cilostazol (Pletal) 100 mg PO DAILY [facility] Last Admin: 08/04/17 09:26 Dose: 100 mg Epoetin Nolan (Procrit) 20,000 unit SC ONCE ONE Stop: 08/04/17 13:53 Ferrous Sulfate (Feosol) 325 mg PO BID [facility] Last Admin: 08/04/17 09:26 Dose: 325 mg Finasteride (Proscar) 5 mg PO DAILY [facility] Last Admin: 08/04/17 09:26 Dose: 5 mg Cefazolin Sodium 1 gm/ Sodium (Chloride) 100 mls @ 100 mls/hr IVPB Q12 ELI PRN Reason: Protocol Last Admin: 08/04/17 09:25 Dose: 100 mls/hr Vancomycin HCl 1 gm/ Sodium (Chloride) 250 mls @ 166.667 mls/hr IVPB Q48H [facility]I PRN Reason: Protocol Last Admin: 08/03/17 13:25 Dose: 166.667 mls/hr Iron Sucrose 200 mg/ Sodium (Chloride) 110 mls @ 110 mls/hr IVPB DAILY [facility] Iron Sucrose 200 mg/ Sodium (Chloride) 110 mls @ 110 mls/hr IVPB DAILY [facility] Lactobacillus Acidophilus (Bacid Acidophilus) 1 cap PO HS [facility] Last Admin: 08/03/17 21:22 Dose: 1 cap Mupirocin (Bactroban Ointment) 1 applic TOP BID [facility] Last Admin: 08/04/17 09:25 Dose: 1 applic Imscq-4-Pzbi Ethyl Esters (Lovaza) 1 gm PO DAILY [facility] Last Admin: 08/04/17 09:26 Dose: 1 gm Pantoprazole Sodium (Protonix Ec Tab) 40 mg PO DAILY [facility] Last Admin: 08/04/17 09:26 Dose: 40 mg Pravastatin Sodium (Pravachol) 20 mg PO HS [facility] Last Admin: 08/03/17 21:22 Dose: 20 mg Sodium Bicarbonate (Sodium Bicarbonate Tab) 650 mg PO BID [facility] Last Admin: 08/04/17 09:27 Dose: 650 mg Valsartan (Diovan) 320 mg PO DAILY [facility] Last Admin: 08/04/17 09:25 Dose: 320 mg - Labs Labs: 08/04/17 04:20 08/04/17 04:20 PT 9.9 Seconds (9.8-13.1) 07/29/17 23:58 INR 0.9 (0.9-1.2) 07/29/17 23:58 APTT 30.2 Seconds (25.6-37.1) 07/29/17 23:58 Assessment and Plan - Assessment and Plan (Free Text) Assessment: CKD .. RENAL FUNCTION AT BASELINE ANEMIA OF CKD .. R/O OTHER CAUSES .. START EPO .. START VENOFER MMP P : ORDERS WRITTEN
[2017-08-04 14:44] LABS: FERRITIN 59.4 ng/Ml (17.9-464)
[2017-08-04] MEDS: Pravastatin Sodium 20 MG TAB PO SCH (21:36)
[2017-08-04] MEDS: Lactobacillus Acidophilus 500 MU Cap PO SCH (21:38)
[2017-08-05 06:56] LABS: CALCIUM 8.3 mg/dL (8.4-10.2)
[2017-08-05 07:00] LABS: BASO % 0.4 % (0.0-2.0); EOS # 5.3 K/uL (0.0-0.7); EOS % 47.1 % (0.0-4.0); HEMOGLOBIN 7.7 g/dL (12.0-18.0); LYMPH # 1.8 K/uL (1.0-4.3); LYMPH % 16.1 % (20.0-40.0); MEAN CELL VOLUME 84.8 fl (80.0-94.0); MEAN CORPUSCULAR HEMOGLOBIN 27.6 pg (27.0-31.0); MEAN CORPUSCULAR HGB CONC 32.6 g/dL (33.0-37.0); MEAN PLATELET VOLUME 8.9 fl (7.2-11.7); MONO # 0.9 K/uL (0.0-0.8); MONO % 8.3 % (0.0-10.0); NEUT # 3.2 K/uL (1.8-7.0); NEUT % 28.1 % (50.0-75.0); NRBC % 0.3 % (0.0-0.0); PLATELET COUNT 326 K/uL (130-400); RED CELL DISTRIBUTION WIDTH 14.2 % (11.5-14.5); WHITE BLOOD COUNT 11.2 K/uL (4.8-10.8)
[2017-08-05] MEDS ORDERED: Epoetin Alfa 40000 UNIT/ml Inj SC ONE (07:31)
--- NOTE | 2017-08-05 08:19 | CP.PCM.PN ---
Subjective - Date & Time of Evaluation Date of Evaluation: 08/05/17 Time of Evaluation: 08:19 - Subjective Subjective: SKIN LESIONS APPEAR TO BE DRYING UP BP STILL POORLY CONTROLLED Objective - Vital Signs/Intake and Output Vital Signs (last 24 hours): Temp Pulse Resp BP Pulse Ox 97.6 F 87 18 179/62 H 97 08/05/17 05:05 08/05/17 05:05 08/05/17 05:05 08/05/17 05:05 08/05/17 05:05 Intake and Output: 08/05/17 08/05/17 06:59 18:59 Intake Total 250 Output Total 500 Balance -250 - Medications Medications: Current Medications Acetaminophen (Tylenol 325mg Tab) 650 mg PO Q4 PRN PRN Reason: Fever >100.4 F Albuterol/Ipratropium (Duoneb 3 Mg/0.5 Mg (3 Ml) Ud) 3 ml INH RQ6 PRN PRN Reason: Shortness of Breath Aspirin (Ecotrin) 81 mg PO DAILY [facility] Last Admin: 08/04/17 09:26 Dose: 81 mg Cilostazol (Pletal) 100 mg PO DAILY [facility] Last Admin: 08/04/17 09:26 Dose: 100 mg Cyanocobalamin (Vitamin B12 1000 Mcg/Ml Inj) 1,000 mcg IM DAILY [facility] Stop: 08/08/17 10:00 Ferrous Sulfate (Feosol) 325 mg PO BID [facility] Last Admin: 08/04/17 16:01 Dose: 325 mg Finasteride (Proscar) 5 mg PO DAILY [facility] Last Admin: 08/04/17 09:26 Dose: 5 mg Cefazolin Sodium 1 gm/ Sodium (Chloride) 100 mls @ 100 mls/hr IVPB Q12 [facility] PRN Reason: Protocol Last Admin: 08/04/17 21:36 Dose: 100 mls/hr Vancomycin HCl 1 gm/ Sodium (Chloride) 250 mls @ 166.667 mls/hr IVPB Q48H [facility] PRN Reason: Protocol Last Admin: 08/03/17 13:25 Dose: 166.667 mls/hr Iron Sucrose 200 mg/ Sodium (Chloride) 110 mls @ 110 mls/hr IVPB DAILY [facility] Lactobacillus Acidophilus (Bacid Acidophilus) 1 cap PO HS [facility] Last Admin: 08/04/17 21:38 Dose: 1 cap Mupirocin (Bactroban Ointment) 1 applic TOP BID [facility] Last Admin: 08/04/17 16:02 Dose: 1 applic Awmay-9-Pskn Ethyl Esters (Lovaza) 1 gm PO DAILY [facility] Last Admin: 08/04/17 09:26 Dose: 1 gm Pantoprazole Sodium (Protonix Ec Tab) 40 mg PO DAILY [facility] Last Admin: 08/04/17 09:26 Dose: 40 mg Pravastatin Sodium (Pravachol) 20 mg PO HS [facility] Last Admin: 08/04/17 21:36 Dose: 20 mg Sodium Bicarbonate (Sodium Bicarbonate Tab) 650 mg PO BID [facility] Last Admin: 08/04/17 16:01 Dose: 650 mg Valsartan (Diovan) 320 mg PO DAILY [facility] Last Admin: 08/04/17 09:25 Dose: 320 mg - Labs Labs: 08/05/17 05:30 08/05/17 05:30 PT 9.9 Seconds (9.8-13.1) 07/29/17 23:58 INR 0.9 (0.9-1.2) 07/29/17 23:58 APTT 30.2 Seconds (25.6-37.1) 07/29/17 23:58 - Constitutional Appears: No Acute Distress - Head Exam Head Exam: ATRAUMATIC, NORMAL INSPECTION, NORMOCEPHALIC - Eye Exam Eye Exam: EOMI, Normal appearance, PERRL Pupil Exam: NORMAL ACCOMODATION, PERRL - ENT Exam ENT Exam: Mucous Membranes Moist, Normal Exam - Neck Exam Neck Exam: Full ROM, Normal Inspection. absent: Lymphadenopathy - Respiratory Exam Respiratory Exam: Clear to Ausculation Bilateral, NORMAL BREATHING PATTERN - Cardiovascular Exam Cardiovascular Exam: REGULAR RHYTHM, +S1, +S2. absent: Murmur - GI/Abdominal Exam GI & Abdominal Exam: Soft, Normal Bowel Sounds. absent: Tenderness - Rectal Exam Rectal Exam: NORMAL INSPECTION - Extremities Exam Extremities Exam: Full ROM, Normal Capillary Refill, Normal Inspection. absent : Joint Swelling, Pedal Edema - Back Exam Back Exam: NORMAL INSPECTION - Neurological Exam Neurological Exam: Alert, Awake, CN II-XII Intact, Normal Gait, Oriented x3 - Psychiatric Exam Psychiatric exam: Normal Affect, Normal Mood - Skin Skin Exam: Dry, Vesicles, Warm Additional comments: BLISTERS OF SKIN HEALING Assessment and Plan - Assessment and Plan (Free Text) Assessment: CELLULITIS OF SKIN UNCONTROLLED HTN RENAL FAILURE HYPERKALEMIA ASHD DEAFNESS ANEMIA Plan: CONTINUE RX ORDERED SNAKE CHARMER FOR D/C PLANNING
[2017-08-05] MEDS: Cilostazol 100 mg Tab UD PO SCH (09:00)
[2017-08-05] MEDS: Omega-3-Acid Ethyl Esters 1 GM Cap PO SCH (09:00)
[2017-08-05] MEDS: ceFAZolin 1 GM in Sodium Chloride 0.9% 100 ML IVPB SCH ×2 (09:00→21:31)
[2017-08-05] MEDS: Pantoprazole 40 mg EC Tab PO SCH (09:00)
--- NOTE | 2017-08-05 09:24 | CP.PCM.PN ---
Subjective - Date & Time of Evaluation Date of Evaluation: 08/05/17 Time of Evaluation: 09:20 - Subjective Subjective: Pt received his first 200 mg of venofer yesterday, and had no side effects. Will give him one today and 2 more if the pt is still in the hospital His ferritin was low normal as was the B12. The retic was only 1.2 which is low for the degree of anemia. Wull give him B12 as well. I have started him on procrit 40,000u weekly Objective - Vital Signs/Intake and Output Vital Signs (last 24 hours): Temp Pulse Resp BP Pulse Ox 97.6 F 74 18 129/60 97 08/05/17 08:00 08/05/17 08:00 08/05/17 08:00 08/05/17 08:00 08/05/17 08:00 Intake and Output: 08/05/17 08/05/17 06:59 18:59 Intake Total 250 Output Total 500 Balance -250 - Medications Medications: Current Medications Acetaminophen (Tylenol 325mg Tab) 650 mg PO Q4 PRN PRN Reason: Fever >100.4 F Albuterol/Ipratropium (Duoneb 3 Mg/0.5 Mg (3 Ml) Ud) 3 ml INH RQ6 PRN PRN Reason: Shortness of Breath Aspirin (Ecotrin) 81 mg PO DAILY [facility] Last Admin: 08/04/17 09:26 Dose: 81 mg Cilostazol (Pletal) 100 mg PO DAILY [facility] Last Admin: 08/04/17 09:26 Dose: 100 mg Cyanocobalamin (Vitamin B12 1000 Mcg/Ml Inj) 1,000 mcg IM DAILY [facility] Stop: 08/08/17 10:00 Ferrous Sulfate (Feosol) 325 mg PO BID [facility] Last Admin: 08/04/17 16:01 Dose: 325 mg Finasteride (Proscar) 5 mg PO DAILY [facility] Last Admin: 08/04/17 09:26 Dose: 5 mg Cefazolin Sodium 1 gm/ Sodium (Chloride) 100 mls @ 100 mls/hr IVPB Q12 ELI PRN Reason: Protocol Last Admin: 08/04/17 21:36 Dose: 100 mls/hr Vancomycin HCl 1 gm/ Sodium (Chloride) 250 mls @ 166.667 mls/hr IVPB Q48H ELI PRN Reason: Protocol Last Admin: 08/03/17 13:25 Dose: 166.667 mls/hr Iron Sucrose 200 mg/ Sodium (Chloride) 110 mls @ 110 mls/hr IVPB DAILY [facility] Lactobacillus Acidophilus (Bacid Acidophilus) 1 cap PO HS [facility] Last Admin: 08/04/17 21:38 Dose: 1 cap Mupirocin (Bactroban Ointment) 1 applic TOP BID [facility] Last Admin: 08/04/17 16:02 Dose: 1 applic [id number] Ethyl Esters (Lovaza) 1 gm PO DAILY [facility] Last Admin: 08/04/17 09:26 Dose: 1 gm Pantoprazole Sodium (Protonix Ec Tab) 40 mg PO DAILY [facility] Last Admin: 08/04/17 09:26 Dose: 40 mg Pravastatin Sodium (Pravachol) 20 mg PO HS [facility] Last Admin: 08/04/17 21:36 Dose: 20 mg Sodium Bicarbonate (Sodium Bicarbonate Tab) 650 mg PO BID [facility] Last Admin: 08/04/17 16:01 Dose: 650 mg Valsartan (Diovan) 320 mg PO DAILY [facility] Last Admin: 08/04/17 09:25 Dose: 320 mg - Labs Labs: 08/05/17 05:30 08/05/17 05:30 PT 9.9 Seconds (9.8-13.1) 07/29/17 23:58 INR 0.9 (0.9-1.2) 07/29/17 23:58 APTT 30.2 Seconds (25.6-37.1) 07/29/17 23:58
[2017-08-05 10:02] LABS: EOSINOPHIL 50 % (0-7); HYPOCHROMIC MODERATE; LYMPHOCYTE 13 % (20-50); MONOCYTE 6 % (0-10); NEUTROPHIL 31 % (42-75); OVALOCYTES SLIGHT; PLATELET ESTIMATE NORMAL (NORMAL); TOTAL CELLS COUNTED 100
[2017-08-05 10:03] LABS: SCHISTOCYTES SLIGHT
--- NOTE | 2017-08-05 18:37 | CP.PCM.PN ---
Subjective - Date & Time of Evaluation Date of Evaluation: 08/05/17 Time of Evaluation: 14:00 - Subjective Subjective: SEEN ON RENAL F/U ALERT AND ORIENTED .. NAD FEELS IMPROVED ALL PREVIOUS EMR REVIEWED RENAL FUNCTION STABLE Objective - Vital Signs/Intake and Output Vital Signs (last 24 hours): Temp Pulse Resp BP Pulse Ox 97.8 F 64 19 150/67 94 L 08/05/17 16:16 08/05/17 16:16 08/05/17 16:16 08/05/17 16:16 08/05/17 16:16 Intake and Output: 08/05/17 08/05/17 06:59 18:59 Intake Total 250 Output Total 500 Balance -250 - Medications Medications: Current Medications Acetaminophen (Tylenol 325mg Tab) 650 mg PO Q4 PRN PRN Reason: Fever >100.4 F Albuterol/Ipratropium (Duoneb 3 Mg/0.5 Mg (3 Ml) Ud) 3 ml INH RQ6 PRN PRN Reason: Shortness of Breath Aspirin (Ecotrin) 81 mg PO DAILY [facility] Last Admin: 08/05/17 09:00 Dose: 81 mg Cyanocobalamin (Vitamin B12 1000 Mcg/Ml Inj) 1,000 mcg IM DAILY [facility] Stop: 08/08/17 10:00 Last Admin: 08/05/17 17:46 Dose: 1,000 mcg Ferrous Sulfate (Feosol) 325 mg PO BID [facility] Last Admin: 08/05/17 17:47 Dose: 325 mg Finasteride (Proscar) 5 mg PO DAILY [facility] Last Admin: 08/05/17 09:00 Dose: 5 mg Cefazolin Sodium 1 gm/ Sodium (Chloride) 100 mls @ 100 mls/hr IVPB Q12 ELI PRN Reason: Protocol Last Admin: 08/05/17 09:00 Dose: 100 mls/hr Vancomycin HCl 1 gm/ Sodium (Chloride) 250 mls @ 166.667 mls/hr IVPB Q48H ELI PRN Reason: Protocol Last Admin: 08/05/17 14:30 Dose: 166.667 mls/hr Iron Sucrose 200 mg/ Sodium (Chloride) 110 mls @ 110 mls/hr IVPB DAILY [facility] Last Admin: 08/05/17 11:00 Dose: 110 mls/hr Lactobacillus Acidophilus (Bacid Acidophilus) 1 cap PO HS [facility] Last Admin: 08/04/17 21:38 Dose: 1 cap Mupirocin (Bactroban Ointment) 1 applic TOP BID [facility] Last Admin: 08/05/17 17:47 Dose: 1 applic [id number] Ethyl Esters (Lovaza) 1 gm PO DAILY [facility] Last Admin: 08/05/17 09:00 Dose: 1 gm Pantoprazole Sodium (Protonix Ec Tab) 40 mg PO DAILY [facility] Last Admin: 08/05/17 09:00 Dose: 40 mg Pravastatin Sodium (Pravachol) 20 mg PO HS [facility] Last Admin: 08/04/17 21:36 Dose: 20 mg Sodium Bicarbonate (Sodium Bicarbonate Tab) 650 mg PO BID [facility] Last Admin: 08/05/17 17:47 Dose: 650 mg Valsartan (Diovan) 320 mg PO DAILY [facility] Last Admin: 08/05/17 09:00 Dose: 320 mg - Labs Labs: 08/05/17 05:30 08/05/17 05:30 PT 9.9 Seconds (9.8-13.1) 07/29/17 23:58 INR 0.9 (0.9-1.2) 07/29/17 23:58 APTT 30.2 Seconds (25.6-37.1) 07/29/17 23:58 Assessment and Plan - Assessment and Plan (Free Text) Assessment: CKD .. STAGE 3-4 .. RENAL FUNCTION STABLE HYPERKALEMIA .. K PERSISTANTLY HIGH .. START CHLPRTHALIDONE .. 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 ON VENOFER AND EPO P : C/O EPO AND VENOFER D/C PLETAL 2/2 CHF START CHRORTHALIDONE FOR HTN AND HYPERKALEMIA ORDERS WRITTEN
[2017-08-05] MEDS: Pravastatin Sodium 20 MG TAB PO SCH (21:32)
[2017-08-05] MEDS: Lactobacillus Acidophilus 500 MU Cap PO SCH (21:32)
[2017-08-06 05:43] LABS: MEAN CELL VOLUME 85.5 fl (80.0-94.0); MEAN CORPUSCULAR HEMOGLOBIN 27.7 pg (27.0-31.0); MEAN CORPUSCULAR HGB CONC 32.4 g/dL (33.0-37.0); RBC 2.87 Mil/uL (4.40-5.90); RED CELL DISTRIBUTION WIDTH 14.5 % (11.5-14.5); WHITE BLOOD COUNT 14.4 K/uL (4.8-10.8)
[2017-08-06 06:27] LABS: CALCIUM 8.6 mg/dL (8.4-10.2)
[2017-08-06] MEDS: Omega-3-Acid Ethyl Esters 1 GM Cap PO SCH (10:23)
[2017-08-06] MEDS: Pantoprazole 40 mg EC Tab PO SCH (10:23)
[2017-08-06] MEDS: ceFAZolin 1 GM in Sodium Chloride 0.9% 100 ML IVPB SCH ×2 (10:24→21:12)
[2017-08-06] MEDS ORDERED: Sod Polystyrene Sulf 15 gm/60 ml Susp PO ONE (11:49)
--- NOTE | 2017-08-06 12:16 | CP.PCM.PN ---
Subjective - Date & Time of Evaluation Date of Evaluation: 08/06/17 Time of Evaluation: 12:18 - Subjective Subjective: DAUGHTER INDICATES THAT PT IS MORE CONFUSED TODAY Objective - Vital Signs/Intake and Output Vital Signs (last 24 hours): Temp Pulse Resp BP Pulse Ox 97.3 F L 85 18 148/56 L 98 08/06/17 08:00 08/06/17 08:00 08/06/17 08:00 08/06/17 08:00 08/06/17 08:00 - Medications Medications: Current Medications Acetaminophen (Tylenol 325mg Tab) 650 mg PO Q4 PRN PRN Reason: Fever >100.4 F Albuterol/Ipratropium (Duoneb 3 Mg/0.5 Mg (3 Ml) Ud) 3 ml INH RQ6 PRN PRN Reason: Shortness of Breath Aspirin (Ecotrin) 81 mg PO DAILY [facility] Last Admin: 08/06/17 10:23 Dose: 81 mg Cyanocobalamin (Vitamin B12 1000 Mcg/Ml Inj) 1,000 mcg IM DAILY [facility] Stop: 08/08/17 10:00 Last Admin: 08/05/17 17:46 Dose: 1,000 mcg Ferrous Sulfate (Feosol) 325 mg PO BID [facility] Last Admin: 08/06/17 10:23 Dose: 325 mg Finasteride (Proscar) 5 mg PO DAILY [facility] Last Admin: 08/06/17 10:23 Dose: 5 mg Cefazolin Sodium 1 gm/ Sodium (Chloride) 100 mls @ 100 mls/hr IVPB Q12 ELI PRN Reason: Protocol Last Admin: 08/06/17 10:24 Dose: 100 mls/hr Vancomycin HCl 1 gm/ Sodium (Chloride) 250 mls @ 166.667 mls/hr IVPB Q48H ELI PRN Reason: Protocol Last Admin: 08/05/17 14:30 Dose: 166.667 mls/hr Iron Sucrose 200 mg/ Sodium (Chloride) 110 mls @ 110 mls/hr IVPB DAILY [facility] Last Admin: 08/05/17 11:00 Dose: 110 mls/hr Lactobacillus Acidophilus (Bacid Acidophilus) 1 cap PO HS [facility] Last Admin: 08/05/17 21:32 Dose: 1 cap Mupirocin (Bactroban Ointment) 1 applic TOP BID [facility] Last Admin: 08/06/17 10:24 Dose: 1 applic [id number] Ethyl Esters (Lovaza) 1 gm PO DAILY [facility] Last Admin: 08/06/17 10:23 Dose: 1 gm Pantoprazole Sodium (Protonix Ec Tab) 40 mg PO DAILY [facility] Last Admin: 08/06/17 10:23 Dose: 40 mg Pravastatin Sodium (Pravachol) 20 mg PO HS [facility] Last Admin: 08/05/17 21:32 Dose: 20 mg Sodium Bicarbonate (Sodium Bicarbonate Tab) 650 mg PO BID [facility] Last Admin: 08/06/17 10:23 Dose: 650 mg Valsartan (Diovan) 320 mg PO DAILY [facility] Last Admin: 08/06/17 10:23 Dose: 320 mg - Labs Labs: 08/06/17 05:10 08/06/17 05:10 PT 9.9 Seconds (9.8-13.1) 07/29/17 23:58 INR 0.9 (0.9-1.2) 07/29/17 23:58 APTT 30.2 Seconds (25.6-37.1) 07/29/17 23:58 - Constitutional Appears: Chronically Ill - Head Exam Head Exam: ATRAUMATIC, NORMAL INSPECTION, NORMOCEPHALIC - Eye Exam Eye Exam: EOMI, Normal appearance, PERRL Pupil Exam: NORMAL ACCOMODATION, PERRL - ENT Exam ENT Exam: Mucous Membranes Moist, Normal Exam - Neck Exam Neck Exam: Full ROM, Normal Inspection. absent: Lymphadenopathy - Respiratory Exam Respiratory Exam: Clear to Ausculation Bilateral, NORMAL BREATHING PATTERN - Cardiovascular Exam Cardiovascular Exam: REGULAR RHYTHM, +S1, +S2. absent: Murmur - GI/Abdominal Exam GI & Abdominal Exam: Soft, Normal Bowel Sounds. absent: Tenderness - Rectal Exam Rectal Exam: NORMAL INSPECTION - Extremities Exam Extremities Exam: Full ROM, Normal Capillary Refill. 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
--- NOTE | 2017-08-06 13:18 | CP.PCM.PN ---
Subjective - Date & Time of Evaluation Date of Evaluation: 08/06/17 Time of Evaluation: 08:00 - Subjective Subjective: events noted iv rx renewed biopsy refused Objective - Vital Signs/Intake and Output Vital Signs (last 24 hours): Temp Pulse Resp BP Pulse Ox 97.3 F L 85 18 148/56 L 98 08/06/17 08:00 08/06/17 08:00 08/06/17 08:00 08/06/17 08:00 08/06/17 08:00 - Medications Medications: Current Medications Acetaminophen (Tylenol 325mg Tab) 650 mg PO Q4 PRN PRN Reason: Fever >100.4 F Albuterol/Ipratropium (Duoneb 3 Mg/0.5 Mg (3 Ml) Ud) 3 ml INH RQ6 PRN PRN Reason: Shortness of Breath Aspirin (Ecotrin) 81 mg PO DAILY [facility] Last Admin: 08/06/17 10:23 Dose: 81 mg Cyanocobalamin (Vitamin B12 1000 Mcg/Ml Inj) 1,000 mcg IM DAILY [facility] Stop: 08/08/17 10:00 Last Admin: 08/06/17 12:59 Dose: 1,000 mcg Ferrous Sulfate (Feosol) 325 mg PO BID [facility] Last Admin: 08/06/17 10:23 Dose: 325 mg Finasteride (Proscar) 5 mg PO DAILY [facility] Last Admin: 08/06/17 10:23 Dose: 5 mg Cefazolin Sodium 1 gm/ Sodium (Chloride) 100 mls @ 100 mls/hr IVPB Q12 ELI PRN Reason: Protocol Last Admin: 08/06/17 10:24 Dose: 100 mls/hr Vancomycin HCl 1 gm/ Sodium (Chloride) 250 mls @ 166.667 mls/hr IVPB Q48H ELI PRN Reason: Protocol Last Admin: 08/05/17 14:30 Dose: 166.667 mls/hr Iron Sucrose 200 mg/ Sodium (Chloride) 110 mls @ 110 mls/hr IVPB DAILY [facility] Last Admin: 08/06/17 13:00 Dose: 110 mls/hr Lactobacillus Acidophilus (Bacid Acidophilus) 1 cap PO HS [facility] Last Admin: 08/05/17 21:32 Dose: 1 cap Mupirocin (Bactroban Ointment) 1 applic TOP BID [facility] Last Admin: 02/23/18 10:24 Dose: 1 applic [id number] Ethyl Esters (Lovaza) 1 gm PO DAILY [facility] Last Admin: 08/06/17 10:23 Dose: 1 gm Pantoprazole Sodium (Protonix Ec Tab) 40 mg PO DAILY [facility] Last Admin: 08/06/17 10:23 Dose: 40 mg Pravastatin Sodium (Pravachol) 20 mg PO HS [facility] Last Admin: 08/05/17 21:32 Dose: 20 mg Sodium Bicarbonate (Sodium Bicarbonate Tab) 650 mg PO BID [facility] Last Admin: 08/06/17 10:23 Dose: 650 mg Valsartan (Diovan) 320 mg PO DAILY [facility] Last Admin: 08/06/17 10:23 Dose: 320 mg - Labs Labs: 08/06/17 05:10 08/06/17 05:10 PT 9.9 Seconds (9.8-13.1) 07/29/17 23:58 INR 0.9 (0.9-1.2) 07/29/17 23:58 APTT 30.2 Seconds (25.6-37.1) 07/29/17 23:58 - Constitutional Appears: Non-toxic, Confused, Chronically Ill - Head Exam Head Exam: NORMOCEPHALIC - Eye Exam Eye Exam: PERRL - ENT Exam ENT Exam: Mucous Membranes Dry - Neck Exam Neck Exam: absent: Lymphadenopathy - Respiratory Exam Respiratory Exam: Decreased Breath Sounds - Cardiovascular Exam Cardiovascular Exam: REGULAR RHYTHM - GI/Abdominal Exam GI & Abdominal Exam: Distended, Soft - Rectal Exam Rectal Exam: Deferred - Exam Exam: NORMAL INSPECTION - Extremities Exam Extremities Exam: Pedal Edema, Tenderness - Back Exam Back Exam: absent: CVA tenderness (L), CVA tenderness (R) Assessment and Plan (1) Cellulitis Status: Acute (2) Syncope Status: Chronic (3) CKD (chronic kidney disease), stage III Status: Acute (4) CKD stage 3 due to type 1 diabetes mellitus Status: Acute (5) Carotid stenosis, right Status: Acute (6) Chronic renal disease, stage 4, severely decreased glomerular filtration rate (GFR) between 15-29 mL/min/1.73 square meter Status: Acute (7) Dehydration Status: Acute (8) Fall Status: Acute - Assessment and Plan (Free Text) Assessment: cellulitis improved
[2017-08-06 16:33] LABS: ANCA SCREEN NEGATIVE (NEGATIVE)
[2017-08-06] MEDS: Pravastatin Sodium 20 MG TAB PO SCH (21:16)
[2017-08-06] MEDS: Lactobacillus Acidophilus 500 MU Cap PO SCH (21:16)
--- NOTE | 2017-08-06 23:58 | CP.PCM.PN ---
Subjective - Date & Time of Evaluation Date of Evaluation: 08/06/17 Time of Evaluation: 16:00 - Subjective Subjective: SEEN ON RENAL F/U FEELS BETER ?? REFUSES TO TAKE KEAYXALATE .. I PRESCRIBED CHLORTHALIDONE TO LOWER K AND TO MANAGE BP WELL RENAL FUNCTION IMPROVING .. 30 --> 31 --> 35 ML/M Objective - Vital Signs/Intake and Output Vital Signs (last 24 hours): Temp Pulse Resp BP Pulse Ox 97.4 F L 77 20 155/56 H 98 08/06/17 19:47 08/06/17 22:36 08/06/17 19:47 08/06/17 19:47 08/06/17 19:47 - Medications Medications: Current Medications Acetaminophen (Tylenol 325mg Tab) 650 mg PO Q4 PRN PRN Reason: Fever >100.4 F Albuterol/Ipratropium (Duoneb 3 Mg/0.5 Mg (3 Ml) Ud) 3 ml INH RQ6 PRN PRN Reason: Shortness of Breath Last Admin: 08/06/17 22:35 Dose: 3 ml Aspirin (Ecotrin) 81 mg PO DAILY [facility] Last Admin: 08/06/17 10:23 Dose: 81 mg Cyanocobalamin (Vitamin B12 1000 Mcg/Ml Inj) 1,000 mcg IM DAILY [facility] Stop: 08/08/17 10:00 Last Admin: 08/06/17 12:59 Dose: 1,000 mcg Ferrous Sulfate (Feosol) 325 mg PO BID [facility] Last Admin: 08/06/17 18:16 Dose: 325 mg Finasteride (Proscar) 5 mg PO DAILY [facility] Last Admin: 08/06/17 10:23 Dose: 5 mg Cefazolin Sodium 1 gm/ Sodium (Chloride) 100 mls @ 100 mls/hr IVPB Q12 ELI PRN Reason: Protocol Last Admin: 08/06/17 21:12 Dose: 100 mls/hr Vancomycin HCl 1 gm/ Sodium (Chloride) 250 mls @ 166.667 mls/hr IVPB Q48H ELI PRN Reason: Protocol Last Admin: 08/05/17 14:30 Dose: 166.667 mls/hr Iron Sucrose 200 mg/ Sodium (Chloride) 110 mls @ 110 mls/hr IVPB DAILY [facility] Last Admin: 08/06/17 13:00 Dose: 110 mls/hr Lactobacillus Acidophilus (Bacid Acidophilus) 1 cap PO HS [facility] Last Admin: 08/06/17 21:16 Dose: 1 cap Mupirocin (Bactroban Ointment) 1 applic TOP BID [facility] Last Admin: 08/06/17 18:16 Dose: 1 applic Bhrif-4-Imrm Ethyl Esters (Lovaza) 1 gm PO DAILY [facility] Last Admin: 08/06/17 10:23 Dose: 1 gm Pantoprazole Sodium (Protonix Ec Tab) 40 mg PO DAILY [facility] Last Admin: 08/06/17 10:23 Dose: 40 mg Pravastatin Sodium (Pravachol) 20 mg PO HS [facility] Last Admin: 08/06/17 21:16 Dose: 20 mg Sodium Bicarbonate (Sodium Bicarbonate Tab) 650 mg PO BID [facility] Last Admin: 08/06/17 18:16 Dose: 650 mg Valsartan (Diovan) 320 mg PO DAILY [facility] Last Admin: 08/06/17 10:23 Dose: 320 mg - Labs Labs: 08/06/17 05:10 08/06/17 05:10 PT 9.9 Seconds (9.8-13.1) 07/29/17 23:58 INR 0.9 (0.9-1.2) 07/29/17 23:58 APTT 30.2 Seconds (25.6-37.1) 07/29/17 23:58 Assessment and Plan - Assessment and Plan (Free Text) Assessment: CKD STAGE 3 .. eGFR IS BETTER ANEMIA OF CKD .. ON VENOFER AND EPO INFECTION / CELLULITIS .. ON IVAB HYPERKALEMIA .. C/O CHLORTHALIDONE P : C/O CURRENT CARE C/O PRESENT MANAGEMENT
[2017-08-07 00:13] VITALS: RESP 18
[2017-08-07 06:23] LABS: HEMOGLOBIN 7.7 g/dL (12.0-18.0); MEAN CELL VOLUME 85.5 fl (80.0-94.0); MEAN CORPUSCULAR HEMOGLOBIN 27.1 pg (27.0-31.0); MEAN CORPUSCULAR HGB CONC 31.7 g/dL (33.0-37.0); RBC 2.84 Mil/uL (4.40-5.90); RED CELL DISTRIBUTION WIDTH 14.9 % (11.5-14.5); WHITE BLOOD COUNT 11.5 K/uL (4.8-10.8)
[2017-08-07 07:07] LABS: CALCIUM 8.6 mg/dL (8.4-10.2)
[2017-08-07] MEDS: Omega-3-Acid Ethyl Esters 1 GM Cap PO SCH (09:33)
[2017-08-07] MEDS: ceFAZolin 1 GM in Sodium Chloride 0.9% 100 ML IVPB SCH (09:34)
[2017-08-07] MEDS: Pantoprazole 40 mg EC Tab PO SCH (09:37)
--- NOTE | 2017-08-07 10:19 | CP.PCM.DIS ---
Provider - Provider Date of Admission: 07/30/17 01:15 Attending physician: Dani Carrington MD Time Spent in preparation of Discharge (in minutes): 30 Diagnosis - Discharge Diagnosis (1) Coronary arteriosclerosis Status: Acute (2) Cellulitis Status: Acute (3) Hyperkalemia, diminished renal excretion Status: Acute (4) Syncope Status: Chronic (5) Anemia Status: Acute (6) Chronic renal disease, stage 4, severely decreased glomerular filtration rate (GFR) between 15-29 mL/min/1.73 square meter Status: Acute (7) Hyperkalemia Status: Acute (8) Hypertension Status: Chronic Hospital Course - Lab Results Lab Results: Micro Results 07/30/17 Unknown Blood Blood Culture - Final NO GROWTH AFTER 5 DAYS 07/30/17 Unknown Blood Gram Stain - Final TEST NOT PERFORMED 07/30/17 00:30 Blood Blood Culture - Final NO GROWTH AFTER 5 DAYS 07/30/17 00:30 Blood Gram Stain - Final TEST NOT PERFORMED 07/30/17 08:10 Naris MRSA Culture (Admit) - Final MRSA NOT DETECTED 07/30/17 14:35 Naris MRSA Culture (Admit) - Final MRSA NOT DETECTED Most Recent Lab Values WBC 11.5 K/uL (4.8-10.8) H 08/07/17 05:15 RBC 2.84 Mil/uL (4.40-5.90) L 08/07/17 05:15 Hgb 7.7 g/dL (12.0-18.0) L 08/07/17 05:15 Hct 24.3 % (35.0-51.0) L 08/07/17 05:15 MCV 85.5 fl (80.0-94.0) 08/07/17 05:15 MCH 27.1 pg (27.0-31.0) 08/07/17 05:15 MCHC 31.7 g/dL (33.0-37.0) L 08/07/17 05:15 RDW 14.9 % (11.5-14.5) H 08/07/17 05:15 Plt Count 342 K/uL (130-400) 08/07/17 05:15 MPV 8.9 fl (7.2-11.7) 08/05/17 05:30 Neut % (Auto) 28.1 % (50.0-75.0) L 08/05/17 05:30 Lymph % (Auto) 16.1 % (20.0-40.0) L 08/05/17 05:30 [place] % (Auto) 8.3 % (0.0-10.0) 08/05/17 05:30 Eos % (Auto) 47.1 % (0.0-4.0) H 08/05/17 05:30 Baso % (Auto) 0.4 % (0.0-2.0) 08/05/17 05:30 Neut # (Auto) 3.2 K/uL (1.8-7.0) 08/05/17 05:30 Lymph # (Auto) 1.8 K/uL (1.0-4.3) 08/05/17 05:30 [place] # (Auto) 0.9 K/uL (0.0-0.8) H 08/05/17 05:30 Eos # (Auto) 5.3 K/uL (0.0-0.7) H 08/05/17 05:30 Baso # (Auto) 0.0 K/uL (0.0-0.2) 08/05/17 05:30 Neutrophils % (Manual) 31 % (42-75) L 08/05/17 05:30 Lymphocytes % (Manual) 13 % (20-50) L 08/05/17 05:30 Monocytes % (Manual) 6 % (0-10) 08/05/17 05:30 Eosinophils % (Manual) 50 % (0-7) H 08/05/17 05:30 Platelet Estimate Normal (NORMAL) 08/05/17 05:30 Large Platelets Present 08/02/17 04:25 Hypochromasia (manual) Moderate 08/05/17 05:30 Basophilic Stippling Slight 08/05/17 05:30 Tear Drop Cells Slight 08/02/17 04:25 Ovalocytes Slight 08/05/17 05:30 Schistocytes Slight 08/05/17 05:30 Retic Count 1.4 % (0.5-1.5) 08/04/17 11:35 Haptoglobin 156 mg/dL (43-212) 08/04/17 13:55 PT 9.9 Seconds (9.8-13.1) 07/29/17 23:58 INR 0.9 (0.9-1.2) 07/29/17 23:58 APTT 30.2 Seconds (25.6-37.1) 07/29/17 23:58 Sodium 141 mmol/l (132-148) 08/07/17 05:15 Potassium 6.0 MMOL/L (3.6-5.0) H 08/07/17 05:15 Chloride 111 mmol/L (98-107) H 08/07/17 05:15 Carbon Dioxide 18 mmol/L (22-30) L 08/07/17 05:15 Anion Gap 18 (10-20) 08/07/17 05:15 BUN 47 mg/dl (9-20) H 08/07/17 05:15 Creatinine 2.0 mg/dl (0.8-1.5) H 08/07/17 05:15 Est GFR ( Amer) 39 08/07/17 05:15 Est GFR (Non-Af Amer) 32 08/07/17 05:15 POC Glucose (mg/dL) 86 mg/dL (65-110) 07/30/17 05:17 Random Glucose 86 mg/dL (75-110) 08/07/17 05:15 Calcium 8.6 mg/dL (8.4-10.2) 08/07/17 05:15 Ferritin 59.4 ng/Ml (17.9-464) 08/04/17 13:55 Total Bilirubin 0.3 mg/dl (0.2-1.3) 07/30/17 06:24 AST 24 U/L (17-59) 07/30/17 06:24 ALT 25 U/L (21-72) 07/30/17 06:24 Alkaline Phosphatase 55 U/L (38-126) 07/30/17 06:24 Lactate Dehydrogenase 608 U/L (313-618) 08/04/17 11:23 Troponin I 0.0460 ng/mL (0.00-0.120) 07/29/17 23:58 Total Protein 6.3 G/DL (6.3-8.2) 07/30/17 06:24 Albumin 3.3 g/dL (3.5-5.0) L 07/30/17 06:24 Globulin 3.0 gm/dL (2.2-3.9) 07/30/17 06:24 Albumin/Globulin Ratio 1.1 (1.0-2.1) 07/30/17 06:24 Vitamin B12 312 pg/mL (239-931) 08/04/17 13:55 Urine Color Yellow (YELLOW) 07/30/17 01:12 Urine Clarity Clear (Clear) 07/30/17 01:12 Urine pH 6.0 (5.0-8.0) 07/30/17 01:12 Ur Specific [place] 1.013 (1.003-1.030) 07/30/17 01:12 Urine Protein 30 mg/dL (NEGATIVE) 07/30/17 01:12 Urine Glucose (UA) Neg mg/dL (Normal) 07/30/17 01:12 Urine Ketones Negative mg/dL (NEGATIVE) 07/30/17 01:12 Urine Blood Negative (NEGATIVE) 07/30/17 01:12 Urine Nitrate Negative (NEGATIVE) 07/30/17 01:12 Urine Bilirubin Negative (NEGATIVE) 07/30/17 01:12 Urine Urobilinogen 0.2-1.0 mg/dL (0.2-1.0) 07/30/17 01:12 Ur Leukocyte Esterase Neg Dexter/uL (Negative) 07/30/17 01:12 Urine RBC (Auto) 1 /hpf (0-3) 07/30/17 01:12 Urine Microscopic WBC 1 /hpf (0-5) 07/30/17 01:12 Hyaline Casts 0-2 /hpf (0-2) 07/30/17 01:12 Vancomycin Trough 12.5 ug/mL (5.0-10.0) H 08/05/17 05:30 Alcohol, Quantitative < 10 mg/dl (0-10) 07/29/17 23:58 HUONG Screen Negative (Negative) 08/02/17 04:25 ANCA Screen Negative (NEGATIVE) 08/03/17 04:30 c-ANCA Titer TNP 08/03/17 04:30 Proteinase 3 (PR3) <1.0 AI (<1.0) 08/03/17 04:30 p-ANCA Titer TNP 08/03/17 04:30 Atypical p-ANCA Titer TNP 08/03/17 04:30 Myeloperoxidase Ab <1.0 AI (<1.0) 08/03/17 04:30 RPR Nonreactive (NONREACTIVE) 08/02/17 04:25 - Hospital Course Hospital Course: NO RECURRENCE OF SYNCOPE SKIN LESIONS IMPROVED HYPERKALEMIA PERSISTS BUT IS CONTROLLED WITH KEYEXALATE Discharge Exam - Head Exam Head Exam: NORMOCEPHALIC - Eye Exam Eye Exam: EOMI, Normal appearance, PERRL Pupil Exam: NORMAL ACCOMODATION, PERRL - GI/Abdominal Exam GI & Abdominal Exam: Normal Bowel Sounds - Rectal Exam Rectal Exam: NORMAL INSPECTION - Neurological Exam Neurological exam: Alert, CN II-XII Intact, Normal Gait, Oriented x3, Reflexes Normal - Psychiatric Exam Psychiatric exam: Normal Affect, Normal Mood - Skin Skin Exam: Dry, Intact, Normal Color, Rash, Warm Discharge Plan - Follow Up Plan Condition: SERIOUS Disposition: HOME/ ROUTINE
[2017-08-07 12:20] VITALS: BP 142/53; PULSE 87; TEMP 97.7; O2SAT 95
== END 2017-08-07 14:45 | disposition home or self-care (01) | DRG 641 ==
LOC: H.ER 23:03 → H.ERHOLD 07-30 01:15 → H.ICU/CCU 07-30 11:25 → H.TEL 07-30 23:10
PROVIDERS: ADMIT Internal Medicine Pulmonary Disease; ATTEND Internal Medicine Pulmonary Disease
DX: E87.5 Hyperkalemia (principal); E86.0 Dehydration; N18.4 Chronic kidney disease, stage 4 (severe); L03.113 Cellulitis of right upper limb; L03.114 Cellulitis of left upper limb; I48.91 Unspecified atrial fibrillation; D63.1 Anemia in chronic kidney disease; E10.22 Type 1 diabetes mellitus with diabetic chronic kidney disease; I65.21 Occlusion and stenosis of right carotid artery; E78.00 Pure hypercholesterolemia, unspecified; H90.0 Conductive hearing loss, bilateral; I12.9 Hypertensive chronic kidney disease with stage 1 through stage 4 chronic kidney disease, or unspecified chronic kidney disease; I25.10 Atherosclerotic heart disease of native coronary artery without angina pectoris; J44.9 Chronic obstructive pulmonary disease, unspecified; Z66 Do not resuscitate; Z86.73 Personal history of transient ischemic attack (TIA), and cerebral infarction without residual deficits; Z95.5 Presence of coronary angioplasty implant and graft; Z79.82 Long term (current) use of aspirin; Z87.891 Personal history of nicotine dependence

== ENCOUNTER 2017-10-06 02:50 | Emergency (ER) | payer MEDICARE ==
[2017-10-06 02:51] VITALS: BMI 25.8
[2017-10-06 03:07] VITALS: RESP 16
[2017-10-06 03:34] LABS: BASO # 0.1 K/uL (0.0-0.2); BASO % 0.5 % (0.0-2.0); EOS # 0.2 K/uL (0.0-0.7); EOS % 1.5 % (0.0-4.0); HEMOGLOBIN 8.4 g/dL (12.0-18.0); LYMPH # 0.7 K/uL (1.0-4.3); LYMPH % 6.3 % (20.0-40.0); MEAN CELL VOLUME 84.8 fl (80.0-94.0); MEAN CORPUSCULAR HEMOGLOBIN 27.1 pg (27.0-31.0); MEAN PLATELET VOLUME 8.6 fl (7.2-11.7); MONO # 0.8 K/uL (0.0-0.8); MONO % 7.6 % (0.0-10.0); NEUT # 9.1 K/uL (1.8-7.0); NEUT % 84.1 % (50.0-75.0); NRBC % 0.1 % (0.0-0.0); PLATELET COUNT 345 K/uL (130-400); RBC 3.08 Mil/uL (4.40-5.90); RED CELL DISTRIBUTION WIDTH 15.6 % (11.5-14.5); WHITE BLOOD COUNT 10.8 K/uL (4.8-10.8)
[2017-10-06 03:40] LABS: CALCIUM 8.6 mg/dL (8.4-10.2)
[2017-10-06] MEDS ORDERED: Insulin Regular 100 units/ml IV STA (03:42)
[2017-10-06] MEDS ORDERED: Dextrose 50% SYRINGE Inj (50 ml) IVP ONE ×2 (03:42→05:46)
[2017-10-06] MEDS ORDERED: Sod Polystyrene Sulf 15 gm/60 ml Susp PO ONE (03:42)
--- NOTE | 2017-10-06 03:43 | ED PDOC ---
HPI: Head Injury Time Seen by Provider: 10/06/17 03:01 Chief Complaint (Nursing): Trauma Chief Complaint (Provider): Head Injury History Per: Patient History/Exam Limitations: no limitations Injury Occurred (Timing): Just Before Arrival Additional Complaint(s): Chava is an 87 y/o male with a history of syncope, CKD, hypertension, hyperlipidemia, and anemia who presents to the ED with fall. Patient states he was getting up to go to the bathroom when he tripped and fell, hitting the back of his head. He does not report loss of consciousness. Denies chest pain, shortness of breath, loss of consciousness. Patient states he feels well currently. PMD: Dani Carrington Past Medical History Reviewed: Historical Data, Nursing Documentation, Vital Signs Vital Signs: Last Vital Signs Temp 99.4 F 10/06/17 03:11 Pulse 90 10/06/17 03:01 Resp 16 10/06/17 03:01 BP 147/56 L 10/06/17 03:07 Pulse Ox 97 10/06/17 03:01 - Medical History PMH: Anemia, Arthritis, Atrial Fibrillation, CAD (WITH STENTS), COPD, Diverticulitis, Fractures (left arm fx due to fall in the snow), HTN, Hypercholesterolemia, Chronic Kidney Disease, TIA (Apr 2016) Denies: HIV - Surgical History Surgical History: Carotid Endarterectomy, Cholecystectomy, Coronary Stent - Family History Family History: States: Unknown Family Hx - Immunization History Hx Tetanus Toxoid Vaccination: No Hx Influenza Vaccination: Yes Hx Pneumococcal Vaccination: No - Home Medications Home Medications: Ambulatory Orders Medication Instructions Recorded Fish Oil/Dha/Epa [Fish Oil 1,200 1,200 mg PO DAILY 03/14/16 mg Fish Oil] Pantoprazole Sodium [Protonix] 40 mg PO DAILY 05/02/16 Aspirin [Ecotrin] 81 mg PO DAILY 08/24/16 Pravastatin Sodium [Pravachol] 20 mg PO HS 03/25/17 Sodium Bicarbonate Tab 650 mg PO BID 06/11/17 Valsartan [Diovan] 320 mg PO DAILY tab 06/16/17 Chlorthalidone [Hygroton] 1 tab PO DAILY 07/30/17 Cilostazol [Pletal] 100 mg PO DAILY 07/30/17 Finasteride [Proscar] 5 mg PO DAILY 07/30/17 Furosemide [Lasix] 20 mg PO DAILY 07/30/17 Lactobacillus Combination No.8 1 tab PO HS 07/30/17 [Adult Probiotic] - Allergies Allergies/Adverse Reactions: Allergies Allergy/AdvReac Type Severity Reaction Status Date / Time No Known Allergies Allergy Verified 06/11/17 11:13 Review of Systems ROS Statement: Except As Marked, All Systems Reviewed And Found Negative Neurological: Positive for: Other (head injury) Physical Exam - Reviewed Nursing Documentation Reviewed: Yes Vital Signs Reviewed: Yes - Physical Exam Appears: Positive for: Well, Non-toxic, No Acute Distress Head Exam: Positive for: ATRAUMATIC, NORMAL INSPECTION, NORMOCEPHALIC Skin: Positive for: Warm, Dry, Pallor Cardiovascular/Chest: Positive for: Regular Rate, Rhythm. Negative for: Murmur Respiratory: Positive for: Normal Breath Sounds. Negative for: Respiratory Distress Gastrointestinal/Abdominal: Positive for: Normal Exam, Soft. Negative for: Tenderness Neurologic/Psych: Positive for: Alert, linemarker II-XII, Oriented. Negative for: Motor/Sensory Deficits - Laboratory Results Result Diagrams: 10/06/17 03:26 10/06/17 03:26 - ECG O2 Sat by Pulse Oximetry: 97 (RA) Pulse Ox Interpretation: Normal Medical Decision Making Medical Decision Making: Time: 3:16 A/P: Hx CKD, syncope, htn, hyperlipidemia, anemia with mechanical fall, head injury --Patient is well appearing with normal vital signs --Will check head CT and basic blood work --Not concerned for cardiac syncope at this time --Will reeval Time: 4:[address] FINDINGS: Brain: Moderate atrophy. No intracranial hemorrhage. No mass. Small parenchymal calcification. Few scattered foci of decreased attenuation within periventricular/subcortical white matter. No edema. Ventricles: No hydrocephalus. Bones/joints: No acute fracture. Soft tissues: Unremarkable. Vasculature: Atherosclerotic disease of intracranial arteries. Sinuses: Scattered minimal mucosal thickening. Mastoid air cells: Partial opacification of RIGHT mastoid. Orbits: Unremarkable as visualized. Sella: Enlarged sella with flattening of pituitary, stable. IMPRESSION: 1. No intracranial hemorrhage. 2. Nonspecific white matter changes. 3. Mastoid disease. 4. Incidental/non-acute findings are described above. Patient's potassium is elevated, although no peaked T waves on EKG. Will treat for hyperkalemia and recheck. Patient also has mild temperature, although no symptoms of infection/fever at home, daughter states chronic cough. Will check CXR, UA, cultures, and VBG. 645AM Patient eating donuts, appearing well, has no complaints. Case discussed with Dr. Carrington who states that patient's complaints are chronic and that he can followup in the office tomorrow. Discussed results with patient and daughter, advised daughter to call office today. Patient with stable vitals, will d/c home. Patient requires transport home. Scribe Attestation: Documented by Mark Arias, acting as a scribe for David Crews MD Provider Scribe Attestation: All medical record entries made by the Scribe were at my direction and personally dictated by me. I have reviewed the chart and agree that the record accurately reflects my personal performance of the history, physical exam, medical decision making, and the department course for this patient. I have also personally directed, reviewed, and agree with the discharge instructions and disposition. Disposition - Clinical Impression Clinical Impression: Head injury, Hyperkalemia, Fever of unknown origin Discussed With : Dani Carrington - Disposition Disposition: Routine/Home Disposition Time: 06:50 Condition: IMPROVED Instructions: Hyperkalemia, Minor Head Injury, Fever of Unknown Origin Forms: [employer] (Guatemalan)
[2017-10-06] MEDS ORDERED: Dextrose 50% SYRINGE Inj (50 ml) ONE ×2 (03:50→05:48)
[2017-10-06] MEDS ORDERED: Sod Polystyrene Sulf 15 gm/60 ml Susp ONE (03:50)
[2017-10-06] MEDS ORDERED: Insulin Regular 100 units/ml ONE (03:51)
--- NOTE | 2017-10-06 04:17 | CT ---
EXAM: CT Head Without Intravenous Contrast CLINICAL HISTORY: 87 years old, male; Injury or trauma; Fall; Initial encounter; Blunt trauma (contusions or hematomas); Additional info: S/P fall, head injury TECHNIQUE: Axial computed tomography images of the head/brain without intravenous contrast. All CT scans at this facility use one or more dose reduction techniques, viz.: automated exposure control; ma/kV adjustment per patient size (including targeted exams where dose is matched to indication; i.e. head); or iterative reconstruction technique. Coronal and sagittal reformatted images were created and reviewed. COMPARISON: CT - HEAD W/O CONTRAST 2017-07-30 05:04 FINDINGS: Brain: Moderate atrophy. No intracranial hemorrhage. No mass. Small parenchymal calcification. Few scattered foci of decreased attenuation within periventricular/subcortical white matter. No edema. Ventricles: No hydrocephalus. Bones/joints: No acute fracture. Soft tissues: Unremarkable. Vasculature: Atherosclerotic disease of intracranial arteries. Sinuses: Scattered minimal mucosal thickening. Mastoid air cells: Partial opacification of RIGHT mastoid. Orbits: Unremarkable as visualized. Sella: Enlarged sella with flattening of pituitary, stable. IMPRESSION: 1. No intracranial hemorrhage. 2. Nonspecific white matter changes. 3. Mastoid disease. 4. Incidental/non-acute findings are described above.
[2017-10-06 05:15] LABS: ANISOCYTOSIS SLIGHT; BANDS 1 % (0-2); EOSINOPHIL 5 % (0-7); LYMPHOCYTE 8 % (20-50); MONOCYTE 5 % (0-10); NEUTROPHIL 81 % (42-75); PLATELET ESTIMATE NORMAL (NORMAL); TOTAL CELLS COUNTED 100
[2017-10-06 06:27] LABS: VENOUS BLOOD GAS BASE EXCESS -9.3 mmol/L (0.0-2.0); VENOUS BLOOD GAS PCO2 38 mmHg (40-60); VENOUS BLOOD GAS PO2 34 mm/Hg (30-55); VENOUS BLOOD PH 7.26 (7.32-7.43)
[2017-10-06 06:40] LABS: SQUAMOUS EPITHIAL < 1 /hpf (0-5); URINE BACTERIA RARE (<OCC); URINE BILIRUBIN NEGATIVE (NEGATIVE); URINE BLOOD SMALL (NEGATIVE); URINE CLARITY SLIGHTY-CLOUDY (Clear); URINE COLOR YELLOW (YELLOW); URINE GLUCOSE (UA) 50 mg/dL (Normal); URINE LEUKOCYTE ESTERASE NEG Leu/uL (Negative); URINE PROTEIN 100 mg/dL (NEGATIVE); URINE UROBILINOGEN 0.2-1.0 mg/dL (0.2-1.0)
[2017-10-06 07:22] VITALS: O2SAT 100
[2017-10-06 10:30] VITALS: BP 128/55; PULSE 77; TEMP 98.2
--- NOTE | 2017-10-06 10:31 | CARD ---
APPROVED REPORT EKG Measurement Heart [id number] <Conclusion> Normal sinus rhythm with sinus arrhythmia Minimal voltage criteria for LVH, may be normal variant Cannot rule out Inferior infarct, age undetermined Abnormal ECG
--- NOTE | 2017-10-06 13:38 | RAD ---
HISTORY: febrile COMPARISON: Comparison chest 07/29/2017 comparison also made with CTA chest 03/14/2016. The the FINDINGS: LUNGS: The interstitial markings are slightly increased and coarsened with a few scattered peribronchial cuffing changes. Rule out sequela of reactive/inflammatory airway disease or viral illness. Suspect mild left basilar atelectasis. Developing lower lobe infiltrate could be excluded with followup radiographs. Large calcified granuloma left lung base unchanged PLEURA: No significant pleural effusion identified, no pneumothorax apparent. CARDIOVASCULAR: Heart appears mildly enlarged. Left hilar calcified lymph nodes again noted. There OSSEOUS STRUCTURES: No significant abnormalities. VISUALIZED UPPER ABDOMEN: Normal. OTHER FINDINGS: None. IMPRESSION: The interstitial markings are slightly increased and coarsened with a few scattered peribronchial cuffing changes. Rule out sequela of reactive/inflammatory airway disease or viral illness. Suspect mild left basilar atelectasis. Developing lower lobe infiltrate could be excluded with followup radiographs. . Note this report was placed in PA review folder for followup.
== END 2017-10-06 10:30 | disposition home or self-care (01) ==
LOC: H.ER 02:50
DX: S09.90XA Unspecified injury of head, initial encounter (principal); W01.0XXA Fall on same level from slipping, tripping and stumbling without subsequent striking against object, initial encounter; Y92.89 Other specified places as the place of occurrence of the external cause; E87.5 Hyperkalemia; R50.9 Fever, unspecified; E78.00 Pure hypercholesterolemia, unspecified; I12.9 Hypertensive chronic kidney disease with stage 1 through stage 4 chronic kidney disease, or unspecified chronic kidney disease; I25.10 Atherosclerotic heart disease of native coronary artery without angina pectoris; Z79.82 Long term (current) use of aspirin; Z86.73 Personal history of transient ischemic attack (TIA), and cerebral infarction without residual deficits; Z95.5 Presence of coronary angioplasty implant and graft; J44.9 Chronic obstructive pulmonary disease, unspecified; I48.91 Unspecified atrial fibrillation
CPT/HCPCS: 70450; 71045; 80048; 81003; 82803; 82948; 85025; 87040; 87086; 93005; 96365; 96375; 96376; 99285; J0610

== ENCOUNTER 2017-10-08 00:13 | Inpatient (IN) | payer MEDICARE ==
[2017-10-08 00:13] VITALS: BMI 25.8
[2017-10-08] MEDS ORDERED: Sodium Chloride 0.9% 1,000 ML IV STA ×2 (00:18→02:20)
--- NOTE | 2017-10-08 01:08 | ED PDOC ---
Syncope/Near Syncope/Dizziness Time Seen by Provider: 10/08/17 00:17 Chief Complaint (Nursing): Syncope History Per: Patient, Family History/Exam Limitations: no limitations Onset/Duration Of Symptoms: Hrs Additional Complaint(s): Hx of CKD, HTN, HLD, Hyperkalemia presenting with syncopal episdoe, caregiver is daughter who was turning him to change him and then he "passed out" according to her, when EMS was called, patient was hypotensive and had one large watery episode of diarrhea. Currently patient denies all complaints. Of note patient was in ER recently for fall. Daughter denies recent illnesses but patient has a chronic cough. Past Medical History Reviewed: Historical Data, Nursing Documentation, Vital Signs Vital Signs: Last Vital Signs Temp 100.3 F H 10/08/17 00:15 Pulse 57 L 10/08/17 00:15 Resp 16 10/08/17 00:15 BP 112/42 L 10/08/17 00:15 Pulse Ox 90 L 10/08/17 00:15 - Medical History PMH: Anemia, Arthritis, Atrial Fibrillation, CAD (WITH STENTS), COPD, Diverticulitis, Fractures (left arm fx due to fall in the snow), HTN, Hypercholesterolemia, Chronic Kidney Disease, TIA (Apr 2016) Denies: HIV - Surgical History Surgical History: Carotid Endarterectomy, Cholecystectomy, Coronary Stent - Family History Family History: States: Unknown Family Hx - Immunization History Hx Tetanus Toxoid Vaccination: No Hx Influenza Vaccination: Yes Hx Pneumococcal Vaccination: No - Home Medications Home Medications: Ambulatory Orders Medication Instructions Recorded Fish Oil/Dha/Epa [Fish Oil 1,200 1,200 mg PO DAILY 03/14/16 mg Fish Oil] Pantoprazole Sodium [Protonix] 40 mg PO DAILY 05/02/16 Aspirin [Ecotrin] 81 mg PO DAILY 08/24/16 Pravastatin Sodium [Pravachol] 20 mg PO HS 03/25/17 Sodium Bicarbonate Tab 650 mg PO BID 06/11/17 Valsartan [Diovan] 320 mg PO DAILY tab 06/16/17 Chlorthalidone [Hygroton] 1 tab PO DAILY 07/30/17 Cilostazol [Pletal] 100 mg PO DAILY 07/30/17 Finasteride [Proscar] 5 mg PO DAILY 07/30/17 Furosemide [Lasix] 20 mg PO DAILY 07/30/17 Lactobacillus Combination No.8 1 tab PO HS 07/30/17 [Adult Probiotic] - Allergies Allergies/Adverse Reactions: Allergies Allergy/AdvReac Type Severity Reaction Status Date / Time No Known Allergies Allergy Verified 10/08/17 00:15 Review of Systems ROS Statement: Except As Marked, All Systems Reviewed And Found Negative Gastrointestinal: Positive for: Diarrhea Physical Exam - Reviewed Nursing Documentation Reviewed: Yes Vital Signs Reviewed: Yes - Physical Exam Appears: Positive for: No Acute Distress. Negative for: Well (Chronically ill appearing) Head Exam: Positive for: ATRAUMATIC, NORMAL INSPECTION, NORMOCEPHALIC Skin: Positive for: Pallor, Rash (2cm decub on buttocks, red, oozing; diffuse scattered rash of UE's) Eye Exam: Positive for: EOMI, Normal appearance, PERRL ENT: Negative for: Normal ENT Inspection (Dry mucus membranes) Neck: Positive for: Normal, Painless ROM Cardiovascular/Chest: Positive for: Regular Rate, Rhythm Respiratory: Positive for: CNT, Normal Breath Sounds Gastrointestinal/Abdominal: Positive for: Normal Exam, Soft. Negative for: Tenderness Back: Positive for: Normal Inspection Extremity: Positive for: Normal ROM Neurologic/Psych: Positive for: Alert, Oriented - Laboratory Results Result Diagrams: 10/08/17 01:13 10/08/17 01:13 - ECG O2 Sat by Pulse Oximetry: 90 Pulse Ox Interpretation: Abnormal Medical Decision Making Medical Decision MakinAM A/P: Hx of multiple medical problems presenting with syncope, fever, hypotension -patient was hypotensive to 70s systolic in field and hypoxic -[facility] patient is septic, unclear source but possibly respiratory given hypoxia -will get labs, cultures -will give fluids given likely sepsis, will monitor carefully to avoid putting into CHF exacerbation -will reeval 330AM -Patient has leukocytosis and elevated lactate, BP Stable -likely septic 2/2 to respiratory source -mild bump in trop likley because of CKD and demand ischemia from infection -Will admit to ICU, case discussed with Dr. Ortiz hospitalist Disposition - Clinical Impression Clinical Impression: Syncope, CKD (chronic kidney disease), stage III, Sepsis - Disposition Disposition Time: 01:30 Condition: CRITICAL
[2017-10-08 01:17] LABS: BASO % 0.2 % (0.0-2.0); EOS # 0.1 K/uL (0.0-0.7); EOS % 0.4 % (0.0-4.0); HEMOGLOBIN 7.8 g/dL (12.0-18.0); LYMPH # 0.2 K/uL (1.0-4.3); LYMPH % 0.9 % (20.0-40.0); MEAN CORPUSCULAR HEMOGLOBIN 26.2 pg (27.0-31.0); MEAN CORPUSCULAR HGB CONC 30.5 g/dL (33.0-37.0); MEAN PLATELET VOLUME 8.6 fl (7.2-11.7); MONO # 0.3 K/uL (0.0-0.8); MONO % 1.2 % (0.0-10.0); NEUT # 22.7 K/uL (1.8-7.0); NEUT % 97.3 % (50.0-75.0); PLATELET COUNT 318 K/uL (130-400); RBC 2.99 Mil/uL (4.40-5.90); RED CELL DISTRIBUTION WIDTH 15.1 % (11.5-14.5); WHITE BLOOD COUNT 23.3 K/uL (4.8-10.8)
[2017-10-08 01:28] LABS: VENOUS BLOOD GAS BASE EXCESS -13.3 mmol/L (0.0-2.0); VENOUS BLOOD GAS PCO2 37 mmHg (40-60); VENOUS BLOOD GAS PO2 22 mm/Hg (30-55); VENOUS BLOOD PH 7.19 (7.32-7.43)
[2017-10-08 01:52] LABS: ALB/GLOB RATIO 0.9 (1.0-2.1); CALCIUM 8.1 mg/dL (8.4-10.2); TROPONIN I 0.128 ng/mL (0.00-0.120)
[2017-10-08 02:40] LABS: INR 1.1 (0.9-1.2); PARTIAL THROMBOPLASTIN TIME 28.1 Seconds (25.6-37.1); PROTHROMBIN TIME 12.2 Seconds (9.8-13.1)
[2017-10-08] MEDS ORDERED: Lactated Ringer's 1,000 ML IV SCH ×2 (03:15→12:30)
--- NOTE | 2017-10-08 03:19 | CP.PCM.CON ---
History of Present Illness - History of Present Illness History of Present Illness: CC: Syncopal episode, possible worse SOB HPI: This is an 87 y/o male with multiple medical conditions including CAD/HLD, HTN, CKD and COPD among other medical conditions who is brought in after a syncopal episode while his daughter was turning/changing him. He did not fall or hit head, as he was in bed. Daughter called 911 immediately and patient was brought in. Apparently patient was initially hypotensive to SBP 80s. Patient also had one episode of diarrhea. No measured fevers. Unclear whether he has any worse SOB. No n/v. Per daughter, patient has worse PO intake over past few days. Patient with no complaints. ROS: unable to perform full ROS as patient does not answer consistently MHx: CAD, CVD/HLD, HTN, CKD, COPD SHx: Multiple cardiac caths, CEA b/l Allergies: NKDA Medications: per med rec Family Hx: Patient cannot provide any relevant fam hx at this time Social Hx: Lives at home with family, no tobacco, no EtOH Surrogate: daughter, info on chart Past Patient History - Tetanus Immunizations Tetanus Immunization: Unknown - Past Medical History & Family History Past Medical History?: Yes - Past Social History Smoking Status: Former Smoker - CARDIAC Hx Atrial Fibrillation: Yes Hx Hypercholesterolemia: Yes Hx Hypertension: Yes - PULMONARY Hx Chronic Obstructive Pulmonary Disease (COPD): Yes - NEUROLOGICAL Hx Transient Ischemic Attacks (TIA): Yes (Apr 2016) - HEENT Hx Deafness: Yes Other/Comment: HARD OF HEARING RIGHT EAR - RENAL Hx Chronic Kidney Disease: Yes - ENDOCRINE/METABOLIC Hx Endocrine Disorders: Yes Hx Diabetes Mellitus Type 2: No - HEMATOLOGICAL/ONCOLOGICAL Hx Anemia: Yes Hx Human Immunodeficiency Virus (HIV): No - INTEGUMENTARY Other/Comment: blisters and cellulitis - MUSCULOSKELETAL/RHEUMATOLOGICAL Hx Arthritis: Yes Hx Fractures: Yes (left arm fx due to fall in the snow) - GASTROINTESTINAL Hx Diverticulitis: Yes - GENITOURINARY/GYNECOLOGICAL Hx Genitourinary Disorders: No - PSYCHIATRIC Hx Psychophysiologic Disorder: No Hx Substance Use: No - SURGICAL HISTORY Hx Carotid Endarterectomy: Yes Hx Cholecystectomy: Yes Hx Coronary Stent: Yes - ANESTHESIA Hx Anesthesia: Yes Hx Anesthesia Reactions: No Hx Malignant Hyperthermia: No Meds Allergies/Adverse Reactions: Allergies Allergy/AdvReac Type Severity Reaction Status Date / Time No Known Allergies Allergy Verified 10/08/17 00:15 - Medications Medications: Current Medications Acetaminophen (Tylenol 325mg Tab) 650 mg PO Q6H PRN PRN Reason: Fever >100.4 F Albuterol/Ipratropium (Duoneb 3 Mg/0.5 Mg (3 Ml) Ud) 3 ml INH RQ4 PRN PRN Reason: Shortness of Breath Aspirin (Aspirin) 325 mg PO DAILY [facility] Cilostazol (Pletal) 100 mg PO DAILY [facility] Finasteride (Proscar) 5 mg PO DAILY [facility] Heparin Sodium (Porcine) (Heparin) 5,000 units SC Q8 [facility] PRN Reason: Protocol Home Med (Fish Oil/Dha/Epa [Fish Oil 1,200 Mg Fish Oil]) 1,200 mg PO DAILY [facility] Home Med (Lactobacillus Combination No.8 [Adult Probiotic]) 1 tab PO HS [facility] Cefepime HCl 2 gm/ Sodium (Chloride) 100 mls @ 100 mls/hr IVPB Q12 [facility] PRN Reason: Protocol Cefepime HCl 2 gm/ Sodium (Chloride) 100 mls @ 100 mls/hr IVPB Q12 [facility] PRN Reason: Protocol Lactated Ringer's (Lactated Ringer's) 1,000 mls @ 100 mls/hr IV .Q10H [facility] Stop: 10/08/17 23:14 Ondansetron HCl (Zofran Inj) 4 mg IVP Q6H PRN PRN Reason: Nausea/Vomiting Pantoprazole Sodium (Protonix Ec Tab) 40 mg PO DAILY [facility] Pravastatin Sodium (Pravachol) 20 mg PO HS [facility] Sodium Bicarbonate (Sodium Bicarbonate Tab) 650 mg PO BID [facility] Physical Exam - Constitutional Appears: Chronically Ill - Head Exam Head Exam: ATRAUMATIC, NORMOCEPHALIC - Eye Exam Eye Exam: EOMI - ENT Exam ENT Exam: Mucous Membranes Dry - Neck Exam Neck exam: Positive for: Full Rom - Respiratory Exam Respiratory Exam: Rhonchi, NORMAL BREATHING PATTERN - Cardiovascular Exam Cardiovascular Exam: Tachycardia, +S1, +S2 - GI/Abdominal Exam GI & Abdominal Exam: Normal Bowel Sounds, Soft - Extremities Exam Extremities exam: Positive for: full ROM, normal inspection - Neurological Exam Neurological exam: Alert, CN II-XII Intact Additional comments: oriented x 2+ - Psychiatric Exam Psychiatric exam: Normal Affect, Normal Mood - Skin Skin Exam: Dry, Warm Results - Vital Signs Recent Vital Signs: Last Vital Signs Temp 100.3 F H 10/08/17 00:15 Pulse 95 H 10/08/17 01:01 Resp 30 H 10/08/17 01:01 BP 112/42 L 10/08/17 00:15 Pulse Ox 90 L 10/08/17 01:10 - Labs Result Diagrams: 10/08/17 01:13 10/08/17 01:13 Labs: Laboratory Results - last 24 hr 10/08/17 10/08/17 10/08/17 01:13 01:13 01:13 WBC 23.3 H D RBC 2.99 L Hgb 7.8 L Hct 25.7 L MCV 86.0 MCH 26.2 L MCHC 30.5 L RDW 15.1 H Plt Count 318 MPV 8.6 Neut % (Auto) 97.3 H Lymph % (Auto) 0.9 L Cecil % (Auto) 1.2 Eos % (Auto) 0.4 Baso % (Auto) 0.2 Neut # (Auto) 22.7 H Lymph # (Auto) 0.2 L Cecil # (Auto) 0.3 Eos # (Auto) 0.1 Baso # (Auto) 0.0 PT 12.2 INR 1.1 APTT 28.1 pO2 VBG pH VBG pCO2 VBG HCO3 VBG Total CO2 VBG O2 Sat (Calc) VBG Base Excess VBG Potassium Glucose Lactate FiO2 Crit Value Called To Crit Value Called By Crit Value Read Back Blood Gas Notified Time Sodium 135 Potassium 3.6 Chloride 104 Carbon Dioxide 11 L* D Anion Gap 24 H BUN 62 H Creatinine 3.8 H Est GFR ( Amer) 18 Est GFR (Non-Af Amer) 15 POC Glucose (mg/dL) Random Glucose 91 Calcium 8.1 L Phosphorus 3.1 Magnesium 1.4 L Total Bilirubin 0.3 AST 79 H D ALT 46 Alkaline Phosphatase 69 Troponin I 0.1280 H* NT-Pro-B Natriuret Pep 28426 H Total Protein 6.2 L Albumin 3.0 L Globulin 3.3 Albumin/Globulin Ratio 0.9 L Venous Blood Potassium 10/08/17 10/08/17 01:15 01:24 WBC RBC Hgb Hct MCV MCH MCHC RDW Plt Count MPV Neut % (Auto) Lymph % (Auto) Cecil % (Auto) Eos % (Auto) Baso % (Auto) Neut # (Auto) Lymph # (Auto) Cecil # (Auto) Eos # (Auto) Baso # (Auto) PT INR APTT pO2 22 L VBG pH 7.19 L* VBG pCO2 37 L VBG HCO3 12.6 VBG Total CO2 15.2 L VBG O2 Sat (Calc) 28.8 L VBG Base Excess -13.3 L VBG Potassium 3.6 Glucose 91 Lactate 4.5 H* FiO2 21.0 Crit Value Called To Mars contreras md Crit Value Called By 333 Crit Value Read Back Y Blood Gas Notified Time 127 Sodium 133.0 Potassium Chloride 104.0 Carbon Dioxide Anion Gap BUN Creatinine Est GFR ( Amer) Est GFR (Non-Af Amer) POC Glucose (mg/dL) 84 Random Glucose Calcium Phosphorus Magnesium Total Bilirubin AST ALT Alkaline Phosphatase Troponin I NT-Pro-B Natriuret Pep Total Protein Albumin Globulin Albumin/Globulin Ratio Venous Blood Potassium 3.6 - EKG Data EKG Interpreted by: Myself EKG shows normal: Sinus rhythm Rate: Tachycardia - EKG Data EKG comments: ?inf q waves, T wave flattening laterally, ?LVH - Imaging and Cardiology Chest x-ray Status: Image reviewed by me (No obvious infiltrate, no overload) Assessment & Plan (1) Syncope and collapse Assessment and Plan: 87 y/o male with multiple medical conditions presenting with sepsis likely due to HCAP in setting of acute respiratory failure/COPD. Also with AoCRF and mildly elevated troponin. -Admit ICU -Repeat lactic acid in AM -Trend troponin (likely 2/2 sepsis/renal failure rather than true NSTEMI) -Continue Vanco/Cefepime for HCAP/Sepsis, renally dosed -Duonebs -Cont IVF for acutely worsened kidney function/sepsis -Dose medications renally -Heparin SQ for DVT PPx Status: Acute (2) HCAP (healthcare-associated pneumonia) Status: Acute (3) COPD (chronic obstructive pulmonary disease) Status: Acute (4) Sepsis Status: Acute (5) CKD (chronic kidney disease), stage III Status: Acute (6) Acute on chronic kidney failure Status: Acute (7) Elevated troponin Status: Acute (8) DVT prophylaxis Status: Acute
[2017-10-08 03:55] LABS: TOTAL CELLS COUNTED 100
[2017-10-08 03:58] LABS: BANDS 12 % (0-2); LYMPHOCYTE 2 % (20-50); MONOCYTE 2 % (0-10); NEUTROPHIL 84 % (42-75)
[2017-10-08 03:59] LABS: PLATELET ESTIMATE NORMAL (NORMAL)
[2017-10-08 05:02] LABS: SQUAMOUS EPITHIAL < 1 /hpf (0-5); URINE BACTERIA RARE (<OCC); URINE BILIRUBIN NEGATIVE (NEGATIVE); URINE BLOOD NEGATIVE (NEGATIVE); URINE CLARITY CLOUDY (Clear); URINE COLOR YELLOW (YELLOW); URINE GLUCOSE (UA) NEG (Normal); URINE LEUKOCYTE ESTERASE TRACE Leu/uL (Negative); URINE PROTEIN 30 mg/dL (NEGATIVE); URINE UROBILINOGEN 0.2-1.0 mg/dL (0.2-1.0)
[2017-10-08 05:36] LABS: VENOUS BLOOD GAS PCO2 29 mmHg (40-60); VENOUS BLOOD GAS PO2 45 mm/Hg (30-55); VENOUS BLOOD PH 7.23 (7.32-7.43)
[2017-10-08] MEDS: Dextrose 5%/Lactated Ringer's 1,000 ML IV SCH ×2 (07:15→22:17)
[2017-10-08] MEDS: Cilostazol 100 mg Tab UD PO SCH (08:30)
[2017-10-08] MEDS: Cefepime 2 GM in Sodium Chloride 0.9% 100 ML IVPB SCH ×2 (08:32→22:00)
[2017-10-08] MEDS: Pantoprazole 40 mg EC Tab PO SCH (08:34)
[2017-10-08] MEDS ORDERED: Cefepime 2 GM in Sodium Chloride 0.9% 100 ML IVPB SCH (09:00)
[2017-10-08] MEDS ORDERED: Lactated Ringer's 500 ML IV SCH (09:00)
--- NOTE | 2017-10-08 09:25 | RAD ---
HISTORY: Sepsis Patient COMPARISON: Chest radiograph dated 10/06/2017. FINDINGS: LUNGS: Left basilar large calcified nodule redemonstrated. No active pulmonary disease. PLEURA: No significant pleural effusion identified, no pneumothorax apparent. CARDIOVASCULAR: Atherosclerotic aortic calcifications. Cardiomediastinal silhouette stably enlarged. OSSEOUS STRUCTURES: No significant abnormalities. VISUALIZED UPPER ABDOMEN: Normal. OTHER FINDINGS: None. IMPRESSION: No active disease.
--- NOTE | 2017-10-08 09:39 | CP.CCUPN ---
CCU Subjective - Physician Review Subjective (Free Text): Addendum: All [facility] notes reviewed: Lethargic, but easily arousable, wakefulness is not sustained for more than a minute. No distress, but remains hypotensive, IVFs changed to add supplemental dextrose to RL. Fluid challenge ordered again now. Patient appears pale and admission Hgb = 7.8, but most likely reflect a hemo-concentrated number given other lab parameters and overall exam c/w dehydration. Will order PRBCs now in the face of elevated cardiac enzymes. Multiple excoriated lesions over bilateral lower legs; Left upper arm shows edema and is warm, with erythematous skin overlying Left humeral region which maybe a cellulitis; consider LUE Doppler US to look for DVT/SVT. He has already been started on empiric Cefepime. CXR shows no specific consolidation. Needs Cardiology eval, check repeat EKG, get ECHO. Liquid stools sent for C diff Ag / Toxin. Consider CT brain imaging for eval of initial lethargy, unless all can be attributed to metabolic encephalopathy. Critical Care Progress Note - Nutrition Nutrition: Nutrition Category Date Time Status Heart Healthy Diet [DIET] Diets 10/08/17 Breakfast Active
--- NOTE | 2017-10-08 10:17 | CARD ---
APPROVED REPORT EKG Measurement Heart [id number] <Conclusion> Sinus tachycardia with premature atrial complexes Cannot rule out Inferior infarct, age undetermined ST & T wave abnormality, consider lateral ischemia Abnormal ECG
[2017-10-08] MEDS ORDERED: Lidocaine 1% Inj (20ml) ONE (12:45)
--- NOTE | 2017-10-08 12:54 | PCM.SURG1 ---
Surgeon's Initial Post Op Note - Surgeon's Notes Surgeon: Alon Licona MD General Labor: NONE Type of Anesthesia: Local Pre-Operative Diagnosis: Poor venous access Operative Findings: US showed a patent right basilic vein. Post-Operative Diagnosis: Poor venous access Operation Performed: Dual lumen picc placement right basilic vein, 37 cm. Tip is in the SVC. Specimen/Specimens Removed: NONE Estimated Blood Loss: EBL {In ML}: 2 Blood Products Given: N/A Drains Used: No Drains Post-Op Condition: Fair Date of Surgery/Procedure: 10/08/17 Time of Surgery/Procedure: 12:50
[2017-10-08] MEDS: Omega-3-Acid Ethyl Esters 1 GM Cap PO SCH (14:18)
[2017-10-08 17:00] LABS: HEMOGLOBIN 7.4 g/dL (12.0-18.0); MEAN CORPUSCULAR HEMOGLOBIN 26.1 pg (27.0-31.0); MEAN CORPUSCULAR HGB CONC 31.4 g/dL (33.0-37.0); RBC 2.83 Mil/uL (4.40-5.90); RED CELL DISTRIBUTION WIDTH 15.7 % (11.5-14.5)
[2017-10-08 17:14] LABS: CALCIUM 6.8 mg/dL (8.4-10.2)
[2017-10-08 17:28] LABS: TROPONIN I 0.181 ng/mL (0.00-0.120)
--- NOTE | 2017-10-08 21:04 | HP ---
HISTORY OF PRESENT ILLNESS: Mr. Yen is an 87-year-old male who was admitted to the Intensive Care Unit after he was brought following the syncopal episode, which was noticed by the daughter while she was trying to change him. He did not fall, did not bang his head, the daughter called 911, and he was brought to the emergency room where he was admitted to the Intensive Care Unit because of severe hypotension with a systolic blood pressure of about 80 palpable. PAST MEDICAL HISTORY: He has a past medical history of coronary artery disease, end-stage renal failure, chronic obstructive pulmonary disease, hypertension, multiple cardiac catheterizations, and recurrent cellulitis of upper extremities. He has also had multiple falls at home. FAMILY HISTORY: Noncontributory. SOCIAL HISTORY: He quit smoking years ago, does not drink, and lives alone with his daughter. REVIEW OF SYSTEMS: Essentially unremarkable for recurrent falls and exacerbation of chronic obstructive pulmonary disease and hyperkalemia. PHYSICAL EXAMINATION: GENERAL: The patient is obtunded and _not____ arousable. VITAL SIGNS: Remarkable for blood pressure of 85/27, pulse 100, respiratory rate 28 per beat, and O2 sat 100% on nasal cannula oxygen. He has a temp maximum of 99.2 degrees Fahrenheit. SKIN: Shows fair turgor. HEENT: Pupils are reactive. Mouth, dry mucosa. LUNGS: Scattered rales bilaterally. HEART: S1 and S2. ABDOMEN: Soft. No organomegaly appreciated. EXTREMITIES: Recurrent cellulitis of upper extremities. Pedal edema. CENTRAL NERVOUS SYSTEM: The patient is semicomatose, not easily arousable. LABORATORY DATA: Remarkable for WBC of 23.3, hemoglobin 7.8, platelet count of 318,000, and bands of 12. Sodium 135, potassium 3.6, BUN of 62, creatinine 3.8, and troponin 0.1280. ProBNP 79,700. Urinalysis rare bacteria. Venous blood gas; pH of 7.19, pO2 of 23, pCO2 of 37, and lactate 4.5. EKG; sinus tachycardia. IMPRESSION: Syncope and collapse, etiology to be recurrent probably secondary to sepsis, end-stage renal disease, elevated troponin probably secondary to renal failure, one has to rule out acute coronary syndrome, cellulitis of upper extremities, and chronic obstructive pulmonary disease.chronic anemia PLAN: As per the patient's daughter, the patient should not be intubated or placed on respirator in case of cardiac or pulmonary arrest, she only wants supportive care, so we will continue therapy as ordered including transfusion of packed red blood cells for severe anemia and comfort care only. Further therapy will depend on clinical findings within 24 to 48 hours. Dani Carrington MD [id number]
--- NOTE | 2017-10-08 21:57 | CARD ---
APPROVED REPORT EXAM: Two-dimensional and M-mode echocardiogram with Doppler and color Doppler. Other Information Quality : ExcellentRhythm : Tachycardia INDICATION Non STEMI 2D DIMENSIONS IVSd1.03 (0.7-1.1cm)LVDd5.77 (3.9-5.9cm) LVOT Diameter2.46 (1.8-2.4cm)PWd1.05 (0.7-1.1cm) IVSs1.18 (0.8-1.2cm)LVDs5.26 (2.5-4.0cm) FS (%) 8.9 %PWs1.10 (0.8-1.2cm) M-Mode DIMENSIONS Left Atrium (MM)3.88 (2.5-4.0cm)IVSd0.88 (0.7-1.1cm) Aortic Root3.28 (2.2-3.7cm)LVDd6.75 (4.0-5.6cm) Aortic Cusp Exc.1.91 (1.5-2.0cm)PWd1.00 (0.7-1.1cm) IVSs1.25 cmFS (%) 26 % LVDs5.00 (2.0-3.8cm)PWs1.38 cm Mitral Valve MV E Zmmuewvx09.3cm/sMV DECEL [id number] A Rscvklwb302.0cm/s MV NCC55cmY/A ratio0.8MVA (PHT)6.42cm2 TDI Lateral E' Peak V6.44cm/sMedial E' Peak V5.46cm/sE/Lateral E'12.8 E/Medial E'15.1 Pulmonary Valve PV Peak Hfrarymk80.3cm/s Tricuspid Valve TR Peak Rnuwzlhq111qy/sRAP [id number] Peak Gr.27mmHg [id number] LEFT VENTRICLE The Left Ventricle is mildly dilated on the 2D study. There is normal left ventricular wall thickness. Left ventricle systolic function is severely impaired. The Ejection Fraction is - 20%. There is generalized severe LV hypokinesia. Transmitral Doppler flow pattern is Grade I-abnormal relaxation pattern. No left ventricle thrombus noted on this study. There is no ventricular septal defect visualized. There is no left ventricular aneurysm. There is no mass noted in the left ventricle. RIGHT VENTRICLE The right ventricle is normal size. There is normal right ventricular wall thickness. The right ventricular systolic function is normal. ATRIA The left atrium is mildly dilated on the 2D study. There is no thrombus suspected in the left atrium. The right atrium size is normal. The interatrial septum is intact with no evidence for an atrial septal defect. AORTIC VALVE The aortic valve is normal in structure. No aortic regurgitation is present. There is no aortic valvular stenosis. MITRAL VALVE The mitral valve is normal in structure. There is no evidence of mitral valve prolapse. There is no mitral valve stenosis. There is no mitral valve regurgitation noted. TRICUSPID VALVE The tricuspid valve is normal in structure. There is mild tricuspid regurgitation. Right ventricular systolic pressure is estimated at 38 mmHg. There is no tricuspid valve prolapse or vegetation. There is no tricuspid valve stenosis. PULMONIC VALVE The pulmonary valve is normal in structure. There is no pulmonic valvular regurgitation. GREAT VESSELS The aortic root is normal in size. The IVC was not visualized. PERICARDIAL EFFUSION The pericardium appears normal. There is no pleural effusion. <Conclusion> The Left Ventricle is mildly dilated on the 2D study. There is normal left ventricular wall thickness. Left ventricle systolic function is severely impaired. The Ejection Fraction is - 20%. The left atrium is mildly dilated. The mitral, aortic and tricuspid valves are normal. There is mild tricuspid regurgitation.
[2017-10-08] MEDS: Lactobacillus Acidophilus 500 MU Cap PO SCH (22:18)
[2017-10-08] MEDS: Pravastatin Sodium 20 MG TAB PO SCH (22:20)
--- NOTE | 2017-10-08 23:10 | US ---
EXAM: US Duplex Left Upper Extremity Veins CLINICAL HISTORY: 87 years old, male; Signs and symptoms; Swelling of limb; Upper extremity, left; Additional info: R/O dvt, svt TECHNIQUE: Real-time duplex ultrasound scan of the left upper extremity veins integrating B-mode two-dimensional vascular structure, Doppler spectral analysis, color flow Doppler imaging and compression. COMPARISON: No relevant prior studies available. FINDINGS: Deep veins: Unremarkable. No DVT in the internal jugular, subclavian, axillary, or brachial veins. The veins demonstrate normal color flow, are normally compressible, with normal phasic flow and/or augmentation response. Superficial veins: Unremarkable. No thrombus in the visualized basilic and cephalic veins. Soft tissues: No acute findings. IMPRESSION: No evidence of left upper extremity deep venous thrombosis.
[2017-10-09] MEDS: Albuterol-Ipratrop 3 mg / 0.5 (3 ml) UD INH PRN ×2 (00:06→06:42)
[2017-10-09] MEDS ORDERED: Sodium Chloride 0.9% 500 ML IV ONE (05:11)
[2017-10-09 06:22] LABS: BASO % 0.1 % (0.0-2.0); EOS # 0.2 K/uL (0.0-0.7); EOS % 0.7 % (0.0-4.0); HEMOGLOBIN 7.7 g/dL (12.0-18.0); LYMPH # 0.4 K/uL (1.0-4.3); LYMPH % 1.5 % (20.0-40.0); MEAN CELL VOLUME 81.4 fl (80.0-94.0); MEAN CORPUSCULAR HEMOGLOBIN 26.6 pg (27.0-31.0); MEAN CORPUSCULAR HGB CONC 32.6 g/dL (33.0-37.0); MEAN PLATELET VOLUME 9.5 fl (7.2-11.7); MONO # 0.3 K/uL (0.0-0.8); MONO % 1.1 % (0.0-10.0); NEUT # 26.1 K/uL (1.8-7.0); NEUT % 96.6 % (50.0-75.0); PLATELET COUNT 207 K/uL (130-400); RBC 2.89 Mil/uL (4.40-5.90); RED CELL DISTRIBUTION WIDTH 15.8 % (11.5-14.5)
[2017-10-09 06:53] LABS: CALCIUM 6.7 mg/dL (8.4-10.2)
[2017-10-09] MEDS: Cefepime 2 GM in Sodium Chloride 0.9% 100 ML IVPB SCH ×2 (09:33→20:21)
[2017-10-09] MEDS: Pantoprazole 40 mg EC Tab PO SCH (09:34)
[2017-10-09] MEDS: Omega-3-Acid Ethyl Esters 1 GM Cap PO SCH (09:35)
[2017-10-09] MEDS: Cilostazol 100 mg Tab UD PO SCH (09:35)
--- NOTE | 2017-10-09 10:21 | CP.CCUPN ---
CCU Subjective - Physician Review Subjective (Free Text): More responsive today, verbalizations more sensical and appropriate, no obvious distress, denies any chest discomfort. Other VS and I/Os reviewed. Stil tachycardic, SBP range 96 to 107. Recd 2 units PRBCs yesterday. Fluid balance is positive 3.2L. ROS: No other pertinent negs or positives on 10+ system review obtainable from intubated and sedated patient. PMSFH: All other Nursing and physician documentation reviewed to date; no new pertinent info noted relevant to current medical problems. EXAM- HEENT: no icterus, no gaze preference, pupils equal and reactive NECK: No JVD, supple, carotids equal upstroke bilat/no bruits CHEST: decreased BS bases, no wheezes audible HEART: regular tachy, distant, S1S2, no rubs. ABD: soft, no distention, no tympany, no palp tenderness, BS hypoactive. EXT: No peripheral/ digital cyanosis, no calf tenderness or palpable cords, distal pulses intact and symmetrical. Multiple excoriations over bilate LEs, area of redness, and increased warmth over L upper arm over humeral region. GENIT: no scrotal and penile edema NEURO: no focal motor deficits, withdraws to deep pain. SKIN: no rashes, warm and dry. LABS: WBC= 27.0 HGB= 7.7 PLTs= 207K Kd=826 K= 3.6 GZ=089 HCO3= 14 BUN/Cr= 71/4.4 MB=111 Lactate= 1.7 Trops: + 0.1280, + 0.1270, +0.1810 IMPRESSION / MAJOR PROBLEMS NOW: 1. Metabolic Encephalopathy 2. Acute on Chronic Disease Anemia 3. NSTEMI 4. CKD III 5. Hypotension / Hypovolemia 2 Dehydration PLAN: 1. Stop IVF hydration. Now Lasix prn. 2. ECHO results reviewed; LVEF 20%. 3. More PRBCs today. 4. On supplemental bicarb PO, Nephrology f/u. 5. Supportive care, DNR DNI status. 6. Tele bed. CCU Objective - Vital Signs / Intake & Output Vital Signs (Last 4 hours): Afebrile, HR 91, sinus, RR 17, SPO2 97% on RA, BP 100/63 Intake and Output (Last 8hrs): Intake & Output 10/08/17 10/09/17 10/09/17 22:59 06:59 14:59 Intake Total 1451 975 Output Total 300 Balance 1451 675 Intake: IV 875 875 Intake, Piggyback 100 Blood Product 576 Output: Stool 300 Other: # Bowel Movements 1 Critical Care Progress Note - Nutrition Nutrition: Nutrition Category Date Time Status Renal Diet [DIET] Diets 10/08/17 Dinner Active
--- NOTE | 2017-10-09 12:04 | CP.PCM.PN ---
Subjective - Date & Time of Evaluation Date of Evaluation: 10/09/17 Time of Evaluation: 12:05 - Subjective Subjective: MORE AWAKE AND RESPONSIVE TODAY RESPONDS TO VERBAL COMMANDS BP STILL LOW Objective - Vital Signs/Intake and Output Vital Signs (last 24 hours): Temp Pulse Resp BP Pulse Ox 97.8 F 105 H 21 98/40 L 100 10/09/17 08:00 10/09/17 10:00 10/09/17 10:00 10/09/17 10:00 10/09/17 10:00 Intake and Output: 10/09/17 10/09/17 06:59 18:59 Intake Total 1376 50 Output Total 300 Balance 1076 50 - Medications Medications: Current Medications Acetaminophen (Tylenol 325mg Tab) 650 mg PO Q6H PRN PRN Reason: Fever >100.4 F Albuterol/Ipratropium (Duoneb 3 Mg/0.5 Mg (3 Ml) Ud) 3 ml INH RQ4 PRN PRN Reason: Shortness of Breath Last Admin: 10/09/17 06:42 Dose: 3 ml Aspirin (Aspirin) 325 mg PO DAILY [facility] Last Admin: 10/09/17 09:39 Dose: 325 mg Cilostazol (Pletal) 100 mg PO DAILY [facility] Last Admin: 10/09/17 09:35 Dose: 100 mg Clobetasol Propionate (Temovate Cream) 1 applic TOP BID [facility] Last Admin: 10/09/17 09:38 Dose: 1 applic Finasteride (Proscar) 5 mg PO DAILY [facility] Last Admin: 10/09/17 09:34 Dose: 5 mg Heparin Sodium (Porcine) (Heparin) 5,000 units SC Q8 [facility] PRN Reason: Protocol Last Admin: 10/09/17 09:35 Dose: 5,000 units Cefepime HCl 2 gm/ Sodium (Chloride) 100 mls @ 100 mls/hr IVPB Q12 [facility] PRN Reason: Protocol Last Admin: 10/09/17 09:33 Dose: 100 mls/hr Lactobacillus Acidophilus (Bacid Acidophilus) 1 cap PO HS [facility] Last Admin: 10/08/17 22:18 Dose: 1 cap Qxjsl-2-Fhhm Ethyl Esters (Lovaza) 1 gm PO DAILY [facility] Last Admin: 10/09/17 09:35 Dose: 1 gm Ondansetron HCl (Zofran Inj) 4 mg IVP Q6H PRN PRN Reason: Nausea/Vomiting Pantoprazole Sodium (Protonix Ec Tab) 40 mg PO DAILY [facility] Last Admin: 10/09/17 09:34 Dose: 40 mg Pravastatin Sodium (Pravachol) 20 mg PO HS [facility] Last Admin: 10/08/17 22:20 Dose: 20 mg Sodium Bicarbonate (Sodium Bicarbonate Tab) 650 mg PO BID [facility] Last Admin: 10/09/17 09:34 Dose: 650 mg - Labs Labs: 10/09/17 05:30 10/09/17 05:30 PT 12.2 Seconds (9.8-13.1) 10/08/17 01:13 INR 1.1 (0.9-1.2) 10/08/17 01:13 APTT 28.1 Seconds (25.6-37.1) 10/08/17 01:13 - Constitutional Appears: Chronically Ill - Head Exam Head Exam: ATRAUMATIC, NORMAL INSPECTION, NORMOCEPHALIC - Eye Exam Eye Exam: EOMI, Normal appearance, PERRL Pupil Exam: NORMAL ACCOMODATION, PERRL - ENT Exam ENT Exam: Mucous Membranes Moist, Normal Exam - Neck Exam Neck Exam: Full ROM, Normal Inspection. absent: Lymphadenopathy - Respiratory Exam Respiratory Exam: Clear to Ausculation Bilateral, NORMAL BREATHING PATTERN - Cardiovascular Exam Cardiovascular Exam: Tachycardia, +S1, +S2. absent: Murmur - GI/Abdominal Exam GI & Abdominal Exam: Soft, Normal Bowel Sounds. absent: Tenderness - Rectal Exam Rectal Exam: NORMAL INSPECTION - Extremities Exam Extremities Exam: Full ROM, Normal Capillary Refill, Normal Inspection. absent : Joint Swelling, Pedal Edema - Back Exam Back Exam: NORMAL INSPECTION - Neurological Exam Neurological Exam: Alert, Awake - Psychiatric Exam Psychiatric exam: Normal Affect, Normal Mood - Skin Skin Exam: Dry, Intact, Normal Color, Rash, Warm Assessment and Plan - Assessment and Plan (Free Text) Assessment: SEPSIS METABOLIC ENCEPHALOPATHY SYNCOPE SEVERE DEHYDRATION ACUTE ON CHRONIC RENAL FAILURE HYPOTENSION SEVERE ANEMIA--PROBABLY DUE TO ESRD ASHD--RO NSTEMI[ELEVATED TROPONIN MAY ALSO BE DUE TO ESRD] COPD SKIN RASH Plan: CONTINUE CURRENT RX ID/NEPHROLOGY/CARDIOLOGY CONSULTS SUPPORTIVE CARE PER DAUGHTER'S REQUEST
[2017-10-09 12:32] LABS: BANDS 11 % (0-2); EOSINOPHIL 1 % (0-7); LYMPHOCYTE 2 % (20-50); MONOCYTE 4 % (0-10); NEUTROPHIL 82 % (42-75); TOTAL CELLS COUNTED 100
[2017-10-09 12:35] LABS: PLATELET ESTIMATE NORMAL (NORMAL)
[2017-10-09 12:39] LABS: ANISOCYTOSIS SLIGHT
[2017-10-09 12:40] LABS: BURR CELLS MARKED; HYPOCHROMIC SLIGHT; LARGE PLATELETS PRESENT; OVALOCYTES SLIGHT; SCHISTOCYTES SLIGHT; TEARDROP CELLS SLIGHT; TOXIC GRANULATION PRESENT
[2017-10-09] MEDS: Lactobacillus Acidophilus 500 MU Cap PO SCH (21:22)
[2017-10-09] MEDS: Pravastatin Sodium 20 MG TAB PO SCH (21:22)
[2017-10-10 05:51] LABS: EOS # 0.1 K/uL (0.0-0.7); EOS % 0.2 % (0.0-4.0); HEMOGLOBIN 9.7 g/dL (12.0-18.0); LYMPH # 0.6 K/uL (1.0-4.3); MEAN CORPUSCULAR HEMOGLOBIN 26.4 pg (27.0-31.0); MEAN CORPUSCULAR HGB CONC 31.8 g/dL (33.0-37.0); MEAN PLATELET VOLUME 9.8 fl (7.2-11.7); MONO # 0.4 K/uL (0.0-0.8); MONO % 1.4 % (0.0-10.0); NEUT # 28.6 K/uL (1.8-7.0); NEUT % 96.4 % (50.0-75.0); PLATELET COUNT 167 K/uL (130-400); RBC 3.66 Mil/uL (4.40-5.90); RED CELL DISTRIBUTION WIDTH 16.3 % (11.5-14.5); WHITE BLOOD COUNT 29.7 K/uL (4.8-10.8)
[2017-10-10 06:07] LABS: ALB/GLOB RATIO 0.8 (1.0-2.1); ALBUMIN 2.3 g/dL (3.5-5.0); CALCIUM 6.7 mg/dL (8.4-10.2)
[2017-10-10 06:48] LABS: BANDS 3 % (0-2); LYMPHOCYTE 1 % (20-50); MONOCYTE 2 % (0-10); NEUTROPHIL 94 % (42-75); PLATELET ESTIMATE NORMAL (NORMAL); TOTAL CELLS COUNTED 100
[2017-10-10 06:49] LABS: ACANTHOCYTES SLIGHT; ANISOCYTOSIS SLIGHT; BURR CELLS SLIGHT
[2017-10-10] MEDS: Pantoprazole 40 mg EC Tab PO SCH ×2 (09:33→11:25)
[2017-10-10] MEDS: Cefepime 2 GM in Sodium Chloride 0.9% 100 ML IVPB SCH (09:33)
[2017-10-10] MEDS: Omega-3-Acid Ethyl Esters 1 GM Cap PO SCH ×2 (09:34→11:25)
--- NOTE | 2017-10-10 11:06 | CP.PCM.CON ---
History of Present Illness - History of Present Illness History of Present Illness: CC: Weakness, AMS, Syncope. HPI: I have been requested on cardiology consultation by Dr. Carrington on Mr. Yen who is an 87 year old male with a PMH of CAD, PAD, CKD, HTN and tobacco use who is brought in by EMS 10/08-10/08 for weakness, syncope and incontinence as noted by his daughter who is present and gives the history. Since then he has not had any meaningful recovery of his mentation or motor strength and has not had any significant PO intake. He was noted to be anemic for which PRBC transfusion was given. An ECHO revealed LVEF = 20% without significant valvular abnormalities. A chest Xray was free of active disease, the renal function has continued to decline (Cr 4.7), WBC has increased to 29.7and no CT of the head was performed. The patient was seen in the ER the day before for a fall whn he bumped into this daughter, however he was sent home after a workup was negative. Currently the patient is awake but unable to follow commands. Review of Systems - Review of Systems Systems not reviewed;Unavailable: Acuity of Condition, Altered Mental Status Past Patient History - Tetanus Immunizations Tetanus Immunization: Unknown - Past Medical History & Family History Past Medical History?: Yes - Past Social History Smoking Status: Current Some Days Smoker - CARDIAC Hx Cardiac Disorders: Yes Hx Angina: Yes Hx Atrial Fibrillation: Yes Hx Cardia Arrhythmia: Yes Hx Circulatory Problems: Yes Hx Congestive Heart Failure: Yes Hx Hypercholesterolemia: Yes Hx Hypertension: Yes Hx Peripheral Vascular Disease: Yes - PULMONARY Hx Chronic Obstructive Pulmonary Disease (COPD): Yes - NEUROLOGICAL Hx Dementia: Yes Hx Transient Ischemic Attacks (TIA): Yes (Apr 2016) - HEENT Hx Deafness: Yes Other/Comment: HARD OF HEARING RIGHT EAR - RENAL Hx Chronic Kidney Disease: Yes Hx Dialysis: No - ENDOCRINE/METABOLIC Hx Endocrine Disorders: Yes Hx Diabetes Mellitus Type 2: No - HEMATOLOGICAL/ONCOLOGICAL Hx Anemia: Yes Hx Human Immunodeficiency Virus (HIV): No - INTEGUMENTARY Other/Comment: blisters and cellulitis - MUSCULOSKELETAL/RHEUMATOLOGICAL Hx Arthritis: Yes Hx Fractures: Yes (left arm fx due to fall in the snow) - GASTROINTESTINAL Hx Diverticulitis: Yes - GENITOURINARY/GYNECOLOGICAL Hx Genitourinary Disorders: No - PSYCHIATRIC Hx Psychophysiologic Disorder: No Hx Substance Use: No - SURGICAL HISTORY Hx Carotid Endarterectomy: Yes Hx Cholecystectomy: Yes Hx Coronary Stent: Yes - ANESTHESIA Hx Anesthesia: Yes Hx Anesthesia Reactions: No Hx Malignant Hyperthermia: No Meds Allergies/Adverse Reactions: Allergies Allergy/AdvReac Type Severity Reaction Status Date / Time No Known Allergies Allergy Verified 10/08/17 00:15 - Medications Medications: Current Medications Acetaminophen (Tylenol 325mg Tab) 650 mg PO Q6H PRN PRN Reason: Fever >100.4 F Albuterol/Ipratropium (Duoneb 3 Mg/0.5 Mg (3 Ml) Ud) 3 ml INH RQ4 PRN PRN Reason: Shortness of Breath Last Admin: 10/09/17 06:42 Dose: 3 ml Aspirin (Aspirin) 325 mg PO DAILY [facility] Last Admin: 10/10/17 09:35 Dose: 325 mg Clobetasol Propionate (Temovate Cream) 1 applic TOP BID [facility] Last Admin: 10/10/17 10:06 Dose: 1 applic Finasteride (Proscar) 5 mg PO DAILY [facility] Last Admin: 10/10/17 09:33 Dose: 5 mg Heparin Sodium (Porcine) (Heparin) 5,000 units SC Q8 [facility] PRN Reason: Protocol Last Admin: 10/10/17 09:33 Dose: 5,000 units Cefepime HCl 2 gm/ Sodium (Chloride) 100 mls @ 100 mls/hr IVPB Q12 [facility]I PRN Reason: Protocol Last Admin: 10/10/17 09:33 Dose: 100 mls/hr Lactobacillus Acidophilus (Bacid Acidophilus) 1 cap PO HS [facility] Last Admin: 10/09/17 21:22 Dose: 1 cap Fouqz-1-Eziy Ethyl Esters (Lovaza) 1 gm PO DAILY [facility] Last Admin: 10/10/17 09:34 Dose: 1 gm Ondansetron HCl (Zofran Inj) 4 mg IVP Q6H PRN PRN Reason: Nausea/Vomiting Pantoprazole Sodium (Protonix Ec Tab) 40 mg PO DAILY [facility] Last Admin: 10/10/17 09:33 Dose: 40 mg Pravastatin Sodium (Pravachol) 20 mg PO HS [facility] Last Admin: 10/09/17 21:22 Dose: 20 mg Sodium Bicarbonate (Sodium Bicarbonate Tab) 650 mg PO BID [facility] Last Admin: 10/10/17 09:33 Dose: 650 mg Physical Exam - Constitutional Appears: Non-toxic, No Acute Distress, Confused, Chronically Ill - Head Exam Head Exam: ATRAUMATIC, NORMAL INSPECTION, NORMOCEPHALIC - Eye Exam Eye Exam: Normal appearance, PERRL. absent: Periorbital swelling, Scleral icterus - ENT Exam ENT Exam: Mucous Membranes Dry, Normal External Ear Exam, Normal Oropharynx - Neck Exam Neck exam: Positive for: Normal Inspection. Negative for: Tenderness, Thyromegaly - Respiratory Exam Respiratory Exam: Rhonchi, Wheezes. absent: Chest Wall Tenderness, Rales, Respiratory Distress - Cardiovascular Exam Cardiovascular Exam: REGULAR RHYTHM, +S1, +S2, Systolic Murmur. absent: Gallop - GI/Abdominal Exam GI & Abdominal Exam: Soft. absent: Distended, Firm, Guarding, Pulsatile Mass - Rectal Exam Rectal Exam: Deferred - Extremities Exam Extremities exam: Positive for: normal capillary refill, pedal edema. Negative for: tenderness, pedal pulses present - Neurological Exam Neurological exam: Altered - Psychiatric Exam Psychiatric exam: Flat Affect - Skin Skin Exam: Abrasion, Erythema, Warm Additional comments: Left upper extremity dressed, edematous, erythematous. Results - Vital Signs Recent Vital Signs: Last Vital Signs Temp 97.7 F 10/10/17 08:58 Pulse 82 10/10/17 08:58 Resp 20 10/10/17 08:58 BP 152/57 H 10/10/17 08:58 Pulse Ox 99 10/10/17 08:58 - Labs Result Diagrams: 10/10/17 05:25 10/10/17 05:25 Labs: Laboratory Results - last 24 hr 10/08/17 10/09/17 10/10/17 09:50 05:30 05:25 WBC 29.7 H RBC 3.66 L Hgb 9.7 L D Hct 30.3 L MCV 83.0 MCH 26.4 L MCHC 31.8 L RDW 16.3 H Plt Count 167 MPV 9.8 Neut % (Auto) 96.4 H Lymph % (Auto) 2.0 L Donley % (Auto) 1.4 Eos % (Auto) 0.2 Baso % (Auto) 0.0 Neut # (Auto) 28.6 H Lymph # (Auto) 0.6 L Donley # (Auto) 0.4 Eos # (Auto) 0.1 Baso # (Auto) 0.0 Neutrophils % (Manual) 82 H 94 H Band Neutrophils % 11 H* 3 H Lymphocytes % (Manual) 2 L 1 L Monocytes % (Manual) 4 2 Eosinophils % (Manual) 1 Toxic Granulation Present Platelet Estimate Normal Normal Large Platelets Present Hypochromasia (manual) Slight Anisocytosis (manual) Slight Slight Tear Drop Cells Slight Ovalocytes Slight [place]parna Cells Marked Slight Acanthocytes (Spur) Slight Schistocytes Slight Sodium Potassium Chloride Carbon Dioxide Anion Gap BUN Creatinine Est GFR ( Amer) Est GFR (Non-Af Amer) Random Glucose Calcium Total Bilirubin AST ALT Alkaline Phosphatase Total Protein Albumin Globulin Albumin/Globulin Ratio Blood Type AB NEGATIVE Antibody Screen Negative Crossmatch See Detail BBK History Checked Patient has bt 10/10/17 05:25 WBC RBC Hgb Hct MCV MCH MCHC RDW Plt Count MPV Neut % (Auto) Lymph % (Auto) Donley % (Auto) Eos % (Auto) Baso % (Auto) Neut # (Auto) Lymph # (Auto) Donley # (Auto) Eos # (Auto) Baso # (Auto) Neutrophils % (Manual) Band Neutrophils % Lymphocytes % (Manual) Monocytes % (Manual) Eosinophils % (Manual) Toxic Granulation Platelet Estimate Large Platelets Hypochromasia (manual) Anisocytosis (manual) Tear Drop Cells Ovalocytes [place] Cells Acanthocytes (Spur) Schistocytes Sodium 136 Potassium 3.8 Chloride 107 Carbon Dioxide 11 L* D Anion Gap 22 H BUN 83 H Creatinine 4.7 H Est GFR ( Amer) 14 Est GFR (Non-Af Amer) 12 Random Glucose 89 Calcium 6.7 L Total Bilirubin 0.6 AST 51 ALT 51 Alkaline Phosphatase 114 Total Protein 5.4 L Albumin 2.3 L D Globulin 3.1 Albumin/Globulin Ratio 0.8 L Blood Type Antibody Screen Crossmatch BBK History Checked Assessment & Plan - Assessment and Plan (Free Text) Assessment: 1. Altered mental status. 2. Syncope. 3. UTI. 4. Sepsis. 5. CKD. 6. Pafib. 7. CAD. 8. PAD. 9. Hypotension. 10. Anemia. Plan: 1. Continue antibiotic. 2. CT of the head. 3. Continue IVF. 4. Monitor renal function. 5. Monitor telemetry. Prognosis guarded given the patient's multiple comorbidities. Management was discussed with the daughter and Dr. Carrington at the bedside and both are in agreement for comfort measures. The patient is a DNR/DNI. Will follow as needed. - Date & Time Date: 10/10/17 Time: 11:16
--- NOTE | 2017-10-10 11:23 | CP.PCM.PN ---
Subjective - Date & Time of Evaluation Date of Evaluation: 10/10/17 Time of Evaluation: 11:25 - Subjective Subjective: MORE LETHARGIC TODAY UNABLE TO FOLLOW VERBAL COMMANDS AUDIBLE WHEEZING AND RALES DAUGHTER AT BEDSIDE AND ONLY WANTS COMFORT MEASURES Objective - Vital Signs/Intake and Output Vital Signs (last 24 hours): Temp Pulse Resp BP Pulse Ox 97.7 F 82 20 152/57 H 99 10/10/17 08:58 10/10/17 08:58 10/10/17 08:58 10/10/17 08:58 10/10/17 08:58 - Medications Medications: Current Medications Acetaminophen (Tylenol 325mg Tab) 650 mg PO Q6H PRN PRN Reason: Fever >100.4 F Albuterol/Ipratropium (Duoneb 3 Mg/0.5 Mg (3 Ml) Ud) 3 ml INH RQ4 PRN PRN Reason: Shortness of Breath Last Admin: 10/09/17 06:42 Dose: 3 ml Aspirin (Aspirin) 325 mg PO DAILY [facility] Last Admin: 10/10/17 09:35 Dose: 325 mg Clobetasol Propionate (Temovate Cream) 1 applic TOP BID [facility] Last Admin: 10/10/17 10:06 Dose: 1 applic Finasteride (Proscar) 5 mg PO DAILY [facility] Last Admin: 10/10/17 09:33 Dose: 5 mg Heparin Sodium (Porcine) (Heparin) 5,000 units SC Q8 [facility] PRN Reason: Protocol Last Admin: 10/10/17 09:33 Dose: 5,000 units Cefepime HCl 2 gm/ Sodium (Chloride) 100 mls @ 100 mls/hr IVPB Q12 [facility] PRN Reason: Protocol Last Admin: 10/10/17 09:33 Dose: 100 mls/hr Lactobacillus Acidophilus (Bacid Acidophilus) 1 cap PO HS [facility] Last Admin: 10/09/17 21:22 Dose: 1 cap [id number]-[id number] Ethyl Esters (Lovaza) 1 gm PO DAILY [facility] Last Admin: 10/10/17 09:34 Dose: 1 gm Ondansetron HCl (Zofran Inj) 4 mg IVP Q6H PRN PRN Reason: Nausea/Vomiting Pantoprazole Sodium (Protonix Ec Tab) 40 mg PO DAILY [facility] Last Admin: 10/10/17 09:33 Dose: 40 mg Pravastatin Sodium (Pravachol) 20 mg PO HS [facility] Last Admin: 10/09/17 21:22 Dose: 20 mg Sodium Bicarbonate (Sodium Bicarbonate Tab) 650 mg PO BID [facility] Last Admin: 10/10/17 09:33 Dose: 650 mg - Labs Labs: 10/10/17 05:25 10/10/17 05:25 PT 12.2 Seconds (9.8-13.1) 10/08/17 01:13 INR 1.1 (0.9-1.2) 10/08/17 01:13 APTT 28.1 Seconds (25.6-37.1) 10/08/17 01:13 - Constitutional Appears: Chronically Ill - Head Exam Head Exam: ATRAUMATIC, NORMAL INSPECTION, NORMOCEPHALIC - Eye Exam Eye Exam: EOMI, Normal appearance, PERRL Pupil Exam: NORMAL ACCOMODATION, PERRL - ENT Exam ENT Exam: Mucous Membranes Moist, Normal Exam - Neck Exam Neck Exam: Full ROM, Normal Inspection. absent: Lymphadenopathy - Respiratory Exam Respiratory Exam: Prolonged Expiratory Phase, Rales, Wheezes, Respiratory Distress - Cardiovascular Exam Cardiovascular Exam: REGULAR RHYTHM, +S1, +S2. absent: Murmur - GI/Abdominal Exam GI & Abdominal Exam: Soft, Normal Bowel Sounds. absent: Tenderness - Rectal Exam Rectal Exam: NORMAL INSPECTION - Exam Exam: Circumcision Additional comments: ISAAC IN PLACE - Extremities Exam Extremities Exam: Full ROM, Normal Capillary Refill, Normal Inspection, Pedal Edema. absent: Joint Swelling Additional comments: L ARM EDEMA REDNESS AND RASH OF LEGS - Back Exam Back Exam: NORMAL INSPECTION - Neurological Exam Neurological Exam: Awake - Skin Skin Exam: Dry, Intact, Normal Color, Rash, Warm Assessment and Plan - Assessment and Plan (Free Text) Assessment: SEPSIS COPD EXAC ESRD ASHD SYNCOPE ANEMIA R/O [facility] PATHOLOGY Plan: COMFORT CARE PROGNOSIS IS POOR
--- NOTE | 2017-10-10 12:30 | CT ---
PROCEDURE: CT HEAD WITHOUT CONTRAST. HISTORY: CVA COMPARISON: 10/06/2017. TECHNIQUE: Axial computed tomography images were obtained through the head/brain without intravenous contrast. Radiation dose: Total exam DLP = 1069.47 mGy-cm. This CT exam was performed using one or more of the following dose reduction techniques: Automated exposure control, adjustment of the mA and/or kV according to patient size, and/or use of iterative reconstruction technique. FINDINGS: HEMORRHAGE: No intracranial hemorrhage. BRAIN: There are mild chronic microangiopathic changes. There is no mass, mass effect or abnormal extra-axial fluid collection. There is no territorial infarction. VENTRICLES: There is moderate age-related global parenchymal volume loss and proportionate enlargement of the ventricles and cortical sulci. CALVARIUM: The skull base and calvarium are normal. PARANASAL SINUSES: Predominantly clear. MASTOID AIR CELLS: There is a small right mastoid effusion. The left mastoid air cells are clear. OTHER FINDINGS: There is stable appearance of an enlarged partially empty sella with flattened pituitary gland. IMPRESSION: No acute intracranial abnormality. If there is a persistent focal neurologic deficit and an ongoing clinical concern for acute infarction, an MRI of the brain without intravenous contrast would be a more sensitive modality for evaluation of hyperacute/acute ischemic infarction. Mild chronic microangiopathic changes and moderate age-related global parenchymal volume loss.
--- NOTE | 2017-10-10 13:25 | CP.PCM.CON ---
History of Present Illness - History of Present Illness History of Present Illness: 87 y/o male with multiple medical conditions including CAD/HLD, HTN, CKD and COPD among other medical conditions who is brought in after a syncopal episode while his daughter was turning/changing him. He did not fall or hit head, as he was in bed. Despite optimal treatment of his medical conditions he remains confused, nonverbal He has multiple skin lesions and consideration of bullous pemphigoid was made. left arm with increased redness Cultures noted IV antibiotics ordered empirically Overall prognosis is poor would consider skin Bx if/ when condition stabilizes Overall poor prognosis ROS: unable to perform full ROS as patient does not answer consistently MHx: CAD, CVD/HLD, HTN, CKD, COPD SHx: Multiple cardiac caths, CEA b/l Allergies: NKDA Medications: per med rec Family Hx: Patient cannot provide any relevant fam hx at this time Social Hx: Lives at home with family, no tobacco, no EtOH Surrogate: daughter, info on chart Review of Systems - Review of Systems Systems not reviewed;Unavailable: Altered Mental Status All systems: reviewed and no additional remarkable complaints except Past Patient History - Tetanus Immunizations Tetanus Immunization: Unknown - Past Medical History & Family History Past Medical History?: Yes - Past Social History Smoking Status: Current Some Days Smoker - CARDIAC Hx Cardiac Disorders: Yes Hx Angina: Yes Hx Atrial Fibrillation: Yes Hx Cardia Arrhythmia: Yes Hx Circulatory Problems: Yes Hx Congestive Heart Failure: Yes Hx Hypercholesterolemia: Yes Hx Hypertension: Yes Hx Peripheral Vascular Disease: Yes - PULMONARY Hx Chronic Obstructive Pulmonary Disease (COPD): Yes - NEUROLOGICAL Hx Dementia: Yes Hx Transient Ischemic Attacks (TIA): Yes (Apr 2016) - HEENT Hx Deafness: Yes Other/Comment: HARD OF HEARING RIGHT EAR - RENAL Hx Chronic Kidney Disease: Yes Hx Dialysis: No - ENDOCRINE/METABOLIC Hx Endocrine Disorders: Yes Hx Diabetes Mellitus Type 2: No - HEMATOLOGICAL/ONCOLOGICAL Hx Anemia: Yes Hx Human Immunodeficiency Virus (HIV): No - INTEGUMENTARY Other/Comment: blisters and cellulitis - MUSCULOSKELETAL/RHEUMATOLOGICAL Hx Arthritis: Yes Hx Fractures: Yes (left arm fx due to fall in the snow) - GASTROINTESTINAL Hx Diverticulitis: Yes - GENITOURINARY/GYNECOLOGICAL Hx Genitourinary Disorders: No - PSYCHIATRIC Hx Psychophysiologic Disorder: No Hx Substance Use: No - SURGICAL HISTORY Hx Carotid Endarterectomy: Yes Hx Cholecystectomy: Yes Hx Coronary Stent: Yes - ANESTHESIA Hx Anesthesia: Yes Hx Anesthesia Reactions: No Hx Malignant Hyperthermia: No Meds Allergies/Adverse Reactions: Allergies Allergy/AdvReac Type Severity Reaction Status Date / Time No Known Allergies Allergy Verified 10/08/17 00:15 - Medications Medications: Current Medications Acetaminophen (Tylenol 325mg Tab) 650 mg PO Q6H PRN PRN Reason: Fever >100.4 F Albuterol/Ipratropium (Duoneb 3 Mg/0.5 Mg (3 Ml) Ud) 3 ml INH RQ4 PRN PRN Reason: Shortness of Breath Last Admin: 10/09/17 06:42 Dose: 3 ml Albuterol/Ipratropium (Duoneb 3 Mg/0.5 Mg (3 Ml) Ud) 3 ml INH RQID [facility] Aspirin (Aspirin) 325 mg PO DAILY [facility] Last Admin: 10/10/17 11:24 Dose: Not Given Clobetasol Propionate (Temovate Cream) 1 applic TOP BID [facility] Last Admin: 10/10/17 10:06 Dose: 1 applic Finasteride (Proscar) 5 mg PO DAILY [facility] Last Admin: 10/10/17 11:25 Dose: Not Given Heparin Sodium (Porcine) (Heparin) 5,000 units SC Q8 [facility] PRN Reason: Protocol Last Admin: 10/10/17 09:33 Dose: 5,000 units Cefepime HCl 2 gm/ Sodium (Chloride) 100 mls @ 100 mls/hr IVPB Q12 [facility] PRN Reason: Protocol Last Admin: 10/10/17 09:33 Dose: 100 mls/hr Lactobacillus Acidophilus (Bacid Acidophilus) 1 cap PO HS [facility] Last Admin: 10/09/17 21:22 Dose: 1 cap [id number] Ethyl Esters (Lovaza) 1 gm PO DAILY [facility] Last Admin: 10/10/17 11:25 Dose: Not Given Ondansetron HCl (Zofran Inj) 4 mg IVP Q6H PRN PRN Reason: Nausea/Vomiting Pantoprazole Sodium (Protonix Ec Tab) 40 mg PO DAILY [facility] Last Admin: 10/10/17 11:25 Dose: Not Given Pravastatin Sodium (Pravachol) 20 mg PO HS [facility] Last Admin: 10/09/17 21:22 Dose: 20 mg Sodium Bicarbonate (Sodium Bicarbonate Tab) 650 mg PO BID [facility] Last Admin: 10/10/17 11:25 Dose: Not Given Physical Exam - Constitutional Appears: No Acute Distress, Confused, Chronically Ill - Head Exam Head Exam: ATRAUMATIC, NORMAL INSPECTION, NORMOCEPHALIC - Eye Exam Eye Exam: EOMI, PERRL. absent: Scleral icterus - ENT Exam ENT Exam: Mucous Membranes Dry, Normal External Ear Exam - Neck Exam Neck exam: Negative for: Lymphadenopathy - Respiratory Exam Respiratory Exam: Decreased Breath Sounds, Prolonged Expiratory Phase, Rhonchi - Cardiovascular Exam Cardiovascular Exam: REGULAR RHYTHM, +S1, +S2 - GI/Abdominal Exam GI & Abdominal Exam: Diminished Bowel Sounds, Soft. absent: Rebound, Rigid, Tenderness - Rectal Exam Rectal Exam: Deferred - Exam Exam: NORMAL INSPECTION - Extremities Exam Extremities exam: Positive for: pedal edema, pedal pulses present. Negative for : calf tenderness, tenderness - Back Exam Back exam: absent: CVA tenderness (L), CVA tenderness (R), NORMAL INSPECTION, paraspinal tenderness - Neurological Exam Neurological exam: Alert, Altered, CN II-XII Intact - Psychiatric Exam Psychiatric exam: Depressed - Skin Skin Exam: Erythema, Rash Results - Vital Signs Recent Vital Signs: Last Vital Signs Temp 97.7 F 10/10/17 08:58 Pulse 82 10/10/17 08:58 Resp 20 10/10/17 08:58 BP 152/57 H 10/10/17 08:58 Pulse Ox 99 10/10/17 08:58 - Labs Result Diagrams: 10/10/17 05:25 10/10/17 05:25 Labs: Laboratory Results - last 24 hr 10/08/17 10/09/17 10/10/17 09:50 10:10 05:25 WBC 29.7 H RBC 3.66 L Hgb 9.7 L D Hct 30.3 L MCV 83.0 MCH 26.4 L MCHC 31.8 L RDW 16.3 H Plt Count 167 MPV 9.8 Neut % (Auto) 96.4 H Lymph % (Auto) 2.0 L Lamb % (Auto) 1.4 Eos % (Auto) 0.2 Baso % (Auto) 0.0 Neut # (Auto) 28.6 H Lymph # (Auto) 0.6 L Lamb # (Auto) 0.4 Eos # (Auto) 0.1 Baso # (Auto) 0.0 Neutrophils % (Manual) 94 H Band Neutrophils % 3 H Lymphocytes % (Manual) 1 L Monocytes % (Manual) 2 Platelet Estimate Normal Anisocytosis (manual) Slight Willow Cells Slight Acanthocytes (Spur) Slight Sodium Potassium Chloride Carbon Dioxide Anion Gap BUN Creatinine Est GFR ( Amer) Est GFR (Non-Af Amer) Random Glucose Calcium Total Bilirubin AST ALT Alkaline Phosphatase Total Protein Albumin Globulin Albumin/Globulin Ratio C. difficile Ag & Toxin Negative Blood Type AB NEGATIVE Antibody Screen Negative Crossmatch See Detail BBK History Checked Patient has bt 10/10/17 05:25 WBC RBC Hgb Hct MCV MCH MCHC RDW Plt Count MPV Neut % (Auto) Lymph % (Auto) Lamb % (Auto) Eos % (Auto) Baso % (Auto) Neut # (Auto) Lymph # (Auto) Lamb # (Auto) Eos # (Auto) Baso # (Auto) Neutrophils % (Manual) Band Neutrophils % Lymphocytes % (Manual) Monocytes % (Manual) Platelet Estimate Anisocytosis (manual) Aparna Cells Acanthocytes (Spur) Sodium 136 Potassium 3.8 Chloride 107 Carbon Dioxide 11 L* D Anion Gap 22 H BUN 83 H Creatinine 4.7 H Est GFR ( Amer) 14 Est GFR (Non-Af Amer) 12 Random Glucose 89 Calcium 6.7 L Total Bilirubin 0.6 AST 51 ALT 51 Alkaline Phosphatase 114 Total Protein 5.4 L Albumin 2.3 L D Globulin 3.1 Albumin/Globulin Ratio 0.8 L C. 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
[2017-10-10] MEDS: Albuterol-Ipratrop 3 mg / 0.5 (3 ml) UD INH SCH ×2 (16:06→19:09)
[2017-10-10] MEDS ORDERED: Linezolid 600 mg in D5W 300 ml 600 MG/300 ML BAG IVPB SCH (21:00)
[2017-10-10] MEDS: Pravastatin Sodium 20 MG TAB PO SCH (21:15)
[2017-10-10] MEDS: Lactobacillus Acidophilus 500 MU Cap PO SCH (21:15)
[2017-10-11 05:27] LABS: BASO % 0.2 % (0.0-2.0); EOS # 0.1 K/uL (0.0-0.7); EOS % 0.4 % (0.0-4.0); HEMOGLOBIN 10.7 g/dL (12.0-18.0); LYMPH # 0.7 K/uL (1.0-4.3); LYMPH % 2.7 % (20.0-40.0); MEAN CELL VOLUME 83.7 fl (80.0-94.0); MEAN CORPUSCULAR HEMOGLOBIN 27.1 pg (27.0-31.0); MEAN CORPUSCULAR HGB CONC 32.4 g/dL (33.0-37.0); MEAN PLATELET VOLUME 9.5 fl (7.2-11.7); MONO # 0.6 K/uL (0.0-0.8); MONO % 2.1 % (0.0-10.0); NEUT # 25.3 K/uL (1.8-7.0); NEUT % 94.6 % (50.0-75.0); PLATELET COUNT 143 K/uL (130-400); RBC 3.95 Mil/uL (4.40-5.90); RED CELL DISTRIBUTION WIDTH 16.5 % (11.5-14.5); WHITE BLOOD COUNT 26.7 K/uL (4.8-10.8)
[2017-10-11 05:50] LABS: CALCIUM 7.2 mg/dL (8.4-10.2)
[2017-10-11] MEDS: Albuterol-Ipratrop 3 mg / 0.5 (3 ml) UD INH SCH ×2 (07:53→11:16)
[2017-10-11 08:13] VITALS: O2SAT 100
[2017-10-11] MEDS ORDERED: Dextrose 5%/0.45% NS 1,000 ML IV SCH (08:30)
--- NOTE | 2017-10-11 08:36 | CP.PCM.PN ---
Subjective - Date & Time of Evaluation Date of Evaluation: 10/11/17 Time of Evaluation: 08:39 - Subjective Subjective: LETHARGIC MOUTH BREATHING ORAL MUCOSA DRY Objective - Vital Signs/Intake and Output Vital Signs (last 24 hours): Temp Pulse Resp BP Pulse Ox 97.8 F 86 18 148/64 100 10/11/17 08:12 10/11/17 08:12 10/11/17 08:12 10/11/17 08:12 10/11/17 08:12 - Medications Medications: Current Medications Acetaminophen (Tylenol 325mg Tab) 650 mg PO Q6H PRN PRN Reason: Fever >100.4 F Albuterol/Ipratropium (Duoneb 3 Mg/0.5 Mg (3 Ml) Ud) 3 ml INH RQID [facility] Last Admin: 10/11/17 07:53 Dose: 3 ml Aspirin (Aspirin) 325 mg PO DAILY [facility] Last Admin: 10/10/17 11:24 Dose: Not Given Clobetasol Propionate (Temovate Cream) 1 applic TOP BID [facility] Last Admin: 10/10/17 16:34 Dose: 1 applic Finasteride (Proscar) 5 mg PO DAILY [facility] Last Admin: 10/10/17 11:25 Dose: Not Given Heparin Sodium (Porcine) (Heparin) 5,000 units SC Q8 [facility] PRN Reason: Protocol Last Admin: 10/11/17 01:15 Dose: 5,000 units Piperacillin Sod/Tazobactam (Sod 2.25 gm/ Sodium Chloride) 100 mls @ 100 mls/ hr IVPB Q8 [facility] PRN Reason: Protocol Last Admin: 10/11/17 01:15 Dose: 100 mls/hr Dextrose/Sodium Chloride (Dextrose 5%/0.45% Ns 1000 Ml) 1,000 mls @ 42 mls/hr IV .[id number] [facility] Stop: 10/12/17 08:29 Lactobacillus Acidophilus (Bacid Acidophilus) 1 cap PO HS [facility] Last Admin: 10/10/17 21:15 Dose: Not Given [id number]-2-Shjw Ethyl Esters (Lovaza) 1 gm PO DAILY [facility] Last Admin: 10/10/17 11:25 Dose: Not Given Ondansetron HCl (Zofran Inj) 4 mg IVP Q6H PRN PRN Reason: Nausea/Vomiting Pantoprazole Sodium (Protonix Ec Tab) 40 mg PO DAILY [facility] Last Admin: 10/10/17 11:25 Dose: Not Given Pravastatin Sodium (Pravachol) 20 mg PO HS [facility] Last Admin: 10/10/17 21:15 Dose: Not Given Sodium Bicarbonate (Sodium Bicarbonate Tab) 650 mg PO BID [facility] Last Admin: 10/10/17 16:32 Dose: Not Given - Labs Labs: 10/11/17 04:20 10/11/17 04:20 PT 12.2 Seconds (9.8-13.1) 10/08/17 01:13 INR 1.1 (0.9-1.2) 10/08/17 01:13 APTT 28.1 Seconds (25.6-37.1) 10/08/17 01:13 - Constitutional Appears: Chronically Ill - Head Exam Head Exam: ATRAUMATIC, NORMAL INSPECTION, NORMOCEPHALIC - Eye Exam Eye Exam: EOMI, Normal appearance, PERRL Pupil Exam: NORMAL ACCOMODATION, PERRL - ENT Exam ENT Exam: Mucous Membranes Moist, Normal Exam - Neck Exam Neck Exam: Full ROM, Normal Inspection. absent: Lymphadenopathy - Respiratory Exam Respiratory Exam: Prolonged Expiratory Phase, Rales, NORMAL BREATHING PATTERN - Cardiovascular Exam Cardiovascular Exam: REGULAR RHYTHM, +S1, +S2. absent: Murmur - GI/Abdominal Exam GI & Abdominal Exam: Soft, Normal Bowel Sounds. absent: Tenderness - Rectal Exam Rectal Exam: NORMAL INSPECTION - Extremities Exam Extremities Exam: Full ROM, Normal Capillary Refill, Normal Inspection. absent : Joint Swelling, Pedal Edema - Back Exam Back Exam: NORMAL INSPECTION - Skin Skin Exam: Dry, Intact, Normal Color, Warm Additional comments: CELLULITIS OF EXTREMITIES Assessment and Plan - Assessment and Plan (Free Text) Assessment: SEPSIS DEHYDRATION ANEMIA ESRD NSTEMI SYNCOPE COPD Plan: SUPPORTIVE CARE PROGNOSIS IS POOR
[2017-10-11] MEDS: Omega-3-Acid Ethyl Esters 1 GM Cap PO SCH (09:46)
[2017-10-11] MEDS: Pantoprazole 40 mg EC Tab PO SCH (09:47)
[2017-10-11 10:26] LABS: ANISOCYTOSIS SLIGHT; EOSINOPHIL 1 % (0-7); HYPOCHROMIC SLIGHT; LYMPHOCYTE 2 % (20-50); MONOCYTE 3 % (0-10); NEUTROPHIL 94 % (42-75); PLATELET ESTIMATE NORMAL (NORMAL); TOTAL CELLS COUNTED 100
[2017-10-11 10:27] LABS: BURR CELLS MODERATE; LARGE PLATELETS PRESENT; OVALOCYTES SLIGHT; TEARDROP CELLS SLIGHT
--- NOTE | 2017-10-11 10:30 | RAD ---
PROCEDURE: CHEST RADIOGRAPH, 1 VIEW HISTORY: Evaluate for pneumonia COMPARISON: 10/08/2017. FINDINGS: The right PICC line terminates at the cavoatrial junction. LUNGS: The lungs are well inflated. There is moderate pulmonary venous congestion. No focal consolidation. PLEURA: No pneumothorax or pleural fluid seen. CARDIOVASCULAR: There is persistent mild cardio. OSSEOUS STRUCTURES: No significant abnormalities. VISUALIZED UPPER ABDOMEN: Normal. OTHER FINDINGS: None. IMPRESSION: Persistent mild cardiomegaly and pulmonary venous congestion. No lobar pneumonia.
--- NOTE | 2017-10-11 11:01 | CP.PCM.PN ---
Subjective - Date & Time of Evaluation Date of Evaluation: 10/11/17 Time of Evaluation: 08:00 - Subjective Subjective: cultures + for grp A strep switched to zosyn and Cefepime d/c'd cont local wound care to lesions Objective - Vital Signs/Intake and Output Vital Signs (last 24 hours): Temp Pulse Resp BP Pulse Ox 97.8 F 86 18 148/64 100 10/11/17 08:12 10/11/17 08:12 10/11/17 08:12 10/11/17 08:12 10/11/17 08:12 - Medications Medications: Current Medications Acetaminophen (Tylenol 325mg Tab) 650 mg PO Q6H PRN PRN Reason: Fever >100.4 F Albuterol/Ipratropium (Duoneb 3 Mg/0.5 Mg (3 Ml) Ud) 3 ml INH RQID [facility] Last Admin: 10/11/17 07:53 Dose: 3 ml Aspirin (Aspirin) 325 mg PO DAILY [facility] Last Admin: 10/11/17 09:46 Dose: Not Given Clobetasol Propionate (Temovate Cream) 1 applic TOP BID [facility] Last Admin: 10/11/17 09:34 Dose: 1 applic Finasteride (Proscar) 5 mg PO DAILY [facility] Last Admin: 10/11/17 09:46 Dose: Not Given Heparin Sodium (Porcine) (Heparin) 5,000 units SC Q8 [facility] PRN Reason: Protocol Last Admin: 10/11/17 01:15 Dose: 5,000 units Piperacillin Sod/Tazobactam (Sod 2.25 gm/ Sodium Chloride) 100 mls @ 100 mls/ hr IVPB Q8 [facility] PRN Reason: Protocol Last Admin: 10/11/17 09:32 Dose: 100 mls/hr Dextrose/Sodium Chloride (Dextrose 5%/0.45% Ns 1000 Ml) 1,000 mls @ 42 mls/hr IV .[id number] [facility] Stop: 10/12/17 08:29 Last Admin: 10/11/17 09:33 Dose: 42 mls/hr Lactobacillus Acidophilus (Bacid Acidophilus) 1 cap PO HS [facility] Last Admin: 10/10/17 21:15 Dose: Not Given Morphine Sulfate (Morphine) 2 mg IVP ONCE ONE Stop: 10/11/17 10:50 [id number] Ethyl Esters (Lovaza) 1 gm PO DAILY [facility] Last Admin: 10/11/17 09:46 Dose: Not Given Ondansetron HCl (Zofran Inj) 4 mg IVP Q6H PRN PRN Reason: Nausea/Vomiting Pantoprazole Sodium (Protonix Ec Tab) 40 mg PO DAILY [facility] Last Admin: 10/11/17 09:47 Dose: Not Given Pravastatin Sodium (Pravachol) 20 mg PO HS [facility] Last Admin: 10/10/17 21:15 Dose: Not Given Sodium Bicarbonate (Sodium Bicarbonate Tab) 650 mg PO BID [facility] Last Admin: 10/11/17 09:47 Dose: Not Given - Labs Labs: 10/11/17 04:20 10/11/17 04:20 PT 12.2 Seconds (9.8-13.1) 10/08/17 01:13 INR 1.1 (0.9-1.2) 10/08/17 01:13 APTT 28.1 Seconds (25.6-37.1) 10/08/17 01:13 - Constitutional Appears: Confused, Cachectic, Chronically Ill - Head Exam Head Exam: NORMOCEPHALIC - Eye Exam Eye Exam: PERRL - ENT Exam ENT Exam: Mucous Membranes Dry - Neck Exam Neck Exam: absent: Lymphadenopathy, Thyromegaly - Respiratory Exam Respiratory Exam: Decreased Breath Sounds - Cardiovascular Exam Cardiovascular Exam: REGULAR RHYTHM - GI/Abdominal Exam GI & Abdominal Exam: Distended, Soft Assessment and Plan (1) Acute on chronic kidney failure Status: Acute (2) CKD (chronic kidney disease), stage III Status: Acute (3) COPD (chronic obstructive pulmonary disease) Status: Acute (4) Elevated troponin Status: Acute (5) Sepsis Status: Acute
--- NOTE | 2017-10-11 11:30 | VASCULAR ---
PROCEDURE: Date of procedure: 10/08/2017 Procedure: 1. Placement of a right arm PICC with ultrasound and fluoroscopic guidance, CPT 84021 2. PICC tip confirmation with spot radiograph and is in the superior vena cava Medications: 1 percent lidocaine Total Fluoro time: 8.6 seconds Radiation: 1.04 MGy EBL: 2 cc HISTORY: Infection requiring long-term IV antibiotics TECHNIQUE: Following informed consent and procedure time-out, the patient was placed supine on the interventional table and the right arm prepped and draped in the usual sterile fashion. Ultrasound showed a patent and compressible right basilic vein. After the skin was anesthetized with lidocaine, the basilic vein was accessed with micro micropuncture technique using ultrasound guidance. A guidewire was then advanced under fluoroscopic guidance into the superior vena cava. An image documenting ultrasound guidance for vascular access was permanently saved. The length of the single-lumen 4 [place] PICC was trimmed to 37 centimeters and advanced through a peel-away sheath. The PICC was position with tip of PICC confirm a spot radiograph the superior vena cava. The PICC was secured to the patient's skin. The PICC was flushed. A biopatch and sterile dressing was applied. IMPRESSION: Placement of a single-lumen 4 [place] PICC trimmed to 37 centimeters via right basilic vein. The tip of the PICC is confirmed with spot radiograph and is in the superior vena cava.
[2017-10-11 12:24] VITALS: BP 139/62; PULSE 91; RESP 20; TEMP 97
--- NOTE | 2017-10-11 15:16 | CP.PCM.PCO ---
Assessment/Plan - Assessment and Plan (Free Text) Assessment: Patient seen and examined Lethargic, not eating. SW met with patient's daughter, who is interested in hospice services. Inpatient eval for hospice with Astrid placed. Patient interested in evaluation for in patient hospice and comfort measures only. As per [employer], patient qualifies for inpatient hospice. Discussed with Dr Carrington who agrees with plan.
--- NOTE | 2017-10-11 19:38 | CP.PCM.CON ---
History of Present Illness - History of Present Illness History of Present Illness: REASONS FOR CONSULT : ADVANCED CKD .. e GFR 17 --> 13 ANEMIA OF CKD .. R/ OTHER CAUSES MET ACIDOSIS .. H/O HYPERKALEMIA .. K IS OK NOW PT WAS SEEN AND EXAMINED .. OLD EMR REVIEWED CHART WAS REVIEWED PT IS WELL KNONW TO ME FOR THE LAST 5-6 YEARS Hx of CKD, HTN, HLD, Hyperkalemia presenting with syncopal episdoe, caregiver is daughter who was turning him to change him and then he "passed out" according to her, when EMS was called, patient was hypotensive and had one large watery episode of diarrhea. Currently patient denies all complaints. Of note patient was in ER recently for fall. Daughter denies recent illnesses but patient has a chronic cough. Past Medical History Reviewed: Historical Data, Nursing Documentation, Vital Signs Vital Signs: Last Vital Signs Temp 100.3 F H 10/08/17 00:15 Pulse 57 L 10/08/17 00:15 Resp 16 10/08/17 00:15 BP 112/42 L 10/08/17 00:15 Pulse Ox 90 L 10/08/17 00:15 - Medical History PMH: Anemia, Arthritis, Atrial Fibrillation, CAD (WITH STENTS), COPD, Diverticulitis, Fractures (left arm fx due to fall in the snow), HTN, Hypercholesterolemia, Chronic Kidney Disease, TIA (Apr 2016) Denies: HIV - Surgical History Surgical History: Carotid Endarterectomy, Cholecystectomy, Coronary Stent - Family History Family History: States: Unknown Family Hx - Immunization History Hx Tetanus Toxoid Vaccination: No Hx Influenza Vaccination: Yes Hx Pneumococcal Vaccination: No - Home Medications Home Medications: Ambulatory Orders Medication Instructions Recorded Fish Oil/Dha/Epa [Fish Oil 1,200 1,200 mg PO DAILY 03/14/16 mg Fish Oil] Pantoprazole Sodium [Protonix] 40 mg PO DAILY 05/02/16 Aspirin [Ecotrin] 81 mg PO DAILY 08/24/16 Pravastatin Sodium [Pravachol] 20 mg PO HS 03/25/17 Sodium Bicarbonate Tab 650 mg PO BID 06/11/17 Valsartan [Diovan] 320 mg PO DAILY tab 06/16/17 Chlorthalidone [Hygroton] 1 tab PO DAILY 07/30/17 Cilostazol [Pletal] 100 mg PO DAILY 07/30/17 Finasteride [Proscar] 5 mg PO DAILY 07/30/17 Furosemide [Lasix] 20 mg PO DAILY 07/30/17 Lactobacillus Combination No.8 1 tab PO HS 07/30/17 [Adult Probiotic] - Allergies Allergies/Adverse Reactions: Allergies Allergy/AdvReac Type Severity Reaction Status Date / Time No Known Allergies Allergy Verified 10/08/17 00:15 Review of Systems ROS Statement: Except As Marked, All Systems Reviewed And Found Negative Gastrointestinal: Positive for: Diarrhea Past Patient History - Tetanus Immunizations Tetanus Immunization: Unknown - Past Medical History & Family History Past Medical History?: Yes - Past Social History Smoking Status: Current Some Days Smoker - CARDIAC Hx Cardiac Disorders: Yes Hx Angina: Yes Hx Atrial Fibrillation: Yes Hx Cardia Arrhythmia: Yes Hx Circulatory Problems: Yes Hx Congestive Heart Failure: Yes Hx Hypercholesterolemia: Yes Hx Hypertension: Yes Hx Peripheral Vascular Disease: Yes - PULMONARY Hx Chronic Obstructive Pulmonary Disease (COPD): Yes - NEUROLOGICAL Hx Dementia: Yes Hx Transient Ischemic Attacks (TIA): Yes (Apr 2016) - HEENT Hx Deafness: Yes Other/Comment: HARD OF HEARING RIGHT EAR - RENAL Hx Chronic Kidney Disease: Yes Hx Dialysis: No - ENDOCRINE/METABOLIC Hx Endocrine Disorders: Yes Hx Diabetes Mellitus Type 2: No - HEMATOLOGICAL/ONCOLOGICAL Hx Anemia: Yes Hx Human Immunodeficiency Virus (HIV): No - INTEGUMENTARY Other/Comment: blisters and cellulitis - MUSCULOSKELETAL/RHEUMATOLOGICAL Hx Arthritis: Yes Hx Fractures: Yes (left arm fx due to fall in the snow) - GASTROINTESTINAL Hx Diverticulitis: Yes - GENITOURINARY/GYNECOLOGICAL Hx Genitourinary Disorders: No - PSYCHIATRIC Hx Psychophysiologic Disorder: No Hx Substance Use: No - SURGICAL HISTORY Hx Carotid Endarterectomy: Yes Hx Cholecystectomy: Yes Hx Coronary Stent: Yes - ANESTHESIA Hx Anesthesia: Yes Hx Anesthesia Reactions: No Hx Malignant Hyperthermia: No Meds Allergies/Adverse Reactions: Allergies Allergy/AdvReac Type Severity Reaction Status Date / Time No Known Allergies Allergy Verified 10/08/17 00:15 Results - Vital Signs Recent Vital Signs: Last Vital Signs Temp 97 F L 10/11/17 12:23 Pulse 91 H 10/11/17 12:23 Resp 20 10/11/17 12:23 BP 139/62 10/11/17 12:23 Pulse Ox 100 10/11/17 12:23 - Labs Result Diagrams: 10/11/17 04:20 10/11/17 04:20 Labs: Laboratory Results - last 24 hr 10/11/17 10/11/17 04:20 04:20 WBC 26.7 H RBC 3.95 L Hgb 10.7 L Hct 33.0 L MCV 83.7 MCH 27.1 MCHC 32.4 L RDW 16.5 H Plt Count 143 MPV 9.5 Neut % (Auto) 94.6 H Lymph % (Auto) 2.7 L [place] % (Auto) 2.1 Eos % (Auto) 0.4 Baso % (Auto) 0.2 Neut # (Auto) 25.3 H Lymph # (Auto) 0.7 L [place] # (Auto) 0.6 Eos # (Auto) 0.1 Baso # (Auto) 0.0 Neutrophils % (Manual) 94 H Lymphocytes % (Manual) 2 L Monocytes % (Manual) 3 Eosinophils % (Manual) 1 Platelet Estimate Normal Large Platelets Present Hypochromasia (manual) Slight Anisocytosis (manual) Slight Tear Drop Cells Slight Ovalocytes Slight Aparna Cells Moderate Sodium 140 Potassium 3.9 Chloride 108 H Carbon Dioxide 9 L* Anion Gap 27 H BUN 95 H Creatinine 5.3 H Est GFR ( Amer) 13 Est GFR (Non-Af Amer) 10 Random Glucose 78 Calcium 7.2 L Assessment & Plan - Assessment and Plan (Free Text) Assessment: ADVANCED CKD .. NO HD PER [facility] ANEMIA OF CKD .. R/O OHER CAUSES .. CONSIDER TRANSFUSION ACIDOSIS .. INCREASE PO BICARBONATE MMP P : C/O CURRENT CARE C/O PRESENT MEDS NO HD PER DAUGHTER PT WAS ACCEPTED INTO HOSPICE POOR PROGNOSIS - Date & Time Date: 10/11/17 Time: 11:00
== END 2017-10-11 15:13 | disposition hospice, inpatient (51) | DRG 871 ==
LOC: H.ER 00:13 → H.ERHOLD 01:53 → H.ICU/CCU 04:25 → H.TEL 10-09 22:29
PROVIDERS: ADMIT Internal Medicine Pulmonary Disease; ATTEND Internal Medicine Pulmonary Disease
PROC: 02HV33Z Insertion of Infusion Device into Superior Vena Cava, Percutaneous Approach (ICD-10-PCS; principal; 2017-10-08)
PROC: 30233N1 Transfusion of Nonautologous Red Blood Cells into Peripheral Vein, Percutaneous Approach (ICD-10-PCS; 2017-10-08)
PROC: 3E04329 Introduction of Other Anti-infective into Central Vein, Percutaneous Approach (ICD-10-PCS; 2017-10-08)
DX: A41.9 Sepsis, unspecified organism (principal); G93.41 Metabolic encephalopathy; J18.9 Pneumonia, unspecified organism; J96.01 Acute respiratory failure with hypoxia; N18.6 End stage renal disease; I21.4 Non-ST elevation (NSTEMI) myocardial infarction; N17.9 Acute kidney failure, unspecified; N39.0 Urinary tract infection, site not specified; J44.1 Chronic obstructive pulmonary disease with (acute) exacerbation; J44.0 Chronic obstructive pulmonary disease with (acute) lower respiratory infection; I13.2 Hypertensive heart and chronic kidney disease with heart failure and with stage 5 chronic kidney disease, or end stage renal disease; E87.2 Acidosis; Y95 Nosocomial condition; I50.9 Heart failure, unspecified; I48.0 Paroxysmal atrial fibrillation; I25.10 Atherosclerotic heart disease of native coronary artery without angina pectoris; F03.90 Unspecified dementia, unspecified severity, without behavioral disturbance, psychotic disturbance, mood disturbance, and anxiety; E86.0 Dehydration; D63.1 Anemia in chronic kidney disease; E78.5 Hyperlipidemia, unspecified; E78.00 Pure hypercholesterolemia, unspecified; I73.9 Peripheral vascular disease, unspecified; H91.91 Unspecified hearing loss, right ear; Z51.5 Encounter for palliative care; R29.6 Repeated falls; M19.90 Unspecified osteoarthritis, unspecified site; Z66 Do not resuscitate; Z79.82 Long term (current) use of aspirin; Z95.5 Presence of coronary angioplasty implant and graft; Z86.73 Personal history of transient ischemic attack (TIA), and cerebral infarction without residual deficits; Z87.891 Personal history of nicotine dependence; Z79.01 Long term (current) use of anticoagulants; Z90.49 Acquired absence of other specified parts of digestive tract

== ENCOUNTER 2017-10-11 15:33 | Inpatient (IN) | payer OTHER ==
[2017-10-11] MEDS ORDERED: Hyoscyamine 0.125 mg SL Tab SL PRN (15:38)
[2017-10-11] MEDS ORDERED: Morphine 100 MG in Sodium Chloride 0.9% 100 ML IVPB SCH (16:45)
--- NOTE | 2017-10-12 10:43 | HP ---
ADMITTING HISTORY AND PHYSICAL HISTORY OF PRESENT ILLNESS: Mr. Yen is an 87-year-old male who was admitted to hospice care. He was recently admitted to the Intensive Care Unit because of sepsis, dehydration, renal failure, and acute myocardial infarction. As per daughter request, the patient was made DNR and admitted to hospice care. He is lethargic and barely arousable. PAST MEDICAL HISTORY: Remarkable for coronary artery disease, end-stage renal failure, hypertension, chronic obstructive pulmonary disease, recurrent sepsis, and COPD. FAMILY HISTORY: Nonrevealing. SOCIAL HISTORY: Socially, he stopped smoking multiple years ago. He lives at home with the daughter. Does not drink. Does not use drugs. REVIEW OF SYSTEMS: Remarkable for recurrent shortness of breath, exercise intolerance and . PHYSICAL EXAMINATION: GENERAL: The patient is obtunded and lethargic. VITAL SIGNS: Noted. HEENT: Pupils are equal and reactive to light and accommodation. Mouth is dry. LUNGS: Poor aeration bilaterally with rales. HEART: Tachycardiac. ABDOMEN: Soft and nontender. No organomegaly. EXTREMITIES: Cellulitis of extremities improving. CENTRAL NERVOUS SYSTEM: The patient is barely arousable and is not able to fully examine him. IMPRESSION: Multiorgan failure including sepsis, hypertension by history, end-stage renal failure, and chronic obstructive pulmonary disease. PLAN: Supportive care and (hospice care) as per daughter's request. Dani Carrington MD
--- NOTE | 2017-10-13 09:23 | CP.PCM.PN ---
Subjective - Date & Time of Evaluation Date of Evaluation: 10/13/17 Time of Evaluation: 09:25 - Subjective Subjective: UNDER HOSPICE CARE LETHARGIC Objective - Vital Signs/Intake and Output Vital Signs (last 24 hours): Temp Pulse Resp BP Pulse Ox 96.8 F L 69 20 123/56 L 99 10/12/17 23:51 10/13/17 08:07 10/13/17 08:07 10/13/17 08:07 10/13/17 08:07 - Medications Medications: Current Medications Acetaminophen (Tylenol 650 Mg Supp) 650 mg [place] Q6 PRN PRN Reason: Fever >100.4 F Hyoscyamine (Levsin) 0.125 mg SL Q4 PRN PRN Reason: GI distress Lorazepam (Ativan) 0.5 mg PO Q4 PRN PRN Reason: Anxiety Last Admin: 10/12/17 08:14 Dose: 0.5 mg Morphine Sulfate (Morphine) 2 mg IVP Q4 PRN PRN Reason: Restlessness Last Admin: 10/13/17 06:03 Dose: 2 mg - Constitutional Appears: Chronically Ill - Head Exam Head Exam: ATRAUMATIC, NORMAL INSPECTION, NORMOCEPHALIC - Eye Exam Eye Exam: EOMI, Normal appearance, PERRL Pupil Exam: NORMAL ACCOMODATION, PERRL - ENT Exam ENT Exam: Mucous Membranes Moist, Normal Exam - Neck Exam Neck Exam: Full ROM, Normal Inspection. absent: Lymphadenopathy - Respiratory Exam Respiratory Exam: Decreased Breath Sounds, Rales, Respiratory Distress - Cardiovascular Exam Cardiovascular Exam: Tachycardia, REGULAR RHYTHM, +S1, +S2. absent: Murmur - GI/Abdominal Exam GI & Abdominal Exam: Soft, Normal Bowel Sounds. absent: Tenderness - Rectal Exam Rectal Exam: NORMAL INSPECTION - Extremities Exam Extremities Exam: Full ROM, Normal Capillary Refill, Normal Inspection, Pedal Edema. absent: Joint Swelling - Back Exam Back Exam: NORMAL INSPECTION - Skin Skin Exam: Intact Assessment and Plan - Assessment and Plan (Free Text) Assessment: SEPSIS ESRD HTN COPD Plan: HOSPICE CARE
[2017-10-13] MEDS ORDERED: Petrolatum UD PAK TOP PRN (14:31)
[2017-10-13] MEDS ORDERED: Chlorhexidine Gluconate 1 APPL/PKT TP ONE (16:59)
--- NOTE | 2017-10-14 09:16 | CP.PCM.PN ---
Subjective - Date & Time of Evaluation Date of Evaluation: 10/14/17 Time of Evaluation: 09:16 - Subjective Subjective: no new findings lethargic under hospice care will continue comfort care Objective - Vital Signs/Intake and Output Vital Signs (last 24 hours): Temp Pulse Resp BP Pulse Ox 96.8 F L 36 L 18 113/44 L 98 10/12/17 23:51 10/14/17 08:24 10/14/17 08:24 10/14/17 08:24 10/14/17 08:24 - Medications Medications: Current Medications Acetaminophen (Tylenol 650 Mg Supp) 650 mg [place] Q6 PRN PRN Reason: Fever >100.4 F Emollient Ointment (Vaseline Oint) 1 pkt TOP Q4H PRN PRN Reason: Dry skin Hyoscyamine (Levsin) 0.125 mg SL Q4 PRN PRN Reason: GI distress Lorazepam (Ativan) 0.5 mg PO Q4 PRN PRN Reason: Anxiety Last Admin: 10/12/17 08:14 Dose: 0.5 mg Morphine Sulfate (Morphine) 2 mg IVP Q4 PRN PRN Reason: Restlessness Last Admin: 10/14/17 01:44 Dose: 2 mg
--- NOTE | 2017-10-15 15:50 | CP.PCM.PN ---
Subjective - Date & Time of Evaluation Date of Evaluation: 10/15/17 Time of Evaluation: 15:49 - Subjective Subjective: NO NEW FINDINGS UNDER HOSPICE CARE WILL CONTINUE SUPPORTIVE CARE PROGNOSIS IS POOR Objective - Vital Signs/Intake and Output Vital Signs (last 24 hours): Temp Pulse Resp BP Pulse Ox 97.4 F L 62 16 83/43 L 96 10/15/17 07:59 10/15/17 07:59 10/15/17 07:59 10/15/17 07:59 10/15/17 07:59 - Medications Medications: Current Medications Acetaminophen (Tylenol 650 Mg Supp) 650 mg [place] Q6 PRN PRN Reason: Fever >100.4 F Emollient Ointment (Vaseline Oint) 1 pkt TOP Q4H PRN PRN Reason: Dry skin Hyoscyamine (Levsin) 0.125 mg SL Q4 PRN PRN Reason: GI distress Last Admin: 10/14/17 13:04 Dose: 0.125 mg Lorazepam (Ativan) 1 mg IVP Q4 PRN PRN Reason: Anxiety Lorazepam (Ativan) 1 mg IVP Q6 ELI Morphine Sulfate (Morphine) 2 mg IVP Q2 PRN PRN Reason: Pain, severe (8-10) Morphine Sulfate (Morphine) 2 mg IVP Q4 ELI Last Admin: 10/15/17 14:04 Dose: 2 mg
--- NOTE | 2017-10-15 16:00 | CP.PCM.PRO ---
Pronouncement of Note - Clinical Findings Physical Exam: No Response Verbal/Painful Stimuli, Absent Peripheral Pulses{ Carotid & Femoral}, Absent Heart & Breath Sounds, No Pupillary Light Reflex, No Corneal Reflex, Pupils Fixed & Dilated, Absence of Vital Signs - Pronouncement Time Time of Pronouncement of : 15:53 - Notifications Pronouncement Notifications: Family Notified, Atending Notified Train Examiner Notified: No - Autopsy Autopsy Requested: No
[2017-10-15 18:10] VITALS: BP 0/0; PULSE 0; RESP 0; TEMP 0; O2SAT 0
--- NOTE | 2017-10-16 11:20 | CP.PCM.DIS ---
Provider - Provider Date of Admission: 10/11/17 15:35 Attending physician: Dani Carrington MD Primary care physician: Dani Carrington MD Time Spent in preparation of Discharge (in minutes): 30 Diagnosis - Discharge Diagnosis (1) Hospice care Status: Acute (2) Acute on chronic kidney failure Status: Acute (3) Anemia Status: Acute (4) COPD (chronic obstructive pulmonary disease) Status: Acute (5) Cellulitis Status: Acute (6) Coronary arteriosclerosis Status: Acute (7) Elevated troponin Status: Acute (8) Hyperlipidemia Status: Acute (9) Pre-syncope Status: Acute (10) Sepsis Status: Acute Hospital Course - Hospital Course Hospital Course: Discharge Exam - Head Exam Head Exam: ATRAUMATIC, NORMAL INSPECTION, NORMOCEPHALIC Discharge Plan - Follow Up Plan Condition: GOOD Disposition: WITH WITHOUT AUTOPSY Referrals: Dani Carrington MD [Primary Care Provider] -
== END 2017-10-15 18:21 | DRG 871 ==
LOC: H.TEL 15:35 → H.MEDSURG1 10-12 18:55 → H.TEL 10-12 20:29 → UNDODISIN 10-12 20:30 → H.MEDSURG1 10-12 21:26
PROVIDERS: ADMIT Internal Medicine Pulmonary Disease; ATTEND Internal Medicine Pulmonary Disease
DX: A41.9 Sepsis, unspecified organism (principal); N18.6 End stage renal disease; N17.9 Acute kidney failure, unspecified; I12.0 Hypertensive chronic kidney disease with stage 5 chronic kidney disease or end stage renal disease; Z51.5 Encounter for palliative care; I25.10 Atherosclerotic heart disease of native coronary artery without angina pectoris; J44.9 Chronic obstructive pulmonary disease, unspecified; E78.5 Hyperlipidemia, unspecified; D64.9 Anemia, unspecified; Z66 Do not resuscitate; I25.2 Old myocardial infarction; Z87.891 Personal history of nicotine dependence